=== PATIENT | female | born 1970 | race Caucasian/White ===

== ENCOUNTER 2017-10-04 10:46 | Observation (INO) | payer MEDICARE, MEDICAID ==
[~2017-10-04] VITALS: Ht 162.6 cm; Wt 107.0 kg
[~2017-10-04 10:46] MED LIST: ALBU18HF2 INH; ASPI-1264 PO; CARB200T PO; DOCU100C40 PO; LISI-600 PO; LORA0.5T PO; METH-603 PO
[2017-10-04] MEDS ORDERED: ipratropium/albuterol 3ml nebule NEB ONE (11:30)
[2017-10-04] MEDS ORDERED: morphine 4 MG/ML inj SYRINge IV ONE (11:30)
[2017-10-04] MEDS ORDERED: ondansetron 4mg rapidly disintigrating tab PO ONE (11:30)
[2017-10-04 12:02] LABS: BASOPHILS # (AUTO) 0.1 X10'3 (0-0.2); BASOPHILS % (AUTO) 0.9 % (0-1); EOSINOPHILS % (AUTO) 0.6 % (0-6); HEMATOCRIT 40.8 % (35.0-45.0); HEMOGLOBIN 13.7 g/dl (12.0-16.0); LYMPHOCYTES # (AUTO) 1.6 X10'3 (1.1-4.8); LYMPHOCYTES % (AUTO) 26.4 % (21-51); MEAN CORPUSCULAR HEMOGLOBIN 32.3 PG (27.0-31.0); MEAN CORPUSCULAR HGB CONC 33.6 % (33.0-36.5); MEAN CORPUSCULAR VOLUME 96.2 FL (78-98); MEAN PLATELET VOLUME 7.1 FL (7.4-10.4); MONOCYTES # (AUTO) 0.5 X10'3 (0-0.9); MONOCYTES % (AUTO) 8.1 % (2-12); NEUTROPHILS # (AUTO) 3.9 X10'3 (1.8-7.7); PLATELET COUNT 250 X10'3 (140-440); RED BLOOD COUNT 4.24 X10'6 (4.20-5.60); WHITE BLOOD COUNT 6.1 X10'3 (4.5-11.0)
[2017-10-04 12:17] LABS: ALANINE AMINOTRANSFERASE 15 U/L (12-78); ALBUMIN/GLOBULIN RATIO 0.9 (1.1-1.5); ALKALINE PHOSPHATASE 125 IU/L (46-116); ANION GAP 5 (8-16); ASPARTATE AMINO TRANSFERASE 20 U/L (10-37); BILIRUBIN,TOTAL 0.2 MG/DL (0.1-1.0); BLOOD UREA NITROGEN 13 MG/DL (7-18); BUN/CREATININE RATIO 15.5 (6.6-38.0); CALCIUM 8.3 MG/DL (8.5-10.1); CHLORIDE 102 MMOL/L (99-107); CREATININE 0.84 MG/DL (0.40-0.90); GLUCOSE 114 MG/DL (70-104); POTASSIUM 4.1 MMOL/L (3.5-5.1); SODIUM 142 MMOL/L (135-145); TOTAL CARBON DIOXIDE 34.7 MMOL/L (24-32); TOTAL PROTEIN 6.5 G/DL (6.4-8.2); eGFR 72 ML/MIN
[2017-10-04 12:19] LABS: PLATELET ESTIMATE NORMAL
[2017-10-04 12:20] LABS: ANISOCYTOSIS 1+; TARGET CELLS 1+
[2017-10-04] MEDS ORDERED: HYDROmorphone inj. 0.5 MG/0.5 ML DISP.SYRIN IV ONE (12:20)
[2017-10-04] MEDS ORDERED: iohexol 300mg/ml 100ml inj. ONE (13:01)
[2017-10-04] MEDS ORDERED: furosemide 10 MG/1 ML 10ml inj IV ONE (14:05)
[2017-10-04] MEDS: methadone 10mg tablet PO ONE ×2 (14:15→14:29)
[2017-10-04 14:30] LABS: ABG BASE EXCESS 6.4 mmol/L (-2.0-3.0); ABG HCO3 34.5 mmol/L (22.0-26.0); ABG OXYGEN SATURATION 90.5 % (95-98); ABG PCO2 (T) 66.4 mmHg (32.0-45.0); ABG PH (T) 7.334 (7.350-7.450); ABG PO2 (T) 60.4 mmHg (83-108); ALLEN'S TEST Positive; FCOHb 6.9 % (0.5-1.5); FLOW 3 L/min; FMetHb 0.3 % (0.3-1.12); TOTAL HEMOGLOBIN 13.7 G/dl (12.0-16.0)
[2017-10-04] MEDS ORDERED: normal saline 1000ml 1,000 ML IV SCH (16:01)
[2017-10-04] MEDS ORDERED: HYDROmorphone 1 mg/ml syringe IV PRN (16:05)
[2017-10-04] MEDS ORDERED: ondansetron/PF 4mg/2ml inj IV PRN (16:05)
[2017-10-04] MEDS ORDERED: magnesium hydroxide 30ml (MOM) UD suspension PO PRN (16:05)
[2017-10-04] MEDS ORDERED: mag hydrox/Alum hydrox/simeth 30ml oral suspension PO PRN (16:05)
[2017-10-04] MEDS ORDERED: CARB200T PO ×2 (18:24→18:40)
[2017-10-04] MEDS ORDERED: non-formulary drug (Carbamazepine (Tegretol) 1 TAB) PO PRN (18:35)
[2017-10-04] MEDS ORDERED: albuterol 2.5 MG/3 ML nebule NEB PRN (18:35)
[2017-10-04] MEDS ORDERED: non-formulary drug (Albuterol Sulfate (Ventolin Hfa) 2 PUFFS) INH SCH (18:35)
[2017-10-04] MEDS ORDERED: LORazepam 0.5 MG tablet PO PRN (18:35)
[2017-10-04 19:00] VITALS: BP 144/80
[2017-10-04] MEDS: HYDROmorphone inj. 0.5 MG/0.5 ML DISP.SYRIN IV PRN (19:21)
[2017-10-04] MEDS: docusate sod 100mg capsule PO SCH (19:52)
[2017-10-04] MEDS: methadone 10mg tablet PO SCH (19:53)
[2017-10-04] MEDS ORDERED: non-formulary drug (Carbamazepine (Tegretol) 1 TAB) PO SCH (22:00)
[2017-10-04] MEDS: carBAMazepine 100mg chewable tablet PO SCH (22:03)
[2017-10-05] VITALS: BP 139/80
[2017-10-05] MEDS: HYDROmorphone inj. 0.5 MG/0.5 ML DISP.SYRIN IV PRN ×3 (00:57→10:34)
[2017-10-05] MEDS: acetaminophen 325mg tablet PO PRN ×2 (03:22→07:02)
[2017-10-05 04:51] LABS: BASOPHILS % (AUTO) 0.4 % (0-1); EOSINOPHILS % (AUTO) 0 % (0-6); HEMATOCRIT 38.5 % (35.0-45.0); HEMOGLOBIN 13.2 g/dl (12.0-16.0); LYMPHOCYTES # (AUTO) 1.5 X10'3 (1.1-4.8); LYMPHOCYTES % (AUTO) 22.8 % (21-51); MEAN CORPUSCULAR HEMOGLOBIN 32.7 PG (27.0-31.0); MEAN CORPUSCULAR HGB CONC 34.2 % (33.0-36.5); MEAN CORPUSCULAR VOLUME 95.6 FL (78-98); MEAN PLATELET VOLUME 7.7 FL (7.4-10.4); MONOCYTES # (AUTO) 0.5 X10'3 (0-0.9); MONOCYTES % (AUTO) 7.9 % (2-12); NEUTROPHILS # (AUTO) 4.5 X10'3 (1.8-7.7); NEUTROPHILS % (AUTO) 68.9 % (42-75); PLATELET COUNT 216 X10'3 (140-440); RED BLOOD COUNT 4.02 X10'6 (4.20-5.60); RED CELL DISTRIBUTION WIDTH 16.2 % (11.5-14.5); WHITE BLOOD COUNT 6.6 X10'3 (4.5-11.0)
[2017-10-05 05:24] LABS: ALBUMIN 2.9 G/DL (3.4-5.0); ANION GAP 7 (8-16); BLOOD UREA NITROGEN 11 MG/DL (7-18); BUN/CREATININE RATIO 15.5 (6.6-38.0); CALCIUM 8.1 MG/DL (8.5-10.1); CHLORIDE 99 MMOL/L (99-107); CREATININE 0.71 MG/DL (0.40-0.90); GLUCOSE 91 MG/DL (70-104); POTASSIUM 3.6 MMOL/L (3.5-5.1); SODIUM 142 MMOL/L (135-145); TOTAL CARBON DIOXIDE 36.3 MMOL/L (24-32); eGFR 88 ML/MIN
[2017-10-05] MEDS: carBAMazepine 100mg chewable tablet PO SCH ×2 (05:58→10:33)
[2017-10-05 07:00] VITALS: BP 147/77
[2017-10-05] MEDS: methadone 10mg tablet PO SCH (07:02)
[2017-10-05] MEDS: docusate sod 100mg capsule PO SCH (07:03)
[2017-10-05 11:18] VITALS: BP 136/96
== END 2017-10-05 15:33 | disposition home or self-care (01) ==
LOC: ER 10:46 → ED HOLD 16:01 → SUR 3N 18:49
PROVIDERS: ADMIT Family Medicine; ATTEND Family Medicine
DX: S30.1XXA Contusion of abdominal wall, initial encounter (principal); F17.210 Nicotine dependence, cigarettes, uncomplicated; F41.9 Anxiety disorder, unspecified; G89.4 Chronic pain syndrome; I11.0 Hypertensive heart disease with heart failure; I50.9 Heart failure, unspecified; I25.10 Atherosclerotic heart disease of native coronary artery without angina pectoris; I25.2 Old myocardial infarction; J44.9 Chronic obstructive pulmonary disease, unspecified; K42.9 Umbilical hernia without obstruction or gangrene; W18.30XA Fall on same level, unspecified, initial encounter; Y93.89 Activity, other specified; Y92.098 Other place in other non-institutional residence as the place of occurrence of the external cause; Y99.8 Other external cause status; Z90.710 Acquired absence of both cervix and uterus
CPT/HCPCS: 36415; 36600; 71045; 73502; 74177; 80048; 80053; 82803; 83880; 85018; 85025; 85610; 87070; 93005; 94640; 94760; 96361; 96374; 96375; 96376; 97162; 97530; 99285; G0378; J1170; J1940; J7030; Q9967

== ENCOUNTER 2017-10-20 00:37 | Inpatient (IN) | payer MEDICARE, MEDICAID ==
[~2017-10-20] VITALS: Ht 165.1 cm; Wt 102.0 kg
[~2017-10-20 00:37] MED LIST changes: -ASPI-1264 PO; -LISI-600 PO
[2017-10-20] MEDS ORDERED: albuterol 2.5 MG/3 ML nebule CONTNEB PRN (00:45)
[2017-10-20] MEDS ORDERED: methylPREDNISolone sod succ 125mg/2ml vial IV ONE (00:45)
[2017-10-20] MEDS ORDERED: morphine 4 MG/ML inj SYRINge IV ONE (00:50)
[2017-10-20] MEDS ORDERED: ondansetron/PF 4mg/2ml inj IV ONE (00:50)
[2017-10-20] MEDS ORDERED: magnesium 2GM in 50ml NS 50 ML IV ONE (00:50)
[2017-10-20] MEDS ORDERED: iohexol 300mg/ml 100ml inj. ONE (01:20)
[2017-10-20 01:31] LABS: BASOPHILS % (AUTO) 0.5 % (0-1); EOSINOPHILS % (AUTO) 0 % (0-6); HEMATOCRIT 42.2 % (35.0-45.0); HEMOGLOBIN 14.1 g/dl (12.0-16.0); LYMPHOCYTES # (AUTO) 1.8 X10'3 (1.1-4.8); LYMPHOCYTES % (AUTO) 21.9 % (21-51); MEAN CORPUSCULAR HEMOGLOBIN 32.1 PG (27.0-31.0); MEAN CORPUSCULAR HGB CONC 33.3 % (33.0-36.5); MEAN CORPUSCULAR VOLUME 96.3 FL (78-98); MEAN PLATELET VOLUME 7.9 FL (7.4-10.4); MONOCYTES # (AUTO) 0.5 X10'3 (0-0.9); MONOCYTES % (AUTO) 6.4 % (2-12); NEUTROPHILS # (AUTO) 5.9 X10'3 (1.8-7.7); NEUTROPHILS % (AUTO) 71.2 % (42-75); PLATELET COUNT 242 X10'3 (140-440); RED BLOOD COUNT 4.38 X10'6 (4.20-5.60); RED CELL DISTRIBUTION WIDTH 15.4 % (11.5-14.5); WHITE BLOOD COUNT 8.2 X10'3 (4.5-11.0)
[2017-10-20 01:45] LABS: ALANINE AMINOTRANSFERASE 21 U/L (12-78); ALBUMIN 3.1 G/DL (3.4-5.0); ALBUMIN/GLOBULIN RATIO 0.8 (1.1-1.5); ALKALINE PHOSPHATASE 128 IU/L (46-116); ANION GAP 5 (8-16); ASPARTATE AMINO TRANSFERASE 20 U/L (10-37); BILIRUBIN,TOTAL 0.4 MG/DL (0.1-1.0); BLOOD UREA NITROGEN 9 MG/DL (7-18); CALCIUM 8.5 MG/DL (8.5-10.1); CHLORIDE 98 MMOL/L (99-107); GLUCOSE 109 MG/DL (70-104); MAGNESIUM 1.7 MG/DL (1.5-2.4); PHOSPHORUS 3.7 MG/DL (2.3-4.5); POTASSIUM 4.1 MMOL/L (3.5-5.1); SODIUM 137 MMOL/L (135-145); TOTAL CARBON DIOXIDE 33.7 MMOL/L (24-32); TOTAL PROTEIN 6.8 G/DL (6.4-8.2); eGFR > 90 ML/MIN
[2017-10-20 02:01] LABS: URINE HCG NEGATIVE (NEG)
[2017-10-20 02:02] LABS: CLARITY,URINE CLEAR (Clear); COLOR,URINE YELLOW (Yellow); GLUCOSE, URINE NEGATIVE (Neg); KETONES,URINE NEGATIVE (Neg); LEUKOCYTE ESTERASE ,URINE NEGATIVE (Neg); NITRITES, URINE NEGATIVE (Neg); OCCULT BLOOD,URINE TRACE-INTACT (Neg); PH,URINE 8.5 (4.8-8.0); PROTEIN,URINE NEGATIVE (Neg); UROBILINOGEN,URINE 0.2 E.U/dL (0.2-1.0)
[2017-10-20 02:05] LABS: UA COLLECTION TYPE CLN CATCH MIDSTREAM
[2017-10-20 02:06] LABS: SQUAMOUS EPITHELIAL CELL,UR FEW /LPF (FEW)
[2017-10-20 02:07] LABS: BACTERIA,URINE FEW /HPF (Neg); RBC,URINE 0-2 /HPF (0-2); WBC,URINE 0-4 /HPF (0-4)
[2017-10-20] MEDS ORDERED: acetaminophen 325mg tablet PO PRN ×2 (02:20)
[2017-10-20] MEDS ORDERED: metoclopramide 5 mg/ml inj IV PRN (02:20)
[2017-10-20] MEDS ORDERED: diphenhydrAMINE 25mg capsule PO PRN (02:20)
[2017-10-20] MEDS ORDERED: mag hydrox/Alum hydrox/simeth 30ml oral suspension PO PRN (02:20)
[2017-10-20] MEDS ORDERED: HYDROcodone/acetaminophen 10/325mg tab PO PRN (02:20)
[2017-10-20] MEDS ORDERED: acetaminophen 650mg rectal suppository RC PRN (02:20)
[2017-10-20] MEDS ORDERED: bisacodyl 10mg suppository rectal RC PRN (02:20)
[2017-10-20] MEDS ORDERED: ondansetron/PF 4mg/2ml inj IV PRN (02:20)
[2017-10-20] MEDS ORDERED: magnesium hydroxide 30ml (MOM) UD suspension PO PRN (02:20)
[2017-10-20] MEDS ORDERED: HYDROcodone/acetaminophen 5mg/325mg tablet PO PRN (02:20)
[2017-10-20] MEDS ORDERED: morphine 2 MG/ML inj. syringe IV PRN (02:20)
[2017-10-20] MEDS ORDERED: diphenhydrAMINE 50 mg/ml inj IV PRN (02:20)
[2017-10-20] MEDS ORDERED: cloNIDine 0.1 mg tablet PO STA (02:40)
[2017-10-20] MEDS: HYDROmorphone inj. 0.5 MG/0.5 ML DISP.SYRIN IV PRN ×3 (02:58→22:15)
[2017-10-20 02:59] LABS: URINE AMPHETAMINE SCREEN NEGATIVE (Neg); URINE BARBITUATE SCREEN NEGATIVE (Neg); URINE BENZODIAZEPINES SCREEN NEGATIVE (Neg); URINE CANNABINOID SCREEN NEGATIVE (Neg); URINE COCAINE SCREEN NEGATIVE (Neg); URINE METHADONE SCREEN NEGATIVE (Neg); URINE OPIATE SCREEN POSITIVE (Neg); URINE PHENCYCLIDINE SCREEN NEGATIVE (Neg)
[2017-10-20 04:51] LABS: HEMOGLOBIN A1C 5.8 % (4.5-6.2)
[2017-10-20 05:02] LABS: CARBAMAZEPINE (TEGRETOL) 9.8 UG/ML (4.0-12.0)
[2017-10-20] MEDS: carBAMazepine 100mg chewable tablet PO SCH ×5 (07:06→22:00)
[2017-10-20] MEDS ORDERED: methadone 10mg tablet PO SCH (08:00)
[2017-10-20] MEDS ORDERED: docusate sod 100mg capsule PO SCH (08:00)
[2017-10-20] MEDS ORDERED: furosemide 10 MG/1 ML 10ml inj IV SCH (08:00)
[2017-10-20] MEDS ORDERED: cloNIDine 0.1 mg tablet PO SCH (08:00)
[2017-10-20] MEDS: docusate sod 100mg capsule PO SCH ×2 (08:22→20:35)
[2017-10-20] MEDS: LORazepam 0.5 MG tablet PO SCH ×2 (08:25→20:35)
[2017-10-20] MEDS: heparin, porcine 5000 units/ml vial SQ SCH ×3 (08:35→23:44)
[2017-10-20] MEDS: levoFLOXACIN 750MG TABLET PO SCH (11:37)
[2017-10-20] MEDS ORDERED: METH-603 PO ×2 (11:41)
[2017-10-20 12:00] VITALS: BP 106/57
[2017-10-20] MEDS: methadone 5mg tablet PO SCH ×2 (12:45→17:30)
[2017-10-20] MEDS: albuterol 2.5 MG/3 ML nebule NEB PRN (13:42)
[2017-10-20] MEDS: nicotine 14mg patch - 24hr TD SCH (14:28)
[2017-10-20 14:34] VITALS: BP 98/60
[2017-10-20] MEDS: methylPREDNISolone sod succ 125mg/2ml vial IV SCH ×2 (16:21→23:43)
[2017-10-20] MEDS: lactobacillus rhamnosus 10,000 MMU CELLS/CAPSULE PO SCH (17:28)
[2017-10-20 17:40] VITALS: BP 128/75
[2017-10-20 19:00] VITALS: BP 113/71
[2017-10-20] MEDS: furosemide 40mg/4ml inj IV SCH (20:35)
[2017-10-20] MEDS: methadone 10mg tablet PO SCH (20:38)
[2017-10-20] MEDS ORDERED: temazepam 15mg capsule PO PRN (21:00)
[2017-10-21] VITALS: BP 108/64
[2017-10-21] MEDS: HYDROmorphone inj. 0.5 MG/0.5 ML DISP.SYRIN IV PRN ×4 (03:37→19:54)
[2017-10-21 05:22] LABS: BASOPHILS % (AUTO) 0.3 % (0-1); EOSINOPHILS % (AUTO) 0 % (0-6); HEMATOCRIT 39.4 % (35.0-45.0); HEMOGLOBIN 13.3 g/dl (12.0-16.0); LYMPHOCYTES # (AUTO) 0.7 X10'3 (1.1-4.8); LYMPHOCYTES % (AUTO) 9.4 % (21-51); MEAN CORPUSCULAR HEMOGLOBIN 32.6 PG (27.0-31.0); MEAN CORPUSCULAR HGB CONC 33.8 % (33.0-36.5); MEAN CORPUSCULAR VOLUME 96.6 FL (78-98); MEAN PLATELET VOLUME 7.9 FL (7.4-10.4); MONOCYTES # (AUTO) 0.2 X10'3 (0-0.9); MONOCYTES % (AUTO) 2.5 % (2-12); NEUTROPHILS # (AUTO) 6.3 X10'3 (1.8-7.7); NEUTROPHILS % (AUTO) 87.8 % (42-75); PLATELET COUNT 230 X10'3 (140-440); RED BLOOD COUNT 4.08 X10'6 (4.20-5.60); RED CELL DISTRIBUTION WIDTH 16.5 % (11.5-14.5); WHITE BLOOD COUNT 7.2 X10'3 (4.5-11.0)
[2017-10-21 05:33] LABS: ALANINE AMINOTRANSFERASE 19 U/L (12-78); ALBUMIN 3.1 G/DL (3.4-5.0); ALBUMIN/GLOBULIN RATIO 0.8 (1.1-1.5); ALKALINE PHOSPHATASE 118 IU/L (46-116); ANION GAP 4 (8-16); ASPARTATE AMINO TRANSFERASE 16 U/L (10-37); BILIRUBIN,TOTAL 0.2 MG/DL (0.1-1.0); BLOOD UREA NITROGEN 20 MG/DL (7-18); BUN/CREATININE RATIO 30.8 (6.6-38.0); CALCIUM 8.5 MG/DL (8.5-10.1); CHLORIDE 97 MMOL/L (99-107); CHOL/HDL RATIO 2.5 (0.00-4.99); CHOLESTEROL 154 MG/DL (0-200); CREATININE 0.65 MG/DL (0.40-0.90); GLUCOSE 131 MG/DL (70-104); HDL CHOLESTEROL 62 MG/DL (35-60); LDL CHOLESTEROL 72 MG/DL (50-100); SODIUM 135 MMOL/L (135-145); TOTAL CARBON DIOXIDE 33.6 MMOL/L (24-32); TOTAL PROTEIN 6.8 G/DL (6.4-8.2); TRIGLYCERIDES 59 MG/DL (20-135); eGFR > 90 ML/MIN
[2017-10-21 05:38] LABS: POTASSIUM 4.6 MMOL/L (3.5-5.1)
[2017-10-21] MEDS: carBAMazepine 100mg chewable tablet PO SCH ×5 (05:39→21:18)
[2017-10-21 07:44] VITALS: BP 115/64
[2017-10-21] MEDS: furosemide 40mg/4ml inj IV SCH ×2 (07:56→20:02)
[2017-10-21] MEDS: methylPREDNISolone sod succ 125mg/2ml vial IV SCH ×2 (07:56→16:34)
[2017-10-21] MEDS: LORazepam 0.5 MG tablet PO SCH ×2 (07:58→19:54)
[2017-10-21] MEDS: lactobacillus rhamnosus 10,000 MMU CELLS/CAPSULE PO SCH ×2 (07:58→17:37)
[2017-10-21] MEDS: methadone 10mg tablet PO SCH ×2 (07:59→21:19)
[2017-10-21] MEDS: heparin, porcine 5000 units/ml vial SQ SCH ×2 (08:00→16:35)
[2017-10-21] MEDS: nicotine 14mg patch - 24hr TD SCH (08:00)
[2017-10-21] MEDS: docusate sod 100mg capsule PO SCH ×2 (08:02→19:54)
[2017-10-21] MEDS: albuterol 2.5 MG/3 ML nebule NEB PRN (11:23)
[2017-10-21] MEDS: levoFLOXACIN 750MG TABLET PO SCH (11:32)
[2017-10-21 12:34] VITALS: BP 117/78
[2017-10-21] MEDS: methadone 5mg tablet PO SCH ×2 (13:07→17:38)
[2017-10-21] MEDS: predniSONE 20 mg tablet PO SCH (19:54)
[2017-10-21 20:00] VITALS: BP 185/113
[2017-10-21 20:40] VITALS: BP 134/84
[2017-10-21] MEDS: clindamycin 600mg/D5W 50ml 50 ML IV SCH (21:44)
[2017-10-22] VITALS: BP 148/85
[2017-10-22] MEDS: heparin, porcine 5000 units/ml vial SQ SCH ×2 (00:07→08:04)
[2017-10-22] MEDS: morphine 2 MG/ML inj. syringe IV PRN ×2 (04:49→08:14)
[2017-10-22 05:28] LABS: BASOPHILS % (AUTO) 0.2 % (0-1); EOSINOPHILS # (AUTO) 0.1 X10'3 (0-0.9); EOSINOPHILS % (AUTO) 1.3 % (0-6); HEMATOCRIT 41.3 % (35.0-45.0); HEMOGLOBIN 14.1 g/dl (12.0-16.0); LYMPHOCYTES # (AUTO) 1.3 X10'3 (1.1-4.8); LYMPHOCYTES % (AUTO) 15.6 % (21-51); MEAN CORPUSCULAR HEMOGLOBIN 32.9 PG (27.0-31.0); MEAN CORPUSCULAR HGB CONC 34.1 % (33.0-36.5); MEAN CORPUSCULAR VOLUME 96.5 FL (78-98); MEAN PLATELET VOLUME 7.6 FL (7.4-10.4); MONOCYTES # (AUTO) 0.5 X10'3 (0-0.9); MONOCYTES % (AUTO) 6.4 % (2-12); NEUTROPHILS # (AUTO) 6.4 X10'3 (1.8-7.7); NEUTROPHILS % (AUTO) 76.5 % (42-75); PLATELET COUNT 238 X10'3 (140-440); RED BLOOD COUNT 4.28 X10'6 (4.20-5.60); RED CELL DISTRIBUTION WIDTH 16.4 % (11.5-14.5); WHITE BLOOD COUNT 8.4 X10'3 (4.5-11.0)
[2017-10-22 05:36] LABS: ALANINE AMINOTRANSFERASE 11 U/L (12-78); ALBUMIN 2.9 G/DL (3.4-5.0); ALBUMIN/GLOBULIN RATIO 0.8 (1.1-1.5); ALKALINE PHOSPHATASE 108 IU/L (46-116); ANION GAP 3 (8-16); ASPARTATE AMINO TRANSFERASE 11 U/L (10-37); BILIRUBIN,TOTAL 0.3 MG/DL (0.1-1.0); BLOOD UREA NITROGEN 25 MG/DL (7-18); BUN/CREATININE RATIO 37.9 (6.6-38.0); CALCIUM 8.7 MG/DL (8.5-10.1); CHLORIDE 96 MMOL/L (99-107); CREATININE 0.66 MG/DL (0.40-0.90); GLUCOSE 117 MG/DL (70-104); POTASSIUM 4.2 MMOL/L (3.5-5.1); SODIUM 136 MMOL/L (135-145); TOTAL CARBON DIOXIDE 37.3 MMOL/L (24-32); TOTAL PROTEIN 6.6 G/DL (6.4-8.2); eGFR > 90 ML/MIN
[2017-10-22] MEDS: carBAMazepine 100mg chewable tablet PO SCH ×3 (06:45→14:27)
[2017-10-22 07:24] VITALS: BP 93/46
[2017-10-22] MEDS: furosemide 40mg/4ml inj IV SCH (07:56)
[2017-10-22] MEDS: clindamycin 600mg/D5W 50ml 50 ML IV SCH ×2 (08:00→12:53)
[2017-10-22] MEDS: lactobacillus rhamnosus 10,000 MMU CELLS/CAPSULE PO SCH (08:02)
[2017-10-22] MEDS: methadone 10mg tablet PO SCH (08:02)
[2017-10-22] MEDS: docusate sod 100mg capsule PO SCH (08:02)
[2017-10-22] MEDS: LORazepam 0.5 MG tablet PO SCH (08:02)
[2017-10-22] MEDS: predniSONE 20 mg tablet PO SCH (08:03)
[2017-10-22] MEDS: nicotine 14mg patch - 24hr TD SCH (08:04)
[2017-10-22] MEDS: levoFLOXACIN 750MG TABLET PO SCH (11:14)
[2017-10-22 11:54] VITALS: BP 126/84
[2017-10-22] MEDS ORDERED: LEVO750T46 PO (12:04)
[2017-10-22] MEDS ORDERED: PRED20TA PO (12:04)
[2017-10-22] MEDS: methadone 5mg tablet PO SCH (12:53)
== END 2017-10-22 14:36 | disposition home or self-care (01) | DRG 190 ==
LOC: ER 00:38 → ED HOLD 02:19 → S STAY 12:32 → SUR 3N 17:08
PROVIDERS: ADMIT Family Medicine; ATTEND Family Medicine
PROC: BW211ZZ Computerized Tomography (CT Scan) of Abdomen and Pelvis using Low Osmolar Contrast (ICD-10-PCS; principal; 2017-10-20)
DX: J44.1 Chronic obstructive pulmonary disease with (acute) exacerbation (principal); I50.33 Acute on chronic diastolic (congestive) heart failure; I16.1 Hypertensive emergency; J44.0 Chronic obstructive pulmonary disease with (acute) lower respiratory infection; I11.0 Hypertensive heart disease with heart failure; G89.4 Chronic pain syndrome; I08.0 Rheumatic disorders of both mitral and aortic valves; I25.10 Atherosclerotic heart disease of native coronary artery without angina pectoris; J20.9 Acute bronchitis, unspecified; R19.00 Intra-abdominal and pelvic swelling, mass and lump, unspecified site; K42.9 Umbilical hernia without obstruction or gangrene; R09.02 Hypoxemia; F17.200 Nicotine dependence, unspecified, uncomplicated; I25.2 Old myocardial infarction; Z95.5 Presence of coronary angioplasty implant and graft; Z99.81 Dependence on supplemental oxygen; Z79.899 Other long term (current) drug therapy; Z82.49 Family history of ischemic heart disease and other diseases of the circulatory system
CPT/HCPCS: 36415; 71045; 73030; 73060; 74177; 80053; 80061; 80156; 80305; 81001; 81025; 83036; 83605; 83735; 83880; 84100; 84443; 84484; 85025; 87040; 87070; 87077; 87186; 87502; 87503; 93005; 94640; 94760; 96365; 96375; 97116; 97162; 97530; 99291; J1170; J1644; J1940; J2270; J2405; J2930; J3475; J3490; J7030; J7512; Q9967

== ENCOUNTER 2018-02-28 00:02 | Inpatient (IN) | payer MEDICARE, MEDICAID ==
[~2018-02-28] VITALS: Ht 172.7 cm; Wt 87.3 kg
[2018-02-28] VITALS (25 sets, daily range): BP systolic 127–190; BP diastolic 77–113
[~2018-02-28 00:02] MED LIST changes: +LEVO750T46 PO; +PRED20TA PO
[2018-02-28] MEDS ORDERED: rocuronium 10mg/ml inj IV ONE ×2 (00:20→08:00)
[2018-02-28] MEDS ORDERED: etomidate 2mg/ml inj. IV ONE (00:20)
[2018-02-28] MEDS ORDERED: MIDAZolam 5mg/ml 2ml vial IV ONE ×2 (00:30→00:35)
[2018-02-28] MEDS ORDERED: midazolam 100mg in NS 100ml 100 ML IV PRN (00:30)
[2018-02-28] MEDS ORDERED: normal saline 1000ML IV soln IVB ONE ×2 (00:30→01:55)
[2018-02-28 00:46] LABS: ABG BASE EXCESS 2.5 mmol/L (-2.0-3.0); ABG HCO3 30.1 mmol/L (22.0-26.0); ABG OXYGEN SATURATION 97.4 % (95-98); ABG PCO2 (T) 56.8 mmHg (32.0-45.0); ABG PH (T) 7.338 (7.350-7.450); ABG PO2 (T) 92.9 mmHg (83-108); ALLEN'S TEST Positive; FCOHb 6.1 % (0.5-1.5); FMetHb 0.3 % (0.3-1.12); FO2Hb 91.2 % (94-100); MINUTE VOLUME 10 L/min; PATIENT TEMPERATURE 36.2; PEEP 5 cm H2O; RESPIRATORY RATE 18 b/min; RESPIRATORY RATE (OBSERVED) 18 b/min; TIDAL VOLUME 550 mL; TOTAL HEMOGLOBIN 15.4 G/dl (12.0-16.0)
[2018-02-28 02:12] LABS: BASOPHILS % (AUTO) 0.1 % (0-1); EOSINOPHILS # (AUTO) 0.1 X10'3 (0-0.9); EOSINOPHILS % (AUTO) 0.6 % (0-6); HEMATOCRIT 43.7 % (35.0-45.0); HEMOGLOBIN 13.9 g/dl (12.0-16.0); LYMPHOCYTES # (AUTO) 0.7 X10'3 (1.1-4.8); LYMPHOCYTES % (AUTO) 4.9 % (21-51); MEAN CORPUSCULAR HEMOGLOBIN 29.8 PG (27.0-31.0); MEAN CORPUSCULAR HGB CONC 31.7 % (33.0-36.5); MEAN PLATELET VOLUME 7.9 FL (7.4-10.4); MONOCYTES # (AUTO) 0.8 X10'3 (0-0.9); MONOCYTES % (AUTO) 6.1 % (2-12); NEUTROPHILS % (AUTO) 88.3 % (42-75); PLATELET COUNT 197 X10'3 (140-440); RED BLOOD COUNT 4.65 X10'6 (4.20-5.60); RED CELL DISTRIBUTION WIDTH 16.2 % (11.5-14.5); WHITE BLOOD COUNT 13.5 X10'3 (4.5-11.0)
[2018-02-28 02:19] LABS: INR 1.2 INR; PARTIAL THROMBOPLASTIN TIME 25 SECONDS (22-32); PROTHROMBIN TIME 11.9 SECONDS (9.0-12.0)
[2018-02-28 02:21] LABS: URINE AMPHETAMINE SCREEN NEGATIVE (Neg); URINE BARBITUATE SCREEN NEGATIVE (Neg); URINE BENZODIAZEPINES SCREEN POSITIVE (Neg); URINE CANNABINOID SCREEN NEGATIVE (Neg); URINE COCAINE SCREEN NEGATIVE (Neg); URINE METHADONE SCREEN POSITIVE (Neg); URINE OPIATE SCREEN NEGATIVE (Neg); URINE PHENCYCLIDINE SCREEN NEGATIVE (Neg)
[2018-02-28 02:27] LABS: ALANINE AMINOTRANSFERASE 28 U/L (12-78); ALBUMIN/GLOBULIN RATIO 0.8 (1.1-1.5); ALKALINE PHOSPHATASE 157 IU/L (46-116); ANION GAP 2 (8-16); ASPARTATE AMINO TRANSFERASE 57 U/L (10-37); BILIRUBIN,TOTAL 0.5 MG/DL (0.1-1.0); BLOOD UREA NITROGEN 15 MG/DL (7-18); BUN/CREATININE RATIO 14.4 (6.6-38.0); CALCIUM 7.8 MG/DL (8.5-10.1); CHLORIDE 99 MMOL/L (99-107); CREATININE 1.04 MG/DL (0.40-0.90); GLUCOSE 70 MG/DL (70-104); POTASSIUM 3.3 MMOL/L (3.5-5.1); SODIUM 135 MMOL/L (135-145); TOTAL CARBON DIOXIDE 34.4 MMOL/L (24-32); TOTAL PROTEIN 6.9 G/DL (6.4-8.2); eGFR 57 ML/MIN
[2018-02-28 02:35] LABS: CREATINE KINASE 168 U/L (26-192); MAGNESIUM 1.8 MG/DL (1.5-2.4); PHOSPHORUS 4.7 MG/DL (2.3-4.5)
[2018-02-28 02:40] LABS: ACETAMINOPHEN < 2.0 UG/ML (10-30); ETHANOL < 0.010 GM/DL (0.0-0.010)
[2018-02-28] MEDS ORDERED: potass W/LIDOcaine 10mEq/100ml 100 ML IV ONE (02:40)
[2018-02-28] MEDS ORDERED: potassium Cl 40MEQ/NS 500ml 500 ML IV PRN ×2 (03:20)
[2018-02-28] MEDS ORDERED: CefTRIAXone/D5W-Rocephin 1gm 50 ML IV ONE (03:20)
[2018-02-28] MEDS ORDERED: ondansetron/PF 4mg/2ml inj IV PRN (03:20)
[2018-02-28] MEDS ORDERED: acetaminophen 650mg rectal suppository RC PRN (03:20)
[2018-02-28] MEDS ORDERED: potassium Cl 20 mEq SR tablet PO PRN ×2 (03:20)
[2018-02-28] MEDS ORDERED: acetaminophen 325mg tablet PO PRN (03:20)
[2018-02-28] MEDS ORDERED: ipratropium/albuterol 3ml nebule NEB PRN (03:20)
[2018-02-28] MEDS ORDERED: morphine 4 MG/ML inj SYRINge IV PRN (03:20)
[2018-02-28] MEDS ORDERED: magnesium hydroxide 30ml (MOM) UD suspension PO PRN (03:20)
[2018-02-28] MEDS: K, MAG and/or Phos replacement - Verify level? MC SCH ×2 (04:00→08:00)
[2018-02-28 04:10] LABS: ANISOCYTOSIS 1+; PLATELET ESTIMATE NORMAL; TOTAL CELLS COUNTED 100
[2018-02-28 04:11] LABS: TARGET CELLS FEW
[2018-02-28] MEDS ORDERED: propofol 1000mg/100ml bottle 100 ML IV ONE (04:21)
[2018-02-28] MEDS: levoFLOXACIN-Levaquin 750MG/D5 150 ML IV SCH (07:20)
[2018-02-28] MEDS: normal saline 1000ml 1,000 ML IV SCH ×2 (07:20→16:39)
[2018-02-28] MEDS: propofol 1000mg/100ml bottle 100 ML IV PRN ×3 (07:21→22:48)
[2018-02-28] MEDS: midazolam 100mg in NS 100ml 100 ML IV PRN ×2 (07:22→15:35)
[2018-02-28] MEDS: enoxaparin 40mg/0.4ml syringe SUBCUT SCH (07:22)
[2018-02-28] MEDS: pantoprazole 40 MG vial IV SCH (08:00)
[2018-02-28] MEDS ORDERED: etomidate 2mg/ml inj. ONE ×2 (08:00→14:00)
[2018-02-28] MEDS ORDERED: CefTRIAXone 2gm/D5W 50ml 50 ML IV SCH (08:00)
[2018-02-28] MEDS ORDERED: GABA-530 PO (12:53)
[2018-02-28] MEDS ORDERED: POTA20TA19 PO (12:53)
[2018-02-28] MEDS ORDERED: ASPI-845 PO (12:53)
[2018-02-28] MEDS ORDERED: NICO-687 TOP (12:53)
[2018-02-28] MEDS ORDERED: FURO40TA4 PO (12:53)
[2018-02-28] MEDS ORDERED: METO-395 PO (12:53)
[2018-02-28] MEDS ORDERED: METH-603 PO ×2 (12:53)
[2018-02-28] MEDS ORDERED: SIMV40TA4 PO (12:53)
[2018-02-28] MEDS: morphine 4 MG/ML inj SYRINge IV PRN (15:36)
[2018-02-28] MEDS: ipratropium/albuterol 3ml nebule NEB SCH ×3 (16:11→22:41)
[2018-03-01] VITALS (24 sets, daily range): BP systolic 91–186; BP diastolic 50–109
[2018-03-01] MEDS: morphine 4 MG/ML inj SYRINge IV PRN ×2 (00:30→07:11)
[2018-03-01] MEDS ORDERED: midazolam 100mg in NS 100ml 100 ML IV PRN (00:30)
[2018-03-01] MEDS: ipratropium/albuterol 3ml nebule NEB SCH ×6 (02:29→22:31)
[2018-03-01] MEDS: propofol 1000mg/100ml bottle 100 ML IV PRN ×5 (02:31→20:10)
[2018-03-01] MEDS: midazolam 100mg in NS 100ml 100 ML IV PRN (03:26)
[2018-03-01 04:06] LABS: ABG BASE EXCESS 4.5 mmol/L (-2.0-3.0); ABG HCO3 28.4 mmol/L (22.0-26.0); ABG OXYGEN SATURATION 90.2 % (95-98); ABG PCO2 (T) 40.3 mmHg (32.0-45.0); ABG PH (T) 7.467 (7.350-7.450); ABG PO2 (T) 58.4 mmHg (83-108); FCOHb 0.8 % (0.5-1.5); FMetHb 0.3 % (0.3-1.12); FO2Hb 89.2 % (94-100); MINUTE VOLUME 11 L/min; PATIENT TEMPERATURE 37.3; PEEP 5 cm H2O; RESPIRATORY RATE 20 b/min; RESPIRATORY RATE (OBSERVED) 20 b/min; TIDAL VOLUME 550 mL; TOTAL HEMOGLOBIN 13.9 G/dl (12.0-16.0)
[2018-03-01] MEDS: normal saline 1000ml 1,000 ML IV SCH (05:59)
[2018-03-01 06:24] LABS: BASOPHILS % (AUTO) 0.3 % (0-1); EOSINOPHILS % (AUTO) 0 % (0-6); HEMATOCRIT 40.6 % (35.0-45.0); HEMOGLOBIN 13.3 g/dl (12.0-16.0); LYMPHOCYTES # (AUTO) 0.9 X10'3 (1.1-4.8); LYMPHOCYTES % (AUTO) 8.9 % (21-51); MEAN CORPUSCULAR HEMOGLOBIN 29.6 PG (27.0-31.0); MEAN CORPUSCULAR HGB CONC 32.8 % (33.0-36.5); MEAN CORPUSCULAR VOLUME 90.4 FL (78-98); MONOCYTES # (AUTO) 0.9 X10'3 (0-0.9); MONOCYTES % (AUTO) 8.7 % (2-12); NEUTROPHILS # (AUTO) 8.6 X10'3 (1.8-7.7); NEUTROPHILS % (AUTO) 82.1 % (42-75); PLATELET COUNT 170 X10'3 (140-440); RED BLOOD COUNT 4.49 X10'6 (4.20-5.60); RED CELL DISTRIBUTION WIDTH 16.4 % (11.5-14.5); WHITE BLOOD COUNT 10.5 X10'3 (4.5-11.0)
[2018-03-01 07:04] LABS: ALANINE AMINOTRANSFERASE 35 U/L (12-78); ALBUMIN 2.3 G/DL (3.4-5.0); ALBUMIN/GLOBULIN RATIO 0.7 (1.1-1.5); ALKALINE PHOSPHATASE 113 IU/L (46-116); ANION GAP 8 (8-16); ASPARTATE AMINO TRANSFERASE 49 U/L (10-37); BILIRUBIN,TOTAL 0.7 MG/DL (0.1-1.0); BLOOD UREA NITROGEN 11 MG/DL (7-18); BUN/CREATININE RATIO 15.3 (6.6-38.0); CALCIUM 7.7 MG/DL (8.5-10.1); CHLORIDE 99 MMOL/L (99-107); CREATININE 0.72 MG/DL (0.40-0.90); GLUCOSE 114 MG/DL (70-104); MAGNESIUM 1.3 MG/DL (1.5-2.4); PHOSPHORUS 2.8 MG/DL (2.3-4.5); POTASSIUM 3.8 MMOL/L (3.5-5.1); SODIUM 136 MMOL/L (135-145); TOTAL CARBON DIOXIDE 29.4 MMOL/L (24-32); TOTAL PROTEIN 5.5 G/DL (6.4-8.2); eGFR 86 ML/MIN
[2018-03-01] MEDS: levoFLOXACIN-Levaquin 750MG/D5 150 ML IV SCH (07:51)
[2018-03-01] MEDS: pantoprazole 40 MG vial IV SCH (07:51)
[2018-03-01] MEDS: enoxaparin 40mg/0.4ml syringe SUBCUT SCH (07:52)
[2018-03-01] MEDS: K, MAG and/or Phos replacement - Verify level? MC SCH (08:00)
[2018-03-01] MEDS: mineral oil/petrolatum ophthal oint EACHEYE SCH ×3 (08:09→20:00)
[2018-03-01] MEDS ORDERED: magnesium 4gm in 100ml NS 100 ML IV PRN (08:55)
[2018-03-01] MEDS ORDERED: potassium Cl 20 mEq SR tablet PO PRN ×2 (08:55)
[2018-03-01] MEDS ORDERED: magnesium Cl slow-release 64mg tablet PO PRN (08:55)
[2018-03-01] MEDS ORDERED: potassium Cl 40MEQ/250ML bag 250 ML IV PRN (08:55)
[2018-03-01] MEDS: FENTANYL-0.9 % NACL/PF 100 ML IV PRN (10:34)
[2018-03-01] MEDS: magnesium 1gm/100ml D5W IVPB 100 ML IV PRN ×2 (11:15→13:39)
[2018-03-01] MEDS: CARBAMAZEPINE 200 MG/10 ML PO SCH ×2 (12:59→17:39)
[2018-03-02] VITALS (20 sets, daily range): BP systolic 101–127; BP diastolic 48–80
[2018-03-02] MEDS: propofol 1000mg/100ml bottle 100 ML IV PRN ×6 (00:55→20:00)
[2018-03-02] MEDS: FENTANYL-0.9 % NACL/PF 100 ML IV PRN ×2 (01:06→08:42)
[2018-03-02] MEDS: mineral oil/petrolatum ophthal oint EACHEYE SCH ×4 (02:00→20:00)
[2018-03-02] MEDS: ipratropium/albuterol 3ml nebule NEB SCH ×6 (02:28→22:44)
[2018-03-02 04:01] LABS: ABG BASE EXCESS 5.4 mmol/L (-2.0-3.0); ABG HCO3 29.6 mmol/L (22.0-26.0); ABG OXYGEN SATURATION 88.9 % (95-98); ABG PCO2 (T) 44.3 mmHg (32.0-45.0); ABG PH (T) 7.448 (7.350-7.450); ABG PO2 (T) 58.8 mmHg (83-108); ALLEN'S TEST Positive; FCOHb 0.8 % (0.5-1.5); FMetHb 0.2 % (0.3-1.12); MINUTE VOLUME 12 L/min; PATIENT TEMPERATURE 38.2; PEEP 5 cm H2O; RESPIRATORY RATE 20 b/min; RESPIRATORY RATE (OBSERVED) 21 b/min; TIDAL VOLUME 550 mL; TOTAL HEMOGLOBIN 12.7 G/dl (12.0-16.0)
[2018-03-02 06:06] LABS: BASOPHILS % (AUTO) 0.2 % (0-1); EOSINOPHILS % (AUTO) 0.2 % (0-6); HEMOGLOBIN 12.1 g/dl (12.0-16.0); LYMPHOCYTES # (AUTO) 0.9 X10'3 (1.1-4.8); LYMPHOCYTES % (AUTO) 9.3 % (21-51); MEAN CORPUSCULAR HEMOGLOBIN 29.5 PG (27.0-31.0); MEAN CORPUSCULAR HGB CONC 32.6 % (33.0-36.5); MEAN CORPUSCULAR VOLUME 90.6 FL (78-98); MEAN PLATELET VOLUME 9.1 FL (7.4-10.4); MONOCYTES # (AUTO) 0.9 X10'3 (0-0.9); MONOCYTES % (AUTO) 9.4 % (2-12); NEUTROPHILS # (AUTO) 7.9 X10'3 (1.8-7.7); NEUTROPHILS % (AUTO) 80.9 % (42-75); PLATELET COUNT 157 X10'3 (140-440); RED BLOOD COUNT 4.09 X10'6 (4.20-5.60); RED CELL DISTRIBUTION WIDTH 16.5 % (11.5-14.5); WHITE BLOOD COUNT 9.8 X10'3 (4.5-11.0)
[2018-03-02 06:29] LABS: ALANINE AMINOTRANSFERASE 28 U/L (12-78); ALBUMIN 2.1 G/DL (3.4-5.0); ALBUMIN/GLOBULIN RATIO 0.6 (1.1-1.5); ALKALINE PHOSPHATASE 96 IU/L (46-116); ANION GAP 5 (8-16); ASPARTATE AMINO TRANSFERASE 30 U/L (10-37); BILIRUBIN,TOTAL 0.6 MG/DL (0.1-1.0); BLOOD UREA NITROGEN 9 MG/DL (7-18); BUN/CREATININE RATIO 16.1 (6.6-38.0); CALCIUM 7.7 MG/DL (8.5-10.1); CHLORIDE 99 MMOL/L (99-107); CREATININE 0.56 MG/DL (0.40-0.90); GLUCOSE 125 MG/DL (70-104); MAGNESIUM 1.9 MG/DL (1.5-2.4); PHOSPHORUS 2.7 MG/DL (2.3-4.5); POTASSIUM 3.7 MMOL/L (3.5-5.1); PREALBUMIN 10.8 MG/DL (19-36); SODIUM 133 MMOL/L (135-145); TOTAL CARBON DIOXIDE 29.3 MMOL/L (24-32); TOTAL PROTEIN 5.4 G/DL (6.4-8.2); eGFR > 90 ML/MIN
[2018-03-02] MEDS: pantoprazole 40 MG vial IV SCH (07:32)
[2018-03-02] MEDS: levoFLOXACIN-Levaquin 750MG/D5 150 ML IV SCH (07:33)
[2018-03-02] MEDS: enoxaparin 40mg/0.4ml syringe SUBCUT SCH (07:35)
[2018-03-02] MEDS: K, MAG and/or Phos replacement - Verify level? MC SCH (08:00)
[2018-03-02] MEDS: CARBAMAZEPINE 200 MG/10 ML PO SCH ×3 (08:30→19:44)
[2018-03-02] MEDS: acetaminophen 325mg tablet PO PRN (11:24)
[2018-03-02] MEDS ORDERED: iohexol 350MG/ML 100ml bottle IV ONE (14:40)
[2018-03-02] MEDS: lactobacillus rhamnosus 10,000 MMU CELLS/CAPSULE PO SCH (19:43)
[2018-03-03] VITALS (22 sets, daily range): BP systolic 87–131; BP diastolic 49–90
[2018-03-03] MEDS ORDERED: potassium Cl oral solution 20 MEQ/15 ML PO ONE (00:30)
[2018-03-03] MEDS: mineral oil/petrolatum ophthal oint EACHEYE SCH ×4 (02:35→20:00)
[2018-03-03] MEDS: ipratropium/albuterol 3ml nebule NEB SCH ×6 (02:50→22:38)
[2018-03-03] MEDS: FENTANYL-0.9 % NACL/PF 100 ML IV PRN ×3 (03:26→19:08)
[2018-03-03] MEDS: propofol 1000mg/100ml bottle 100 ML IV PRN ×4 (04:11→17:16)
[2018-03-03 04:15] LABS: ABG BASE EXCESS 4.8 mmol/L (-2.0-3.0); ABG OXYGEN SATURATION 94.1 % (95-98); ABG PCO2 (T) 54.6 mmHg (32.0-45.0); ABG PH (T) 7.375 (7.350-7.450); ABG PO2 (T) 77.6 mmHg (83-108); ALLEN'S TEST Positive; FCOHb 0.6 % (0.5-1.5); FMetHb 0.1 % (0.3-1.12); FO2Hb 93.4 % (94-100); MINUTE VOLUME 11 L/min; PATIENT TEMPERATURE 37.8; PEEP 12 cm H2O; RESPIRATORY RATE 20 b/min; RESPIRATORY RATE (OBSERVED) 21 b/min; TIDAL VOLUME 425 mL; TOTAL HEMOGLOBIN 12.3 G/dl (12.0-16.0)
[2018-03-03 05:10] LABS: BASOPHILS # (AUTO) 0.1 X10'3 (0-0.2); BASOPHILS % (AUTO) 1.1 % (0-1); EOSINOPHILS % (AUTO) 0.4 % (0-6); HEMATOCRIT 35.5 % (35.0-45.0); HEMOGLOBIN 11.3 g/dl (12.0-16.0); LYMPHOCYTES # (AUTO) 0.9 X10'3 (1.1-4.8); LYMPHOCYTES % (AUTO) 11.8 % (21-51); MEAN CORPUSCULAR HGB CONC 31.7 % (33.0-36.5); MEAN CORPUSCULAR VOLUME 91.5 FL (78-98); MEAN PLATELET VOLUME 8.6 FL (7.4-10.4); MONOCYTES # (AUTO) 0.8 X10'3 (0-0.9); MONOCYTES % (AUTO) 10.8 % (2-12); NEUTROPHILS % (AUTO) 75.9 % (42-75); PLATELET COUNT 151 X10'3 (140-440); RED BLOOD COUNT 3.87 X10'6 (4.20-5.60); RED CELL DISTRIBUTION WIDTH 17.1 % (11.5-14.5); WHITE BLOOD COUNT 7.9 X10'3 (4.5-11.0)
[2018-03-03 05:43] LABS: ALANINE AMINOTRANSFERASE 23 U/L (12-78); ALBUMIN/GLOBULIN RATIO 0.5 (1.1-1.5); ALKALINE PHOSPHATASE 84 IU/L (46-116); ANION GAP 7 (8-16); ASPARTATE AMINO TRANSFERASE 19 U/L (10-37); BILIRUBIN,TOTAL 0.5 MG/DL (0.1-1.0); BLOOD UREA NITROGEN 13 MG/DL (7-18); BUN/CREATININE RATIO 26.5 (6.6-38.0); CHLORIDE 100 MMOL/L (99-107); CREATININE 0.49 MG/DL (0.40-0.90); GLUCOSE 100 MG/DL (70-104); MAGNESIUM 1.8 MG/DL (1.5-2.4); PHOSPHORUS 3.9 MG/DL (2.3-4.5); SODIUM 138 MMOL/L (135-145); TOTAL CARBON DIOXIDE 30.6 MMOL/L (24-32); TOTAL PROTEIN 5.8 G/DL (6.4-8.2); eGFR > 90 ML/MIN
[2018-03-03] MEDS: K, MAG and/or Phos replacement - Verify level? MC SCH (08:00)
[2018-03-03] MEDS: lactobacillus rhamnosus 10,000 MMU CELLS/CAPSULE PO SCH ×2 (08:55→20:37)
[2018-03-03] MEDS: enoxaparin 40mg/0.4ml syringe SUBCUT SCH (08:55)
[2018-03-03] MEDS: CARBAMAZEPINE 200 MG/10 ML PO SCH ×3 (08:55→17:59)
[2018-03-03] MEDS: pantoprazole 40 MG vial IV SCH (08:55)
[2018-03-03] MEDS: levoFLOXACIN-Levaquin 750MG/D5 150 ML IV SCH (08:56)
[2018-03-03] MEDS ORDERED: iohexol 350MG/ML 100ml bottle IV ONE (11:11)
[2018-03-03] MEDS ORDERED: LORazepam 2 mg/ml vial ONE (11:12)
[2018-03-03] MEDS ORDERED: LORazepam 2 mg/ml vial IV ONE (11:15)
[2018-03-03] MEDS ORDERED: vancomycin/NS 1 GM ADD-VANTAGE 250 ML IV SCH (20:00)
[2018-03-04] VITALS (24 sets, daily range): BP systolic 94–136; BP diastolic 44–86
[2018-03-04] MEDS: mineral oil/petrolatum ophthal oint EACHEYE SCH ×4 (02:00→20:29)
[2018-03-04] MEDS: ipratropium/albuterol 3ml nebule NEB SCH ×6 (02:35→23:10)
[2018-03-04] MEDS: propofol 1000mg/100ml bottle 100 ML IV PRN ×4 (03:04→23:01)
[2018-03-04 03:40] LABS: ABG BASE EXCESS 7.2 mmol/L (-2.0-3.0); ABG HCO3 33.9 mmol/L (22.0-26.0); ABG OXYGEN SATURATION 94.3 % (95-98); ABG PCO2 (T) 61.2 mmHg (32.0-45.0); ABG PH (T) 7.367 (7.350-7.450); ABG PO2 (T) 79.1 mmHg (83-108); ALLEN'S TEST Positive; FCOHb 0.3 % (0.5-1.5); FMetHb 0.1 % (0.3-1.12); FO2Hb 93.9 % (94-100); MINUTE VOLUME 11 L/min; PATIENT TEMPERATURE 38.3; PEEP 12 cm H2O; RESPIRATORY RATE 20 b/min; RESPIRATORY RATE (OBSERVED) 24 b/min; TIDAL VOLUME 450 mL; TOTAL HEMOGLOBIN 12.2 G/dl (12.0-16.0)
[2018-03-04 05:08] LABS: BASOPHILS % (AUTO) 0 % (0-1); EOSINOPHILS % (AUTO) 0.6 % (0-6); HEMATOCRIT 35.4 % (35.0-45.0); HEMOGLOBIN 11.4 g/dl (12.0-16.0); LYMPHOCYTES % (AUTO) 12.9 % (21-51); MEAN CORPUSCULAR HEMOGLOBIN 29.5 PG (27.0-31.0); MEAN CORPUSCULAR HGB CONC 32.3 % (33.0-36.5); MEAN CORPUSCULAR VOLUME 91.3 FL (78-98); MEAN PLATELET VOLUME 8.5 FL (7.4-10.4); MONOCYTES # (AUTO) 0.8 X10'3 (0-0.9); MONOCYTES % (AUTO) 10.2 % (2-12); NEUTROPHILS % (AUTO) 76.3 % (42-75); PLATELET COUNT 182 X10'3 (140-440); RED BLOOD COUNT 3.88 X10'6 (4.20-5.60); RED CELL DISTRIBUTION WIDTH 16.7 % (11.5-14.5); WHITE BLOOD COUNT 7.9 X10'3 (4.5-11.0)
[2018-03-04 05:19] LABS: ALANINE AMINOTRANSFERASE 23 U/L (12-78); ALBUMIN 1.9 G/DL (3.4-5.0); ALBUMIN/GLOBULIN RATIO 0.5 (1.1-1.5); ALKALINE PHOSPHATASE 94 IU/L (46-116); ANION GAP 4 (8-16); ASPARTATE AMINO TRANSFERASE 18 U/L (10-37); BILIRUBIN,TOTAL 0.4 MG/DL (0.1-1.0); BLOOD UREA NITROGEN 19 MG/DL (7-18); CALCIUM 7.9 MG/DL (8.5-10.1); CHLORIDE 100 MMOL/L (99-107); GLUCOSE 101 MG/DL (70-104); MAGNESIUM 1.7 MG/DL (1.5-2.4); PHOSPHORUS 3.3 MG/DL (2.3-4.5); POTASSIUM 4.3 MMOL/L (3.5-5.1); SODIUM 136 MMOL/L (135-145); TOTAL CARBON DIOXIDE 32.2 MMOL/L (24-32); eGFR > 90 ML/MIN
[2018-03-04] MEDS: enoxaparin 40mg/0.4ml syringe SUBCUT SCH (07:34)
[2018-03-04] MEDS: CARBAMAZEPINE 200 MG/10 ML PO SCH ×3 (07:35→20:27)
[2018-03-04] MEDS: FENTANYL-0.9 % NACL/PF 100 ML IV PRN ×2 (07:35→21:33)
[2018-03-04] MEDS: lactobacillus rhamnosus 10,000 MMU CELLS/CAPSULE PO SCH ×2 (07:35→20:27)
[2018-03-04] MEDS: pantoprazole 40 MG vial IV SCH (07:35)
[2018-03-04] MEDS: K, MAG and/or Phos replacement - Verify level? MC SCH (08:00)
[2018-03-04] MEDS ORDERED: VANCOMYCIN LEVEL IV ONE (11:30)
[2018-03-04] MEDS ORDERED: lidocaine 2% viscous 15 ML cup ***bronch room only MM ONE (16:26)
[2018-03-04] MEDS ORDERED: epiNEPHrine 1 MG/ML 1 ml ampule **BRONCH ONLY ONE (16:26)
[2018-03-05] VITALS (24 sets, daily range): BP systolic 85–170; BP diastolic 53–104
[2018-03-05] MEDS: acetaminophen 325mg tablet PO PRN ×2 (01:56→18:59)
[2018-03-05] MEDS: propofol 1000mg/100ml bottle 100 ML IV PRN ×7 (01:58→22:44)
[2018-03-05] MEDS: mineral oil/petrolatum ophthal oint EACHEYE SCH ×4 (01:58→20:03)
[2018-03-05] MEDS: ipratropium/albuterol 3ml nebule NEB SCH ×6 (03:04→23:02)
[2018-03-05 03:11] LABS: ABG BASE EXCESS 6.5 mmol/L (-2.0-3.0); ABG HCO3 31.6 mmol/L (22.0-26.0); ABG OXYGEN SATURATION 90.6 % (95-98); ABG PCO2 (T) 50.4 mmHg (32.0-45.0); ABG PH (T) 7.421 (7.350-7.450); ABG PO2 (T) 67.8 mmHg (83-108); ALLEN'S TEST Positive; FCOHb 0.4 % (0.5-1.5); FMetHb 0.1 % (0.3-1.12); FO2Hb 90.1 % (94-100); MINUTE VOLUME 12 L/min; PATIENT TEMPERATURE 38.5; PEEP 12 cm H2O; RESPIRATORY RATE 20 b/min; RESPIRATORY RATE (OBSERVED) 26 b/min; TIDAL VOLUME 450 mL; TOTAL HEMOGLOBIN 12.2 G/dl (12.0-16.0)
[2018-03-05] MEDS ORDERED: LORazepam 2 mg/ml vial IV PRN (03:20)
[2018-03-05] MEDS: LORazepam 2 mg/ml vial IV PRN ×2 (03:43→13:29)
[2018-03-05 04:42] LABS: BASOPHILS % (AUTO) 0.3 % (0-1); EOSINOPHILS % (AUTO) 0.5 % (0-6); HEMATOCRIT 34.1 % (35.0-45.0); HEMOGLOBIN 11.1 g/dl (12.0-16.0); LYMPHOCYTES # (AUTO) 1.1 X10'3 (1.1-4.8); LYMPHOCYTES % (AUTO) 14.1 % (21-51); MEAN CORPUSCULAR HEMOGLOBIN 29.4 PG (27.0-31.0); MEAN CORPUSCULAR HGB CONC 32.5 % (33.0-36.5); MEAN CORPUSCULAR VOLUME 90.5 FL (78-98); MEAN PLATELET VOLUME 8.3 FL (7.4-10.4); MONOCYTES # (AUTO) 0.9 X10'3 (0-0.9); MONOCYTES % (AUTO) 12.3 % (2-12); NEUTROPHILS # (AUTO) 5.5 X10'3 (1.8-7.7); NEUTROPHILS % (AUTO) 72.8 % (42-75); PLATELET COUNT 194 X10'3 (140-440); RED BLOOD COUNT 3.77 X10'6 (4.20-5.60); RED CELL DISTRIBUTION WIDTH 16.5 % (11.5-14.5); WHITE BLOOD COUNT 7.5 X10'3 (4.5-11.0)
[2018-03-05 05:04] LABS: ALANINE AMINOTRANSFERASE 15 U/L (12-78); ALBUMIN 1.8 G/DL (3.4-5.0); ALBUMIN/GLOBULIN RATIO 0.4 (1.1-1.5); ALKALINE PHOSPHATASE 117 IU/L (46-116); ANION GAP 4 (8-16); ASPARTATE AMINO TRANSFERASE 18 U/L (10-37); BILIRUBIN,TOTAL 0.5 MG/DL (0.1-1.0); BLOOD UREA NITROGEN 17 MG/DL (7-18); BUN/CREATININE RATIO 39.5 (6.6-38.0); CALCIUM 8.1 MG/DL (8.5-10.1); CHLORIDE 100 MMOL/L (99-107); CREATININE 0.43 MG/DL (0.40-0.90); GLUCOSE 112 MG/DL (70-104); MAGNESIUM 1.7 MG/DL (1.5-2.4); PHOSPHORUS 3.2 MG/DL (2.3-4.5); POTASSIUM 3.6 MMOL/L (3.5-5.1); PREALBUMIN 9.3 MG/DL (19-36); SODIUM 135 MMOL/L (135-145); TOTAL CARBON DIOXIDE 31.1 MMOL/L (24-32); TOTAL PROTEIN 6.1 G/DL (6.4-8.2); eGFR > 90 ML/MIN
[2018-03-05] MEDS: K, MAG and/or Phos replacement - Verify level? MC SCH (08:00)
[2018-03-05] MEDS: pantoprazole 40 MG vial IV SCH (08:59)
[2018-03-05] MEDS: lactobacillus rhamnosus 10,000 MMU CELLS/CAPSULE PO SCH ×2 (09:00→20:03)
[2018-03-05] MEDS: CARBAMAZEPINE 200 MG/10 ML PO SCH ×3 (09:00→16:18)
[2018-03-05] MEDS: enoxaparin 40mg/0.4ml syringe SUBCUT SCH ×2 (09:01→09:09)
[2018-03-05] MEDS ORDERED: etomidate 2mg/ml inj. IV ONE (11:45)
[2018-03-05] MEDS: CISatracurium besylate inj. 200 MG in dextrose 5%-water 180 ML IV PRN (17:40)
[2018-03-05] MEDS: FENTANYL-0.9 % NACL/PF 100 ML IV PRN (20:44)
[2018-03-05 21:51] LABS: MAGNESIUM 1.7 MG/DL (1.5-2.4); POTASSIUM 3.7 MMOL/L (3.5-5.1)
[2018-03-06] VITALS (22 sets, daily range): BP systolic 104–150; BP diastolic 61–96
[2018-03-06] MEDS: CISatracurium besylate inj. 200 MG in dextrose 5%-water 180 ML IV PRN ×4 (00:58→21:48)
[2018-03-06] MEDS: mineral oil/petrolatum ophthal oint EACHEYE SCH ×3 (01:47→14:00)
[2018-03-06] MEDS: propofol 1000mg/100ml bottle 100 ML IV PRN ×8 (01:47→21:48)
[2018-03-06] MEDS: ipratropium/albuterol 3ml nebule NEB SCH ×5 (03:10→19:11)
[2018-03-06] MEDS: FENTANYL-0.9 % NACL/PF 100 ML IV PRN ×4 (03:41→19:41)
[2018-03-06 04:05] LABS: BASOPHILS % (AUTO) 0 % (0-1); EOSINOPHILS # (AUTO) 0.1 X10'3 (0-0.9); EOSINOPHILS % (AUTO) 1.2 % (0-6); HEMATOCRIT 37.2 % (35.0-45.0); LYMPHOCYTES # (AUTO) 0.8 X10'3 (1.1-4.8); LYMPHOCYTES % (AUTO) 7.6 % (21-51); MEAN CORPUSCULAR HEMOGLOBIN 29.3 PG (27.0-31.0); MEAN CORPUSCULAR HGB CONC 32.3 % (33.0-36.5); MEAN CORPUSCULAR VOLUME 90.6 FL (78-98); MEAN PLATELET VOLUME 8.1 FL (7.4-10.4); MONOCYTES % (AUTO) 9.3 % (2-12); NEUTROPHILS # (AUTO) 9.1 X10'3 (1.8-7.7); NEUTROPHILS % (AUTO) 81.9 % (42-75); PLATELET COUNT 196 X10'3 (140-440); RED BLOOD COUNT 4.11 X10'6 (4.20-5.60); RED CELL DISTRIBUTION WIDTH 16.8 % (11.5-14.5); WHITE BLOOD COUNT 11.2 X10'3 (4.5-11.0)
[2018-03-06 04:06] LABS: ABG BASE EXCESS 5.9 mmol/L (-2.0-3.0); ABG HCO3 33.7 mmol/L (22.0-26.0); ABG PCO2 (T) 63.7 mmHg (32.0-45.0); ABG PH (T) 7.344 (7.350-7.450); ABG PO2 (T) 73.9 mmHg (83-108); ALLEN'S TEST Positive; MINUTE VOLUME 10 L/min; PATIENT TEMPERATURE 37.7; PEEP 14 cm H2O; RESPIRATORY RATE 20 b/min; RESPIRATORY RATE (OBSERVED) 20 b/min
[2018-03-06 04:21] LABS: ALANINE AMINOTRANSFERASE 21 U/L (12-78); ALBUMIN 1.8 G/DL (3.4-5.0); ALBUMIN/GLOBULIN RATIO 0.4 (1.1-1.5); ALKALINE PHOSPHATASE 154 IU/L (46-116); ANION GAP 5 (8-16); ASPARTATE AMINO TRANSFERASE 24 U/L (10-37); BILIRUBIN,TOTAL 0.9 MG/DL (0.1-1.0); BLOOD UREA NITROGEN 16 MG/DL (7-18); BUN/CREATININE RATIO 26.7 (6.6-38.0); CALCIUM 8.2 MG/DL (8.5-10.1); CHLORIDE 100 MMOL/L (99-107); GLUCOSE 127 MG/DL (70-104); MAGNESIUM 1.7 MG/DL (1.5-2.4); PHOSPHORUS 3.7 MG/DL (2.3-4.5); POTASSIUM 3.9 MMOL/L (3.5-5.1); SODIUM 137 MMOL/L (135-145); TOTAL CARBON DIOXIDE 31.8 MMOL/L (24-32); TOTAL PROTEIN 6.6 G/DL (6.4-8.2); eGFR > 90 ML/MIN
[2018-03-06] MEDS: CARBAMAZEPINE 200 MG/10 ML PO SCH ×3 (07:37→16:57)
[2018-03-06] MEDS: lactobacillus rhamnosus 10,000 MMU CELLS/CAPSULE PO SCH ×2 (07:39→20:03)
[2018-03-06] MEDS: enoxaparin 40mg/0.4ml syringe SUBCUT SCH (07:39)
[2018-03-06] MEDS: K, MAG and/or Phos replacement - Verify level? MC SCH (08:00)
[2018-03-06] MEDS: pantoprazole 40 MG vial IV SCH (08:04)
[2018-03-06 11:17] LABS: OXYGEN SATURATION (MIXED VEN) 70.3 % (60-80); PO2 MIXED VENOUS (TEMP COR) 42.9 mmHg (35-46)
[2018-03-06] MEDS: methylPREDNISolone sod succ 125mg/2ml vial IV SCH ×3 (12:54→20:02)
[2018-03-06 15:51] LABS: ABG BASE EXCESS 0.4 mmol/L (-2.0-3.0); ABG HCO3 29.5 mmol/L (22.0-26.0); ABG OXYGEN SATURATION 87.9 % (95-98); ABG PH (T) 7.237 (7.350-7.450); ABG PO2 (T) 63.4 mmHg (83-108); ALLEN'S TEST Positive; FCOHb 0.4 % (0.5-1.5); FLOW 60 L/min; FMetHb 0.2 % (0.3-1.12); FO2Hb 87.4 % (94-100); PEEP 20 cm H2O; RESPIRATORY RATE 35 b/min; RESPIRATORY RATE (OBSERVED) 35 b/min; TIDAL VOLUME 300 mL; TOTAL HEMOGLOBIN 12.8 G/dl (12.0-16.0)
[2018-03-06 20:25] LABS: ABG BASE EXCESS -0.3 mmol/L (-2.0-3.0); ABG HCO3 26.6 mmol/L (22.0-26.0); ABG OXYGEN SATURATION 93.7 % (95-98); ABG PCO2 (T) 53.5 mmHg (32.0-45.0); ABG PH (T) 7.315 (7.350-7.450); ABG PO2 (T) 75.2 mmHg (83-108); ALLEN'S TEST Positive; FCOHb 0.1 % (0.5-1.5); FMetHb 0.2 % (0.3-1.12); FO2Hb 93.4 % (94-100); MINUTE VOLUME 12 L/min; PATIENT TEMPERATURE 37.2; PEEP 20 cm H2O; RESPIRATORY RATE 40 b/min; RESPIRATORY RATE (OBSERVED) 40 b/min; TOTAL HEMOGLOBIN 12.3 G/dl (12.0-16.0)
[2018-03-07] VITALS (24 sets, daily range): BP systolic 96–141; BP diastolic 63–95
[2018-03-07] MEDS: propofol 1000mg/100ml bottle 100 ML IV PRN ×7 (00:52→22:11)
[2018-03-07] MEDS: mineral oil/petrolatum ophthal oint EACHEYE SCH ×4 (02:00→19:53)
[2018-03-07 02:21] LABS: BASOPHILS % (AUTO) 0 % (0-1); EOSINOPHILS # (AUTO) 0.1 X10'3 (0-0.9); EOSINOPHILS % (AUTO) 1.1 % (0-6); HEMATOCRIT 35.2 % (35.0-45.0); HEMOGLOBIN 11.2 g/dl (12.0-16.0); LYMPHOCYTES # (AUTO) 0.5 X10'3 (1.1-4.8); LYMPHOCYTES % (AUTO) 5.7 % (21-51); MEAN CORPUSCULAR HEMOGLOBIN 29.2 PG (27.0-31.0); MEAN CORPUSCULAR HGB CONC 31.8 % (33.0-36.5); MEAN CORPUSCULAR VOLUME 91.9 FL (78-98); MEAN PLATELET VOLUME 8.5 FL (7.4-10.4); MONOCYTES # (AUTO) 0.5 X10'3 (0-0.9); MONOCYTES % (AUTO) 5.9 % (2-12); NEUTROPHILS % (AUTO) 87.3 % (42-75); PLATELET COUNT 177 X10'3 (140-440); RED BLOOD COUNT 3.83 X10'6 (4.20-5.60); RED CELL DISTRIBUTION WIDTH 16.8 % (11.5-14.5); WHITE BLOOD COUNT 9.2 X10'3 (4.5-11.0)
[2018-03-07 02:34] LABS: ALANINE AMINOTRANSFERASE 19 U/L (12-78); ALBUMIN 1.7 G/DL (3.4-5.0); ALBUMIN/GLOBULIN RATIO 0.4 (1.1-1.5); ALKALINE PHOSPHATASE 133 IU/L (46-116); ANION GAP 4 (8-16); ASPARTATE AMINO TRANSFERASE 18 U/L (10-37); BILIRUBIN,TOTAL 0.5 MG/DL (0.1-1.0); BLOOD UREA NITROGEN 22 MG/DL (7-18); BUN/CREATININE RATIO 37.9 (6.6-38.0); CALCIUM 8.1 MG/DL (8.5-10.1); CHLORIDE 100 MMOL/L (99-107); CREATININE 0.58 MG/DL (0.40-0.90); GLUCOSE 160 MG/DL (70-104); MAGNESIUM 2.1 MG/DL (1.5-2.4); PHOSPHORUS 4.2 MG/DL (2.3-4.5); POTASSIUM 4.9 MMOL/L (3.5-5.1); SODIUM 135 MMOL/L (135-145); TOTAL CARBON DIOXIDE 30.8 MMOL/L (24-32); TOTAL PROTEIN 6.5 G/DL (6.4-8.2); eGFR > 90 ML/MIN
[2018-03-07] MEDS: ipratropium/albuterol 3ml nebule NEB SCH ×6 (03:49→23:10)
[2018-03-07] MEDS: FENTANYL-0.9 % NACL/PF 100 ML IV PRN ×3 (03:56→18:07)
[2018-03-07] MEDS: methylPREDNISolone sod succ 125mg/2ml vial IV SCH ×4 (04:14→19:52)
[2018-03-07 04:35] LABS: OXYGEN SATURATION (MIXED VEN) 70.2 % (60-80); PO2 MIXED VENOUS (TEMP COR) 39.6 mmHg (35-46)
[2018-03-07 04:40] LABS: ABG BASE EXCESS 1.5 mmol/L (-2.0-3.0); ABG HCO3 29.9 mmol/L (22.0-26.0); ABG OXYGEN SATURATION 88.2 % (95-98); ABG PCO2 (T) 65.3 mmHg (32.0-45.0); ABG PH (T) 7.276 (7.350-7.450); ABG PO2 (T) 58.3 mmHg (83-108); ALLEN'S TEST Positive; FCOHb 0.4 % (0.5-1.5); FMetHb 0.3 % (0.3-1.12); FO2Hb 87.6 % (94-100); MINUTE VOLUME 10 L/min; PATIENT TEMPERATURE 36.4; PEEP 20 cm H2O; RESPIRATORY RATE 40 b/min; RESPIRATORY RATE (OBSERVED) 40 b/min; TOTAL HEMOGLOBIN 12.1 G/dl (12.0-16.0)
[2018-03-07] MEDS ORDERED: amiodarone 150mg/dext, iso-os 100 ML IV ONE (06:08)
[2018-03-07] MEDS: K, MAG and/or Phos replacement - Verify level? MC SCH (08:00)
[2018-03-07] MEDS: lactobacillus rhamnosus 10,000 MMU CELLS/CAPSULE PO SCH ×2 (08:15→19:53)
[2018-03-07] MEDS: pantoprazole 40 MG vial IV SCH (08:15)
[2018-03-07] MEDS: enoxaparin 40mg/0.4ml syringe SUBCUT SCH (08:15)
[2018-03-07] MEDS: CARBAMAZEPINE 200 MG/10 ML PO SCH ×3 (08:15→17:27)
[2018-03-07] MEDS ORDERED: furosemide 10 MG/1 ML 10ml inj IV ONE (10:15)
[2018-03-07] MEDS: CISatracurium besylate inj. 200 MG in dextrose 5%-water 180 ML IV PRN (15:26)
[2018-03-07 19:35] LABS: OXYGEN SATURATION (MIXED VEN) 65.1 % (60-80); PO2 MIXED VENOUS (TEMP COR) 34.2 mmHg (35-46)
[2018-03-07] MEDS: furosemide 10 MG/1 ML 10ml inj IV SCH (19:52)
[2018-03-07] MEDS: vancomycin/NS 1 GM ADD-VANTAGE 250 ML IV SCH (19:52)
[2018-03-08] VITALS (24 sets, daily range): BP systolic 104–146; BP diastolic 52–97
[2018-03-08] MEDS: FENTANYL-0.9 % NACL/PF 100 ML IV PRN ×4 (00:28→23:10)
[2018-03-08] MEDS: CISatracurium besylate inj. 200 MG in dextrose 5%-water 180 ML IV PRN (00:29)
[2018-03-08] MEDS: propofol 1000mg/100ml bottle 100 ML IV PRN ×9 (00:30→23:19)
[2018-03-08] MEDS: mineral oil/petrolatum ophthal oint EACHEYE SCH ×4 (01:32→19:58)
[2018-03-08 02:28] LABS: BASOPHILS % (AUTO) 0.1 % (0-1); EOSINOPHILS % (AUTO) 0 % (0-6); HEMATOCRIT 34.2 % (35.0-45.0); HEMOGLOBIN 10.9 g/dl (12.0-16.0); LYMPHOCYTES # (AUTO) 0.6 X10'3 (1.1-4.8); LYMPHOCYTES % (AUTO) 6.8 % (21-51); MEAN CORPUSCULAR HEMOGLOBIN 29.2 PG (27.0-31.0); MEAN CORPUSCULAR VOLUME 91.2 FL (78-98); MEAN PLATELET VOLUME 8.3 FL (7.4-10.4); MONOCYTES # (AUTO) 0.7 X10'3 (0-0.9); MONOCYTES % (AUTO) 8.4 % (2-12); NEUTROPHILS # (AUTO) 7.1 X10'3 (1.8-7.7); NEUTROPHILS % (AUTO) 84.7 % (42-75); PLATELET COUNT 254 X10'3 (140-440); RED BLOOD COUNT 3.75 X10'6 (4.20-5.60); RED CELL DISTRIBUTION WIDTH 16.8 % (11.5-14.5); WHITE BLOOD COUNT 8.4 X10'3 (4.5-11.0)
[2018-03-08] MEDS ORDERED: glucagon, human recombinant 1mg kit SUBCUT PRN (02:30)
[2018-03-08] MEDS ORDERED: MESSAGE TO PHARMACY PO ONE (02:30)
[2018-03-08] MEDS ORDERED: dextrose ORAL solution 15 GM/59 ML bottle PO PRN ×2 (02:30)
[2018-03-08] MEDS ORDERED: dextrose 50%-water 50ml dispensing syringe IV PRN ×2 (02:30)
[2018-03-08] MEDS ORDERED: insulin Lispro (HumaLOG) vial - multi-dose SQ SCH (02:30)
[2018-03-08 02:40] LABS: ALANINE AMINOTRANSFERASE 26 U/L (12-78); ALBUMIN 1.7 G/DL (3.4-5.0); ALBUMIN/GLOBULIN RATIO 0.4 (1.1-1.5); ALKALINE PHOSPHATASE 129 IU/L (46-116); ANION GAP 3 (8-16); ASPARTATE AMINO TRANSFERASE 20 U/L (10-37); BILIRUBIN,TOTAL 0.3 MG/DL (0.1-1.0); BLOOD UREA NITROGEN 31 MG/DL (7-18); BUN/CREATININE RATIO 47.7 (6.6-38.0); CALCIUM 8.1 MG/DL (8.5-10.1); CHLORIDE 98 MMOL/L (99-107); CREATININE 0.65 MG/DL (0.40-0.90); GLUCOSE 175 MG/DL (70-104); PHOSPHORUS 2.8 MG/DL (2.3-4.5); POTASSIUM 4.2 MMOL/L (3.5-5.1); SODIUM 136 MMOL/L (135-145); TOTAL CARBON DIOXIDE 34.8 MMOL/L (24-32); TOTAL PROTEIN 6.5 G/DL (6.4-8.2); eGFR > 90 ML/MIN
[2018-03-08] MEDS: methylPREDNISolone sod succ 125mg/2ml vial IV SCH ×4 (03:11→19:56)
[2018-03-08] MEDS: vancomycin/NS 1 GM ADD-VANTAGE 250 ML IV SCH (03:16)
[2018-03-08] MEDS: ipratropium/albuterol 3ml nebule NEB SCH ×6 (03:21→22:57)
[2018-03-08] MEDS ORDERED: insulin regular, human vial - multi-dose ONE (03:31)
[2018-03-08] MEDS: insulin regular, human vial - multi-dose SQ SCH ×4 (03:39→20:26)
[2018-03-08 03:45] LABS: ALLEN'S TEST Positive; PATIENT TEMPERATURE 36.4
[2018-03-08 03:46] LABS: ABG BASE EXCESS 7.3 mmol/L (-2.0-3.0); ABG HCO3 33.3 mmol/L (22.0-26.0); ABG OXYGEN SATURATION 93.9 % (95-98); ABG PCO2 (T) 52.3 mmHg (32.0-45.0); ABG PH (T) 7.419 (7.350-7.450); ABG PO2 (T) 69.9 mmHg (83-108); FCOHb 0.3 % (0.5-1.5); FMetHb 0.1 % (0.3-1.12); FO2Hb 93.5 % (94-100); MINUTE VOLUME 13 L/min; PEEP 20 cm H2O; RESPIRATORY RATE 40 b/min; RESPIRATORY RATE (OBSERVED) 40 b/min; TOTAL HEMOGLOBIN 11.6 G/dl (12.0-16.0)
[2018-03-08 07:36] LABS: PLATELET ESTIMATE NORMAL; TOTAL CELLS COUNTED 100
[2018-03-08 07:37] LABS: ANISOCYTOSIS 1+
[2018-03-08] MEDS: CARBAMAZEPINE 200 MG/10 ML PO SCH ×3 (07:55→17:16)
[2018-03-08] MEDS: lactobacillus rhamnosus 10,000 MMU CELLS/CAPSULE PO SCH ×2 (07:55→19:57)
[2018-03-08] MEDS: pantoprazole 40 MG vial IV SCH (07:56)
[2018-03-08] MEDS: enoxaparin 40mg/0.4ml syringe SUBCUT SCH (07:56)
[2018-03-08] MEDS: furosemide 10 MG/1 ML 10ml inj IV SCH ×2 (07:56→19:57)
[2018-03-08] MEDS: K, MAG and/or Phos replacement - Verify level? MC SCH (07:57)
[2018-03-08 10:16] LABS: ABG HCO3 33.6 mmol/L (22.0-26.0); ABG OXYGEN SATURATION 90.2 % (95-98); ABG PCO2 (T) 55.8 mmHg (32.0-45.0); ABG PH (T) 7.396 (7.350-7.450); ABG PO2 (T) 59.9 mmHg (83-108); FCOHb 0.1 % (0.5-1.5); FMetHb 0.1 % (0.3-1.12); PATIENT TEMPERATURE 36.6; PEEP 18 cm H2O; RESPIRATORY RATE 40 b/min; TOTAL HEMOGLOBIN 12.6 G/dl (12.0-16.0)
[2018-03-08 10:31] LABS: OXYGEN SATURATION (MIXED VEN) 70.5 % (60-80)
[2018-03-08] MEDS: spironolactone 50 MG tablet PO SCH ×2 (13:19→20:31)
[2018-03-08 16:36] LABS: ABG BASE EXCESS 5.5 mmol/L (-2.0-3.0); ABG HCO3 31.4 mmol/L (22.0-26.0); ABG OXYGEN SATURATION 94.8 % (95-98); ABG PCO2 (T) 51.4 mmHg (32.0-45.0); ABG PH (T) 7.404 (7.350-7.450); ABG PO2 (T) 77.6 mmHg (83-108); FMetHb 0.1 % (0.3-1.12); FO2Hb 94.7 % (94-100); PEEP 16 cm H2O; RESPIRATORY RATE 40 b/min; TOTAL HEMOGLOBIN 12.4 G/dl (12.0-16.0)
[2018-03-08 17:57] LABS: CLARITY,URINE CLEAR (Clear); COLOR,URINE YELLOW (Yellow); GLUCOSE, URINE NEGATIVE (Neg); KETONES,URINE NEGATIVE (Neg); LEUKOCYTE ESTERASE ,URINE NEGATIVE (Neg); NITRITES, URINE NEGATIVE (Neg); OCCULT BLOOD,URINE NEGATIVE (Neg); PROTEIN,URINE NEGATIVE (Neg); UROBILINOGEN,URINE 0.2 E.U/dL (0.2-1.0)
[2018-03-08 17:58] LABS: UA COLLECTION TYPE FOLEY CATH
[2018-03-08] MEDS ORDERED: VANCOMYCIN LEVEL IV ONE (19:30)
[2018-03-08 20:01] LABS: OXYGEN SATURATION (MIXED VEN) 70.7 % (60-80); PO2 MIXED VENOUS (TEMP COR) 41.8 mmHg (35-46)
[2018-03-08 20:14] LABS: PHOSPHORUS 3.2 MG/DL (2.3-4.5)
[2018-03-08] MEDS: insulin glargine (Lantus) pen - multi-dose SQ SCH (20:26)
[2018-03-08] MEDS ORDERED: midazolam 100mg in NS 100ml 100 ML IV PRN (22:48)
[2018-03-08] MEDS: midazolam 100mg in NS 100ml 100 ML IV PRN (23:11)
[2018-03-09] VITALS (24 sets, daily range): BP systolic 92–137; BP diastolic 44–82
[2018-03-09] MEDS: propofol 1000mg/100ml bottle 100 ML IV PRN ×7 (02:12→23:09)
[2018-03-09] MEDS: mineral oil/petrolatum ophthal oint EACHEYE SCH ×4 (02:12→20:07)
[2018-03-09] MEDS: methylPREDNISolone sod succ 125mg/2ml vial IV SCH ×4 (02:12→20:05)
[2018-03-09] MEDS: FENTANYL-0.9 % NACL/PF 100 ML IV PRN ×3 (02:14→23:09)
[2018-03-09] MEDS: insulin regular, human vial - multi-dose SQ SCH ×4 (02:17→20:22)
[2018-03-09 02:45] LABS: BASOPHILS % (AUTO) 0 % (0-1); EOSINOPHILS % (AUTO) 0 % (0-6); HEMATOCRIT 35.5 % (35.0-45.0); HEMOGLOBIN 11.5 g/dl (12.0-16.0); LYMPHOCYTES # (AUTO) 0.4 X10'3 (1.1-4.8); LYMPHOCYTES % (AUTO) 3.3 % (21-51); MEAN CORPUSCULAR HGB CONC 32.4 % (33.0-36.5); MEAN CORPUSCULAR VOLUME 89.6 FL (78-98); MEAN PLATELET VOLUME 8.3 FL (7.4-10.4); MONOCYTES # (AUTO) 1.2 X10'3 (0-0.9); NEUTROPHILS # (AUTO) 11.6 X10'3 (1.8-7.7); NEUTROPHILS % (AUTO) 87.7 % (42-75); PLATELET COUNT 311 X10'3 (140-440); RED BLOOD COUNT 3.96 X10'6 (4.20-5.60); RED CELL DISTRIBUTION WIDTH 16.7 % (11.5-14.5); WHITE BLOOD COUNT 13.2 X10'3 (4.5-11.0)
[2018-03-09 02:56] LABS: ALANINE AMINOTRANSFERASE 43 U/L (12-78); ALBUMIN 1.8 G/DL (3.4-5.0); ALBUMIN/GLOBULIN RATIO 0.4 (1.1-1.5); ALKALINE PHOSPHATASE 143 IU/L (46-116); ANION GAP 7 (8-16); ASPARTATE AMINO TRANSFERASE 33 U/L (10-37); BILIRUBIN,TOTAL 0.6 MG/DL (0.1-1.0); BLOOD UREA NITROGEN 41 MG/DL (7-18); BUN/CREATININE RATIO 74.5 (6.6-38.0); CALCIUM 7.8 MG/DL (8.5-10.1); CHLORIDE 98 MMOL/L (99-107); CREATININE 0.55 MG/DL (0.40-0.90); GLUCOSE 118 MG/DL (70-104); PHOSPHORUS 4.2 MG/DL (2.3-4.5); PREALBUMIN 17.9 MG/DL (19-36); SODIUM 141 MMOL/L (135-145); TOTAL CARBON DIOXIDE 36.5 MMOL/L (24-32); TOTAL PROTEIN 6.4 G/DL (6.4-8.2); eGFR > 90 ML/MIN
[2018-03-09] MEDS: ipratropium/albuterol 3ml nebule NEB SCH ×6 (03:17→23:14)
[2018-03-09 03:56] LABS: ABG BASE EXCESS 8.4 mmol/L (-2.0-3.0); ABG OXYGEN SATURATION 89.2 % (95-98); ABG PCO2 (T) 65.3 mmHg (32.0-45.0); ABG PH (T) 7.361 (7.350-7.450); FCOHb 0.2 % (0.5-1.5); FMetHb 0.3 % (0.3-1.12); FO2Hb 88.8 % (94-100); MINUTE VOLUME 11 L/min; PATIENT TEMPERATURE 37.3; PEEP 14 cm H2O; RESPIRATORY RATE 28 b/min; RESPIRATORY RATE (OBSERVED) 30 b/min; TOTAL HEMOGLOBIN 12.8 G/dl (12.0-16.0)
[2018-03-09] MEDS: enoxaparin 40mg/0.4ml syringe SUBCUT SCH (07:36)
[2018-03-09] MEDS: lactobacillus rhamnosus 10,000 MMU CELLS/CAPSULE PO SCH ×2 (07:36→20:06)
[2018-03-09] MEDS: spironolactone 50 MG tablet PO SCH ×3 (07:36→20:06)
[2018-03-09] MEDS: pantoprazole 40 MG vial IV SCH (07:37)
[2018-03-09] MEDS: furosemide 10 MG/1 ML 10ml inj IV SCH ×3 (07:37→20:06)
[2018-03-09] MEDS: K, MAG and/or Phos replacement - Verify level? MC SCH (07:41)
[2018-03-09 07:55] LABS: ANISOCYTOSIS 1+; NUCLEATED RED BLOOD CELLS 1 /100WBC (0-0); PLATELET ESTIMATE NORMAL; TOTAL CELLS COUNTED 100; TOXIC VACUOLATION FEW
[2018-03-09] MEDS ORDERED: vancomycin/NS 1 GM ADD-VANTAGE 250 ML IV SCH ×2 (08:00)
[2018-03-09] MEDS: CARBAMAZEPINE 200 MG/10 ML PO SCH ×3 (08:13→17:12)
[2018-03-09] MEDS: midazolam 100mg in NS 100ml 100 ML IV PRN ×2 (09:21→23:09)
[2018-03-09 11:26] LABS: OXYGEN SATURATION (MIXED VEN) 73.5 % (60-80); PO2 MIXED VENOUS (TEMP COR) 41.3 mmHg (35-46)
[2018-03-09 11:41] LABS: ABG BASE EXCESS 14.1 mmol/L (-2.0-3.0); ABG HCO3 39.9 mmol/L (22.0-26.0); ABG OXYGEN SATURATION 89.9 % (95-98); ABG PCO2 (T) 56.8 mmHg (32.0-45.0); ABG PH (T) 7.467 (7.350-7.450); ABG PO2 (T) 59.5 mmHg (83-108); FCOHb 0.1 % (0.5-1.5); FMetHb 0.1 % (0.3-1.12); FO2Hb 89.7 % (94-100); MINUTE VOLUME 10 L/min; PATIENT TEMPERATURE 37.7; PEEP 16 cm H2O; RESPIRATORY RATE 30 b/min; RESPIRATORY RATE (OBSERVED) 30 b/min; TIDAL VOLUME 350 mL; TOTAL HEMOGLOBIN 12.7 G/dl (12.0-16.0)
[2018-03-09] MEDS: methylnaltrexone br 12mg/0.6ml inj***SubQ only SQ SCH (12:18)
[2018-03-09] MEDS: vancomycin/NS 1 GM ADD-VANTAGE 250 ML IV SCH ×2 (12:23→20:03)
[2018-03-09] MEDS: lactulose 20gm/30ml cup PO SCH ×2 (14:09→20:03)
[2018-03-09] MEDS: acetaminophen 325mg tablet PO PRN (18:42)
[2018-03-09] MEDS: metolazone 2.5mg tablet PO SCH (20:06)
[2018-03-09] MEDS: insulin glargine (Lantus) pen - multi-dose SQ SCH (20:20)
[2018-03-09 23:40] LABS: OXYGEN SATURATION (MIXED VEN) 72.7 % (60-80); PO2 MIXED VENOUS (TEMP COR) 44.8 mmHg (35-46)
[2018-03-10] VITALS (24 sets, daily range): BP systolic 91–125; BP diastolic 47–74
[2018-03-10] MEDS: furosemide 10 MG/1 ML 10ml inj IV SCH ×3 (02:13→13:17)
[2018-03-10] MEDS: methylPREDNISolone sod succ 125mg/2ml vial IV SCH ×4 (02:13→20:22)
[2018-03-10] MEDS: propofol 1000mg/100ml bottle 100 ML IV PRN ×6 (02:14→23:33)
[2018-03-10] MEDS: mineral oil/petrolatum ophthal oint EACHEYE SCH ×4 (02:14→20:29)
[2018-03-10] MEDS: lactulose 20gm/30ml cup PO SCH ×4 (02:14→20:16)
[2018-03-10] MEDS: insulin regular, human vial - multi-dose SQ SCH ×4 (02:19→20:38)
[2018-03-10 02:42] LABS: HEMATOCRIT 35.7 % (35.0-45.0); HEMOGLOBIN 11.5 g/dl (12.0-16.0); MEAN CORPUSCULAR HEMOGLOBIN 29.2 PG (27.0-31.0); MEAN CORPUSCULAR HGB CONC 32.3 % (33.0-36.5); MEAN CORPUSCULAR VOLUME 90.3 FL (78-98); MEAN PLATELET VOLUME 8.6 FL (7.4-10.4); PLATELET COUNT 302 X10'3 (140-440); RED BLOOD COUNT 3.95 X10'6 (4.20-5.60); RED CELL DISTRIBUTION WIDTH 16.5 % (11.5-14.5); WHITE BLOOD COUNT 15.2 X10'3 (4.5-11.0)
[2018-03-10 03:06] LABS: ALANINE AMINOTRANSFERASE 36 U/L (12-78); ALBUMIN 1.8 G/DL (3.4-5.0); ALBUMIN/GLOBULIN RATIO 0.4 (1.1-1.5); ALKALINE PHOSPHATASE 131 IU/L (46-116); ANION GAP 3 (8-16); ASPARTATE AMINO TRANSFERASE 28 U/L (10-37); BILIRUBIN,TOTAL 0.6 MG/DL (0.1-1.0); BLOOD UREA NITROGEN 41 MG/DL (7-18); BUN/CREATININE RATIO 69.5 (6.6-38.0); CALCIUM 8.3 MG/DL (8.5-10.1); CHLORIDE 96 MMOL/L (99-107); CREATININE 0.59 MG/DL (0.40-0.90); GLUCOSE 152 MG/DL (70-104); MAGNESIUM 2.3 MG/DL (1.5-2.4); PHOSPHORUS 3.6 MG/DL (2.3-4.5); POTASSIUM 3.8 MMOL/L (3.5-5.1); SODIUM 141 MMOL/L (135-145); TOTAL PROTEIN 6.7 G/DL (6.4-8.2); eGFR > 90 ML/MIN
[2018-03-10] MEDS: ipratropium/albuterol 3ml nebule NEB SCH ×6 (03:20→23:52)
[2018-03-10 03:22] LABS: TOTAL CARBON DIOXIDE 41.7 MMOL/L (24-32)
[2018-03-10] MEDS ORDERED: ibuprofen 100 MG/5 ML oral susp PO PRN (03:25)
[2018-03-10] MEDS: vancomycin/NS 1 GM ADD-VANTAGE 250 ML IV SCH (03:31)
[2018-03-10] MEDS: acetaminophen 325mg tablet PO PRN (03:32)
[2018-03-10 03:36] LABS: ABG BASE EXCESS 14.4 mmol/L (-2.0-3.0); ABG HCO3 40.5 mmol/L (22.0-26.0); ABG OXYGEN SATURATION 89.7 % (95-98); ABG PCO2 (T) 60.4 mmHg (32.0-45.0); ABG PO2 (T) 64.6 mmHg (83-108); FCOHb 0.4 % (0.5-1.5); FMetHb 0.2 % (0.3-1.12); FO2Hb 89.2 % (94-100); MINUTE VOLUME 10 L/min; PATIENT TEMPERATURE 38.5; PEEP 14 cm H2O; RESPIRATORY RATE 30 b/min; RESPIRATORY RATE (OBSERVED) 30 b/min; TIDAL VOLUME 350 mL; TOTAL HEMOGLOBIN 13.1 G/dl (12.0-16.0)
[2018-03-10 03:47] LABS: TOTAL CELLS COUNTED 100
[2018-03-10 03:48] LABS: ANISOCYTOSIS 1+; PLATELET ESTIMATE NORMAL
[2018-03-10] MEDS: pantoprazole 40 MG vial IV SCH (07:35)
[2018-03-10] MEDS: spironolactone 50 MG tablet PO SCH ×3 (07:37→21:05)
[2018-03-10] MEDS: CARBAMAZEPINE 200 MG/10 ML PO SCH ×3 (07:37→16:55)
[2018-03-10] MEDS: lactobacillus rhamnosus 10,000 MMU CELLS/CAPSULE PO SCH ×2 (07:38→20:12)
[2018-03-10] MEDS: enoxaparin 40mg/0.4ml syringe SUBCUT SCH (07:38)
[2018-03-10] MEDS: metolazone 2.5mg tablet PO SCH ×2 (07:39→20:10)
[2018-03-10] MEDS: K, MAG and/or Phos replacement - Verify level? MC SCH (08:00)
[2018-03-10] MEDS ORDERED: HYDROmorphone 1 mg/ml syringe IV PRN (09:05)
[2018-03-10] MEDS: cefepime 1GM/NS ADD-VANTAGE 100 ML IV SCH ×2 (09:05→16:55)
[2018-03-10] MEDS ORDERED: linezolid 600mg/300ml PREMIX 300 ML IV ONE (09:05)
[2018-03-10] MEDS ORDERED: VANCOMYCIN LEVEL IV ONE (11:30)
[2018-03-10] MEDS: morphine/NS 100mg/100ml bag 100 ML IV SCH (12:06)
[2018-03-10] MEDS: midazolam 100mg in NS 100ml 100 ML IV PRN (12:55)
[2018-03-10] MEDS: acetaZOLAMIDE IV 500mg inj IV SCH ×2 (13:25→21:05)
[2018-03-10] MEDS: furosemide 40mg/4ml inj IV SCH (20:24)
[2018-03-10] MEDS: linezolid 600mg/300ml PREMIX 300 ML IV SCH (20:29)
[2018-03-10] MEDS: insulin glargine (Lantus) pen - multi-dose SQ SCH (20:40)
[2018-03-10 22:49] LABS: MAGNESIUM 2.1 MG/DL (1.5-2.4); POTASSIUM 3.2 MMOL/L (3.5-5.1)
[2018-03-11] VITALS (24 sets, daily range): BP systolic 94–134; BP diastolic 45–94
[2018-03-11] MEDS: cefepime 1GM/NS ADD-VANTAGE 100 ML IV SCH ×4 (00:31→23:33)
[2018-03-11] MEDS ORDERED: potassium Cl 40MEQ/250ML bag 250 ML IV ONE ×2 (00:31→23:51)
[2018-03-11] MEDS: potassium Cl 40MEQ/250ML bag 250 ML IV PRN ×2 (00:35→23:55)
[2018-03-11] MEDS: lactulose 20gm/30ml cup PO SCH ×4 (01:44→19:58)
[2018-03-11] MEDS: furosemide 40mg/4ml inj IV SCH ×3 (01:44→20:00)
[2018-03-11] MEDS: methylPREDNISolone sod succ 125mg/2ml vial IV SCH ×3 (01:44→19:59)
[2018-03-11] MEDS: mineral oil/petrolatum ophthal oint EACHEYE SCH ×4 (01:51→20:00)
[2018-03-11] MEDS: insulin regular, human vial - multi-dose SQ SCH ×4 (02:08→20:04)
[2018-03-11] MEDS: midazolam 100mg in NS 100ml 100 ML IV PRN ×2 (02:45→17:51)
[2018-03-11] MEDS: propofol 1000mg/100ml bottle 100 ML IV PRN ×7 (02:45→21:08)
[2018-03-11] MEDS: ipratropium/albuterol 3ml nebule NEB SCH ×6 (03:21→23:09)
[2018-03-11 04:11] LABS: ABG HCO3 41.5 mmol/L (22.0-26.0); ABG OXYGEN SATURATION 91.1 % (95-98); ABG PCO2 (T) 54.5 mmHg (32.0-45.0); ABG PH (T) 7.501 (7.350-7.450); ABG PO2 (T) 63.1 mmHg (83-108); FCOHb 0.5 % (0.5-1.5); FMetHb 0.2 % (0.3-1.12); FO2Hb 90.5 % (94-100); MINUTE VOLUME 10 L/min; PATIENT TEMPERATURE 37.4; PEEP 5 cm H2O; RESPIRATORY RATE 28 b/min; RESPIRATORY RATE (OBSERVED) 28 b/min; TIDAL VOLUME 350 mL; TOTAL HEMOGLOBIN 12.7 G/dl (12.0-16.0)
[2018-03-11 04:19] LABS: HEMATOCRIT 35.6 % (35.0-45.0); HEMOGLOBIN 11.6 g/dl (12.0-16.0); MEAN CORPUSCULAR HEMOGLOBIN 29.2 PG (27.0-31.0); MEAN CORPUSCULAR HGB CONC 32.7 % (33.0-36.5); MEAN CORPUSCULAR VOLUME 89.3 FL (78-98); MEAN PLATELET VOLUME 8.4 FL (7.4-10.4); PLATELET COUNT 301 X10'3 (140-440); RED BLOOD COUNT 3.98 X10'6 (4.20-5.60); RED CELL DISTRIBUTION WIDTH 16.7 % (11.5-14.5); WHITE BLOOD COUNT 17.7 X10'3 (4.5-11.0)
[2018-03-11 04:34] LABS: ALANINE AMINOTRANSFERASE 32 U/L (12-78); ALBUMIN/GLOBULIN RATIO 0.4 (1.1-1.5); ALKALINE PHOSPHATASE 121 IU/L (46-116); ANION GAP 3 (8-16); ASPARTATE AMINO TRANSFERASE 26 U/L (10-37); BILIRUBIN,TOTAL 0.7 MG/DL (0.1-1.0); BLOOD UREA NITROGEN 46 MG/DL (7-18); BUN/CREATININE RATIO 58.2 (6.6-38.0); CALCIUM 9.2 MG/DL (8.5-10.1); CHLORIDE 90 MMOL/L (99-107); CREATININE 0.79 MG/DL (0.40-0.90); GLUCOSE 158 MG/DL (70-104); MAGNESIUM 2.1 MG/DL (1.5-2.4); PHOSPHORUS 5.3 MG/DL (2.3-4.5); POTASSIUM 3.6 MMOL/L (3.5-5.1); SODIUM 133 MMOL/L (135-145); TOTAL PROTEIN 7.2 G/DL (6.4-8.2); eGFR 78 ML/MIN
[2018-03-11 05:10] LABS: TOTAL CELLS COUNTED 100
[2018-03-11 05:12] LABS: ANISOCYTOSIS 1+; BURR CELLS FEW; PLATELET ESTIMATE NORMAL; TARGET CELLS FEW
[2018-03-11] MEDS: K, MAG and/or Phos replacement - Verify level? MC SCH (08:00)
[2018-03-11] MEDS: acetaZOLAMIDE IV 500mg inj IV SCH ×3 (08:22→21:09)
[2018-03-11] MEDS: spironolactone 50 MG tablet PO SCH ×3 (08:23→21:09)
[2018-03-11] MEDS: CARBAMAZEPINE 200 MG/10 ML PO SCH ×3 (08:23→16:58)
[2018-03-11] MEDS: enoxaparin 40mg/0.4ml syringe SUBCUT SCH (08:23)
[2018-03-11] MEDS: pantoprazole 40 MG vial IV SCH (08:23)
[2018-03-11] MEDS: methylnaltrexone br 12mg/0.6ml inj***SubQ only SQ SCH (08:23)
[2018-03-11] MEDS: lactobacillus rhamnosus 10,000 MMU CELLS/CAPSULE PO SCH ×2 (08:23→19:58)
[2018-03-11] MEDS: metolazone 2.5mg tablet PO SCH (08:24)
[2018-03-11] MEDS: linezolid 600mg/300ml PREMIX 300 ML IV SCH ×2 (09:30→20:00)
[2018-03-11] MEDS: morphine/NS 100mg/100ml bag 100 ML IV SCH (20:02)
[2018-03-11] MEDS: insulin glargine (Lantus) pen - multi-dose SQ SCH (20:05)
[2018-03-12] VITALS (24 sets, daily range): BP systolic 96–142; BP diastolic 48–90
[2018-03-12] MEDS: propofol 1000mg/100ml bottle 100 ML IV PRN ×8 (00:10→22:35)
[2018-03-12] MEDS: mineral oil/petrolatum ophthal oint EACHEYE SCH ×4 (02:51→19:33)
[2018-03-12] MEDS: lactulose 20gm/30ml cup PO SCH ×4 (02:51→19:34)
[2018-03-12] MEDS: insulin regular, human vial - multi-dose SQ SCH ×4 (02:54→20:26)
[2018-03-12 03:05] LABS: HEMATOCRIT 34.7 % (35.0-45.0); HEMOGLOBIN 11.4 g/dl (12.0-16.0); MEAN CORPUSCULAR HEMOGLOBIN 29.2 PG (27.0-31.0); MEAN CORPUSCULAR HGB CONC 32.8 % (33.0-36.5); MEAN CORPUSCULAR VOLUME 88.9 FL (78-98); MEAN PLATELET VOLUME 8.5 FL (7.4-10.4); PLATELET COUNT 349 X10'3 (140-440); RED CELL DISTRIBUTION WIDTH 16.6 % (11.5-14.5); WHITE BLOOD COUNT 17.2 X10'3 (4.5-11.0)
[2018-03-12] MEDS: ipratropium/albuterol 3ml nebule NEB SCH ×6 (03:17→23:26)
[2018-03-12 03:25] LABS: ALANINE AMINOTRANSFERASE 35 U/L (12-78); ALBUMIN/GLOBULIN RATIO 0.4 (1.1-1.5); ALKALINE PHOSPHATASE 119 IU/L (46-116); ANION GAP 7 (8-16); ASPARTATE AMINO TRANSFERASE 30 U/L (10-37); BILIRUBIN,TOTAL 0.6 MG/DL (0.1-1.0); BLOOD UREA NITROGEN 51 MG/DL (7-18); BUN/CREATININE RATIO 92.7 (6.6-38.0); CALCIUM 9.1 MG/DL (8.5-10.1); CHLORIDE 90 MMOL/L (99-107); CREATININE 0.55 MG/DL (0.40-0.90); GLUCOSE 134 MG/DL (70-104); MAGNESIUM 2.3 MG/DL (1.5-2.4); PHOSPHORUS 5.6 MG/DL (2.3-4.5); POTASSIUM 3.8 MMOL/L (3.5-5.1); PREALBUMIN 20.5 MG/DL (19-36); SODIUM 133 MMOL/L (135-145); TOTAL CARBON DIOXIDE 35.7 MMOL/L (24-32); TOTAL PROTEIN 7.1 G/DL (6.4-8.2); eGFR > 90 ML/MIN
[2018-03-12 03:29] LABS: ANISOCYTOSIS 1+; LYMPHOCYTES % (MANUAL) 5 % (21-51); MONOCYTES % (MANUAL) 4 % (2-12); NEUTROPHILS % (MANUAL) 91 % (42-75); PLATELET ESTIMATE NORMAL; TOTAL CELLS COUNTED 100
[2018-03-12 03:30] LABS: ABG BASE EXCESS 11.1 mmol/L (-2.0-3.0); ABG HCO3 35.9 mmol/L (22.0-26.0); ABG OXYGEN SATURATION 89.3 % (95-98); ABG PCO2 (T) 48.4 mmHg (32.0-45.0); ABG PH (T) 7.488 (7.350-7.450); ABG PO2 (T) 58.9 mmHg (83-108); FCOHb 0.2 % (0.5-1.5); FMetHb 0.2 % (0.3-1.12); FO2Hb 88.9 % (94-100); MINUTE VOLUME 10 L/min; PATIENT TEMPERATURE 37.1; PEEP 8 cm H2O; RESPIRATORY RATE 28 b/min; RESPIRATORY RATE (OBSERVED) 28 b/min; TIDAL VOLUME 350 mL; TOTAL HEMOGLOBIN 12.3 G/dl (12.0-16.0)
[2018-03-12] MEDS: cefepime 1GM/NS ADD-VANTAGE 100 ML IV SCH ×3 (07:23→23:55)
[2018-03-12] MEDS: acetaZOLAMIDE IV 500mg inj IV SCH ×3 (07:25→20:43)
[2018-03-12] MEDS: enoxaparin 40mg/0.4ml syringe SUBCUT SCH (07:25)
[2018-03-12] MEDS: methylPREDNISolone sod succ 125mg/2ml vial IV SCH ×2 (07:26→19:34)
[2018-03-12] MEDS: pantoprazole 40 MG vial IV SCH (07:26)
[2018-03-12] MEDS: CARBAMAZEPINE 200 MG/10 ML PO SCH ×3 (07:26→23:55)
[2018-03-12] MEDS: lactobacillus rhamnosus 10,000 MMU CELLS/CAPSULE PO SCH ×2 (07:26→19:34)
[2018-03-12] MEDS: metolazone 2.5mg tablet PO SCH (07:26)
[2018-03-12] MEDS: spironolactone 50 MG tablet PO SCH ×3 (07:27→20:43)
[2018-03-12] MEDS: furosemide 40mg/4ml inj IV SCH ×2 (07:27→19:33)
[2018-03-12] MEDS: K, MAG and/or Phos replacement - Verify level? MC SCH (08:00)
[2018-03-12] MEDS: linezolid 600mg/300ml PREMIX 300 ML IV SCH ×2 (08:14→19:34)
[2018-03-12] MEDS: midazolam 100mg in NS 100ml 100 ML IV PRN (09:13)
[2018-03-12] MEDS: potassium Cl 20mEq/100mL bag 100 ML IV PRN ×6 (10:45→23:03)
[2018-03-12] MEDS ORDERED: erythromycin base 250mg tablet PO SCH (14:00)
[2018-03-12] MEDS: erythromycin ethylsuccinate 200mg/5ml 200ml bottle PO SCH ×2 (14:59→19:34)
[2018-03-12] MEDS: sevelamer carbonate 0.8gm powder pkt PO SCH ×2 (16:46→23:55)
[2018-03-12] MEDS: insulin glargine (Lantus) pen - multi-dose SQ SCH (20:40)
[2018-03-13] VITALS (24 sets, daily range): BP systolic 105–155; BP diastolic 41–91
[2018-03-13] MEDS: potassium Cl 20mEq/100mL bag 100 ML IV PRN ×7 (00:05→23:08)
[2018-03-13] MEDS: lactulose 20gm/30ml cup PO SCH ×4 (01:40→20:00)
[2018-03-13] MEDS: mineral oil/petrolatum ophthal oint EACHEYE SCH ×4 (01:40→19:59)
[2018-03-13] MEDS: propofol 1000mg/100ml bottle 100 ML IV PRN ×6 (01:40→22:06)
[2018-03-13] MEDS: erythromycin ethylsuccinate 200mg/5ml 200ml bottle PO SCH ×3 (01:40→14:00)
[2018-03-13] MEDS: insulin regular, human vial - multi-dose SQ SCH ×4 (02:32→20:56)
[2018-03-13] MEDS: midazolam 100mg in NS 100ml 100 ML IV PRN ×2 (02:34→11:02)
[2018-03-13] MEDS: ipratropium/albuterol 3ml nebule NEB SCH ×6 (03:16→22:30)
[2018-03-13 03:51] LABS: ABG HCO3 35.4 mmol/L (22.0-26.0); ABG PCO2 (T) 56.7 mmHg (32.0-45.0); ABG PH (T) 7.414 (7.350-7.450); ABG PO2 (T) 70.8 mmHg (83-108); FCOHb 0.7 % (0.5-1.5); FMetHb 0.2 % (0.3-1.12); FO2Hb 92.2 % (94-100); MINUTE VOLUME 10 L/min; PATIENT TEMPERATURE 37.2; PEEP 10 cm H2O; RESPIRATORY RATE 28 b/min; RESPIRATORY RATE (OBSERVED) 28 b/min; TIDAL VOLUME 350 mL; TOTAL HEMOGLOBIN 13.4 G/dl (12.0-16.0)
[2018-03-13 04:02] LABS: HEMOGLOBIN 12.4 g/dl (12.0-16.0); MEAN CORPUSCULAR HEMOGLOBIN 28.9 PG (27.0-31.0); MEAN CORPUSCULAR HGB CONC 32.5 % (33.0-36.5); MEAN CORPUSCULAR VOLUME 88.9 FL (78-98); MEAN PLATELET VOLUME 8.4 FL (7.4-10.4); PLATELET COUNT 404 X10'3 (140-440); RED BLOOD COUNT 4.27 X10'6 (4.20-5.60); RED CELL DISTRIBUTION WIDTH 16.2 % (11.5-14.5); WHITE BLOOD COUNT 14.6 X10'3 (4.5-11.0)
[2018-03-13 04:17] LABS: ALANINE AMINOTRANSFERASE 34 U/L (12-78); ALBUMIN 2.2 G/DL (3.4-5.0); ALBUMIN/GLOBULIN RATIO 0.4 (1.1-1.5); ALKALINE PHOSPHATASE 132 IU/L (46-116); ANION GAP 7 (8-16); ASPARTATE AMINO TRANSFERASE 25 U/L (10-37); BILIRUBIN,TOTAL 0.7 MG/DL (0.1-1.0); BLOOD UREA NITROGEN 52 MG/DL (7-18); BUN/CREATININE RATIO 94.5 (6.6-38.0); CHLORIDE 91 MMOL/L (99-107); CREATININE 0.55 MG/DL (0.40-0.90); GLUCOSE 122 MG/DL (70-104); MAGNESIUM 2.1 MG/DL (1.5-2.4); PHOSPHORUS 5.4 MG/DL (2.3-4.5); SODIUM 132 MMOL/L (135-145); TOTAL CARBON DIOXIDE 33.7 MMOL/L (24-32); TOTAL PROTEIN 7.8 G/DL (6.4-8.2); eGFR > 90 ML/MIN
[2018-03-13 05:01] LABS: PLATELET ESTIMATE NORMAL; TOTAL CELLS COUNTED 100
[2018-03-13 05:02] LABS: ANISOCYTOSIS 1+
[2018-03-13] MEDS: cefepime 1GM/NS ADD-VANTAGE 100 ML IV SCH ×2 (08:00→15:25)
[2018-03-13] MEDS: methylnaltrexone br 12mg/0.6ml inj***SubQ only SQ SCH (08:00)
[2018-03-13] MEDS: K, MAG and/or Phos replacement - Verify level? MC SCH (08:00)
[2018-03-13] MEDS: linezolid 600mg/300ml PREMIX 300 ML IV SCH ×2 (08:00→19:58)
[2018-03-13] MEDS: metolazone 2.5mg tablet PO SCH (08:01)
[2018-03-13] MEDS: enoxaparin 40mg/0.4ml syringe SUBCUT SCH (08:01)
[2018-03-13] MEDS: acetaZOLAMIDE IV 500mg inj IV SCH (08:02)
[2018-03-13] MEDS: pantoprazole 40 MG vial IV SCH (08:02)
[2018-03-13] MEDS: CARBAMAZEPINE 200 MG/10 ML PO SCH ×2 (08:02→15:25)
[2018-03-13] MEDS: spironolactone 50 MG tablet PO SCH ×3 (08:02→20:51)
[2018-03-13] MEDS: lactobacillus rhamnosus 10,000 MMU CELLS/CAPSULE PO SCH ×2 (08:02→19:58)
[2018-03-13] MEDS: furosemide 40mg/4ml inj IV SCH ×2 (08:02→19:58)
[2018-03-13] MEDS: sevelamer carbonate 0.8gm powder pkt PO SCH ×2 (08:03→15:25)
[2018-03-13] MEDS: methylPREDNISolone sod succ 125mg/2ml vial IV SCH ×2 (09:31→19:58)
[2018-03-13] MEDS: morphine/NS 100mg/100ml bag 100 ML IV SCH (20:00)
[2018-03-13] MEDS ORDERED: erythromycin ethylsuccinate 200mg/5ml 200ml bottle PO ONE (20:45)
[2018-03-13] MEDS: insulin glargine (Lantus) pen - multi-dose SQ SCH (20:58)
[2018-03-14] VITALS (24 sets, daily range): BP systolic 96–141; BP diastolic 46–88
[2018-03-14] MEDS: midazolam 100mg in NS 100ml 100 ML IV PRN ×2 (00:47→18:31)
[2018-03-14] MEDS: sevelamer carbonate 0.8gm powder pkt PO SCH ×3 (00:52→16:10)
[2018-03-14] MEDS: cefepime 1GM/NS ADD-VANTAGE 100 ML IV SCH ×3 (00:52→16:12)
[2018-03-14] MEDS: CARBAMAZEPINE 200 MG/10 ML PO SCH ×3 (00:52→16:13)
[2018-03-14] MEDS: propofol 1000mg/100ml bottle 100 ML IV PRN ×5 (02:04→18:33)
[2018-03-14] MEDS: lactulose 20gm/30ml cup PO SCH ×4 (02:07→20:00)
[2018-03-14] MEDS: erythromycin ethylsuccinate 200mg/5ml 200ml bottle PO SCH ×4 (02:07→20:05)
[2018-03-14] MEDS: mineral oil/petrolatum ophthal oint EACHEYE SCH ×4 (02:08→20:05)
[2018-03-14] MEDS: ipratropium/albuterol 3ml nebule NEB SCH ×6 (02:37→22:27)
[2018-03-14] MEDS: insulin regular, human vial - multi-dose SQ SCH ×4 (02:40→20:17)
[2018-03-14 03:03] LABS: ALANINE AMINOTRANSFERASE 31 U/L (12-78); ALBUMIN 2.3 G/DL (3.4-5.0); ALBUMIN/GLOBULIN RATIO 0.4 (1.1-1.5); ALKALINE PHOSPHATASE 128 IU/L (46-116); ANION GAP 6 (8-16); ASPARTATE AMINO TRANSFERASE 21 U/L (10-37); BILIRUBIN,TOTAL 0.6 MG/DL (0.1-1.0); BLOOD UREA NITROGEN 55 MG/DL (7-18); BUN/CREATININE RATIO 112.2 (6.6-38.0); CALCIUM 9.1 MG/DL (8.5-10.1); CHLORIDE 91 MMOL/L (99-107); CREATININE 0.49 MG/DL (0.40-0.90); GLUCOSE 144 MG/DL (70-104); MAGNESIUM 2.1 MG/DL (1.5-2.4); PHOSPHORUS 4.7 MG/DL (2.3-4.5); POTASSIUM 4.5 MMOL/L (3.5-5.1); SODIUM 133 MMOL/L (135-145); TOTAL CARBON DIOXIDE 35.7 MMOL/L (24-32); TOTAL PROTEIN 7.8 G/DL (6.4-8.2); eGFR > 90 ML/MIN
[2018-03-14 03:07] LABS: BASOPHILS % (AUTO) 0 % (0-1); EOSINOPHILS # (AUTO) 0.1 X10'3 (0-0.9); EOSINOPHILS % (AUTO) 0.8 % (0-6); HEMATOCRIT 40.7 % (35.0-45.0); HEMOGLOBIN 13.1 g/dl (12.0-16.0); LYMPHOCYTES # (AUTO) 0.9 X10'3 (1.1-4.8); LYMPHOCYTES % (AUTO) 5.4 % (21-51); MEAN CORPUSCULAR HEMOGLOBIN 28.7 PG (27.0-31.0); MEAN CORPUSCULAR HGB CONC 32.2 % (33.0-36.5); MEAN CORPUSCULAR VOLUME 89.2 FL (78-98); MEAN PLATELET VOLUME 8.6 FL (7.4-10.4); MONOCYTES # (AUTO) 0.6 X10'3 (0-0.9); MONOCYTES % (AUTO) 3.6 % (2-12); NEUTROPHILS # (AUTO) 14.2 X10'3 (1.8-7.7); NEUTROPHILS % (AUTO) 90.2 % (42-75); PLATELET COUNT 410 X10'3 (140-440); RED BLOOD COUNT 4.56 X10'6 (4.20-5.60); RED CELL DISTRIBUTION WIDTH 16.6 % (11.5-14.5); WHITE BLOOD COUNT 15.8 X10'3 (4.5-11.0)
[2018-03-14 04:16] LABS: ABG BASE EXCESS 10.5 mmol/L (-2.0-3.0); ABG HCO3 38.2 mmol/L (22.0-26.0); ABG OXYGEN SATURATION 95.6 % (95-98); ABG PCO2 (T) 65.1 mmHg (32.0-45.0); ABG PH (T) 7.387 (7.350-7.450); ABG PO2 (T) 84.6 mmHg (83-108); FMetHb 0.2 % (0.3-1.12); FO2Hb 94.5 % (94-100); MINUTE VOLUME 13 L/min; PATIENT TEMPERATURE 37.2; PEEP 10 cm H2O; RESPIRATORY RATE 28 b/min; RESPIRATORY RATE (OBSERVED) 28 b/min; TIDAL VOLUME 350 mL
[2018-03-14 07:30] LABS: TOTAL CELLS COUNTED 100
[2018-03-14 07:31] LABS: ANISOCYTOSIS 1+; PLATELET ESTIMATE NORMAL; POLYCHROMASIA FEW; TARGET CELLS FEW
[2018-03-14] MEDS: linezolid 600mg/300ml PREMIX 300 ML IV SCH ×2 (07:57→20:04)
[2018-03-14] MEDS: metolazone 2.5mg tablet PO SCH (07:58)
[2018-03-14] MEDS: furosemide 40mg/4ml inj IV SCH ×2 (07:59→20:00)
[2018-03-14] MEDS: pantoprazole 40 MG vial IV SCH (07:59)
[2018-03-14] MEDS: enoxaparin 40mg/0.4ml syringe SUBCUT SCH (08:00)
[2018-03-14] MEDS: spironolactone 50 MG tablet PO SCH ×3 (08:00→20:06)
[2018-03-14] MEDS: K, MAG and/or Phos replacement - Verify level? MC SCH (08:00)
[2018-03-14] MEDS: methylPREDNISolone sod succ 125mg/2ml vial IV SCH ×2 (08:00→20:04)
[2018-03-14] MEDS: lactobacillus rhamnosus 10,000 MMU CELLS/CAPSULE PO SCH ×2 (08:00→20:05)
[2018-03-14] MEDS: morphine/NS 100mg/100ml bag 100 ML IV SCH (18:39)
[2018-03-14] MEDS: insulin glargine (Lantus) pen - multi-dose SQ SCH (20:19)
[2018-03-15] VITALS (22 sets, daily range): BP systolic 90–117; BP diastolic 48–82
[2018-03-15] MEDS: cefepime 1GM/NS ADD-VANTAGE 100 ML IV SCH ×3 (00:22→16:00)
[2018-03-15] MEDS: sevelamer carbonate 0.8gm powder pkt PO SCH ×3 (00:22→16:00)
[2018-03-15] MEDS: CARBAMAZEPINE 200 MG/10 ML PO SCH ×3 (00:23→16:00)
[2018-03-15] MEDS: lactulose 20gm/30ml cup PO SCH ×4 (02:00→20:00)
[2018-03-15] MEDS: propofol 1000mg/100ml bottle 100 ML IV PRN ×5 (02:13→22:51)
[2018-03-15] MEDS: insulin regular, human vial - multi-dose SQ SCH ×4 (02:16→20:51)
[2018-03-15] MEDS: mineral oil/petrolatum ophthal oint EACHEYE SCH ×4 (02:21→20:59)
[2018-03-15] MEDS: erythromycin ethylsuccinate 200mg/5ml 200ml bottle PO SCH ×4 (02:23→19:52)
[2018-03-15] MEDS: ipratropium/albuterol 3ml nebule NEB SCH ×6 (02:24→22:23)
[2018-03-15 02:32] LABS: BASOPHILS % (AUTO) 0.3 % (0-1); EOSINOPHILS # (AUTO) 0.2 X10'3 (0-0.9); HEMATOCRIT 40.3 % (35.0-45.0); HEMOGLOBIN 13.2 g/dl (12.0-16.0); LYMPHOCYTES # (AUTO) 1.2 X10'3 (1.1-4.8); LYMPHOCYTES % (AUTO) 7.4 % (21-51); MEAN CORPUSCULAR HEMOGLOBIN 29.2 PG (27.0-31.0); MEAN CORPUSCULAR HGB CONC 32.7 % (33.0-36.5); MEAN CORPUSCULAR VOLUME 89.2 FL (78-98); MEAN PLATELET VOLUME 8.6 FL (7.4-10.4); MONOCYTES # (AUTO) 0.6 X10'3 (0-0.9); MONOCYTES % (AUTO) 3.9 % (2-12); NEUTROPHILS # (AUTO) 14.1 X10'3 (1.8-7.7); NEUTROPHILS % (AUTO) 87.4 % (42-75); PLATELET COUNT 385 X10'3 (140-440); RED BLOOD COUNT 4.52 X10'6 (4.20-5.60); RED CELL DISTRIBUTION WIDTH 16.6 % (11.5-14.5); WHITE BLOOD COUNT 16.1 X10'3 (4.5-11.0)
[2018-03-15 02:52] LABS: ALANINE AMINOTRANSFERASE 33 U/L (12-78); ALBUMIN 2.3 G/DL (3.4-5.0); ALBUMIN/GLOBULIN RATIO 0.4 (1.1-1.5); ALKALINE PHOSPHATASE 114 IU/L (46-116); ANION GAP 4 (8-16); ASPARTATE AMINO TRANSFERASE 20 U/L (10-37); BILIRUBIN,TOTAL 0.6 MG/DL (0.1-1.0); BLOOD UREA NITROGEN 68 MG/DL (7-18); BUN/CREATININE RATIO 128.3 (6.6-38.0); CALCIUM 9.1 MG/DL (8.5-10.1); CHLORIDE 92 MMOL/L (99-107); CREATININE 0.53 MG/DL (0.40-0.90); GLUCOSE 171 MG/DL (70-104); MAGNESIUM 2.1 MG/DL (1.5-2.4); POTASSIUM 3.5 MMOL/L (3.5-5.1); SODIUM 133 MMOL/L (135-145); TOTAL PROTEIN 7.5 G/DL (6.4-8.2); eGFR > 90 ML/MIN
[2018-03-15] MEDS: potassium Cl 20mEq/100mL bag 100 ML IV PRN (03:27)
[2018-03-15 03:56] LABS: ABG BASE EXCESS 5.8 mmol/L (-2.0-3.0); ABG HCO3 31.5 mmol/L (22.0-26.0); ABG PH (T) 7.404 (7.350-7.450); ABG PO2 (T) 101.5 mmHg (83-108); FCOHb 0.4 % (0.5-1.5); FMetHb 0.1 % (0.3-1.12); FO2Hb 96.5 % (94-100); MINUTE VOLUME 12 L/min; PATIENT TEMPERATURE 37.8; PEEP 10 cm H2O; RESPIRATORY RATE 28 b/min; RESPIRATORY RATE (OBSERVED) 28 b/min; TIDAL VOLUME 350 mL; TOTAL HEMOGLOBIN 13.8 G/dl (12.0-16.0)
[2018-03-15 07:48] LABS: ANISOCYTOSIS 1+; LARGE PLATELETS FEW; PLATELET ESTIMATE NORMAL; POLYCHROMASIA FEW; TARGET CELLS FEW; TOTAL CELLS COUNTED 100
[2018-03-15] MEDS: linezolid 600mg/300ml PREMIX 300 ML IV SCH ×2 (07:48→20:00)
[2018-03-15] MEDS: spironolactone 50 MG tablet PO SCH ×3 (07:49→21:13)
[2018-03-15] MEDS: furosemide 40mg/4ml inj IV SCH ×2 (07:49→20:00)
[2018-03-15] MEDS: methylPREDNISolone sod succ 125mg/2ml vial IV SCH ×2 (07:49→19:52)
[2018-03-15] MEDS: pantoprazole 40 MG vial IV SCH (07:49)
[2018-03-15] MEDS: metolazone 2.5mg tablet PO SCH (07:50)
[2018-03-15] MEDS: lactobacillus rhamnosus 10,000 MMU CELLS/CAPSULE PO SCH ×2 (07:50→19:52)
[2018-03-15] MEDS: K, MAG and/or Phos replacement - Verify level? MC SCH (08:00)
[2018-03-15] MEDS: enoxaparin 40mg/0.4ml syringe SUBCUT SCH (08:00)
[2018-03-15] MEDS: methylnaltrexone br 12mg/0.6ml inj***SubQ only SQ SCH (08:00)
[2018-03-15] MEDS: acetaminophen 325mg tablet PO PRN (17:36)
[2018-03-15] MEDS: insulin glargine (Lantus) pen - multi-dose SQ SCH (20:53)
[2018-03-16] VITALS (24 sets, daily range): BP systolic 95–137; BP diastolic 47–87
[2018-03-16] MEDS: sevelamer carbonate 0.8gm powder pkt PO SCH ×4 (00:38→23:39)
[2018-03-16] MEDS: cefepime 1GM/NS ADD-VANTAGE 100 ML IV SCH ×4 (00:38→23:39)
[2018-03-16] MEDS: CARBAMAZEPINE 200 MG/10 ML PO SCH ×4 (00:39→23:39)
[2018-03-16] MEDS: lactulose 20gm/30ml cup PO SCH ×4 (02:00→20:00)
[2018-03-16] MEDS: mineral oil/petrolatum ophthal oint EACHEYE SCH ×4 (02:22→21:03)
[2018-03-16] MEDS: erythromycin ethylsuccinate 200mg/5ml 200ml bottle PO SCH ×4 (02:22→21:04)
[2018-03-16] MEDS: insulin regular, human vial - multi-dose SQ SCH ×4 (02:25→21:16)
[2018-03-16] MEDS: ipratropium/albuterol 3ml nebule NEB SCH ×6 (02:32→22:32)
[2018-03-16 03:00] LABS: BASOPHILS % (AUTO) 0 % (0-1); EOSINOPHILS % (AUTO) 0 % (0-6); HEMATOCRIT 38.8 % (35.0-45.0); HEMOGLOBIN 12.6 g/dl (12.0-16.0); LYMPHOCYTES # (AUTO) 1.2 X10'3 (1.1-4.8); LYMPHOCYTES % (AUTO) 7.9 % (21-51); MEAN CORPUSCULAR HEMOGLOBIN 28.8 PG (27.0-31.0); MEAN CORPUSCULAR HGB CONC 32.4 % (33.0-36.5); MEAN PLATELET VOLUME 8.6 FL (7.4-10.4); MONOCYTES # (AUTO) 0.8 X10'3 (0-0.9); MONOCYTES % (AUTO) 5.2 % (2-12); NEUTROPHILS # (AUTO) 13.3 X10'3 (1.8-7.7); NEUTROPHILS % (AUTO) 86.9 % (42-75); PLATELET COUNT 357 X10'3 (140-440); RED BLOOD COUNT 4.36 X10'6 (4.20-5.60); RED CELL DISTRIBUTION WIDTH 16.8 % (11.5-14.5); WHITE BLOOD COUNT 15.3 X10'3 (4.5-11.0)
[2018-03-16 03:22] LABS: ALANINE AMINOTRANSFERASE 27 U/L (12-78); ALBUMIN 2.3 G/DL (3.4-5.0); ALBUMIN/GLOBULIN RATIO 0.5 (1.1-1.5); ALKALINE PHOSPHATASE 105 IU/L (46-116); ANION GAP 4 (8-16); ASPARTATE AMINO TRANSFERASE 17 U/L (10-37); BILIRUBIN,TOTAL 0.5 MG/DL (0.1-1.0); BLOOD UREA NITROGEN 61 MG/DL (7-18); BUN/CREATININE RATIO 101.7 (6.6-38.0); CALCIUM 9.1 MG/DL (8.5-10.1); CHLORIDE 95 MMOL/L (99-107); GLUCOSE 145 MG/DL (70-104); MAGNESIUM 1.9 MG/DL (1.5-2.4); PHOSPHORUS 4.2 MG/DL (2.3-4.5); POTASSIUM 3.7 MMOL/L (3.5-5.1); PREALBUMIN 44.3 MG/DL (19-36); SODIUM 134 MMOL/L (135-145); TOTAL CARBON DIOXIDE 35.3 MMOL/L (24-32); TOTAL PROTEIN 7.1 G/DL (6.4-8.2); eGFR > 90 ML/MIN
[2018-03-16] MEDS: potassium Cl 20mEq/100mL bag 100 ML IV PRN (03:42)
[2018-03-16 03:56] LABS: ABG BASE EXCESS 12.3 mmol/L (-2.0-3.0); ABG HCO3 38.6 mmol/L (22.0-26.0); ABG OXYGEN SATURATION 91.8 % (95-98); ABG PCO2 (T) 57.7 mmHg (32.0-45.0); ABG PH (T) 7.444 (7.350-7.450); ABG PO2 (T) 65.4 mmHg (83-108); ALLEN'S TEST Positive; FCOHb 0.7 % (0.5-1.5); FO2Hb 91.2 % (94-100); MINUTE VOLUME 14 L/min; PATIENT TEMPERATURE 37.5; PEEP 8 cm H2O; RESPIRATORY RATE 28 b/min; RESPIRATORY RATE (OBSERVED) 28 b/min; TIDAL VOLUME 350 mL; TOTAL HEMOGLOBIN 13.4 G/dl (12.0-16.0)
[2018-03-16] MEDS: propofol 1000mg/100ml bottle 100 ML IV PRN ×3 (05:00→21:00)
[2018-03-16] MEDS: K, MAG and/or Phos replacement - Verify level? MC SCH (08:00)
[2018-03-16] MEDS: pantoprazole 40 MG vial IV SCH (08:19)
[2018-03-16] MEDS: methylPREDNISolone sod succ 125mg/2ml vial IV SCH ×2 (08:19→21:03)
[2018-03-16] MEDS: linezolid 600mg/300ml PREMIX 300 ML IV SCH ×2 (08:19→21:04)
[2018-03-16] MEDS: spironolactone 50 MG tablet PO SCH ×3 (08:20→21:03)
[2018-03-16] MEDS: lactobacillus rhamnosus 10,000 MMU CELLS/CAPSULE PO SCH ×2 (08:20→21:03)
[2018-03-16] MEDS: metolazone 2.5mg tablet PO SCH (08:20)
[2018-03-16] MEDS: furosemide 40mg/4ml inj IV SCH ×2 (08:21→21:03)
[2018-03-16] MEDS: enoxaparin 40mg/0.4ml syringe SUBCUT SCH (08:22)
[2018-03-16] MEDS: morphine/NS 100mg/100ml bag 100 ML IV SCH (20:59)
[2018-03-16] MEDS: insulin glargine (Lantus) pen - multi-dose SQ SCH (21:41)
[2018-03-17] VITALS (24 sets, daily range): BP systolic 109–159; BP diastolic 61–98
[2018-03-17] MEDS: midazolam 100mg in NS 100ml 100 ML IV PRN (00:26)
[2018-03-17] MEDS: lactulose 20gm/30ml cup PO SCH ×4 (01:48→20:00)
[2018-03-17] MEDS: mineral oil/petrolatum ophthal oint EACHEYE SCH ×4 (01:48→20:00)
[2018-03-17] MEDS: erythromycin ethylsuccinate 200mg/5ml 200ml bottle PO SCH ×5 (01:49→20:34)
[2018-03-17] MEDS: insulin regular, human vial - multi-dose SQ SCH ×2 (02:13→08:08)
[2018-03-17] MEDS: morphine/NS 100mg/100ml bag 100 ML IV SCH (02:14)
[2018-03-17 02:34] LABS: BASOPHILS % (AUTO) 0.2 % (0-1); EOSINOPHILS % (AUTO) 0 % (0-6); HEMATOCRIT 43.1 % (35.0-45.0); HEMOGLOBIN 14.1 g/dl (12.0-16.0); LYMPHOCYTES # (AUTO) 1.6 X10'3 (1.1-4.8); LYMPHOCYTES % (AUTO) 9.1 % (21-51); MEAN CORPUSCULAR HEMOGLOBIN 29.1 PG (27.0-31.0); MEAN CORPUSCULAR HGB CONC 32.7 % (33.0-36.5); MEAN CORPUSCULAR VOLUME 88.8 FL (78-98); MEAN PLATELET VOLUME 9.1 FL (7.4-10.4); MONOCYTES # (AUTO) 0.8 X10'3 (0-0.9); MONOCYTES % (AUTO) 4.4 % (2-12); NEUTROPHILS # (AUTO) 14.8 X10'3 (1.8-7.7); NEUTROPHILS % (AUTO) 86.3 % (42-75); PLATELET COUNT 307 X10'3 (140-440); RED BLOOD COUNT 4.86 X10'6 (4.20-5.60); RED CELL DISTRIBUTION WIDTH 17.5 % (11.5-14.5); WHITE BLOOD COUNT 17.1 X10'3 (4.5-11.0)
[2018-03-17] MEDS: ipratropium/albuterol 3ml nebule NEB SCH ×5 (02:40→23:02)
[2018-03-17 02:50] LABS: ALANINE AMINOTRANSFERASE 34 U/L (12-78); ALBUMIN 2.7 G/DL (3.4-5.0); ALBUMIN/GLOBULIN RATIO 0.5 (1.1-1.5); ALKALINE PHOSPHATASE 113 IU/L (46-116); ANION GAP 8 (8-16); ASPARTATE AMINO TRANSFERASE 27 U/L (10-37); BILIRUBIN,TOTAL 0.7 MG/DL (0.1-1.0); BLOOD UREA NITROGEN 58 MG/DL (7-18); BUN/CREATININE RATIO 113.7 (6.6-38.0); CALCIUM 9.4 MG/DL (8.5-10.1); CHLORIDE 91 MMOL/L (99-107); CREATININE 0.51 MG/DL (0.40-0.90); GLUCOSE 135 MG/DL (70-104); PHOSPHORUS 5.2 MG/DL (2.3-4.5); SODIUM 139 MMOL/L (135-145); TOTAL CARBON DIOXIDE 39.8 MMOL/L (24-32); eGFR > 90 ML/MIN
[2018-03-17] MEDS: potassium Cl 20mEq/100mL bag 100 ML IV PRN ×2 (03:33→05:50)
[2018-03-17 03:56] LABS: ABG BASE EXCESS 15.3 mmol/L (-2.0-3.0); ABG HCO3 41.4 mmol/L (22.0-26.0); ABG OXYGEN SATURATION 91.4 % (95-98); ABG PCO2 (T) 56.8 mmHg (32.0-45.0); ABG PH (T) 7.483 (7.350-7.450); ALLEN'S TEST Positive; FCOHb 0.9 % (0.5-1.5); FMetHb 0.1 % (0.3-1.12); FO2Hb 90.5 % (94-100); MINUTE VOLUME 10 L/min; PATIENT TEMPERATURE 37.6; PEEP 5 cm H2O; RESPIRATORY RATE 10 b/min; RESPIRATORY RATE (OBSERVED) 21 b/min; TIDAL VOLUME 500 mL; TOTAL HEMOGLOBIN 14.8 G/dl (12.0-16.0)
[2018-03-17] MEDS: linezolid 600mg/300ml PREMIX 300 ML IV SCH ×2 (07:18→20:31)
[2018-03-17] MEDS: cefepime 1GM/NS ADD-VANTAGE 100 ML IV SCH ×3 (07:18→23:10)
[2018-03-17] MEDS: methylnaltrexone br 12mg/0.6ml inj***SubQ only SQ SCH (07:19)
[2018-03-17] MEDS: CARBAMAZEPINE 200 MG/10 ML PO SCH ×3 (07:19→23:11)
[2018-03-17] MEDS: enoxaparin 40mg/0.4ml syringe SUBCUT SCH (07:19)
[2018-03-17] MEDS: pantoprazole 40 MG vial IV SCH (07:20)
[2018-03-17] MEDS: furosemide 40mg/4ml inj IV SCH ×3 (07:20→23:10)
[2018-03-17] MEDS: methylPREDNISolone sod succ 125mg/2ml vial IV SCH ×2 (07:20→20:33)
[2018-03-17] MEDS: sevelamer carbonate 0.8gm powder pkt PO SCH ×3 (07:20→23:05)
[2018-03-17] MEDS: metolazone 2.5mg tablet PO SCH (07:21)
[2018-03-17] MEDS: spironolactone 50 MG tablet PO SCH ×4 (07:21→20:46)
[2018-03-17] MEDS: lactobacillus rhamnosus 10,000 MMU CELLS/CAPSULE PO SCH ×2 (07:21→20:00)
[2018-03-17] MEDS: K, MAG and/or Phos replacement - Verify level? MC SCH (08:00)
[2018-03-17 12:21] LABS: ABG BASE EXCESS 14.6 mmol/L (-2.0-3.0); ABG HCO3 39.9 mmol/L (22.0-26.0); ABG OXYGEN SATURATION 92.3 % (95-98); ABG PCO2 (T) 50.4 mmHg (32.0-45.0); ABG PH (T) 7.516 (7.350-7.450); ABG PO2 (T) 62.6 mmHg (83-108); ALLEN'S TEST Positive; FCOHb 0.9 % (0.5-1.5); FMetHb 0.2 % (0.3-1.12); FO2Hb 91.3 % (94-100); MINUTE VOLUME 12 L/min; PEEP 5 cm H2O; RESPIRATORY RATE (OBSERVED) 22 b/min
[2018-03-17] MEDS: potassium Cl oral solution 20 MEQ/15 ML PO SCH ×3 (13:12→20:46)
[2018-03-17] MEDS: insulin glargine (Lantus) pen - multi-dose SQ SCH (20:46)
[2018-03-18] VITALS (24 sets, daily range): BP systolic 109–152; BP diastolic 70–103
[2018-03-18] MEDS: lactulose 20gm/30ml cup PO SCH ×2 (02:00→08:00)
[2018-03-18] MEDS: mineral oil/petrolatum ophthal oint EACHEYE SCH ×2 (02:00→08:00)
[2018-03-18] MEDS: acetaminophen 325mg tablet PO PRN (03:08)
[2018-03-18] MEDS: erythromycin ethylsuccinate 200mg/5ml 200ml bottle PO SCH ×4 (03:08→20:36)
[2018-03-18] MEDS: ipratropium/albuterol 3ml nebule NEB SCH ×6 (03:10→23:24)
[2018-03-18 03:40] LABS: BASOPHILS % (AUTO) 0.1 % (0-1); EOSINOPHILS # (AUTO) 0.1 X10'3 (0-0.9); EOSINOPHILS % (AUTO) 0.5 % (0-6); HEMATOCRIT 45.8 % (35.0-45.0); HEMOGLOBIN 14.9 g/dl (12.0-16.0); LYMPHOCYTES # (AUTO) 1.6 X10'3 (1.1-4.8); LYMPHOCYTES % (AUTO) 8.8 % (21-51); MEAN CORPUSCULAR HGB CONC 32.4 % (33.0-36.5); MEAN CORPUSCULAR VOLUME 89.5 FL (78-98); MEAN PLATELET VOLUME 8.4 FL (7.4-10.4); MONOCYTES # (AUTO) 0.9 X10'3 (0-0.9); MONOCYTES % (AUTO) 4.7 % (2-12); NEUTROPHILS # (AUTO) 15.9 X10'3 (1.8-7.7); NEUTROPHILS % (AUTO) 85.9 % (42-75); PLATELET COUNT 433 X10'3 (140-440); RED BLOOD COUNT 5.12 X10'6 (4.20-5.60); RED CELL DISTRIBUTION WIDTH 17.5 % (11.5-14.5); WHITE BLOOD COUNT 18.5 X10'3 (4.5-11.0)
[2018-03-18 03:48] LABS: ALANINE AMINOTRANSFERASE 38 U/L (12-78); ALBUMIN 2.9 G/DL (3.4-5.0); ALBUMIN/GLOBULIN RATIO 0.5 (1.1-1.5); ALKALINE PHOSPHATASE 117 IU/L (46-116); ANION GAP 3 (8-16); ASPARTATE AMINO TRANSFERASE 32 U/L (10-37); BLOOD UREA NITROGEN 52 MG/DL (7-18); BUN/CREATININE RATIO 88.1 (6.6-38.0); CALCIUM 9.9 MG/DL (8.5-10.1); CHLORIDE 93 MMOL/L (99-107); CREATININE 0.59 MG/DL (0.40-0.90); GLUCOSE 137 MG/DL (70-104); MAGNESIUM 1.7 MG/DL (1.5-2.4); PHOSPHORUS 4.9 MG/DL (2.3-4.5); POTASSIUM 3.1 MMOL/L (3.5-5.1); SODIUM 137 MMOL/L (135-145); TOTAL PROTEIN 8.2 G/DL (6.4-8.2); eGFR > 90 ML/MIN
[2018-03-18 03:52] LABS: TOTAL CARBON DIOXIDE 41.5 MMOL/L (24-32)
[2018-03-18] MEDS ORDERED: potassium Cl 40MEQ/250ML bag 250 ML IV ONE (04:29)
[2018-03-18] MEDS: potassium Cl 20mEq/100mL bag 100 ML IV PRN (04:34)
[2018-03-18] MEDS: methylPREDNISolone sod succ 125mg/2ml vial IV SCH (07:30)
[2018-03-18] MEDS: furosemide 40mg/4ml inj IV SCH (07:30)
[2018-03-18] MEDS: pantoprazole 40 MG vial IV SCH (07:30)
[2018-03-18] MEDS: enoxaparin 40mg/0.4ml syringe SUBCUT SCH (07:31)
[2018-03-18 07:35] LABS: ABG BASE EXCESS 13.2 mmol/L (-2.0-3.0); ABG HCO3 37.4 mmol/L (22.0-26.0); ABG OXYGEN SATURATION 87.8 % (95-98); ABG PCO2 (T) 44.8 mmHg (32.0-45.0); ABG PO2 (T) 54.1 mmHg (83-108); ALLEN'S TEST Positive; FCOHb 1.1 % (0.5-1.5); FLOW 5 L/min; FMetHb 0.2 % (0.3-1.12); FO2Hb 86.7 % (94-100); RESPIRATORY RATE (OBSERVED) 20 b/min; TOTAL HEMOGLOBIN 15.4 G/dl (12.0-16.0)
[2018-03-18] MEDS: linezolid 600mg/300ml PREMIX 300 ML IV SCH ×2 (07:43→20:34)
[2018-03-18] MEDS: cefepime 1GM/NS ADD-VANTAGE 100 ML IV SCH (07:43)
[2018-03-18] MEDS: spironolactone 50 MG tablet PO SCH ×3 (07:50→20:35)
[2018-03-18] MEDS: CARBAMAZEPINE 200 MG/10 ML PO SCH ×2 (07:58→16:26)
[2018-03-18] MEDS: metolazone 2.5mg tablet PO SCH (07:59)
[2018-03-18] MEDS: K, MAG and/or Phos replacement - Verify level? MC SCH (08:00)
[2018-03-18] MEDS: lactobacillus rhamnosus 10,000 MMU CELLS/CAPSULE PO SCH ×2 (08:00→20:34)
[2018-03-18] MEDS: potassium Cl oral solution 20 MEQ/15 ML PO SCH (08:00)
[2018-03-18] MEDS: sevelamer carbonate 0.8gm powder pkt PO SCH ×2 (08:09→16:25)
[2018-03-18] MEDS ORDERED: insulin Lispro (HumaLOG) vial - multi-dose SQ SCH (14:15)
[2018-03-18] MEDS: HYDROcodone/acetaminophen 10/325mg tab PO PRN ×2 (14:30→20:36)
[2018-03-18] MEDS: potassium Cl 20 mEq SR tablet PO SCH (20:35)
[2018-03-18] MEDS: pregabalin 75mg capsule PO SCH (20:35)
[2018-03-18] MEDS: methadone 10mg tablet PO SCH (20:35)
[2018-03-18] MEDS: prednisone 10mg tablet PO SCH (20:35)
[2018-03-18] MEDS: insulin glargine (Lantus) pen - multi-dose SQ SCH (21:00)
[2018-03-19] VITALS (24 sets, daily range): BP systolic 95–144; BP diastolic 64–101
[2018-03-19] MEDS: CARBAMAZEPINE 200 MG/10 ML PO SCH ×3 (00:06→16:00)
[2018-03-19] MEDS: sevelamer carbonate 0.8gm powder pkt PO SCH ×3 (00:06→16:00)
[2018-03-19] MEDS ORDERED: mag hydrox/Alum hydrox/simeth 30ml oral suspension PO ONE (00:55)
[2018-03-19] MEDS ORDERED: mag hydrox/Alum hydrox/simeth 30ml oral suspension PO PRN (01:05)
[2018-03-19] MEDS: HYDROcodone/acetaminophen 10/325mg tab PO PRN (01:10)
[2018-03-19] MEDS: erythromycin ethylsuccinate 200mg/5ml 200ml bottle PO SCH ×4 (01:11→21:09)
[2018-03-19] MEDS: ipratropium/albuterol 3ml nebule NEB SCH ×6 (04:01→23:15)
[2018-03-19 04:24] LABS: BASOPHILS % (AUTO) 0 % (0-1); EOSINOPHILS # (AUTO) 0.1 X10'3 (0-0.9); EOSINOPHILS % (AUTO) 0.4 % (0-6); HEMATOCRIT 44.8 % (35.0-45.0); HEMOGLOBIN 14.5 g/dl (12.0-16.0); LYMPHOCYTES # (AUTO) 1.6 X10'3 (1.1-4.8); MEAN CORPUSCULAR HGB CONC 32.4 % (33.0-36.5); MEAN CORPUSCULAR VOLUME 89.3 FL (78-98); MEAN PLATELET VOLUME 8.6 FL (7.4-10.4); MONOCYTES # (AUTO) 0.9 X10'3 (0-0.9); MONOCYTES % (AUTO) 4.5 % (2-12); NEUTROPHILS % (AUTO) 87.1 % (42-75); PLATELET COUNT 365 X10'3 (140-440); RED BLOOD COUNT 5.01 X10'6 (4.20-5.60); RED CELL DISTRIBUTION WIDTH 17.6 % (11.5-14.5); WHITE BLOOD COUNT 20.6 X10'3 (4.5-11.0)
[2018-03-19 04:48] LABS: TOTAL CELLS COUNTED 100
[2018-03-19 04:49] LABS: ANISOCYTOSIS 2+; PLATELET ESTIMATE NORMAL
[2018-03-19 04:51] LABS: ALANINE AMINOTRANSFERASE 46 U/L (12-78); ALBUMIN 2.7 G/DL (3.4-5.0); ALBUMIN/GLOBULIN RATIO 0.6 (1.1-1.5); ALKALINE PHOSPHATASE 105 IU/L (46-116); ANION GAP 0 (8-16); ASPARTATE AMINO TRANSFERASE 36 U/L (10-37); BILIRUBIN,TOTAL 0.9 MG/DL (0.1-1.0); BLOOD UREA NITROGEN 52 MG/DL (7-18); BUN/CREATININE RATIO 96.3 (6.6-38.0); CALCIUM 9.3 MG/DL (8.5-10.1); CHLORIDE 93 MMOL/L (99-107); CREATININE 0.54 MG/DL (0.40-0.90); GLUCOSE 127 MG/DL (70-104); MAGNESIUM 1.9 MG/DL (1.5-2.4); PHOSPHORUS 5.2 MG/DL (2.3-4.5); SODIUM 135 MMOL/L (135-145); TOTAL PROTEIN 7.5 G/DL (6.4-8.2); eGFR > 90 ML/MIN
[2018-03-19 04:53] LABS: TOTAL CARBON DIOXIDE 41.8 MMOL/L (24-32)
[2018-03-19] MEDS: K, MAG and/or Phos replacement - Verify level? MC SCH (08:00)
[2018-03-19] MEDS: methylnaltrexone br 12mg/0.6ml inj***SubQ only SQ SCH (08:00)
[2018-03-19] MEDS: pantoprazole 40 MG vial IV SCH (08:06)
[2018-03-19] MEDS: linezolid 600mg/300ml PREMIX 300 ML IV SCH ×2 (08:06→21:01)
[2018-03-19] MEDS: enoxaparin 40mg/0.4ml syringe SUBCUT SCH (08:07)
[2018-03-19] MEDS: pregabalin 75mg capsule PO SCH ×2 (08:07→20:55)
[2018-03-19] MEDS: lactobacillus rhamnosus 10,000 MMU CELLS/CAPSULE PO SCH ×2 (08:07→20:55)
[2018-03-19] MEDS: potassium Cl 20 mEq SR tablet PO SCH ×3 (08:08→20:55)
[2018-03-19] MEDS: methadone 10mg tablet PO SCH ×3 (08:09→20:55)
[2018-03-19] MEDS: spironolactone 50 MG tablet PO SCH ×3 (08:10→20:54)
[2018-03-19] MEDS: prednisone 10mg tablet PO SCH (08:12)
[2018-03-19 12:20] LABS: ABG BASE EXCESS 13.6 mmol/L (-2.0-3.0); ABG HCO3 39.8 mmol/L (22.0-26.0); ABG OXYGEN SATURATION 87.9 % (95-98); ABG PCO2 (T) 54.4 mmHg (32.0-45.0); ABG PH (T) 7.482 (7.350-7.450); ABG PO2 (T) 53.8 mmHg (83-108); FCOHb 1.4 % (0.5-1.5); FLOW 3 L/min; FMetHb 0.3 % (0.3-1.12); FO2Hb 86.4 % (94-100); RESPIRATORY RATE (OBSERVED) 20 b/min; TOTAL HEMOGLOBIN 16.1 G/dl (12.0-16.0)
[2018-03-19] MEDS: insulin glargine (Lantus) pen - multi-dose SQ SCH (21:00)
[2018-03-20] VITALS (23 sets, daily range): BP systolic 81–137; BP diastolic 57–92
[2018-03-20] MEDS: CARBAMAZEPINE 200 MG/10 ML PO SCH ×3 (01:06→16:52)
[2018-03-20] MEDS: erythromycin ethylsuccinate 200mg/5ml 200ml bottle PO SCH ×4 (01:06→20:32)
[2018-03-20] MEDS: sevelamer carbonate 0.8gm powder pkt PO SCH ×3 (01:06→16:52)
[2018-03-20 03:16] LABS: BASOPHILS # (AUTO) 0.2 X10'3 (0-0.2); BASOPHILS % (AUTO) 1.1 % (0-1); EOSINOPHILS % (AUTO) 0.1 % (0-6); HEMATOCRIT 44.4 % (35.0-45.0); HEMOGLOBIN 14.2 g/dl (12.0-16.0); LYMPHOCYTES # (AUTO) 2.9 X10'3 (1.1-4.8); LYMPHOCYTES % (AUTO) 17.5 % (21-51); MEAN CORPUSCULAR HEMOGLOBIN 29.1 PG (27.0-31.0); MEAN PLATELET VOLUME 8.1 FL (7.4-10.4); MONOCYTES # (AUTO) 0.9 X10'3 (0-0.9); MONOCYTES % (AUTO) 5.2 % (2-12); NEUTROPHILS # (AUTO) 12.7 X10'3 (1.8-7.7); NEUTROPHILS % (AUTO) 76.1 % (42-75); PLATELET COUNT 310 X10'3 (140-440); RED BLOOD COUNT 4.89 X10'6 (4.20-5.60); WHITE BLOOD COUNT 16.7 X10'3 (4.5-11.0)
[2018-03-20 03:34] LABS: ALANINE AMINOTRANSFERASE 38 U/L (12-78); ALBUMIN 2.5 G/DL (3.4-5.0); ALBUMIN/GLOBULIN RATIO 0.6 (1.1-1.5); ALKALINE PHOSPHATASE 105 IU/L (46-116); ANION GAP 0 (8-16); ASPARTATE AMINO TRANSFERASE 36 U/L (10-37); BILIRUBIN,TOTAL 0.8 MG/DL (0.1-1.0); BLOOD UREA NITROGEN 44 MG/DL (7-18); BUN/CREATININE RATIO 93.6 (6.6-38.0); CALCIUM 9.2 MG/DL (8.5-10.1); CHLORIDE 95 MMOL/L (99-107); CREATININE 0.47 MG/DL (0.40-0.90); GLUCOSE 105 MG/DL (70-104); MAGNESIUM 1.7 MG/DL (1.5-2.4); SODIUM 135 MMOL/L (135-145); TOTAL CARBON DIOXIDE 39.6 MMOL/L (24-32); TOTAL PROTEIN 6.9 G/DL (6.4-8.2); eGFR > 90 ML/MIN
[2018-03-20] MEDS: ipratropium/albuterol 3ml nebule NEB SCH ×6 (03:58→23:42)
[2018-03-20] MEDS: K, MAG and/or Phos replacement - Verify level? MC SCH (08:00)
[2018-03-20] MEDS: linezolid 600mg/300ml PREMIX 300 ML IV SCH ×2 (08:06→20:32)
[2018-03-20] MEDS: pregabalin 75mg capsule PO SCH ×2 (08:07→20:33)
[2018-03-20] MEDS: methadone 10mg tablet PO SCH ×3 (08:07→20:33)
[2018-03-20] MEDS: pantoprazole 40 MG vial IV SCH (08:07)
[2018-03-20] MEDS: lactobacillus rhamnosus 10,000 MMU CELLS/CAPSULE PO SCH ×2 (08:07→20:33)
[2018-03-20] MEDS: potassium Cl 20 mEq SR tablet PO SCH (08:07)
[2018-03-20] MEDS: spironolactone 50 MG tablet PO SCH ×3 (08:08→20:33)
[2018-03-20] MEDS: enoxaparin 40mg/0.4ml syringe SUBCUT SCH (08:09)
[2018-03-20] MEDS: HYDROcodone/acetaminophen 10/325mg tab PO PRN ×2 (12:07→17:17)
[2018-03-20] MEDS ORDERED: potassium Cl oral solution 20 MEQ/15 ML PO PRN ×2 (13:31)
[2018-03-20] MEDS ORDERED: potassium Cl oral solution 20 MEQ/15 ML PO ONE (13:45)
[2018-03-20] MEDS: insulin glargine (Lantus) pen - multi-dose SQ SCH (20:25)
[2018-03-20] MEDS: potassium Cl oral solution 20 MEQ/15 ML PO SCH (20:34)
[2018-03-21] VITALS (23 sets, daily range): BP systolic 11–138; BP diastolic 51–90
[2018-03-21] MEDS: sevelamer carbonate 0.8gm powder pkt PO SCH ×3 (00:09→19:53)
[2018-03-21] MEDS: CARBAMAZEPINE 200 MG/10 ML PO SCH ×3 (00:09→19:53)
[2018-03-21] MEDS: erythromycin ethylsuccinate 200mg/5ml 200ml bottle PO SCH ×4 (02:47→19:54)
[2018-03-21 03:22] LABS: BASOPHILS % (AUTO) 0.1 % (0-1); EOSINOPHILS # (AUTO) 0.1 X10'3 (0-0.9); EOSINOPHILS % (AUTO) 0.9 % (0-6); HEMATOCRIT 41.9 % (35.0-45.0); HEMOGLOBIN 13.7 g/dl (12.0-16.0); LYMPHOCYTES # (AUTO) 2.6 X10'3 (1.1-4.8); LYMPHOCYTES % (AUTO) 19.8 % (21-51); MEAN CORPUSCULAR HEMOGLOBIN 29.6 PG (27.0-31.0); MEAN CORPUSCULAR HGB CONC 32.8 % (33.0-36.5); MEAN CORPUSCULAR VOLUME 90.4 FL (78-98); MEAN PLATELET VOLUME 8.1 FL (7.4-10.4); MONOCYTES # (AUTO) 0.8 X10'3 (0-0.9); MONOCYTES % (AUTO) 6.1 % (2-12); NEUTROPHILS # (AUTO) 9.7 X10'3 (1.8-7.7); NEUTROPHILS % (AUTO) 73.1 % (42-75); PLATELET COUNT 258 X10'3 (140-440); RED BLOOD COUNT 4.64 X10'6 (4.20-5.60); RED CELL DISTRIBUTION WIDTH 17.5 % (11.5-14.5); WHITE BLOOD COUNT 13.2 X10'3 (4.5-11.0)
[2018-03-21] MEDS: ipratropium/albuterol 3ml nebule NEB SCH ×6 (03:27→23:14)
[2018-03-21 03:42] LABS: ALANINE AMINOTRANSFERASE 42 U/L (12-78); ALBUMIN 2.5 G/DL (3.4-5.0); ALBUMIN/GLOBULIN RATIO 0.6 (1.1-1.5); ALKALINE PHOSPHATASE 96 IU/L (46-116); ASPARTATE AMINO TRANSFERASE 42 U/L (10-37); BILIRUBIN,TOTAL 0.7 MG/DL (0.1-1.0); BLOOD UREA NITROGEN 32 MG/DL (7-18); BUN/CREATININE RATIO 71.1 (6.6-38.0); CALCIUM 8.8 MG/DL (8.5-10.1); CHLORIDE 94 MMOL/L (99-107); CREATININE 0.45 MG/DL (0.40-0.90); GLUCOSE 86 MG/DL (70-104); MAGNESIUM 1.7 MG/DL (1.5-2.4); PHOSPHORUS 4.8 MG/DL (2.3-4.5); POTASSIUM 4.8 MMOL/L (3.5-5.1); SODIUM 131 MMOL/L (135-145); TOTAL PROTEIN 6.5 G/DL (6.4-8.2); eGFR > 90 ML/MIN
[2018-03-21 03:48] LABS: ANION GAP 1 (8-16); TOTAL CARBON DIOXIDE 36.5 MMOL/L (24-32)
[2018-03-21] MEDS: methylnaltrexone br 12mg/0.6ml inj***SubQ only SQ SCH ×2 (08:00→17:32)
[2018-03-21] MEDS: K, MAG and/or Phos replacement - Verify level? MC SCH (08:00)
[2018-03-21] MEDS: linezolid 600mg/300ml PREMIX 300 ML IV SCH ×2 (08:33→19:54)
[2018-03-21] MEDS: pantoprazole 40 MG vial IV SCH (08:34)
[2018-03-21] MEDS: enoxaparin 40mg/0.4ml syringe SUBCUT SCH (08:36)
[2018-03-21] MEDS: spironolactone 50 MG tablet PO SCH ×3 (08:37→19:58)
[2018-03-21] MEDS: methadone 10mg tablet PO SCH ×3 (08:37→20:20)
[2018-03-21] MEDS: lactobacillus rhamnosus 10,000 MMU CELLS/CAPSULE PO SCH ×2 (08:37→19:54)
[2018-03-21] MEDS: pregabalin 75mg capsule PO SCH ×2 (08:38→19:54)
[2018-03-21] MEDS: potassium Cl oral solution 20 MEQ/15 ML PO SCH ×3 (08:45→21:00)
[2018-03-21] MEDS: HYDROcodone/acetaminophen 10/325mg tab PO PRN (11:29)
[2018-03-22] VITALS (24 sets, daily range): BP systolic 76–112; BP diastolic 53–88
[2018-03-22] MEDS ORDERED: albumin (Human) 5% 250 ML IV solution IV STA (00:39)
[2018-03-22] MEDS: erythromycin ethylsuccinate 200mg/5ml 200ml bottle PO SCH ×4 (02:14→20:32)
[2018-03-22] MEDS: ipratropium/albuterol 3ml nebule NEB SCH ×6 (03:00→23:00)
[2018-03-22 04:01] LABS: BASOPHILS % (AUTO) 0.4 % (0-1); EOSINOPHILS # (AUTO) 0.1 X10'3 (0-0.9); EOSINOPHILS % (AUTO) 0.5 % (0-6); HEMOGLOBIN 12.8 g/dl (12.0-16.0); LYMPHOCYTES # (AUTO) 2.2 X10'3 (1.1-4.8); MEAN CORPUSCULAR HEMOGLOBIN 29.8 PG (27.0-31.0); MEAN CORPUSCULAR HGB CONC 32.9 % (33.0-36.5); MEAN CORPUSCULAR VOLUME 90.7 FL (78-98); MEAN PLATELET VOLUME 8.4 FL (7.4-10.4); MONOCYTES # (AUTO) 0.6 X10'3 (0-0.9); MONOCYTES % (AUTO) 5.6 % (2-12); NEUTROPHILS # (AUTO) 8.2 X10'3 (1.8-7.7); NEUTROPHILS % (AUTO) 73.5 % (42-75); PLATELET COUNT 215 X10'3 (140-440); RED CELL DISTRIBUTION WIDTH 17.6 % (11.5-14.5); WHITE BLOOD COUNT 11.1 X10'3 (4.5-11.0)
[2018-03-22 04:23] LABS: ALANINE AMINOTRANSFERASE 44 U/L (12-78); ALBUMIN 2.6 G/DL (3.4-5.0); ALBUMIN/GLOBULIN RATIO 0.7 (1.1-1.5); ALKALINE PHOSPHATASE 92 IU/L (46-116); ANION GAP 2 (8-16); ASPARTATE AMINO TRANSFERASE 42 U/L (10-37); BILIRUBIN,TOTAL 0.7 MG/DL (0.1-1.0); BLOOD UREA NITROGEN 20 MG/DL (7-18); BUN/CREATININE RATIO 48.8 (6.6-38.0); CALCIUM 8.6 MG/DL (8.5-10.1); CHLORIDE 93 MMOL/L (99-107); CREATININE 0.41 MG/DL (0.40-0.90); GLUCOSE 90 MG/DL (70-104); POTASSIUM 3.8 MMOL/L (3.5-5.1); SODIUM 132 MMOL/L (135-145); TOTAL CARBON DIOXIDE 36.6 MMOL/L (24-32); TOTAL PROTEIN 6.2 G/DL (6.4-8.2); eGFR > 90 ML/MIN
[2018-03-22] MEDS: K, MAG and/or Phos replacement - Verify level? MC SCH (07:49)
[2018-03-22] MEDS: lactobacillus rhamnosus 10,000 MMU CELLS/CAPSULE PO SCH ×2 (08:42→20:31)
[2018-03-22] MEDS: enoxaparin 40mg/0.4ml syringe SUBCUT SCH (08:42)
[2018-03-22] MEDS: methadone 10mg tablet PO SCH ×3 (08:42→20:30)
[2018-03-22] MEDS: linezolid 600mg/300ml PREMIX 300 ML IV SCH ×2 (08:42→20:30)
[2018-03-22] MEDS: potassium Cl oral solution 20 MEQ/15 ML PO SCH ×3 (08:44→20:31)
[2018-03-22] MEDS: pantoprazole 40 MG vial IV SCH (08:44)
[2018-03-22] MEDS: pregabalin 75mg capsule PO SCH ×2 (08:45→20:31)
[2018-03-22] MEDS: CARBAMAZEPINE 200 MG/10 ML PO SCH ×3 (08:45→18:55)
[2018-03-22] MEDS: spironolactone 50 MG tablet PO SCH ×4 (08:45→20:48)
[2018-03-22] MEDS: sevelamer carbonate 0.8gm powder pkt PO SCH ×3 (08:46→18:55)
[2018-03-22] MEDS: HYDROcodone/acetaminophen 10/325mg tab PO PRN (16:58)
[2018-03-23] MEDS: erythromycin ethylsuccinate 200mg/5ml 200ml bottle PO SCH ×4 (01:46→20:27)
[2018-03-23 02:00] VITALS: BP 95/60
[2018-03-23] MEDS: ipratropium/albuterol 3ml nebule NEB SCH ×3 (03:11→11:04)
[2018-03-23 07:14] VITALS: BP 88/47
[2018-03-23] MEDS: K, MAG and/or Phos replacement - Verify level? MC SCH (08:00)
[2018-03-23] MEDS: pantoprazole 40mg Tablet.DR PO SCH (08:13)
[2018-03-23] MEDS: pregabalin 75mg capsule PO SCH ×2 (08:13→20:27)
[2018-03-23] MEDS: methadone 10mg tablet PO SCH ×3 (08:13→20:28)
[2018-03-23] MEDS: spironolactone 50 MG tablet PO SCH ×3 (08:13→20:25)
[2018-03-23] MEDS: methylnaltrexone br 12mg/0.6ml inj***SubQ only SQ SCH (08:13)
[2018-03-23] MEDS: lactobacillus rhamnosus 10,000 MMU CELLS/CAPSULE PO SCH ×2 (08:13→20:25)
[2018-03-23] MEDS: potassium Cl oral solution 20 MEQ/15 ML PO SCH ×3 (08:13→20:26)
[2018-03-23] MEDS: sevelamer carbonate 0.8gm powder pkt PO SCH ×3 (08:14→17:19)
[2018-03-23] MEDS: enoxaparin 40mg/0.4ml syringe SUBCUT SCH (08:15)
[2018-03-23] MEDS: CARBAMAZEPINE 200 MG/10 ML PO SCH ×3 (08:15→17:19)
[2018-03-23] MEDS: linezolid 600mg/300ml PREMIX 300 ML IV SCH ×2 (08:18→20:27)
[2018-03-23] MEDS ORDERED: bisacodyl 10mg suppository rectal RC STA (09:35)
[2018-03-23] MEDS: polyethylene glycol 3350 17gm powd pack PO SCH (10:59)
[2018-03-23 11:26] VITALS: BP 87/51
[2018-03-23 14:24] VITALS: BP 119/79
[2018-03-23 18:00] VITALS: BP 97/68
[2018-03-23 22:00] VITALS: BP_SYST 102; BP_SYST 107; BP_DIAS 68; BP_DIAS 69
[2018-03-24] MEDS: erythromycin ethylsuccinate 200mg/5ml 200ml bottle PO SCH ×4 (01:46→19:49)
[2018-03-24 02:00] VITALS: BP 119/84
[2018-03-24 06:28] VITALS: BP 109/65
[2018-03-24] MEDS: linezolid 600mg/300ml PREMIX 300 ML IV SCH (07:29)
[2018-03-24] MEDS: lactobacillus rhamnosus 10,000 MMU CELLS/CAPSULE PO SCH ×2 (07:29→19:49)
[2018-03-24] MEDS: pantoprazole 40mg Tablet.DR PO SCH (07:29)
[2018-03-24] MEDS: potassium Cl oral solution 20 MEQ/15 ML PO SCH ×3 (07:29→19:49)
[2018-03-24] MEDS: polyethylene glycol 3350 17gm powd pack PO SCH (07:30)
[2018-03-24] MEDS: spironolactone 50 MG tablet PO SCH ×3 (07:30→19:49)
[2018-03-24] MEDS: methadone 10mg tablet PO SCH ×3 (07:30→19:49)
[2018-03-24] MEDS: enoxaparin 40mg/0.4ml syringe SUBCUT SCH (07:30)
[2018-03-24] MEDS: pregabalin 75mg capsule PO SCH ×2 (07:30→19:48)
[2018-03-24] MEDS: CARBAMAZEPINE 200 MG/10 ML PO SCH ×3 (07:30→17:53)
[2018-03-24] MEDS: sevelamer carbonate 0.8gm powder pkt PO SCH ×3 (07:30→17:52)
[2018-03-24] MEDS: K, MAG and/or Phos replacement - Verify level? MC SCH (07:31)
[2018-03-24] MEDS ORDERED: methylnaltrexone br 12mg/0.6ml inj***SubQ only SQ SCH (09:15)
[2018-03-24] MEDS ORDERED: magnesium citrate 296ml oral solution PO ONE (09:15)
[2018-03-24] MEDS ORDERED: sodium polystyrene sulfonate 15gm/60ml oral suspension PR ONE (09:15)
[2018-03-24 11:37] VITALS: BP 98/69
[2018-03-24 18:00] VITALS: BP 108/60
[2018-03-24 22:00] VITALS: BP 108/66
[2018-03-25] MEDS: erythromycin ethylsuccinate 200mg/5ml 200ml bottle PO SCH ×4 (02:03→19:51)
[2018-03-25 05:00] VITALS: BP 106/56
[2018-03-25] MEDS: methylnaltrexone br 12mg/0.6ml inj***SubQ only SQ SCH (07:37)
[2018-03-25] MEDS: pantoprazole 40mg Tablet.DR PO SCH (07:54)
[2018-03-25] MEDS: polyethylene glycol 3350 17gm powd pack PO SCH (07:54)
[2018-03-25] MEDS: spironolactone 50 MG tablet PO SCH ×3 (07:55→19:51)
[2018-03-25] MEDS: methadone 10mg tablet PO SCH ×3 (07:55→19:51)
[2018-03-25] MEDS: potassium Cl oral solution 20 MEQ/15 ML PO SCH ×3 (07:56→19:51)
[2018-03-25] MEDS: lactobacillus rhamnosus 10,000 MMU CELLS/CAPSULE PO SCH ×2 (07:57→19:51)
[2018-03-25] MEDS: pregabalin 75mg capsule PO SCH ×2 (07:58→19:51)
[2018-03-25] MEDS: K, MAG and/or Phos replacement - Verify level? MC SCH (08:00)
[2018-03-25] MEDS: sevelamer carbonate 0.8gm powder pkt PO SCH ×3 (08:00→19:00)
[2018-03-25] MEDS: enoxaparin 40mg/0.4ml syringe SUBCUT SCH (08:06)
[2018-03-25] MEDS: CARBAMAZEPINE 200 MG/10 ML PO SCH ×3 (08:28→19:00)
[2018-03-25 10:00] VITALS: BP 122/87
[2018-03-25 18:00] VITALS: BP 144/86
[2018-03-25 22:00] VITALS: BP 94/66
[2018-03-26] MEDS: erythromycin ethylsuccinate 200mg/5ml 200ml bottle PO SCH ×3 (02:13→13:13)
[2018-03-26 06:00] VITALS: BP 107/66
[2018-03-26] MEDS: polyethylene glycol 3350 17gm powd pack PO SCH ×2 (07:50→08:16)
[2018-03-26] MEDS: sevelamer carbonate 0.8gm powder pkt PO SCH (07:54)
[2018-03-26] MEDS: methadone 10mg tablet PO SCH ×3 (07:59→20:05)
[2018-03-26] MEDS: potassium Cl oral solution 20 MEQ/15 ML PO SCH ×2 (08:00→10:15)
[2018-03-26] MEDS: K, MAG and/or Phos replacement - Verify level? MC SCH (08:00)
[2018-03-26] MEDS: pregabalin 75mg capsule PO SCH ×2 (08:02→20:05)
[2018-03-26] MEDS: lactobacillus rhamnosus 10,000 MMU CELLS/CAPSULE PO SCH ×2 (08:02→20:05)
[2018-03-26] MEDS: spironolactone 50 MG tablet PO SCH ×3 (08:02→20:05)
[2018-03-26] MEDS: pantoprazole 40mg Tablet.DR PO SCH (08:02)
[2018-03-26] MEDS: enoxaparin 40mg/0.4ml syringe SUBCUT SCH (08:04)
[2018-03-26] MEDS: CARBAMAZEPINE 200 MG/10 ML PO SCH ×3 (08:10→19:09)
[2018-03-26 08:43] LABS: BASOPHILS % (AUTO) 0.4 % (0-1); EOSINOPHILS # (AUTO) 0.1 X10'3 (0-0.9); EOSINOPHILS % (AUTO) 1.1 % (0-6); HEMATOCRIT 42.2 % (35.0-45.0); HEMOGLOBIN 13.8 g/dl (12.0-16.0); LYMPHOCYTES # (AUTO) 1.5 X10'3 (1.1-4.8); MEAN CORPUSCULAR HEMOGLOBIN 29.5 PG (27.0-31.0); MEAN CORPUSCULAR HGB CONC 32.7 % (33.0-36.5); MEAN CORPUSCULAR VOLUME 90.2 FL (78-98); MEAN PLATELET VOLUME 8.4 FL (7.4-10.4); MONOCYTES # (AUTO) 0.6 X10'3 (0-0.9); MONOCYTES % (AUTO) 8.1 % (2-12); NEUTROPHILS # (AUTO) 5.2 X10'3 (1.8-7.7); NEUTROPHILS % (AUTO) 70.4 % (42-75); PLATELET COUNT 173 X10'3 (140-440); RED BLOOD COUNT 4.67 X10'6 (4.20-5.60); RED CELL DISTRIBUTION WIDTH 19.3 % (11.5-14.5); WHITE BLOOD COUNT 7.4 X10'3 (4.5-11.0)
[2018-03-26 08:45] VITALS: BP 108/71
[2018-03-26 08:56] LABS: ALBUMIN 2.6 G/DL (3.4-5.0); ANION GAP 2 (8-16); BLOOD UREA NITROGEN 10 MG/DL (7-18); BUN/CREATININE RATIO 28.6 (6.6-38.0); CALCIUM 8.8 MG/DL (8.5-10.1); CHLORIDE 97 MMOL/L (99-107); CREATININE 0.35 MG/DL (0.40-0.90); GLUCOSE 95 MG/DL (70-104); POTASSIUM 4.1 MMOL/L (3.5-5.1); SODIUM 135 MMOL/L (135-145); TOTAL CARBON DIOXIDE 35.9 MMOL/L (24-32); eGFR > 90 ML/MIN
[2018-03-26 14:00] VITALS: BP 124/86
[2018-03-26] MEDS ORDERED: ipratropium/albuterol 3ml nebule NEB PRN (16:05)
[2018-03-26] MEDS: HYDROcodone/acetaminophen 10/325mg tab PO PRN (19:05)
[2018-03-26 22:00] VITALS: BP 111/61
[2018-03-27 06:00] VITALS: BP 111/78
[2018-03-27] MEDS: K, MAG and/or Phos replacement - Verify level? MC SCH (07:32)
[2018-03-27] MEDS: polyethylene glycol 3350 17gm powd pack PO SCH (08:12)
[2018-03-27] MEDS: atorvastatin 10mg tablet PO SCH (08:13)
[2018-03-27] MEDS: pregabalin 75mg capsule PO SCH ×2 (08:13→20:22)
[2018-03-27] MEDS: aspirin 325mg tablet, delayed-release (Ecotrin) PO SCH (08:13)
[2018-03-27] MEDS: lactobacillus rhamnosus 10,000 MMU CELLS/CAPSULE PO SCH ×2 (08:13→20:22)
[2018-03-27] MEDS: CARBAMAZEPINE 200 MG/10 ML PO SCH ×3 (08:13→17:42)
[2018-03-27] MEDS: methadone 10mg tablet PO SCH ×3 (08:13→20:22)
[2018-03-27] MEDS: spironolactone 50 MG tablet PO SCH ×3 (08:13→20:22)
[2018-03-27] MEDS: enoxaparin 40mg/0.4ml syringe SUBCUT SCH (08:14)
[2018-03-27] MEDS: methylnaltrexone br 12mg/0.6ml inj***SubQ only SQ SCH (08:15)
[2018-03-27 10:00] VITALS: BP 122/73
[2018-03-27] MEDS ORDERED: nicotine 14mg patch - 24hr TD SCH (13:45)
[2018-03-27] MEDS: HYDROcodone/acetaminophen 10/325mg tab PO PRN (16:59)
[2018-03-27 18:00] VITALS: BP 111/68
[2018-03-27] MEDS: nystatin 15 GM ointment TP SCH (21:56)
[2018-03-27 22:00] VITALS: BP 109/56
[2018-03-28] MEDS: HYDROcodone/acetaminophen 10/325mg tab PO PRN ×3 (03:56→17:18)
[2018-03-28 06:00] VITALS: BP 86/52
[2018-03-28] MEDS: K, MAG and/or Phos replacement - Verify level? MC SCH (08:00)
[2018-03-28] MEDS ORDERED: nicotine 14mg patch - 24hr TD SCH (08:06)
[2018-03-28] MEDS: CARBAMAZEPINE 200 MG/10 ML PO SCH ×2 (08:20→13:11)
[2018-03-28] MEDS: polyethylene glycol 3350 17gm powd pack PO SCH (08:21)
[2018-03-28] MEDS: enoxaparin 40mg/0.4ml syringe SUBCUT SCH (08:21)
[2018-03-28] MEDS: nystatin 15 GM ointment TP SCH (08:21)
[2018-03-28] MEDS: lactobacillus rhamnosus 10,000 MMU CELLS/CAPSULE PO SCH (08:22)
[2018-03-28] MEDS: pregabalin 75mg capsule PO SCH (08:23)
[2018-03-28] MEDS: methadone 10mg tablet PO SCH (08:23)
[2018-03-28] MEDS: atorvastatin 10mg tablet PO SCH (08:23)
[2018-03-28] MEDS: spironolactone 50 MG tablet PO SCH ×2 (08:24→13:11)
[2018-03-28] MEDS: aspirin 325mg tablet, delayed-release (Ecotrin) PO SCH (08:24)
[2018-03-28 16:21] LABS: ABG BASE EXCESS 4.8 mmol/L (-2.0-3.0); ABG HCO3 28.9 mmol/L (22.0-26.0); ABG OXYGEN SATURATION 95.6 % (95-98); ABG PH (T) 7.466 (7.350-7.450); ABG PO2 (T) 79.4 mmHg (83-108); ALLEN'S TEST Positive; FCOHb 1.4 % (0.5-1.5); FO2Hb 94.3 % (94-100); TOTAL HEMOGLOBIN 13.3 G/dl (12.0-16.0)
[2018-03-28] MEDS ORDERED: methadone 10mg tablet PO SCH (20:00)
== END 2018-03-28 17:50 | DRG 917 ==
LOC: ER 00:03 → ED HOLD 03:19 → ICU 2S 04:06 → ORTHO 4S 03-22 23:20
PROVIDERS: ADMIT Internal Medicine Critical Care Medicine; ATTEND Internal Medicine Critical Care Medicine
PROC: 5A1955Z Respiratory Ventilation, Greater than 96 Consecutive Hours (ICD-10-PCS; principal; 2018-02-28)
PROC: 0BH17EZ Insertion of Endotracheal Airway into Trachea, Via Natural or Artificial Opening (ICD-10-PCS; 2018-02-28)
PROC: B32T1ZZ Computerized Tomography (CT Scan) of Left Pulmonary Artery using Low Osmolar Contrast (ICD-10-PCS; 2018-03-03)
PROC: B3201ZZ Computerized Tomography (CT Scan) of Thoracic Aorta using Low Osmolar Contrast (ICD-10-PCS; 2018-03-03)
PROC: B32S1ZZ Computerized Tomography (CT Scan) of Right Pulmonary Artery using Low Osmolar Contrast (ICD-10-PCS; 2018-03-03)
PROC: 0BJ08ZZ Inspection of Tracheobronchial Tree, Via Natural or Artificial Opening Endoscopic (ICD-10-PCS; 2018-03-05)
PROC: 02HV33Z Insertion of Infusion Device into Superior Vena Cava, Percutaneous Approach (ICD-10-PCS; 2018-03-06)
PROC: B548ZZA Ultrasonography of Superior Vena Cava, Guidance (ICD-10-PCS; 2018-03-06)
PROC: 02HV33Z Insertion of Infusion Device into Superior Vena Cava, Percutaneous Approach (ICD-10-PCS; 2018-03-11)
PROC: 4A02X4A Measurement of Cardiac Electrical Activity, Guidance, External Approach (ICD-10-PCS; 2018-03-11)
DX: T40.3X1A Poisoning by methadone, accidental (unintentional), initial encounter (principal); J69.0 Pneumonitis due to inhalation of food and vomit; J96.02 Acute respiratory failure with hypercapnia; I21.4 Non-ST elevation (NSTEMI) myocardial infarction; J15.212 Pneumonia due to Methicillin resistant Staphylococcus aureus; G93.49 Other encephalopathy; F11.20 Opioid dependence, uncomplicated; E87.4 Mixed disorder of acid-base balance; J44.1 Chronic obstructive pulmonary disease with (acute) exacerbation; J44.0 Chronic obstructive pulmonary disease with (acute) lower respiratory infection; E66.9 Obesity, unspecified; G47.30 Sleep apnea, unspecified; I50.9 Heart failure, unspecified; I25.10 Atherosclerotic heart disease of native coronary artery without angina pectoris; G89.29 Other chronic pain; R00.1 Bradycardia, unspecified; K59.00 Constipation, unspecified; I25.2 Old myocardial infarction; Z74.01 Bed confinement status; Z79.899 Other long term (current) drug therapy; Z80.9 Family history of malignant neoplasm, unspecified; Z82.49 Family history of ischemic heart disease and other diseases of the circulatory system; Z82.5 Family history of asthma and other chronic lower respiratory diseases; Y92.89 Other specified places as the place of occurrence of the external cause
CPT/HCPCS: 31645; 36415; 36569; 36600; 70450; 71045; 71275; 76937; 80048; 80053; 80156; 80202; 80305; 80320; 80329; 81003; 82140; 82550; 82803; 82810; 82948; 83036; 83605; 83735; 84100; 84132; 84134; 84145; 84443; 84484; 85007; 85018; 85025; 85027; 85610; 85730; 86738; 87040; 87070; 87077; 87186; 92616; 93306; 93926; 93970; 94002; 94003; 94640; 94660; 94667; 94668; 94760; 96365; 96375; 96376; 97110; 97162; 97530; 99291; A4310; A4315; A4344; A4353; A6209; A6212; A6213; A6257; A6258; A6449; A7015; C1751; C1758; C9113; J0171; J0282; J0692; J0696; J1120; J1170; J1650; J1815; J1940; J1956; J2020; J2060; J2212; J2250; J2270; J2405; J2704; J2930; J3370; J3475; J3480; J3490; J7030; J7060; J7512; P9045; Q9967

== ENCOUNTER 2018-05-02 02:10 | Inpatient (IN) | payer MEDICARE, MEDICAID ==
[~2018-05-02] VITALS: Ht 165.1 cm; Wt 95.7 kg
[~2018-05-02 02:10] MED LIST changes: -ALBU18HF2 INH; +ASPI-845 PO; -DOCU100C40 PO; +GABA-530 PO; -LEVO750T46 PO; -LORA0.5T PO; -PRED20TA PO
[2018-05-02 03:35] LABS: BASOPHILS # (AUTO) 0.1 X10'3 (0-0.2); BASOPHILS % (AUTO) 1.7 % (0-1); EOSINOPHILS # (AUTO) 0.1 X10'3 (0-0.9); EOSINOPHILS % (AUTO) 0.9 % (0-6); HEMATOCRIT 38.8 % (35.0-45.0); HEMOGLOBIN 12.5 g/dl (12.0-16.0); LYMPHOCYTES # (AUTO) 1.8 X10'3 (1.1-4.8); LYMPHOCYTES % (AUTO) 25.8 % (21-51); MEAN CORPUSCULAR HEMOGLOBIN 30.7 PG (27.0-31.0); MEAN CORPUSCULAR HGB CONC 32.1 % (33.0-36.5); MEAN CORPUSCULAR VOLUME 95.7 FL (78-98); MEAN PLATELET VOLUME 7.4 FL (7.4-10.4); MONOCYTES # (AUTO) 0.7 X10'3 (0-0.9); MONOCYTES % (AUTO) 9.4 % (2-12); NEUTROPHILS # (AUTO) 4.3 X10'3 (1.8-7.7); NEUTROPHILS % (AUTO) 62.2 % (42-75); PLATELET COUNT 305 X10'3 (140-440); RED BLOOD COUNT 4.06 X10'6 (4.20-5.60); RED CELL DISTRIBUTION WIDTH 22.6 % (11.5-14.5); WHITE BLOOD COUNT 6.9 X10'3 (4.5-11.0)
[2018-05-02 03:51] LABS: ALANINE AMINOTRANSFERASE 20 U/L (12-78); ALBUMIN 3.1 G/DL (3.4-5.0); ALBUMIN/GLOBULIN RATIO 0.9 (1.1-1.5); ALKALINE PHOSPHATASE 115 IU/L (46-116); ANION GAP 2 (8-16); ASPARTATE AMINO TRANSFERASE 17 U/L (10-37); BILIRUBIN,TOTAL 0.3 MG/DL (0.1-1.0); BLOOD UREA NITROGEN 4 MG/DL (7-18); BUN/CREATININE RATIO 6.3 (6.6-38.0); CALCIUM 8.6 MG/DL (8.5-10.1); CHLORIDE 99 MMOL/L (99-107); CREATININE 0.64 MG/DL (0.40-0.90); GLUCOSE 97 MG/DL (70-104); SODIUM 138 MMOL/L (135-145); TOTAL CARBON DIOXIDE 36.6 MMOL/L (24-32); TOTAL PROTEIN 6.7 G/DL (6.4-8.2); eGFR > 90 ML/MIN
[2018-05-02 04:11] LABS: ANISOCYTOSIS 3+; PLATELET ESTIMATE NORMAL; POLYCHROMASIA FEW
[2018-05-02] MEDS ORDERED: furosemide 10 MG/1 ML 10ml inj IV ONE (04:25)
[2018-05-02] MEDS ORDERED: SPIR50TA5 PO (04:25)
[2018-05-02] MEDS ORDERED: PREG50CA PO (04:27)
[2018-05-02] MEDS ORDERED: MAGN400T6 PO (04:27)
[2018-05-02] MEDS ORDERED: MULT-1121 (04:32)
[2018-05-02] MEDS ORDERED: POLY17PO10 PO (04:35)
[2018-05-02] MEDS ORDERED: DOCU100C33 (04:35)
[2018-05-02] MEDS ORDERED: metoclopramide 5 mg/ml inj IV PRN (04:45)
[2018-05-02] MEDS ORDERED: mag hydrox/Alum hydrox/simeth 30ml oral suspension PO PRN (04:45)
[2018-05-02] MEDS ORDERED: bisacodyl 10mg suppository rectal RC PRN (04:45)
[2018-05-02] MEDS ORDERED: morphine 2 MG/ML inj. syringe IV PRN (04:45)
[2018-05-02] MEDS ORDERED: magnesium hydroxide 30ml (MOM) UD suspension PO PRN (04:45)
[2018-05-02] MEDS ORDERED: acetaminophen 325mg tablet PO PRN (04:45)
[2018-05-02] MEDS ORDERED: ondansetron/PF 4mg/2ml inj IV PRN (04:45)
[2018-05-02] MEDS ORDERED: diphenhydrAMINE 25mg capsule PO PRN (04:45)
[2018-05-02] MEDS ORDERED: acetaminophen 650mg rectal suppository RC PRN (04:45)
[2018-05-02] MEDS ORDERED: diphenhydrAMINE 50 mg/ml inj IV PRN (04:45)
[2018-05-02 05:18] LABS: PARTIAL THROMBOPLASTIN TIME 27 SECONDS (22-32); PROTHROMBIN TIME 10.8 SECONDS (9.0-12.0)
[2018-05-02 07:56] LABS: CARBAMAZEPINE (TEGRETOL) 6.2 UG/ML (4.0-12.0); MAGNESIUM 1.7 MG/DL (1.5-2.4); PHOSPHORUS 5.3 MG/DL (2.3-4.5)
[2018-05-02] MEDS: furosemide 10 MG/1 ML 10ml inj IV SCH ×2 (08:00→20:26)
[2018-05-02] MEDS: nicotine 21mg patch - 24 hr TD SCH (08:00)
[2018-05-02] MEDS ORDERED: aspirin 81mg tab.chew PO SCH (08:30)
[2018-05-02] MEDS: docusate sod 100mg capsule PO SCH ×2 (09:38→20:27)
[2018-05-02] MEDS: aspirin 325mg tablet, delayed-release (Ecotrin) PO SCH (09:38)
[2018-05-02] MEDS: nitroGLYCERIN 0.1mg/hour patch TD SCH (09:38)
[2018-05-02] MEDS: heparin, porcine 5000 units/ml vial SQ SCH ×2 (09:39→20:28)
[2018-05-02] MEDS: carBAMazepine 100mg chewable tablet PO SCH ×4 (09:52→21:24)
[2018-05-02] MEDS: morphine 2 MG/ML inj. syringe IV PRN ×2 (13:43→23:10)
[2018-05-02 17:00] VITALS: BP 112/68
[2018-05-02 18:00] VITALS: BP 115/71
[2018-05-02] MEDS: ipratropium/albuterol 3ml nebule NEB PRN (18:51)
[2018-05-02] MEDS ORDERED: PREGABALIN PO SCH (20:00)
[2018-05-02] MEDS: ceFAZolin 1GM/D5W- ADD-VANTAGE 50 ML IV SCH (20:19)
[2018-05-02] MEDS ORDERED: nicotine 21mg patch - 24 hr TD ONE (20:20)
[2018-05-02] MEDS: pregabalin 75mg capsule PO SCH (20:27)
[2018-05-02] MEDS ORDERED: temazepam 15mg capsule PO PRN (21:00)
[2018-05-02] MEDS: spironolactone 50 MG tablet PO SCH (21:22)
[2018-05-02] MEDS: methadone 10mg tablet PO SCH (21:28)
[2018-05-02 22:00] VITALS: BP 115/60
[2018-05-03 00:30] VITALS: BP 105/51
[2018-05-03] MEDS: ceFAZolin 1GM/D5W- ADD-VANTAGE 50 ML IV SCH ×3 (00:45→17:07)
[2018-05-03 02:00] VITALS: BP 106/71
[2018-05-03] MEDS: morphine 2 MG/ML inj. syringe IV PRN ×3 (04:22→20:31)
[2018-05-03 05:08] LABS: BASOPHILS # (AUTO) 0.1 X10'3 (0-0.2); BASOPHILS % (AUTO) 1.4 % (0-1); EOSINOPHILS % (AUTO) 0.7 % (0-6); HEMATOCRIT 36.8 % (35.0-45.0); HEMOGLOBIN 11.9 g/dl (12.0-16.0); LYMPHOCYTES % (AUTO) 28.4 % (21-51); MEAN CORPUSCULAR HEMOGLOBIN 30.5 PG (27.0-31.0); MEAN CORPUSCULAR HGB CONC 32.3 % (33.0-36.5); MEAN CORPUSCULAR VOLUME 94.6 FL (78-98); MEAN PLATELET VOLUME 7.6 FL (7.4-10.4); MONOCYTES # (AUTO) 0.8 X10'3 (0-0.9); MONOCYTES % (AUTO) 11.3 % (2-12); NEUTROPHILS % (AUTO) 58.2 % (42-75); PLATELET COUNT 283 X10'3 (140-440); RED BLOOD COUNT 3.89 X10'6 (4.20-5.60); RED CELL DISTRIBUTION WIDTH 21.6 % (11.5-14.5); WHITE BLOOD COUNT 6.9 X10'3 (4.5-11.0)
[2018-05-03 05:46] LABS: ALANINE AMINOTRANSFERASE 11 U/L (12-78); ALBUMIN 2.7 G/DL (3.4-5.0); ALBUMIN/GLOBULIN RATIO 0.8 (1.1-1.5); ALKALINE PHOSPHATASE 99 IU/L (46-116); ANION GAP 3 (8-16); ASPARTATE AMINO TRANSFERASE 17 U/L (10-37); BILIRUBIN,TOTAL 0.4 MG/DL (0.1-1.0); BLOOD UREA NITROGEN 6 MG/DL (7-18); BUN/CREATININE RATIO 9.7 (6.6-38.0); CALCIUM 8.2 MG/DL (8.5-10.1); CHLORIDE 97 MMOL/L (99-107); CREATININE 0.62 MG/DL (0.40-0.90); GLUCOSE 75 MG/DL (70-104); POTASSIUM 3.6 MMOL/L (3.5-5.1); SODIUM 139 MMOL/L (135-145); TOTAL CARBON DIOXIDE 39.5 MMOL/L (24-32); eGFR > 90 ML/MIN
[2018-05-03 06:00] VITALS: BP 106/72
[2018-05-03] MEDS: carBAMazepine 100mg chewable tablet PO SCH ×5 (06:25→21:50)
[2018-05-03] MEDS ORDERED: IRON SCH (08:00)
[2018-05-03] MEDS ORDERED: MULTIVITS CA MINERALS SCH (08:00)
[2018-05-03] MEDS ORDERED: [UNRECOGNIZED DRUG - OTHER] SCH (08:00)
[2018-05-03] MEDS: docusate sod 100mg capsule PO SCH ×2 (08:46→20:19)
[2018-05-03] MEDS: multivitamins, therapeutics tablet PO SCH (08:46)
[2018-05-03] MEDS: aspirin 325mg tablet, delayed-release (Ecotrin) PO SCH (08:46)
[2018-05-03] MEDS: spironolactone 50 MG tablet PO SCH ×3 (08:46→21:50)
[2018-05-03] MEDS: methadone 10mg tablet PO SCH ×3 (08:47→21:50)
[2018-05-03] MEDS: magnesium oxide 400mg tablet PO SCH (08:47)
[2018-05-03] MEDS: pregabalin 75mg capsule PO SCH ×2 (08:47→20:19)
[2018-05-03] MEDS: nicotine 21mg patch - 24 hr TD SCH (08:49)
[2018-05-03] MEDS: heparin, porcine 5000 units/ml vial SQ SCH ×2 (08:49→20:20)
[2018-05-03] MEDS: furosemide 10 MG/1 ML 10ml inj IV SCH ×2 (09:01→20:19)
[2018-05-03] MEDS: ipratropium/albuterol 3ml nebule NEB PRN ×2 (11:29→20:06)
[2018-05-03] MEDS: nitroGLYCERIN 0.1mg/hour patch TD SCH (11:41)
[2018-05-03 15:00] VITALS: BP 115/73
[2018-05-03 19:00] VITALS: BP 115/72
[2018-05-03] MEDS: lactobacillus rhamnosus 10,000 MMU CELLS/CAPSULE PO SCH (20:19)
[2018-05-03 23:00] VITALS: BP 103/63
[2018-05-04] MEDS: ceFAZolin 1GM/D5W- ADD-VANTAGE 50 ML IV SCH ×3 (00:13→16:43)
[2018-05-04 03:00] VITALS: BP 121/75
[2018-05-04 05:19] LABS: BASOPHILS % (AUTO) 0.5 % (0-1); EOSINOPHILS % (AUTO) 0 % (0-6); HEMATOCRIT 36.2 % (35.0-45.0); HEMOGLOBIN 11.9 g/dl (12.0-16.0); LYMPHOCYTES # (AUTO) 1.6 X10'3 (1.1-4.8); LYMPHOCYTES % (AUTO) 25.8 % (21-51); MEAN CORPUSCULAR HEMOGLOBIN 31.2 PG (27.0-31.0); MEAN CORPUSCULAR VOLUME 94.6 FL (78-98); MEAN PLATELET VOLUME 7.9 FL (7.4-10.4); MONOCYTES # (AUTO) 0.8 X10'3 (0-0.9); MONOCYTES % (AUTO) 13.2 % (2-12); NEUTROPHILS # (AUTO) 3.8 X10'3 (1.8-7.7); NEUTROPHILS % (AUTO) 60.5 % (42-75); PLATELET COUNT 274 X10'3 (140-440); RED BLOOD COUNT 3.82 X10'6 (4.20-5.60); WHITE BLOOD COUNT 6.2 X10'3 (4.5-11.0)
[2018-05-04 05:57] LABS: ANISOCYTOSIS 3+; PLATELET ESTIMATE NORMAL
[2018-05-04 05:58] LABS: ALANINE AMINOTRANSFERASE 13 U/L (12-78); ALBUMIN 2.7 G/DL (3.4-5.0); ALBUMIN/GLOBULIN RATIO 0.8 (1.1-1.5); ALKALINE PHOSPHATASE 97 IU/L (46-116); ANION GAP 3 (8-16); ASPARTATE AMINO TRANSFERASE 11 U/L (10-37); BILIRUBIN,TOTAL 0.4 MG/DL (0.1-1.0); BLOOD UREA NITROGEN 7 MG/DL (7-18); BUN/CREATININE RATIO 11.3 (6.6-38.0); CALCIUM 8.2 MG/DL (8.5-10.1); CHLORIDE 93 MMOL/L (99-107); CREATININE 0.62 MG/DL (0.40-0.90); GLUCOSE 79 MG/DL (70-104); POLYCHROMASIA FEW; POTASSIUM 3.3 MMOL/L (3.5-5.1); SODIUM 135 MMOL/L (135-145); TARGET CELLS FEW; TOTAL PROTEIN 5.9 G/DL (6.4-8.2); eGFR > 90 ML/MIN
[2018-05-04 06:00] VITALS: BP 126/58
[2018-05-04] MEDS: carBAMazepine 100mg chewable tablet PO SCH ×5 (06:12→21:45)
[2018-05-04] MEDS: aspirin 325mg tablet, delayed-release (Ecotrin) PO SCH (08:40)
[2018-05-04] MEDS: magnesium oxide 400mg tablet PO SCH (08:40)
[2018-05-04] MEDS: docusate sod 100mg capsule PO SCH ×2 (08:41→20:00)
[2018-05-04] MEDS: pregabalin 75mg capsule PO SCH ×2 (08:41→21:40)
[2018-05-04] MEDS: morphine 2 MG/ML inj. syringe IV PRN ×2 (08:41→23:53)
[2018-05-04] MEDS: multivitamins, therapeutics tablet PO SCH (08:41)
[2018-05-04] MEDS: spironolactone 50 MG tablet PO SCH ×3 (08:41→21:40)
[2018-05-04] MEDS: lactobacillus rhamnosus 10,000 MMU CELLS/CAPSULE PO SCH ×2 (08:41→21:41)
[2018-05-04] MEDS: nitroGLYCERIN 0.1mg/hour patch TD SCH (08:42)
[2018-05-04] MEDS: nicotine 21mg patch - 24 hr TD SCH (08:44)
[2018-05-04] MEDS: heparin, porcine 5000 units/ml vial SQ SCH ×2 (08:47→21:42)
[2018-05-04] MEDS: methadone 10mg tablet PO SCH ×3 (10:00→21:41)
[2018-05-04] MEDS: polyethylene glycol 3350 17gm powd pack PO SCH (10:03)
[2018-05-04 11:00] VITALS: BP 107/65
[2018-05-04 15:00] VITALS: BP 118/77
[2018-05-04] MEDS: ipratropium/albuterol 3ml nebule NEB PRN (17:02)
[2018-05-04 19:00] VITALS: BP 115/75
[2018-05-04] MEDS ORDERED: potassium Cl 40MEQ/NS 500ml 500 ML IV PRN ×2 (22:20)
[2018-05-04] MEDS ORDERED: potassium Cl 20 mEq SR tablet PO PRN (22:20)
[2018-05-04] MEDS ORDERED: magnesium 4gm in 100ml NS 100 ML IV PRN (22:40)
[2018-05-04] MEDS ORDERED: magnesium Cl slow-release 64mg tablet PO PRN (22:40)
[2018-05-04] MEDS: potassium Cl 20 mEq SR tablet PO PRN (22:45)
[2018-05-04] MEDS: furosemide 20 MG/2 ML vial IV SCH (22:56)
[2018-05-04 23:00] VITALS: BP 110/72
[2018-05-05] MEDS: ceFAZolin 1GM/D5W- ADD-VANTAGE 50 ML IV SCH ×3 (00:05→16:00)
[2018-05-05 00:15] VITALS: BP 113/83
[2018-05-05] MEDS: potassium Cl 20 mEq SR tablet PO PRN (03:30)
[2018-05-05 04:47] LABS: BASOPHILS # (AUTO) 0.1 X10'3 (0-0.2); BASOPHILS % (AUTO) 2.1 % (0-1); EOSINOPHILS # (AUTO) 0.1 X10'3 (0-0.9); EOSINOPHILS % (AUTO) 1.4 % (0-6); HEMOGLOBIN 12.1 g/dl (12.0-16.0); LYMPHOCYTES # (AUTO) 1.5 X10'3 (1.1-4.8); LYMPHOCYTES % (AUTO) 21.9 % (21-51); MEAN CORPUSCULAR HEMOGLOBIN 30.5 PG (27.0-31.0); MEAN CORPUSCULAR HGB CONC 32.8 % (33.0-36.5); MEAN PLATELET VOLUME 7.8 FL (7.4-10.4); MONOCYTES # (AUTO) 0.8 X10'3 (0-0.9); MONOCYTES % (AUTO) 10.9 % (2-12); NEUTROPHILS # (AUTO) 4.4 X10'3 (1.8-7.7); NEUTROPHILS % (AUTO) 63.7 % (42-75); PLATELET COUNT 264 X10'3 (140-440); RED BLOOD COUNT 3.98 X10'6 (4.20-5.60); RED CELL DISTRIBUTION WIDTH 20.4 % (11.5-14.5); WHITE BLOOD COUNT 6.9 X10'3 (4.5-11.0)
[2018-05-05 05:19] LABS: ALANINE AMINOTRANSFERASE 7 U/L (12-78); ALBUMIN 2.8 G/DL (3.4-5.0); ALBUMIN/GLOBULIN RATIO 0.8 (1.1-1.5); ALKALINE PHOSPHATASE 107 IU/L (46-116); ANION GAP 3 (8-16); ASPARTATE AMINO TRANSFERASE 15 U/L (10-37); BILIRUBIN,TOTAL 0.5 MG/DL (0.1-1.0); BLOOD UREA NITROGEN 8 MG/DL (7-18); CALCIUM 8.5 MG/DL (8.5-10.1); CHLORIDE 91 MMOL/L (99-107); GLUCOSE 89 MG/DL (70-104); POTASSIUM 3.9 MMOL/L (3.5-5.1); SODIUM 129 MMOL/L (135-145); TOTAL CARBON DIOXIDE 35.2 MMOL/L (24-32); TOTAL PROTEIN 6.3 G/DL (6.4-8.2); eGFR > 90 ML/MIN
[2018-05-05 06:29] LABS: ANISOCYTOSIS 2+; PLATELET ESTIMATE NORMAL
[2018-05-05 07:11] VITALS: BP 113/73
[2018-05-05] MEDS: nitroGLYCERIN 0.1mg/hour patch TD SCH ×2 (08:00→08:48)
[2018-05-05] MEDS: morphine 2 MG/ML inj. syringe IV PRN (08:15)
[2018-05-05] MEDS: methadone 10mg tablet PO SCH ×2 (08:47→13:25)
[2018-05-05] MEDS: heparin, porcine 5000 units/ml vial SQ SCH (08:47)
[2018-05-05] MEDS: furosemide 20 MG/2 ML vial IV SCH (08:47)
[2018-05-05] MEDS: docusate sod 100mg capsule PO SCH (08:48)
[2018-05-05] MEDS: lactobacillus rhamnosus 10,000 MMU CELLS/CAPSULE PO SCH (08:48)
[2018-05-05] MEDS: magnesium oxide 400mg tablet PO SCH (08:48)
[2018-05-05] MEDS: pregabalin 75mg capsule PO SCH (08:48)
[2018-05-05] MEDS: carBAMazepine 100mg chewable tablet PO SCH ×3 (08:48→14:57)
[2018-05-05] MEDS: spironolactone 50 MG tablet PO SCH ×2 (08:48→13:25)
[2018-05-05] MEDS: multivitamins, therapeutics tablet PO SCH (08:48)
[2018-05-05] MEDS: polyethylene glycol 3350 17gm powd pack PO SCH (08:48)
[2018-05-05] MEDS: nicotine 21mg patch - 24 hr TD SCH (08:48)
[2018-05-05] MEDS: aspirin 325mg tablet, delayed-release (Ecotrin) PO SCH (08:49)
[2018-05-05 11:12] VITALS: BP 96/67
[2018-05-05] MEDS ORDERED: FURO-150 PO (11:18)
[2018-05-05 11:20] VITALS: BP 113/64
[2018-05-05] MEDS ORDERED: CEPH250T PO (11:21)
[2018-05-05] MEDS: ipratropium/albuterol 3ml nebule NEB PRN (15:51)
== END 2018-05-05 17:48 | disposition home or self-care (01) | DRG 291 ==
LOC: ER 02:11 → ED HOLD 04:42 → PCU 3S 16:46 → SUR 3N 05-05 00:15
PROVIDERS: ADMIT Family Medicine; ATTEND Internal Medicine
DX: I50.33 Acute on chronic diastolic (congestive) heart failure (principal); J96.01 Acute respiratory failure with hypoxia; L03.116 Cellulitis of left lower limb; L03.115 Cellulitis of right lower limb; F11.20 Opioid dependence, uncomplicated; G47.30 Sleep apnea, unspecified; G62.9 Polyneuropathy, unspecified; G89.29 Other chronic pain; I25.10 Atherosclerotic heart disease of native coronary artery without angina pectoris; R00.1 Bradycardia, unspecified; G40.909 Epilepsy, unspecified, not intractable, without status epilepticus; I27.81 Cor pulmonale (chronic); J44.9 Chronic obstructive pulmonary disease, unspecified; I25.2 Old myocardial infarction; Z99.81 Dependence on supplemental oxygen; Z91.018 Allergy to other foods; Z79.82 Long term (current) use of aspirin; Z79.899 Other long term (current) drug therapy; Z79.891 Long term (current) use of opiate analgesic; Z82.49 Family history of ischemic heart disease and other diseases of the circulatory system; Z82.5 Family history of asthma and other chronic lower respiratory diseases; Z80.9 Family history of malignant neoplasm, unspecified
CPT/HCPCS: 36415; 71045; 80053; 80156; 83735; 83880; 84100; 84484; 85025; 85610; 85730; 87070; 93005; 94640; 94760; 97110; 97116; 97162; 97530; 99285; A4315; J0690; J1644; J1940; J2270; J7030

== ENCOUNTER 2018-07-27 03:09 | Inpatient (IN) | payer MEDICARE, MEDICAID ==
[~2018-07-27] VITALS: Ht 152.4 cm; Wt 100.0 kg
[~2018-07-27 03:09] MED LIST changes: +CEPH250T PO; +DOCU100C33; -GABA-530 PO; +MAGN400T6 PO; +MULT-1121; +POLY17PO10 PO; +PREG50CA PO
[2018-07-27] MEDS ORDERED: normal saline 1000ml 1,000 ML IV ONE (03:18)
[2018-07-27] MEDS ORDERED: nitroGLYCERIN 0.4mg/hour patch TD ONE (03:20)
[2018-07-27 03:34] LABS: BASOPHILS % (AUTO) 0.3 % (0-1); EOSINOPHILS % (AUTO) 0 % (0-6); HEMATOCRIT 42.7 % (35.0-45.0); HEMOGLOBIN 13.3 g/dl (12.0-16.0); LYMPHOCYTES % (AUTO) 18.3 % (21-51); MEAN CORPUSCULAR HEMOGLOBIN 27.5 PG (27.0-31.0); MEAN CORPUSCULAR HGB CONC 31.1 % (33.0-36.5); MEAN CORPUSCULAR VOLUME 88.3 FL (78-98); MEAN PLATELET VOLUME 7.6 FL (7.4-10.4); MONOCYTES # (AUTO) 0.6 X10'3 (0-0.9); MONOCYTES % (AUTO) 10.8 % (2-12); NEUTROPHILS % (AUTO) 70.6 % (42-75); PLATELET COUNT 281 X10'3 (140-440); RED BLOOD COUNT 4.83 X10'6 (4.20-5.60); RED CELL DISTRIBUTION WIDTH 17.2 % (11.5-14.5); WHITE BLOOD COUNT 5.7 X10'3 (4.5-11.0)
[2018-07-27] MEDS ORDERED: furosemide 10 MG/1 ML 10ml inj IV ONE (03:40)
[2018-07-27 03:54] LABS: INR 1.1 INR; PARTIAL THROMBOPLASTIN TIME 27 SECONDS (22-32); PROTHROMBIN TIME 10.9 SECONDS (9.0-12.0)
[2018-07-27 04:04] LABS: ALANINE AMINOTRANSFERASE 25 U/L (12-78); ALBUMIN/GLOBULIN RATIO 0.9 (1.1-1.5); ALKALINE PHOSPHATASE 142 IU/L (46-116); ANION GAP 3 (8-16); ASPARTATE AMINO TRANSFERASE 26 U/L (10-37); BILIRUBIN,TOTAL 0.4 MG/DL (0.1-1.0); BLOOD UREA NITROGEN 9 MG/DL (7-18); BUN/CREATININE RATIO 11.5 (6.6-38.0); CALCIUM 8.5 MG/DL (8.5-10.1); CHLORIDE 95 MMOL/L (99-107); CREATININE 0.78 MG/DL (0.40-0.90); GLUCOSE 131 MG/DL (70-104); POTASSIUM 3.5 MMOL/L (3.5-5.1); SODIUM 136 MMOL/L (135-145); TOTAL CARBON DIOXIDE 38.2 MMOL/L (24-32); TOTAL PROTEIN 6.2 G/DL (6.4-8.2); eGFR 78 ML/MIN
[2018-07-27] MEDS ORDERED: magnesium 2GM in 50ml NS 50 ML IV STA (04:26)
[2018-07-27 04:30] LABS: CLARITY,URINE CLEAR (Clear); COLOR,URINE YELLOW (Yellow); GLUCOSE, URINE NEGATIVE (Neg); KETONES,URINE NEGATIVE (Neg); LEUKOCYTE ESTERASE ,URINE NEGATIVE (Neg); NITRITES, URINE NEGATIVE (Neg); OCCULT BLOOD,URINE TRACE-LYSED (Neg); PROTEIN,URINE NEGATIVE (Neg); UROBILINOGEN,URINE 0.2 E.U/dL (0.2-1.0)
[2018-07-27] MEDS ORDERED: potassium 10mEq/100ml NS w/LIDOcaine (10mg/bag) IV ONE (04:30)
[2018-07-27] MEDS ORDERED: potassium Cl 10 mEq/100mL bag IV ONE (04:30)
[2018-07-27 04:36] LABS: UA COLLECTION TYPE CLN CATCH MIDSTREAM
[2018-07-27 04:37] LABS: BACTERIA,URINE FEW /HPF (Neg); RBC,URINE 0-2 /HPF (0-2); SQUAMOUS EPITHELIAL CELL,UR FEW /LPF (FEW); WBC,URINE NONE SEEN /HPF (0-4)
[2018-07-27] MEDS ORDERED: GABA-530 PO (05:33)
[2018-07-27] MEDS ORDERED: POTA10TA10 PO (05:33)
[2018-07-27] MEDS ORDERED: ALB0.5UD NEB (05:33)
[2018-07-27] MEDS ORDERED: LORA0.5T PO (05:33)
[2018-07-27] MEDS ORDERED: FURO-150 PO (05:33)
[2018-07-27] MEDS ORDERED: SIMV20TA5 PO (05:33)
[2018-07-27] MEDS ORDERED: magnesium hydroxide 30ml (MOM) UD suspension PO PRN (05:55)
[2018-07-27] MEDS ORDERED: acetaminophen 325mg tablet PO PRN (05:55)
[2018-07-27] MEDS ORDERED: mag hydrox/Alum hydrox/simeth 30ml oral suspension PO PRN (05:55)
[2018-07-27] MEDS ORDERED: ondansetron/PF 4mg/2ml inj IV PRN (05:55)
[2018-07-27] MEDS ORDERED: METH-603 PO (06:00)
[2018-07-27 07:10] VITALS: BP 126/87
[2018-07-27] MEDS: gabapentin 100mg capsule PO SCH ×3 (08:08→23:50)
[2018-07-27] MEDS: methadone 10mg tablet PO SCH ×3 (08:08→20:32)
[2018-07-27] MEDS: aspirin 325mg tablet, delayed-release (Ecotrin) PO SCH (08:09)
[2018-07-27] MEDS: magnesium oxide 400mg tablet PO SCH (08:09)
[2018-07-27] MEDS: potassium Cl 20 mEq SR tablet PO SCH (08:09)
[2018-07-27] MEDS: heparin, porcine 5000 units/ml vial SQ SCH ×2 (08:10→19:31)
[2018-07-27] MEDS: nicotine 21mg patch - 24 hr TD SCH (09:33)
[2018-07-27] MEDS: carBAMazepine 100mg chewable tablet PO SCH ×2 (09:34→20:34)
[2018-07-27 11:20] VITALS: BP 85/66
[2018-07-27 11:25] VITALS: BP 137/69
[2018-07-27] MEDS: albuterol 2.5 MG/3 ML nebule NEB PRN ×2 (14:39→20:50)
[2018-07-27] MEDS: furosemide 10 MG/1 ML 10ml inj IV SCH ×2 (16:20→23:50)
[2018-07-27] MEDS: LORazepam 0.5 MG tablet PO PRN (16:30)
[2018-07-27 20:00] VITALS: BP 115/65
[2018-07-27] MEDS: atorvastatin 10mg tablet PO SCH (20:32)
[2018-07-27 23:00] VITALS: BP 114/66
[2018-07-28] MEDS: morphine 2 MG/ML inj. syringe IV PRN ×2 (01:23→22:26)
[2018-07-28 05:18] LABS: ALANINE AMINOTRANSFERASE 25 U/L (12-78); ALBUMIN 3.1 G/DL (3.4-5.0); ALBUMIN/GLOBULIN RATIO 0.9 (1.1-1.5); ALKALINE PHOSPHATASE 145 IU/L (46-116); BILIRUBIN,TOTAL 0.5 MG/DL (0.1-1.0); BLOOD UREA NITROGEN 12 MG/DL (7-18); BUN/CREATININE RATIO 14.8 (6.6-38.0); CALCIUM 8.2 MG/DL (8.5-10.1); CHLORIDE 96 MMOL/L (99-107); CREATININE 0.81 MG/DL (0.40-0.90); GLUCOSE 96 MG/DL (70-104); SODIUM 139 MMOL/L (135-145); TOTAL PROTEIN 6.7 G/DL (6.4-8.2); eGFR 75 ML/MIN
[2018-07-28 05:25] LABS: BASOPHILS % (AUTO) 0.4 % (0-1); EOSINOPHILS % (AUTO) 0 % (0-6); HEMOGLOBIN 13.4 g/dl (12.0-16.0); LYMPHOCYTES # (AUTO) 1.3 X10'3 (1.1-4.8); LYMPHOCYTES % (AUTO) 19.9 % (21-51); MEAN CORPUSCULAR HEMOGLOBIN 27.5 PG (27.0-31.0); MEAN CORPUSCULAR HGB CONC 31.1 % (33.0-36.5); MEAN CORPUSCULAR VOLUME 88.6 FL (78-98); MEAN PLATELET VOLUME 8.2 FL (7.4-10.4); MONOCYTES # (AUTO) 0.8 X10'3 (0-0.9); MONOCYTES % (AUTO) 12.5 % (2-12); NEUTROPHILS # (AUTO) 4.3 X10'3 (1.8-7.7); NEUTROPHILS % (AUTO) 67.2 % (42-75); PLATELET COUNT 260 X10'3 (140-440); RED BLOOD COUNT 4.85 X10'6 (4.20-5.60); RED CELL DISTRIBUTION WIDTH 17.6 % (11.5-14.5); WHITE BLOOD COUNT 6.5 X10'3 (4.5-11.0)
[2018-07-28 05:28] LABS: ANION GAP -1 (8-16); POTASSIUM 4.7 MMOL/L (3.5-5.1); TOTAL CARBON DIOXIDE 43.9 MMOL/L (24-32)
[2018-07-28 05:30] LABS: ASPARTATE AMINO TRANSFERASE 33 U/L (10-37)
[2018-07-28 07:30] VITALS: BP 107/66
[2018-07-28] MEDS: magnesium oxide 400mg tablet PO SCH (07:30)
[2018-07-28] MEDS: aspirin 325mg tablet, delayed-release (Ecotrin) PO SCH (07:30)
[2018-07-28] MEDS: gabapentin 100mg capsule PO SCH ×3 (07:30→23:58)
[2018-07-28] MEDS: methadone 10mg tablet PO SCH ×3 (07:30→20:09)
[2018-07-28] MEDS: potassium Cl 20 mEq SR tablet PO SCH (07:32)
[2018-07-28] MEDS: carBAMazepine 100mg chewable tablet PO SCH ×2 (07:32→20:08)
[2018-07-28] MEDS: heparin, porcine 5000 units/ml vial SQ SCH ×2 (07:34→20:08)
[2018-07-28] MEDS: nicotine 21mg patch - 24 hr TD SCH (07:34)
[2018-07-28] MEDS: furosemide 10 MG/1 ML 10ml inj IV SCH ×3 (07:36→23:58)
[2018-07-28] MEDS: LORazepam 0.5 MG tablet PO PRN (07:46)
[2018-07-28 11:00] VITALS: BP 119/76
[2018-07-28] MEDS: nystatin 15 GM powder TP SCH ×2 (12:09→20:08)
[2018-07-28] MEDS: multivitamins, therapeutics tablet PO SCH (13:23)
[2018-07-28 20:00] VITALS: BP 93/65
[2018-07-28] MEDS: atorvastatin 10mg tablet PO SCH (20:09)
[2018-07-28 23:00] VITALS: BP 113/75
[2018-07-29 04:54] LABS: BASOPHILS % (AUTO) 0.4 % (0-1); EOSINOPHILS # (AUTO) 0.1 X10'3 (0-0.9); EOSINOPHILS % (AUTO) 0.7 % (0-6); HEMATOCRIT 43.8 % (35.0-45.0); HEMOGLOBIN 13.6 g/dl (12.0-16.0); LYMPHOCYTES # (AUTO) 1.2 X10'3 (1.1-4.8); LYMPHOCYTES % (AUTO) 17.1 % (21-51); MEAN CORPUSCULAR HEMOGLOBIN 27.7 PG (27.0-31.0); MEAN CORPUSCULAR HGB CONC 31.1 % (33.0-36.5); MEAN CORPUSCULAR VOLUME 89.2 FL (78-98); MEAN PLATELET VOLUME 7.7 FL (7.4-10.4); MONOCYTES # (AUTO) 0.8 X10'3 (0-0.9); MONOCYTES % (AUTO) 12.3 % (2-12); NEUTROPHILS # (AUTO) 4.8 X10'3 (1.8-7.7); NEUTROPHILS % (AUTO) 69.5 % (42-75); PLATELET COUNT 296 X10'3 (140-440); RED BLOOD COUNT 4.91 X10'6 (4.20-5.60); RED CELL DISTRIBUTION WIDTH 17.3 % (11.5-14.5); WHITE BLOOD COUNT 6.9 X10'3 (4.5-11.0)
[2018-07-29 05:11] LABS: ALANINE AMINOTRANSFERASE 22 U/L (12-78); ALBUMIN 3.2 G/DL (3.4-5.0); ALBUMIN/GLOBULIN RATIO 0.8 (1.1-1.5); ALKALINE PHOSPHATASE 162 IU/L (46-116); ASPARTATE AMINO TRANSFERASE 24 U/L (10-37); BILIRUBIN,TOTAL 0.4 MG/DL (0.1-1.0); BLOOD UREA NITROGEN 12 MG/DL (7-18); BUN/CREATININE RATIO 14.1 (6.6-38.0); CALCIUM 8.1 MG/DL (8.5-10.1); CHLORIDE 93 MMOL/L (99-107); CREATININE 0.85 MG/DL (0.40-0.90); GLUCOSE 90 MG/DL (70-104); POTASSIUM 3.6 MMOL/L (3.5-5.1); SODIUM 137 MMOL/L (135-145); eGFR 71 ML/MIN
[2018-07-29 05:21] LABS: ANION GAP -5 (8-16)
[2018-07-29 05:22] LABS: TOTAL CARBON DIOXIDE 49.2 MMOL/L (24-32)
[2018-07-29 07:43] VITALS: BP 125/82
[2018-07-29] MEDS: methadone 10mg tablet PO SCH ×3 (07:58→20:29)
[2018-07-29] MEDS: furosemide 10 MG/1 ML 10ml inj IV SCH (08:35)
[2018-07-29] MEDS: multivitamins, therapeutics tablet PO SCH (09:12)
[2018-07-29] MEDS: magnesium oxide 400mg tablet PO SCH (09:13)
[2018-07-29] MEDS: gabapentin 100mg capsule PO SCH ×2 (09:14→16:37)
[2018-07-29] MEDS: potassium Cl 20 mEq SR tablet PO SCH (09:14)
[2018-07-29] MEDS: heparin, porcine 5000 units/ml vial SQ SCH ×3 (09:16→21:41)
[2018-07-29] MEDS: aspirin 325mg tablet, delayed-release (Ecotrin) PO SCH (09:18)
[2018-07-29] MEDS: nicotine 21mg patch - 24 hr TD SCH (09:24)
[2018-07-29] MEDS: nystatin 15 GM powder TP SCH ×3 (09:26→20:30)
[2018-07-29 11:00] VITALS: BP 92/52
[2018-07-29] MEDS: carBAMazepine 100mg chewable tablet PO SCH ×3 (11:23→21:00)
[2018-07-29] MEDS: morphine 2 MG/ML inj. syringe IV PRN (11:27)
[2018-07-29 12:30] VITALS: BP 99/65
[2018-07-29] MEDS ORDERED: methylPREDNISolone sod succ 125mg/2ml vial IV ONE (19:35)
[2018-07-29] MEDS ORDERED: potassium Cl 20 mEq SR tablet PO PRN (19:40)
[2018-07-29] MEDS ORDERED: magnesium Cl slow-release 64mg tablet PO PRN (19:40)
[2018-07-29] MEDS ORDERED: potassium Cl 40MEQ/NS 500ml 500 ML IV PRN ×2 (19:40)
[2018-07-29] MEDS ORDERED: magnesium 4gm in 100ml NS 100 ML IV PRN (19:40)
[2018-07-29 20:00] VITALS: BP 98/63
[2018-07-29] MEDS ORDERED: furosemide 40mg/4ml inj IV SCH (20:00)
[2018-07-29] MEDS ORDERED: methylPREDNISolone sod succ 125mg/2ml vial IV SCH (20:00)
[2018-07-29 20:22] VITALS: BP 85/51
[2018-07-29] MEDS: atorvastatin 10mg tablet PO SCH ×2 (20:29→21:00)
[2018-07-29 20:55] LABS: ABG BASE EXCESS 14.7 mmol/L (-2.0-3.0); ABG HCO3 44.8 mmol/L (22.0-26.0); ABG OXYGEN SATURATION 83.8 % (95-98); ABG PCO2 (T) 87.4 mmHg (32.0-45.0); ABG PH (T) 7.329 (7.350-7.450); ABG PO2 (T) 52.1 mmHg (83-108); ALLEN'S TEST Positive; FCOHb 1.1 % (0.5-1.5); FLOW 1 L/min; FMetHb 0.2 % (0.3-1.12); FO2Hb 82.7 % (94-100); PATIENT TEMPERATURE 37.1; RESPIRATORY RATE (OBSERVED) 20 b/min; TOTAL HEMOGLOBIN 13.7 G/dl (12.0-16.0)
[2018-07-29] MEDS ORDERED: acetaZOLAMIDE IV 500mg inj IV ONE ×2 (20:55→23:35)
[2018-07-29 21:30] VITALS: BP 140/82
[2018-07-29 23:31] LABS: ABG BASE EXCESS 17.5 mmol/L (-2.0-3.0); ABG HCO3 48.2 mmol/L (22.0-26.0); ABG OXYGEN SATURATION 91.8 % (95-98); ABG PCO2 (T) 91.6 mmHg (32.0-45.0); ABG PO2 (T) 67.4 mmHg (83-108); ALLEN'S TEST Positive; FCOHb 1.1 % (0.5-1.5); FMetHb 0.3 % (0.3-1.12); FO2Hb 90.5 % (94-100); MINUTE VOLUME 8 L/min; PATIENT TEMPERATURE 37.1; RESPIRATORY RATE 18 b/min; RESPIRATORY RATE (OBSERVED) 19 b/min; TOTAL HEMOGLOBIN 13.9 G/dl (12.0-16.0)
[2018-07-30] MEDS: methylPREDNISolone sod succ/PF 40mg inj. IV SCH ×3 (00:28→19:03)
[2018-07-30 01:59] LABS: BASOPHILS % (AUTO) 0.7 % (0-1); EOSINOPHILS % (AUTO) 0 % (0-6); HEMOGLOBIN 12.9 g/dl (12.0-16.0); LYMPHOCYTES # (AUTO) 1.2 X10'3 (1.1-4.8); LYMPHOCYTES % (AUTO) 22.8 % (21-51); MEAN CORPUSCULAR HEMOGLOBIN 28.3 PG (27.0-31.0); MEAN CORPUSCULAR HGB CONC 32.2 % (33.0-36.5); MEAN CORPUSCULAR VOLUME 87.7 FL (78-98); MEAN PLATELET VOLUME 8.1 FL (7.4-10.4); MONOCYTES # (AUTO) 0.6 X10'3 (0-0.9); MONOCYTES % (AUTO) 11.9 % (2-12); NEUTROPHILS # (AUTO) 3.3 X10'3 (1.8-7.7); NEUTROPHILS % (AUTO) 64.6 % (42-75); PLATELET COUNT 229 X10'3 (140-440); RED BLOOD COUNT 4.56 X10'6 (4.20-5.60); RED CELL DISTRIBUTION WIDTH 16.4 % (11.5-14.5); WHITE BLOOD COUNT 5.1 X10'3 (4.5-11.0)
[2018-07-30 02:05] LABS: ABG BASE EXCESS 13.6 mmol/L (-2.0-3.0); ABG HCO3 43.1 mmol/L (22.0-26.0); ABG PCO2 (T) 80.1 mmHg (32.0-45.0); ABG PH (T) 7.348 (7.350-7.450); ABG PO2 (T) 73.4 mmHg (83-108); ALLEN'S TEST Positive; FCOHb 1.2 % (0.5-1.5); FMetHb 0.2 % (0.3-1.12); FO2Hb 92.7 % (94-100); PATIENT TEMPERATURE 36.9
[2018-07-30 02:07] LABS: ALANINE AMINOTRANSFERASE 16 U/L (12-78); ALBUMIN 2.9 G/DL (3.4-5.0); ALBUMIN/GLOBULIN RATIO 0.8 (1.1-1.5); ALKALINE PHOSPHATASE 140 IU/L (46-116); ANION GAP 0 (8-16); ASPARTATE AMINO TRANSFERASE 21 U/L (10-37); BILIRUBIN,TOTAL 0.4 MG/DL (0.1-1.0); BLOOD UREA NITROGEN 12 MG/DL (7-18); BUN/CREATININE RATIO 17.1 (6.6-38.0); CALCIUM 8.5 MG/DL (8.5-10.1); CHLORIDE 94 MMOL/L (99-107); GLUCOSE 103 MG/DL (70-104); MAGNESIUM 2.1 MG/DL (1.5-2.4); PHOSPHORUS 3.7 MG/DL (2.3-4.5); POTASSIUM 3.3 MMOL/L (3.5-5.1); SODIUM 137 MMOL/L (135-145); TOTAL PROTEIN 6.4 G/DL (6.4-8.2); eGFR 89 ML/MIN
[2018-07-30 02:11] LABS: TOTAL CARBON DIOXIDE 42.7 MMOL/L (24-32)
[2018-07-30] MEDS: potassium Cl 20 mEq SR tablet PO PRN ×2 (02:23→17:30)
[2018-07-30 03:00] VITALS: BP 115/63
[2018-07-30] MEDS: ipratropium/albuterol 3ml nebule NEB SCH ×7 (03:17→23:12)
[2018-07-30 05:41] LABS: ABG HCO3 42.1 mmol/L (22.0-26.0); ABG OXYGEN SATURATION 94.8 % (95-98); ABG PCO2 (T) 68.4 mmHg (32.0-45.0); ABG PH (T) 7.406 (7.350-7.450); ABG PO2 (T) 71.6 mmHg (83-108); ALLEN'S TEST Positive; FCOHb 1.2 % (0.5-1.5); FMetHb 0.3 % (0.3-1.12); FO2Hb 93.4 % (94-100); MINUTE VOLUME 14 L/min; PATIENT TEMPERATURE 36.9; RESPIRATORY RATE 20 b/min; RESPIRATORY RATE (OBSERVED) 25 b/min; TOTAL HEMOGLOBIN 14.2 G/dl (12.0-16.0)
[2018-07-30 06:00] VITALS: BP 113/74
[2018-07-30] MEDS: nicotine 21mg patch - 24 hr TD SCH (09:32)
[2018-07-30] MEDS: heparin, porcine 5000 units/ml vial SQ SCH ×2 (09:33→20:25)
[2018-07-30] MEDS: magnesium oxide 400mg tablet PO SCH (09:33)
[2018-07-30] MEDS: potassium Cl 20 mEq SR tablet PO SCH (09:34)
[2018-07-30] MEDS: multivitamins, therapeutics tablet PO SCH (09:34)
[2018-07-30] MEDS: aspirin 325mg tablet, delayed-release (Ecotrin) PO SCH (09:34)
[2018-07-30] MEDS: carBAMazepine 100mg chewable tablet PO SCH ×2 (09:35→20:31)
[2018-07-30] MEDS: gabapentin 100mg capsule PO SCH ×3 (09:35→19:03)
[2018-07-30] MEDS: nystatin 15 GM powder TP SCH ×3 (09:36→20:30)
[2018-07-30 11:00] VITALS: BP 114/54
[2018-07-30] MEDS: methadone 5mg tablet PO SCH (11:58)
[2018-07-30 12:05] LABS: ALBUMIN 2.9 G/DL (3.4-5.0); ANION GAP 6 (8-16); BLOOD UREA NITROGEN 11 MG/DL (7-18); BUN/CREATININE RATIO 15.9 (6.6-38.0); CALCIUM 8.5 MG/DL (8.5-10.1); CHLORIDE 96 MMOL/L (99-107); CREATININE 0.69 MG/DL (0.40-0.90); GLUCOSE 173 MG/DL (70-104); POTASSIUM 3.3 MMOL/L (3.5-5.1); SODIUM 137 MMOL/L (135-145); TOTAL CARBON DIOXIDE 35.2 MMOL/L (24-32); eGFR 90 ML/MIN
[2018-07-30 19:00] VITALS: BP 132/56
[2018-07-30] MEDS: atorvastatin 10mg tablet PO SCH (20:30)
[2018-07-30] MEDS: methadone 10mg tablet PO SCH (20:31)
[2018-07-30 23:00] VITALS: BP 120/68
[2018-07-31] MEDS: ipratropium/albuterol 3ml nebule NEB SCH ×6 (02:37→23:48)
[2018-07-31 03:00] VITALS: BP 122/77
[2018-07-31 06:00] VITALS: BP 109/68
[2018-07-31 06:50] LABS: BASOPHILS % (AUTO) 0.4 % (0-1); EOSINOPHILS # (AUTO) 0.1 X10'3 (0-0.9); EOSINOPHILS % (AUTO) 0.9 % (0-6); HEMATOCRIT 40.3 % (35.0-45.0); HEMOGLOBIN 12.5 g/dl (12.0-16.0); LYMPHOCYTES # (AUTO) 1.8 X10'3 (1.1-4.8); LYMPHOCYTES % (AUTO) 26.1 % (21-51); MEAN CORPUSCULAR HEMOGLOBIN 27.1 PG (27.0-31.0); MEAN CORPUSCULAR HGB CONC 30.9 % (33.0-36.5); MEAN CORPUSCULAR VOLUME 87.4 FL (78-98); MONOCYTES # (AUTO) 0.4 X10'3 (0-0.9); MONOCYTES % (AUTO) 6.4 % (2-12); NEUTROPHILS # (AUTO) 4.5 X10'3 (1.8-7.7); NEUTROPHILS % (AUTO) 66.2 % (42-75); PLATELET COUNT 246 X10'3 (140-440); RED BLOOD COUNT 4.61 X10'6 (4.20-5.60); RED CELL DISTRIBUTION WIDTH 17.1 % (11.5-14.5); WHITE BLOOD COUNT 6.8 X10'3 (4.5-11.0)
[2018-07-31 07:06] LABS: ALANINE AMINOTRANSFERASE 16 U/L (12-78); ALBUMIN 2.8 G/DL (3.4-5.0); ALBUMIN/GLOBULIN RATIO 0.8 (1.1-1.5); ALKALINE PHOSPHATASE 124 IU/L (46-116); ANION GAP 5 (8-16); ASPARTATE AMINO TRANSFERASE 16 U/L (10-37); BILIRUBIN,TOTAL 0.3 MG/DL (0.1-1.0); BLOOD UREA NITROGEN 11 MG/DL (7-18); BUN/CREATININE RATIO 15.1 (6.6-38.0); CALCIUM 8.5 MG/DL (8.5-10.1); CHLORIDE 96 MMOL/L (99-107); CREATININE 0.73 MG/DL (0.40-0.90); GLUCOSE 90 MG/DL (70-104); POTASSIUM 3.7 MMOL/L (3.5-5.1); SODIUM 134 MMOL/L (135-145); TOTAL PROTEIN 6.3 G/DL (6.4-8.2); eGFR 85 ML/MIN
[2018-07-31] MEDS: nystatin 15 GM powder TP SCH ×3 (07:38→20:29)
[2018-07-31] MEDS: methylPREDNISolone sod succ/PF 40mg inj. IV SCH ×3 (07:38→20:08)
[2018-07-31] MEDS: methadone 5mg tablet PO SCH ×2 (07:39→12:04)
[2018-07-31] MEDS: heparin, porcine 5000 units/ml vial SQ SCH ×2 (07:39→20:08)
[2018-07-31] MEDS: nicotine 21mg patch - 24 hr TD SCH (07:39)
[2018-07-31] MEDS: gabapentin 100mg capsule PO SCH ×3 (07:40→17:07)
[2018-07-31] MEDS: carBAMazepine 100mg chewable tablet PO SCH ×2 (07:40→20:30)
[2018-07-31] MEDS: magnesium oxide 400mg tablet PO SCH (07:40)
[2018-07-31] MEDS: potassium Cl 20 mEq SR tablet PO SCH (07:40)
[2018-07-31] MEDS: multivitamins, therapeutics tablet PO SCH (07:40)
[2018-07-31] MEDS: aspirin 325mg tablet, delayed-release (Ecotrin) PO SCH (07:40)
[2018-07-31 11:00] VITALS: BP 120/76
[2018-07-31 15:00] VITALS: BP 106/76
[2018-07-31 19:00] VITALS: BP 147/96
[2018-07-31] MEDS: methadone 10mg tablet PO SCH (20:29)
[2018-07-31] MEDS: atorvastatin 10mg tablet PO SCH (20:30)
[2018-07-31 23:00] VITALS: BP 142/87
[2018-08-01] MEDS: gabapentin 100mg capsule PO SCH ×2 (01:25→08:19)
[2018-08-01 03:00] VITALS: BP 142/83
[2018-08-01] MEDS: ipratropium/albuterol 3ml nebule NEB SCH ×3 (03:43→10:39)
[2018-08-01 06:45] LABS: BASOPHILS % (AUTO) 0.3 % (0-1); EOSINOPHILS # (AUTO) 0.1 X10'3 (0-0.9); EOSINOPHILS % (AUTO) 1.1 % (0-6); HEMATOCRIT 40.1 % (35.0-45.0); HEMOGLOBIN 12.6 g/dl (12.0-16.0); LYMPHOCYTES # (AUTO) 1.6 X10'3 (1.1-4.8); LYMPHOCYTES % (AUTO) 26.6 % (21-51); MEAN CORPUSCULAR HEMOGLOBIN 27.5 PG (27.0-31.0); MEAN CORPUSCULAR HGB CONC 31.4 % (33.0-36.5); MEAN CORPUSCULAR VOLUME 87.5 FL (78-98); MEAN PLATELET VOLUME 7.8 FL (7.4-10.4); MONOCYTES # (AUTO) 0.5 X10'3 (0-0.9); MONOCYTES % (AUTO) 7.5 % (2-12); NEUTROPHILS # (AUTO) 3.9 X10'3 (1.8-7.7); NEUTROPHILS % (AUTO) 64.5 % (42-75); PLATELET COUNT 252 X10'3 (140-440); RED BLOOD COUNT 4.58 X10'6 (4.20-5.60); RED CELL DISTRIBUTION WIDTH 16.9 % (11.5-14.5); WHITE BLOOD COUNT 6.1 X10'3 (4.5-11.0)
[2018-08-01 07:00] VITALS: BP 117/83
[2018-08-01 07:24] LABS: ALANINE AMINOTRANSFERASE 17 U/L (12-78); ALBUMIN 2.8 G/DL (3.4-5.0); ALBUMIN/GLOBULIN RATIO 0.8 (1.1-1.5); ALKALINE PHOSPHATASE 116 IU/L (46-116); ANION GAP 4 (8-16); ASPARTATE AMINO TRANSFERASE 16 U/L (10-37); BILIRUBIN,TOTAL 0.2 MG/DL (0.1-1.0); BLOOD UREA NITROGEN 14 MG/DL (7-18); BUN/CREATININE RATIO 19.4 (6.6-38.0); CALCIUM 8.4 MG/DL (8.5-10.1); CHLORIDE 97 MMOL/L (99-107); CREATININE 0.72 MG/DL (0.40-0.90); GLUCOSE 87 MG/DL (70-104); MAGNESIUM 1.9 MG/DL (1.5-2.4); PHOSPHORUS 3.9 MG/DL (2.3-4.5); POTASSIUM 4.2 MMOL/L (3.5-5.1); SODIUM 134 MMOL/L (135-145); TOTAL CARBON DIOXIDE 32.6 MMOL/L (24-32); TOTAL PROTEIN 6.1 G/DL (6.4-8.2); eGFR 86 ML/MIN
[2018-08-01] MEDS: carBAMazepine 100mg chewable tablet PO SCH (08:09)
[2018-08-01] MEDS: methylPREDNISolone sod succ/PF 40mg inj. IV SCH (08:12)
[2018-08-01] MEDS: nicotine 21mg patch - 24 hr TD SCH (08:14)
[2018-08-01] MEDS: magnesium oxide 400mg tablet PO SCH (08:15)
[2018-08-01] MEDS: potassium Cl 20 mEq SR tablet PO SCH (08:16)
[2018-08-01] MEDS: methadone 5mg tablet PO SCH ×2 (08:18→12:12)
[2018-08-01] MEDS: multivitamins, therapeutics tablet PO SCH (08:19)
[2018-08-01] MEDS: nystatin 15 GM powder TP SCH (08:19)
[2018-08-01] MEDS: heparin, porcine 5000 units/ml vial SQ SCH (08:19)
[2018-08-01] MEDS: aspirin 325mg tablet, delayed-release (Ecotrin) PO SCH (08:20)
[2018-08-01] MEDS ORDERED: PRED10TA23 PO (12:17)
== END 2018-08-01 13:30 | disposition home health service (06) | DRG 291 ==
LOC: ER 03:10 → ED HOLD 05:53 → SUR 3N 07:00 → PCU 3S 07-29 22:20
PROVIDERS: ADMIT Internal Medicine; ATTEND Internal Medicine
PROC: 5A09357 Assistance with Respiratory Ventilation, Less than 24 Consecutive Hours, Continuous Positive Airway Pressure (ICD-10-PCS; principal; 2018-07-27)
PROC: 5A09357 Assistance with Respiratory Ventilation, Less than 24 Consecutive Hours, Continuous Positive Airway Pressure (ICD-10-PCS; 2018-07-29)
PROC: 5A09357 Assistance with Respiratory Ventilation, Less than 24 Consecutive Hours, Continuous Positive Airway Pressure (ICD-10-PCS; 2018-07-31)
DX: I50.33 Acute on chronic diastolic (congestive) heart failure (principal); J96.21 Acute and chronic respiratory failure with hypoxia; Z68.41 Body mass index [BMI] 40.0-44.9, adult; J44.1 Chronic obstructive pulmonary disease with (acute) exacerbation; E87.2 Acidosis; F11.20 Opioid dependence, uncomplicated; I87.8 Other specified disorders of veins; G89.29 Other chronic pain; E78.5 Hyperlipidemia, unspecified; I27.81 Cor pulmonale (chronic); E66.01 Morbid (severe) obesity due to excess calories; G47.33 Obstructive sleep apnea (adult) (pediatric); I27.29 Other secondary pulmonary hypertension; I25.10 Atherosclerotic heart disease of native coronary artery without angina pectoris; F17.210 Nicotine dependence, cigarettes, uncomplicated; I25.2 Old myocardial infarction; Z99.3 Dependence on wheelchair; Z99.81 Dependence on supplemental oxygen; Z98.61 Coronary angioplasty status; Z91.018 Allergy to other foods; Z79.899 Other long term (current) drug therapy; Z82.49 Family history of ischemic heart disease and other diseases of the circulatory system; Z82.5 Family history of asthma and other chronic lower respiratory diseases; Z80.9 Family history of malignant neoplasm, unspecified; Z71.6 Tobacco abuse counseling
CPT/HCPCS: 36415; 36600; 71045; 80048; 80053; 81001; 82803; 82948; 83735; 83880; 84100; 84484; 85018; 85025; 85610; 85730; 87070; 93005; 94640; 94660; 94760; 96365; 96375; 97110; 97116; 97162; 99285; G0378; J1120; J1644; J1940; J2270; J2920; J3475; J3480

== ENCOUNTER 2018-08-20 00:30 | Inpatient (IN) | payer MEDICARE, MEDICAID ==
[~2018-08-20] VITALS: Ht 165.1 cm; Wt 106.0 kg
[~2018-08-20 00:30] MED LIST changes: +ALB0.5UD NEB; -CEPH250T PO; -DOCU100C33; +FURO-150 PO; +GABA-530 PO; +LORA0.5T PO; -MULT-1121; -POLY17PO10 PO; +POTA10TA10 PO; +PRED10TA23 PO; -PREG50CA PO; +SIMV20TA5 PO
[2018-08-20 01:15] LABS: ABG BASE EXCESS 14.7 mmol/L (-2.0-3.0); ABG HCO3 43.6 mmol/L (22.0-26.0); ABG OXYGEN SATURATION 89.5 % (95-98); ABG PCO2 (T) 70.3 mmHg (32.0-45.0); ABG PH (T) 7.407 (7.350-7.450); ABG PO2 (T) 55.5 mmHg (83-108); ALLEN'S TEST Positive; FCOHb 5.1 % (0.5-1.5); FLOW 2 L/min; FMetHb 0.3 % (0.3-1.12); FO2Hb 84.7 % (94-100); PATIENT TEMPERATURE 36.2; RESPIRATORY RATE (OBSERVED) 20 b/min; TOTAL HEMOGLOBIN 14.9 G/dl (12.0-16.0)
[2018-08-20 01:54] LABS: CLARITY,URINE CLEAR (Clear); COLOR,URINE YELLOW (Yellow); GLUCOSE, URINE NEGATIVE (Neg); KETONES,URINE NEGATIVE (Neg); LEUKOCYTE ESTERASE ,URINE NEGATIVE (Neg); NITRITES, URINE NEGATIVE (Neg); OCCULT BLOOD,URINE MODERATE (Neg); PROTEIN,URINE NEGATIVE (Neg); UROBILINOGEN,URINE 0.2 E.U/dL (0.2-1.0)
[2018-08-20 01:56] LABS: UA COLLECTION TYPE CLN CATCH MIDSTREAM
[2018-08-20 02:07] LABS: INR 1.1 INR; PARTIAL THROMBOPLASTIN TIME 28 SECONDS (22-32); PROTHROMBIN TIME 10.9 SECONDS (9.0-12.0)
[2018-08-20 02:08] LABS: BACTERIA,URINE 1+ /HPF (Neg); RBC,URINE 0-2 /HPF (0-2); SQUAMOUS EPITHELIAL CELL,UR MANY /LPF (FEW); WBC,URINE 0-4 /HPF (0-4)
[2018-08-20 02:09] LABS: ALANINE AMINOTRANSFERASE 29 U/L (12-78); ALBUMIN 3.4 G/DL (3.4-5.0); ALBUMIN/GLOBULIN RATIO 0.9 (1.1-1.5); ALKALINE PHOSPHATASE 137 IU/L (46-116); ANION GAP 7 (8-16); ASPARTATE AMINO TRANSFERASE 27 U/L (10-37); BILIRUBIN,TOTAL 0.3 MG/DL (0.1-1.0); BLOOD UREA NITROGEN 21 MG/DL (7-18); BUN/CREATININE RATIO 23.3 (6.6-38.0); CALCIUM 8.5 MG/DL (8.5-10.1); CHLORIDE 92 MMOL/L (99-107); GLUCOSE 92 MG/DL (70-104); MAGNESIUM 1.8 MG/DL (1.5-2.4); POTASSIUM 3.7 MMOL/L (3.5-5.1); SODIUM 137 MMOL/L (135-145); TOTAL CARBON DIOXIDE 37.9 MMOL/L (24-32); TOTAL PROTEIN 7.1 G/DL (6.4-8.2); eGFR 67 ML/MIN
[2018-08-20 02:35] LABS: BASOPHILS % (AUTO) 0.6 % (0-1); EOSINOPHILS # (AUTO) 0.1 X10'3 (0-0.9); EOSINOPHILS % (AUTO) 0.7 % (0-6); HEMATOCRIT 47.6 % (35.0-45.0); HEMOGLOBIN 14.7 g/dl (12.0-16.0); LYMPHOCYTES # (AUTO) 2.3 X10'3 (1.1-4.8); LYMPHOCYTES % (AUTO) 30.1 % (21-51); MEAN CORPUSCULAR HEMOGLOBIN 27.3 PG (27.0-31.0); MEAN CORPUSCULAR HGB CONC 30.8 % (33.0-36.5); MEAN CORPUSCULAR VOLUME 88.6 FL (78-98); MEAN PLATELET VOLUME 8.3 FL (7.4-10.4); MONOCYTES # (AUTO) 0.7 X10'3 (0-0.9); MONOCYTES % (AUTO) 8.8 % (2-12); NEUTROPHILS # (AUTO) 4.6 X10'3 (1.8-7.7); NEUTROPHILS % (AUTO) 59.8 % (42-75); PLATELET COUNT 256 X10'3 (140-440); RED BLOOD COUNT 5.38 X10'6 (4.20-5.60); RED CELL DISTRIBUTION WIDTH 20.6 % (11.5-14.5); WHITE BLOOD COUNT 7.7 X10'3 (4.5-11.0)
[2018-08-20 03:02] LABS: PLATELET ESTIMATE NORMAL
[2018-08-20 03:03] LABS: ANISOCYTOSIS 3+; POIKILOCYTOSIS 2+
[2018-08-20] MEDS ORDERED: albuterol 2.5 MG/3 ML nebule NEB ONE (03:30)
[2018-08-20] MEDS ORDERED: methylPREDNISolone sod succ 125mg/2ml vial IV ONE (03:30)
--- NOTE | 2018-08-20 03:57 | NUR ---
PT PLACED ON CPAP BY RT, PT TOLERATING IT WELL. SPO2 FROM 85 TO 93%.
--- NOTE | 2018-08-20 04:13 | NUR ---
PER RT PATIENT HAS SEVERE SLEEP APNEA, CPAP CHANGED TO BIPAP.
[2018-08-20] MEDS ORDERED: acetaminophen 650mg rectal suppository RC PRN (05:00)
[2018-08-20] MEDS ORDERED: acetaminophen 325mg tablet PO PRN ×2 (05:00)
[2018-08-20] MEDS ORDERED: LORazepam 0.5 MG tablet PO PRN (05:00)
[2018-08-20] MEDS ORDERED: magnesium hydroxide 30ml (MOM) UD suspension PO PRN (05:00)
[2018-08-20] MEDS ORDERED: bisacodyl 10mg suppository rectal RC PRN (05:00)
[2018-08-20] MEDS ORDERED: metoclopramide 5 mg/ml inj IV PRN (05:00)
[2018-08-20] MEDS ORDERED: albuterol 2.5 MG/3 ML nebule NEB PRN (05:00)
[2018-08-20] MEDS ORDERED: diphenhydrAMINE 50 mg/ml inj IV PRN (05:00)
[2018-08-20] MEDS ORDERED: HYDROmorphone 1 mg/ml syringe IV PRN (05:00)
[2018-08-20] MEDS ORDERED: diphenhydrAMINE 25mg capsule PO PRN (05:00)
[2018-08-20] MEDS ORDERED: ondansetron/PF 4mg/2ml inj IV PRN (05:00)
[2018-08-20] MEDS ORDERED: mag hydrox/Alum hydrox/simeth 30ml oral suspension PO PRN (05:00)
[2018-08-20] MEDS ORDERED: morphine 4 MG/ML inj SYRINge IV PRN (05:00)
[2018-08-20] MEDS ORDERED: furosemide 20MG tablet PO SCH (08:00)
[2018-08-20] MEDS: levoFLOXACIN-Levaquin 750MG/D5 150 ML IV SCH (08:31)
[2018-08-20] MEDS: methadone 10mg tablet PO SCH ×3 (08:31→21:15)
[2018-08-20] MEDS: gabapentin 100mg capsule PO SCH ×2 (08:32→15:27)
[2018-08-20] MEDS: heparin, porcine 5000 units/ml vial SQ SCH ×2 (08:32→15:25)
[2018-08-20] MEDS: aspirin 325mg tablet, delayed-release (Ecotrin) PO SCH (08:32)
[2018-08-20] MEDS: docusate sod 100mg capsule PO SCH ×2 (08:32→21:16)
[2018-08-20] MEDS: nicotine 21mg patch - 24 hr TD SCH (08:33)
[2018-08-20] MEDS: carBAMazepine 100mg chewable tablet PO SCH ×5 (08:33→22:00)
[2018-08-20 08:50] LABS: INR 1.1 INR; PARTIAL THROMBOPLASTIN TIME 28 SECONDS (22-32); PROTHROMBIN TIME 11.1 SECONDS (9.0-12.0)
[2018-08-20] MEDS ORDERED: ipratropium/albuterol 3ml nebule NEB PRN (09:25)
--- NOTE | 2018-08-20 10:25 | NUR ---
Patient in room ED 5. I have received report from Tiffany HEADLEY and had the opportunity to ask questions and assume patient care.
[2018-08-20 10:41] LABS: MAGNESIUM 1.9 MG/DL (1.5-2.4); PHOSPHORUS 4.1 MG/DL (2.3-4.5)
--- NOTE | 2018-08-20 10:55 | NUR ---
Pt arrived safely in unit in stable conditions. Currently in room 3023a.
[2018-08-20] MEDS: ipratropium/albuterol 3ml nebule NEB SCH ×3 (11:07→21:55)
[2018-08-20] MEDS: methylPREDNISolone sod succ 125mg/2ml vial IV SCH ×2 (15:27→21:15)
[2018-08-20] MEDS ORDERED: FLU VACC QUAD 2018(5 YR UP)/PF 60 MCG/0.5 ML SYRINGE IM ONE (16:30)
--- NOTE | 2018-08-20 18:00 | NUR ---
Patient in room PCU 3023. I have received report from FANG Guo and had the opportunity to ask questions and assume patient care.
[2018-08-20 19:00] VITALS: BP 124/74
[2018-08-20] MEDS ORDERED: temazepam 15mg capsule PO PRN (21:00)
[2018-08-20] MEDS: furosemide 40mg/4ml inj IV SCH (21:14)
[2018-08-20] MEDS: lactobacillus rhamnosus 10,000 MMU CELLS/CAPSULE PO SCH (21:16)
[2018-08-20] MEDS: atorvastatin 10mg tablet PO SCH (21:16)
[2018-08-20 21:25] LABS: URINE AMPHETAMINE SCREEN NEGATIVE (Neg); URINE BARBITUATE SCREEN NEGATIVE (Neg); URINE BENZODIAZEPINES SCREEN NEGATIVE (Neg); URINE CANNABINOID SCREEN NEGATIVE (Neg); URINE COCAINE SCREEN NEGATIVE (Neg); URINE METHADONE SCREEN POSITIVE (Neg); URINE OPIATE SCREEN POSITIVE (Neg); URINE PHENCYCLIDINE SCREEN NEGATIVE (Neg)
[2018-08-20 23:00] VITALS: BP 111/55
[2018-08-21] MEDS: ipratropium/albuterol 3ml nebule NEB SCH ×5 (01:16→20:11)
[2018-08-21] MEDS: methylPREDNISolone sod succ 125mg/2ml vial IV SCH ×4 (02:18→20:06)
[2018-08-21 03:00] VITALS: BP 108/59
[2018-08-21] MEDS: carBAMazepine 100mg chewable tablet PO SCH ×5 (05:28→22:53)
--- NOTE | 2018-08-21 06:07 | NUR ---
Problems reprioritized. Patient report given, questions answered & plan of care reviewed with FANG Guo.
--- NOTE | 2018-08-21 06:14 | NUR ---
Patient in room PCU 3023. I have received report from Shelia HEADLEY and had the opportunity to ask questions and assume patient care.
[2018-08-21 06:45] LABS: BASOPHILS % (AUTO) 0.1 % (0-1); EOSINOPHILS # (AUTO) 0.1 X10'3 (0-0.9); EOSINOPHILS % (AUTO) 1.6 % (0-6); HEMATOCRIT 42.2 % (35.0-45.0); HEMOGLOBIN 13.2 g/dl (12.0-16.0); LYMPHOCYTES # (AUTO) 0.6 X10'3 (1.1-4.8); LYMPHOCYTES % (AUTO) 9.1 % (21-51); MEAN CORPUSCULAR HEMOGLOBIN 27.4 PG (27.0-31.0); MEAN CORPUSCULAR HGB CONC 31.4 % (33.0-36.5); MEAN CORPUSCULAR VOLUME 87.3 FL (78-98); MEAN PLATELET VOLUME 8.1 FL (7.4-10.4); MONOCYTES # (AUTO) 0.1 X10'3 (0-0.9); MONOCYTES % (AUTO) 2.2 % (2-12); NEUTROPHILS # (AUTO) 5.7 X10'3 (1.8-7.7); PLATELET COUNT 230 X10'3 (140-440); RED BLOOD COUNT 4.84 X10'6 (4.20-5.60); RED CELL DISTRIBUTION WIDTH 19.9 % (11.5-14.5); WHITE BLOOD COUNT 6.6 X10'3 (4.5-11.0)
[2018-08-21 07:57] VITALS: BP 127/58
[2018-08-21] MEDS: aspirin 325mg tablet, delayed-release (Ecotrin) PO SCH (08:00)
[2018-08-21 08:32] LABS: ALANINE AMINOTRANSFERASE 24 U/L (12-78); ALBUMIN/GLOBULIN RATIO 0.9 (1.1-1.5); ALKALINE PHOSPHATASE 110 IU/L (46-116); ASPARTATE AMINO TRANSFERASE 21 U/L (10-37); BILIRUBIN,TOTAL 0.5 MG/DL (0.1-1.0); BLOOD UREA NITROGEN 20 MG/DL (7-18); BUN/CREATININE RATIO 25.3 (6.6-38.0); CALCIUM 8.4 MG/DL (8.5-10.1); CREATININE 0.79 MG/DL (0.40-0.90); GLUCOSE 142 MG/DL (70-104); TOTAL PROTEIN 6.4 G/DL (6.4-8.2); eGFR 77 ML/MIN
[2018-08-21 09:08] LABS: ANION GAP 5 (8-16); CHLORIDE 91 MMOL/L (99-107); POTASSIUM 4.1 MMOL/L (3.5-5.1); SODIUM 136 MMOL/L (135-145)
[2018-08-21] MEDS: levoFLOXACIN-Levaquin 750MG/D5 150 ML IV SCH (09:17)
[2018-08-21] MEDS: methadone 10mg tablet PO SCH ×3 (09:19→20:11)
[2018-08-21] MEDS: furosemide 40mg/4ml inj IV SCH ×2 (09:19→22:03)
[2018-08-21] MEDS: docusate sod 100mg capsule PO SCH ×2 (09:19→20:10)
[2018-08-21] MEDS: nicotine 21mg patch - 24 hr TD SCH (09:19)
[2018-08-21] MEDS: lactobacillus rhamnosus 10,000 MMU CELLS/CAPSULE PO SCH ×2 (09:20→20:10)
[2018-08-21] MEDS: gabapentin 100mg capsule PO SCH ×3 (09:21→16:00)
[2018-08-21] MEDS: heparin, porcine 5000 units/ml vial SQ SCH ×3 (09:21→16:59)
[2018-08-21 09:37] LABS: TOTAL CARBON DIOXIDE 40.4 MMOL/L (24-32)
[2018-08-21 19:00] VITALS: BP 130/70
[2018-08-21] MEDS: atorvastatin 10mg tablet PO SCH (20:11)
[2018-08-21] MEDS: HYDROcodone/acetaminophen 5mg/325mg tablet PO PRN (22:05)
[2018-08-21 23:00] VITALS: BP 127/71
[2018-08-22] MEDS: ipratropium/albuterol 3ml nebule NEB SCH ×3 (00:04→10:39)
[2018-08-22] MEDS: heparin, porcine 5000 units/ml vial SQ SCH ×2 (00:22→07:45)
[2018-08-22] MEDS: methylPREDNISolone sod succ 125mg/2ml vial IV SCH ×2 (02:34→07:35)
[2018-08-22 03:00] VITALS: BP 114/58
[2018-08-22] MEDS: carBAMazepine 100mg chewable tablet PO SCH ×2 (05:57→10:36)
[2018-08-22] MEDS: HYDROcodone/acetaminophen 5mg/325mg tablet PO PRN (06:00)
--- NOTE | 2018-08-22 06:10 | NUR ---
Problems reprioritized. Patient report given, questions answered & plan of care reviewed with FANG Hunter.
[2018-08-22 06:45] VITALS: BP 115/73
[2018-08-22 07:22] LABS: BASOPHILS % (AUTO) 0.2 % (0-1); EOSINOPHILS % (AUTO) 0.1 % (0-6); HEMATOCRIT 41.8 % (35.0-45.0); HEMOGLOBIN 13.3 g/dl (12.0-16.0); LYMPHOCYTES # (AUTO) 0.6 X10'3 (1.1-4.8); LYMPHOCYTES % (AUTO) 9.4 % (21-51); MEAN CORPUSCULAR HGB CONC 31.9 % (33.0-36.5); MEAN CORPUSCULAR VOLUME 87.8 FL (78-98); MEAN PLATELET VOLUME 8.4 FL (7.4-10.4); MONOCYTES # (AUTO) 0.3 X10'3 (0-0.9); MONOCYTES % (AUTO) 4.6 % (2-12); NEUTROPHILS # (AUTO) 5.8 X10'3 (1.8-7.7); NEUTROPHILS % (AUTO) 85.7 % (42-75); PLATELET COUNT 233 X10'3 (140-440); RED BLOOD COUNT 4.76 X10'6 (4.20-5.60); RED CELL DISTRIBUTION WIDTH 18.9 % (11.5-14.5); WHITE BLOOD COUNT 6.7 X10'3 (4.5-11.0)
[2018-08-22] MEDS: lactobacillus rhamnosus 10,000 MMU CELLS/CAPSULE PO SCH (07:34)
[2018-08-22] MEDS: aspirin 325mg tablet, delayed-release (Ecotrin) PO SCH (07:34)
[2018-08-22] MEDS: methadone 10mg tablet PO SCH (07:34)
[2018-08-22] MEDS: gabapentin 100mg capsule PO SCH ×2 (07:34)
[2018-08-22] MEDS: furosemide 40mg/4ml inj IV SCH (07:35)
[2018-08-22] MEDS: docusate sod 100mg capsule PO SCH (07:35)
[2018-08-22] MEDS: nicotine 21mg patch - 24 hr TD SCH (07:37)
[2018-08-22 07:41] LABS: ALANINE AMINOTRANSFERASE 21 U/L (12-78); ALBUMIN 2.8 G/DL (3.4-5.0); ALBUMIN/GLOBULIN RATIO 0.9 (1.1-1.5); ALKALINE PHOSPHATASE 96 IU/L (46-116); ANION GAP 6 (8-16); ASPARTATE AMINO TRANSFERASE 16 U/L (10-37); BILIRUBIN,TOTAL 0.4 MG/DL (0.1-1.0); BLOOD UREA NITROGEN 17 MG/DL (7-18); CALCIUM 8.1 MG/DL (8.5-10.1); CHLORIDE 90 MMOL/L (99-107); CREATININE 0.74 MG/DL (0.40-0.90); GLUCOSE 113 MG/DL (70-104); POTASSIUM 3.6 MMOL/L (3.5-5.1); SODIUM 135 MMOL/L (135-145); TOTAL CARBON DIOXIDE 39.5 MMOL/L (24-32); eGFR 83 ML/MIN
[2018-08-22] MEDS ORDERED: IPRA3AMP9 NEB (10:50)
[2018-08-22] MEDS ORDERED: LEVO750T46 PO (10:50)
[2018-08-22] MEDS ORDERED: NICO-687 TD (10:50)
[2018-08-22] MEDS ORDERED: FURO40TA4 PO (10:50)
[2018-08-22] MEDS ORDERED: CARSR60C PO (10:50)
[2018-08-22] MEDS ORDERED: PRED20TA PO (10:50)
[2018-08-22] MEDS ORDERED: levoFLOXACIN 750MG TABLET PO SCH (11:00)
[2018-08-22 11:46] VITALS: BP 105/60
== END 2018-08-22 12:59 | disposition home health service (06) | DRG 189 ==
LOC: ER 00:31 → ED HOLD 05:00 → EDBEDREQ 10:18 → PCU 3S 10:35
PROVIDERS: ADMIT Family Medicine; ATTEND Family Medicine
PROC: 5A09357 Assistance with Respiratory Ventilation, Less than 24 Consecutive Hours, Continuous Positive Airway Pressure (ICD-10-PCS; principal; 2018-08-20)
PROC: 5A09357 Assistance with Respiratory Ventilation, Less than 24 Consecutive Hours, Continuous Positive Airway Pressure (ICD-10-PCS; 2018-08-21)
PROC: 5A09357 Assistance with Respiratory Ventilation, Less than 24 Consecutive Hours, Continuous Positive Airway Pressure (ICD-10-PCS; 2018-08-22)
DX: J96.21 Acute and chronic respiratory failure with hypoxia (principal); I21.A1 Myocardial infarction type 2; I50.33 Acute on chronic diastolic (congestive) heart failure; G93.40 Encephalopathy, unspecified; J44.1 Chronic obstructive pulmonary disease with (acute) exacerbation; J96.22 Acute and chronic respiratory failure with hypercapnia; E66.01 Morbid (severe) obesity due to excess calories; E78.5 Hyperlipidemia, unspecified; I49.3 Ventricular premature depolarization; F17.210 Nicotine dependence, cigarettes, uncomplicated; G47.33 Obstructive sleep apnea (adult) (pediatric); R01.1 Cardiac murmur, unspecified; G62.9 Polyneuropathy, unspecified; G89.29 Other chronic pain; I25.10 Atherosclerotic heart disease of native coronary artery without angina pectoris; F31.9 Bipolar disorder, unspecified; I25.2 Old myocardial infarction; Z99.81 Dependence on supplemental oxygen; Z28.21 Immunization not carried out because of patient refusal; Z91.018 Allergy to other foods; Z79.899 Other long term (current) drug therapy; Z79.82 Long term (current) use of aspirin; Z82.5 Family history of asthma and other chronic lower respiratory diseases; Z82.41 Family history of sudden cardiac death; Z80.9 Family history of malignant neoplasm, unspecified; Z68.38 Body mass index [BMI] 38.0-38.9, adult; Z71.6 Tobacco abuse counseling
CPT/HCPCS: 36415; 36600; 71045; 80053; 80156; 80305; 81001; 82803; 83735; 83880; 84100; 84484; 85018; 85025; 85610; 85730; 87070; 93005; 94640; 94660; 94760; 96374; 99285; G0378; J1644; J1940; J1956; J2930

== ENCOUNTER 2018-09-05 16:28 | Inpatient (IN) | payer MEDICARE, MEDICAID ==
[~2018-09-05] VITALS: Ht 170.2 cm; Wt 104.0 kg
[~2018-09-05 16:28] MED LIST changes: +CARSR60C PO; -FURO-150 PO; +FURO40TA4 PO; +IPRA3AMP9 NEB; +LEVO750T46 PO; +NICO-687 TD; -PRED10TA23 PO; +PRED20TA PO
[2018-09-05] MEDS ORDERED: normal saline 1000ml 1,000 ML IV ONE (16:37)
[2018-09-05] MEDS ORDERED: methylPREDNISolone sod succ 125mg/2ml vial IV ONE (16:40)
[2018-09-05] MEDS: albuterol 2.5 MG/3 ML nebule CONTNEB PRN ×2 (16:50→19:19)
[2018-09-05 17:12] LABS: BASOPHILS % (AUTO) 0.3 % (0-1); EOSINOPHILS % (AUTO) 0 % (0-6); HEMATOCRIT 45.7 % (35.0-45.0); HEMOGLOBIN 14.1 g/dl (12.0-16.0); LYMPHOCYTES # (AUTO) 1.1 X10'3 (1.1-4.8); LYMPHOCYTES % (AUTO) 14.6 % (21-51); MEAN CORPUSCULAR HEMOGLOBIN 27.6 PG (27.0-31.0); MEAN CORPUSCULAR HGB CONC 30.8 % (33.0-36.5); MEAN CORPUSCULAR VOLUME 89.6 FL (78-98); MEAN PLATELET VOLUME 7.9 FL (7.4-10.4); MONOCYTES # (AUTO) 0.6 X10'3 (0-0.9); MONOCYTES % (AUTO) 8.2 % (2-12); NEUTROPHILS # (AUTO) 5.8 X10'3 (1.8-7.7); NEUTROPHILS % (AUTO) 76.9 % (42-75); PLATELET COUNT 230 X10'3 (140-440); RED BLOOD COUNT 5.11 X10'6 (4.20-5.60); RED CELL DISTRIBUTION WIDTH 20.5 % (11.5-14.5); WHITE BLOOD COUNT 7.5 X10'3 (4.5-11.0)
[2018-09-05 17:25] LABS: PARTIAL THROMBOPLASTIN TIME 29 SECONDS (22-32); PROTHROMBIN TIME 10.6 SECONDS (9.0-12.0)
[2018-09-05 17:32] LABS: ALANINE AMINOTRANSFERASE 26 U/L (12-78); ALBUMIN 3.2 G/DL (3.4-5.0); ALBUMIN/GLOBULIN RATIO 0.9 (1.1-1.5); ALKALINE PHOSPHATASE 116 IU/L (46-116); ANION GAP 3 (8-16); ASPARTATE AMINO TRANSFERASE 25 U/L (10-37); BILIRUBIN,TOTAL 0.3 MG/DL (0.1-1.0); BLOOD UREA NITROGEN 14 MG/DL (7-18); BUN/CREATININE RATIO 17.9 (6.6-38.0); CALCIUM 8.6 MG/DL (8.5-10.1); CHLORIDE 95 MMOL/L (99-107); CREATININE 0.78 MG/DL (0.40-0.90); GLUCOSE 134 MG/DL (70-104); MAGNESIUM 1.8 MG/DL (1.5-2.4); POTASSIUM 3.4 MMOL/L (3.5-5.1); SODIUM 137 MMOL/L (135-145); TOTAL CARBON DIOXIDE 39.2 MMOL/L (24-32); TOTAL PROTEIN 6.7 G/DL (6.4-8.2); eGFR 78 ML/MIN
[2018-09-05 17:33] LABS: ANISOCYTOSIS 2+; HYPOCHROMASIA 1+; PLATELET ESTIMATE NORMAL; POLYCHROMASIA 1+; STOMATOCYTES 1+
[2018-09-05] MEDS ORDERED: albuterol 2.5 MG/3 ML nebule CONTNEB PRN (18:40)
[2018-09-05 19:20] LABS: ABG BASE EXCESS 9.6 mmol/L (-2.0-3.0); ABG HCO3 38.3 mmol/L (22.0-26.0); ABG OXYGEN SATURATION 87.1 % (95-98); ABG PH (T) 7.362 (7.350-7.450); ABG PO2 (T) 53.4 mmHg (83-108); ALLEN'S TEST Positive; FCOHb 6.6 % (0.5-1.5); FLOW 2 L/min; FMetHb 0.2 % (0.3-1.12); FO2Hb 81.2 % (94-100); TOTAL HEMOGLOBIN 15.6 G/dl (12.0-16.0)
[2018-09-05] MEDS ORDERED: ondansetron/PF 4mg/2ml inj IV PRN (19:50)
[2018-09-05] MEDS ORDERED: potassium Cl 20 mEq SR tablet PO PRN ×2 (19:50)
[2018-09-05] MEDS ORDERED: acetaminophen 325mg tablet PO PRN ×2 (19:50)
[2018-09-05] MEDS ORDERED: potassium Cl 40MEQ/NS 500ml 500 ML IV PRN ×2 (19:50)
[2018-09-05] MEDS ORDERED: mag hydrox/Alum hydrox/simeth 30ml oral suspension PO PRN (19:50)
[2018-09-05] MEDS ORDERED: diltiazem SR 60mg capsule (twice daily) PO SCH (20:00)
[2018-09-05 20:27] LABS: URINE AMPHETAMINE SCREEN NEGATIVE (Neg); URINE BARBITUATE SCREEN NEGATIVE (Neg); URINE BENZODIAZEPINES SCREEN NEGATIVE (Neg); URINE CANNABINOID SCREEN NEGATIVE (Neg); URINE COCAINE SCREEN NEGATIVE (Neg); URINE METHADONE SCREEN POSITIVE (Neg); URINE OPIATE SCREEN NEGATIVE (Neg); URINE PHENCYCLIDINE SCREEN NEGATIVE (Neg)
[2018-09-05] MEDS: atorvastatin 20mg tablet PO SCH (20:59)
[2018-09-05] MEDS: Melatonin 3mg tablet PO SCH (20:59)
[2018-09-05] MEDS: methadone 10mg tablet PO SCH (20:59)
[2018-09-05] MEDS ORDERED: non-formulary drug (Simvastatin* (Zocor*) 2 TAB) PO SCH (21:00)
[2018-09-05] MEDS: carBAMazepine 100mg chewable tablet PO SCH (22:00)
[2018-09-05] MEDS ORDERED: non-formulary drug (Carbamazepine (Tegretol) 1 TAB) PO SCH (22:00)
--- NOTE | 2018-09-05 22:22 | NUR ---
Assumed patient care. Patient is sleeping, she is on CPAP. Mid fowlers position. In view of nursing station staff.
[2018-09-05 22:31] LABS: CLARITY,URINE CLEAR (Clear); COLOR,URINE YELLOW (Yellow); GLUCOSE, URINE NEGATIVE (Neg); KETONES,URINE NEGATIVE (Neg); LEUKOCYTE ESTERASE ,URINE NEGATIVE (Neg); NITRITES, URINE NEGATIVE (Neg); OCCULT BLOOD,URINE SMALL (Neg); PH,URINE 6.5 (4.8-8.0); PROTEIN,URINE NEGATIVE (Neg); UROBILINOGEN,URINE 0.2 E.U/dL (0.2-1.0)
[2018-09-05 22:38] LABS: RBC,URINE 0-2 /HPF (0-2); UA COLLECTION TYPE CLN CATCH MIDSTREAM; WBC,URINE NONE SEEN /HPF (0-4)
[2018-09-05 22:39] LABS: BACTERIA,URINE NONE SEEN /HPF (Neg); SQUAMOUS EPITHELIAL CELL,UR FEW /LPF (FEW)
[2018-09-06] MEDS: methylPREDNISolone sod succ 125mg/2ml vial IV SCH ×3 (00:31→15:11)
[2018-09-06] MEDS: furosemide 40mg/4ml inj IV SCH ×3 (00:34→15:11)
[2018-09-06] MEDS: gabapentin 100mg capsule PO SCH ×3 (00:36→15:11)
--- NOTE | 2018-09-06 00:42 | NUR ---
relieving RN for lunch, pt is resting quietly, vargas bipap well, pt up to bedside commode without assist
--- NOTE | 2018-09-06 00:54 | NUR ---
pt asking to be off bipap, placed 02 2liters nasal cannula, pt is back to bed without assist, asking for food, she said she did not have dinner
--- NOTE | 2018-09-06 02:04 | NUR ---
Patient is awake and well oriented. Up to bedside commode with assist to void. Resp therapy called to put patient back on CPAP. Patient is Mid Fowlers in bed. No subjective SOB. No abd or accessary muscle use noted. No wheezing.
[2018-09-06] MEDS ORDERED: DILTIAZEM PO SCH (08:00)
[2018-09-06] MEDS ORDERED: POTASSIUM CHLORIDE PO SCH (08:00)
[2018-09-06] MEDS ORDERED: [UNRECOGNIZED DRUG - OTHER] PO SCH (08:00)
[2018-09-06] MEDS: methadone 10mg tablet PO SCH ×3 (09:04→21:47)
[2018-09-06] MEDS: potassium chloride 10mEq ER tablet PO SCH (09:04)
[2018-09-06] MEDS: magnesium oxide 400mg tablet PO SCH (09:07)
[2018-09-06] MEDS: HYDROcodone/acetaminophen 10/325mg tab PO PRN (09:07)
[2018-09-06] MEDS: carBAMazepine 100mg chewable tablet PO SCH ×5 (09:09→22:03)
[2018-09-06] MEDS: enoxaparin 40mg/0.4ml syringe SUBCUT SCH (09:11)
[2018-09-06] MEDS: nicotine 21mg patch - 24 hr TD SCH (09:13)
[2018-09-06 10:34] LABS: BASOPHILS # (AUTO) 0.1 X10'3 (0-0.2); BASOPHILS % (AUTO) 0.7 % (0-1); EOSINOPHILS % (AUTO) 0 % (0-6); HEMATOCRIT 46.8 % (35.0-45.0); HEMOGLOBIN 14.3 g/dl (12.0-16.0); LYMPHOCYTES % (AUTO) 24.1 % (21-51); MEAN CORPUSCULAR HEMOGLOBIN 27.1 PG (27.0-31.0); MEAN CORPUSCULAR HGB CONC 30.7 % (33.0-36.5); MEAN CORPUSCULAR VOLUME 88.4 FL (78-98); MEAN PLATELET VOLUME 7.9 FL (7.4-10.4); MONOCYTES # (AUTO) 0.6 X10'3 (0-0.9); MONOCYTES % (AUTO) 7.7 % (2-12); NEUTROPHILS # (AUTO) 5.6 X10'3 (1.8-7.7); NEUTROPHILS % (AUTO) 67.5 % (42-75); PLATELET COUNT 230 X10'3 (140-440); RED BLOOD COUNT 5.29 X10'6 (4.20-5.60); RED CELL DISTRIBUTION WIDTH 20.5 % (11.5-14.5); WHITE BLOOD COUNT 8.3 X10'3 (4.5-11.0)
[2018-09-06 10:48] LABS: ALBUMIN 3.2 G/DL (3.4-5.0); ANION GAP 4 (8-16); BLOOD UREA NITROGEN 9 MG/DL (7-18); BUN/CREATININE RATIO 14.1 (6.6-38.0); CALCIUM 8.8 MG/DL (8.5-10.1); CHLORIDE 93 MMOL/L (99-107); CREATININE 0.64 MG/DL (0.40-0.90); GLUCOSE 92 MG/DL (70-104); POTASSIUM 3.4 MMOL/L (3.5-5.1); SODIUM 139 MMOL/L (135-145); eGFR > 90 ML/MIN
[2018-09-06 11:08] LABS: ANISOCYTOSIS 3+; PLATELET ESTIMATE NORMAL; POLYCHROMASIA FEW; TARGET CELLS FEW
[2018-09-06] MEDS: aspirin 325mg tablet, delayed-release (Ecotrin) PO SCH (11:16)
[2018-09-06] MEDS: levoFLOXACIN 750MG TABLET PO SCH (11:16)
[2018-09-06 11:40] VITALS: BP 106/61
[2018-09-06 11:50] LABS: ALANINE AMINOTRANSFERASE 25 U/L (12-78); ALBUMIN/GLOBULIN RATIO 0.9 (1.1-1.5); ALKALINE PHOSPHATASE 110 IU/L (46-116); ASPARTATE AMINO TRANSFERASE 29 U/L (10-37); BILIRUBIN,DIRECT 0.2 MG/DL (0-0.3); BILIRUBIN,TOTAL 0.5 MG/DL (0.1-1.0); MAGNESIUM 1.5 MG/DL (1.5-2.4); TOTAL PROTEIN 6.7 G/DL (6.4-8.2)
[2018-09-06] MEDS: K and/or MAG REPLACEMENT MC SCH (11:59)
--- NOTE | 2018-09-06 12:18 | NUR ---
Report called from DIRECTOR INTELLIGENCE ANALYSIS PROGRAMS Rachel at 1120. Pt arrived on unit at 1140 on hospital bed accompanied by ER staff. Pt oriented to room and vital signs obtained, Pt in no signs of distress on 3L NC. Pt used front wheeled walker with stanby assist to get up to the restroom. bed locked and low, call light within reach, will continue to monitor.
[2018-09-06] MEDS: diltiazem 30mg tablet PO SCH (12:19)
[2018-09-06 15:00] VITALS: BP 130/72
[2018-09-06] MEDS ORDERED: POLY17PO10 PO (17:22)
[2018-09-06] MEDS: magnesium hydroxide 30ml (MOM) UD suspension PO PRN (17:28)
[2018-09-06] MEDS: ipratropium/albuterol 3ml nebule NEB PRN ×2 (17:48→22:37)
[2018-09-06 18:00] VITALS: BP 115/72
[2018-09-06] MEDS: Melatonin 3mg tablet PO SCH (21:00)
[2018-09-06] MEDS: atorvastatin 20mg tablet PO SCH (21:47)
[2018-09-06 22:00] VITALS: BP 114/75
[2018-09-07] MEDS: methylPREDNISolone sod succ 125mg/2ml vial IV SCH ×4 (00:22→23:00)
[2018-09-07] MEDS: furosemide 40mg/4ml inj IV SCH ×3 (00:22→16:52)
[2018-09-07] MEDS: gabapentin 100mg capsule PO SCH ×4 (00:24→23:00)
[2018-09-07] MEDS: HYDROcodone/acetaminophen 10/325mg tab PO PRN (00:46)
[2018-09-07 02:00] VITALS: BP 113/75
[2018-09-07] MEDS: ipratropium/albuterol 3ml nebule NEB PRN ×2 (03:23→19:52)
[2018-09-07 06:00] VITALS: BP 94/63
[2018-09-07 06:05] LABS: ANION GAP 4 (8-16); BLOOD UREA NITROGEN 17 MG/DL (7-18); BUN/CREATININE RATIO 19.5 (6.6-38.0); CALCIUM 8.1 MG/DL (8.5-10.1); CHLORIDE 93 MMOL/L (99-107); CREATININE 0.87 MG/DL (0.40-0.90); GLUCOSE 152 MG/DL (70-104); POTASSIUM 4.1 MMOL/L (3.5-5.1); SODIUM 137 MMOL/L (135-145); TOTAL CARBON DIOXIDE 39.6 MMOL/L (24-32); eGFR 69 ML/MIN
[2018-09-07 06:06] LABS: BASOPHILS % (AUTO) 0.3 % (0-1); EOSINOPHILS % (AUTO) 0.1 % (0-6); HEMATOCRIT 44.7 % (35.0-45.0); HEMOGLOBIN 13.8 g/dl (12.0-16.0); LYMPHOCYTES # (AUTO) 0.5 X10'3 (1.1-4.8); LYMPHOCYTES % (AUTO) 5.1 % (21-51); MEAN CORPUSCULAR HEMOGLOBIN 27.6 PG (27.0-31.0); MEAN CORPUSCULAR HGB CONC 30.8 % (33.0-36.5); MEAN CORPUSCULAR VOLUME 89.7 FL (78-98); MONOCYTES # (AUTO) 0.2 X10'3 (0-0.9); MONOCYTES % (AUTO) 2.1 % (2-12); NEUTROPHILS # (AUTO) 8.3 X10'3 (1.8-7.7); NEUTROPHILS % (AUTO) 92.4 % (42-75); PLATELET COUNT 202 X10'3 (140-440); RED BLOOD COUNT 4.99 X10'6 (4.20-5.60)
[2018-09-07] MEDS: carBAMazepine 100mg chewable tablet PO SCH ×5 (06:44→22:59)
[2018-09-07] MEDS: K and/or MAG REPLACEMENT MC SCH (08:00)
[2018-09-07] MEDS: nicotine 21mg patch - 24 hr TD SCH (09:13)
[2018-09-07] MEDS: methadone 10mg tablet PO SCH ×3 (09:14→20:16)
[2018-09-07] MEDS: enoxaparin 40mg/0.4ml syringe SUBCUT SCH (09:14)
[2018-09-07] MEDS: aspirin 325mg tablet, delayed-release (Ecotrin) PO SCH (09:15)
[2018-09-07] MEDS: diltiazem 30mg tablet PO SCH (09:15)
[2018-09-07] MEDS ORDERED: FLU VACC QUAD 2018(5 YR UP)/PF 60 MCG/0.5 ML SYRINGE IM ONE (10:00)
[2018-09-07 11:00] VITALS: BP 145/92
[2018-09-07] MEDS: levoFLOXACIN 750MG TABLET PO SCH (11:48)
[2018-09-07] MEDS: magnesium oxide 400mg tablet PO SCH (11:48)
[2018-09-07] MEDS: potassium chloride 10mEq ER tablet PO SCH (11:48)
[2018-09-07 15:00] VITALS: BP 114/61
[2018-09-07 19:00] VITALS: BP 121/90
[2018-09-07] MEDS: atorvastatin 20mg tablet PO SCH (20:15)
[2018-09-07] MEDS: Melatonin 3mg tablet PO SCH (20:16)
[2018-09-07] MEDS: lactobacillus rhamnosus 10,000 MMU CELLS/CAPSULE PO SCH (20:16)
[2018-09-07 23:00] VITALS: BP 120/81
[2018-09-08] MEDS: HYDROcodone/acetaminophen 10/325mg tab PO PRN ×4 (01:54→15:26)
[2018-09-08 03:00] VITALS: BP 123/79
[2018-09-08 05:08] LABS: BASOPHILS % (AUTO) 0.1 % (0-1); EOSINOPHILS % (AUTO) 0 % (0-6); HEMATOCRIT 43.8 % (35.0-45.0); HEMOGLOBIN 13.7 g/dl (12.0-16.0); LYMPHOCYTES # (AUTO) 0.5 X10'3 (1.1-4.8); LYMPHOCYTES % (AUTO) 5.9 % (21-51); MEAN CORPUSCULAR HEMOGLOBIN 27.9 PG (27.0-31.0); MEAN CORPUSCULAR HGB CONC 31.3 % (33.0-36.5); MEAN CORPUSCULAR VOLUME 89.2 FL (78-98); MONOCYTES # (AUTO) 0.3 X10'3 (0-0.9); MONOCYTES % (AUTO) 2.8 % (2-12); NEUTROPHILS # (AUTO) 8.5 X10'3 (1.8-7.7); NEUTROPHILS % (AUTO) 91.2 % (42-75); PLATELET COUNT 221 X10'3 (140-440); RED BLOOD COUNT 4.91 X10'6 (4.20-5.60); RED CELL DISTRIBUTION WIDTH 20.6 % (11.5-14.5); WHITE BLOOD COUNT 9.3 X10'3 (4.5-11.0)
[2018-09-08 05:09] LABS: ANION GAP 2 (8-16); BLOOD UREA NITROGEN 22 MG/DL (7-18); BUN/CREATININE RATIO 26.2 (6.6-38.0); CALCIUM 8.4 MG/DL (8.5-10.1); CHLORIDE 93 MMOL/L (99-107); CREATININE 0.84 MG/DL (0.40-0.90); GLUCOSE 197 MG/DL (70-104); POTASSIUM 4.4 MMOL/L (3.5-5.1); SODIUM 134 MMOL/L (135-145); TOTAL CARBON DIOXIDE 39.4 MMOL/L (24-32); eGFR 72 ML/MIN
[2018-09-08 06:00] VITALS: BP 140/86
--- NOTE | 2018-09-08 06:15 | NUR ---
Patient in room PCU 3011. I have received report from FANG Barillas and had the opportunity to ask questions and assume patient care.
--- NOTE | 2018-09-08 06:32 | NUR ---
Problems reprioritized. Patient report given, questions answered & plan of care reviewed with Ross HEADLEY.
[2018-09-08] MEDS: nicotine 21mg patch - 24 hr TD SCH (07:31)
[2018-09-08] MEDS: methylPREDNISolone sod succ 125mg/2ml vial IV SCH ×2 (07:32→15:25)
[2018-09-08] MEDS: furosemide 40mg/4ml inj IV SCH (07:32)
[2018-09-08] MEDS: aspirin 325mg tablet, delayed-release (Ecotrin) PO SCH (07:32)
[2018-09-08] MEDS: gabapentin 100mg capsule PO SCH ×2 (07:33→15:25)
[2018-09-08] MEDS: carBAMazepine 100mg chewable tablet PO SCH ×4 (07:33→20:21)
[2018-09-08] MEDS: methadone 10mg tablet PO SCH ×3 (07:33→20:22)
[2018-09-08] MEDS: potassium chloride 10mEq ER tablet PO SCH (07:33)
[2018-09-08] MEDS: lactobacillus rhamnosus 10,000 MMU CELLS/CAPSULE PO SCH ×2 (07:33→20:22)
[2018-09-08] MEDS: magnesium oxide 400mg tablet PO SCH (07:34)
[2018-09-08] MEDS: K and/or MAG REPLACEMENT MC SCH (07:34)
[2018-09-08] MEDS: diltiazem 30mg tablet PO SCH (07:34)
[2018-09-08] MEDS: enoxaparin 40mg/0.4ml syringe SUBCUT SCH (07:35)
[2018-09-08] MEDS: levoFLOXACIN 750MG TABLET PO SCH (10:08)
--- NOTE | 2018-09-08 10:30 | NUR ---
Md Carpenter called bc pt has a lot of anxiety, she takes PRN anxiety meds at home, she would not start the pts anxiety med until she assessed the pt
[2018-09-08 11:00] VITALS: BP 106/72
[2018-09-08 15:00] VITALS: BP 125/68
[2018-09-08] MEDS: LORazepam 0.5 MG tablet PO PRN (15:25)
--- NOTE | 2018-09-08 18:15 | NUR ---
Patient in room PCU 3011. I have received report from FANG Davis and had the opportunity to ask questions and assume patient care. Pt is currently up in bed with 3L O2. she has just gotten her vitals taken. Is anxious about her O2 sats being too high bc she has COPD. I titrated her down to 2L and continued talking with her. Pt does not appear to be in any distress. she is in iso precautions for MRSA in the sputum per report.
--- NOTE | 2018-09-08 18:21 | NUR ---
Problems reprioritized. Patient report given, questions answered & plan of care reviewed with FANG Carnes.
[2018-09-08 19:00] VITALS: BP 149/99
[2018-09-08] MEDS: magnesium hydroxide 30ml (MOM) UD suspension PO PRN (20:22)
[2018-09-08] MEDS: Melatonin 3mg tablet PO SCH (21:00)
[2018-09-08] MEDS: atorvastatin 20mg tablet PO SCH (21:35)
[2018-09-08 23:00] VITALS: BP 153/81
[2018-09-08] MEDS: ipratropium/albuterol 3ml nebule NEB PRN (23:30)
[2018-09-09] MEDS: gabapentin 100mg capsule PO SCH ×4 (00:41→23:26)
[2018-09-09] MEDS: HYDROcodone/acetaminophen 10/325mg tab PO PRN ×4 (00:41→16:12)
[2018-09-09] MEDS: carBAMazepine 100mg chewable tablet PO SCH ×6 (00:42→23:26)
[2018-09-09] MEDS: methylPREDNISolone sod succ 125mg/2ml vial IV SCH ×2 (00:42→07:24)
[2018-09-09 03:00] VITALS: BP 94/55
[2018-09-09 06:00] VITALS: BP 119/69
--- NOTE | 2018-09-09 06:00 | NUR ---
Patient in room PCU 3011. I have received report from FANG riggs and had the opportunity to ask questions and assume patient care.
[2018-09-09 06:07] LABS: ALBUMIN 2.9 G/DL (3.4-5.0); ANION GAP 0 (8-16); BLOOD UREA NITROGEN 22 MG/DL (7-18); BUN/CREATININE RATIO 32.4 (6.6-38.0); CALCIUM 8.3 MG/DL (8.5-10.1); CHLORIDE 94 MMOL/L (99-107); CREATININE 0.68 MG/DL (0.40-0.90); GLUCOSE 107 MG/DL (70-104); POTASSIUM 4.4 MMOL/L (3.5-5.1); SODIUM 134 MMOL/L (135-145); TOTAL CARBON DIOXIDE 39.7 MMOL/L (24-32); eGFR > 90 ML/MIN
[2018-09-09 06:10] LABS: BASOPHILS % (AUTO) 0 % (0-1); EOSINOPHILS % (AUTO) 0.5 % (0-6); HEMATOCRIT 41.7 % (35.0-45.0); HEMOGLOBIN 13.1 g/dl (12.0-16.0); LYMPHOCYTES # (AUTO) 0.7 X10'3 (1.1-4.8); LYMPHOCYTES % (AUTO) 6.9 % (21-51); MEAN CORPUSCULAR HEMOGLOBIN 28.5 PG (27.0-31.0); MEAN CORPUSCULAR HGB CONC 31.6 % (33.0-36.5); MEAN CORPUSCULAR VOLUME 90.2 FL (78-98); MEAN PLATELET VOLUME 7.8 FL (7.4-10.4); MONOCYTES # (AUTO) 0.5 X10'3 (0-0.9); MONOCYTES % (AUTO) 4.3 % (2-12); NEUTROPHILS # (AUTO) 9.4 X10'3 (1.8-7.7); NEUTROPHILS % (AUTO) 88.3 % (42-75); PLATELET COUNT 192 X10'3 (140-440); RED BLOOD COUNT 4.62 X10'6 (4.20-5.60); RED CELL DISTRIBUTION WIDTH 21.6 % (11.5-14.5); WHITE BLOOD COUNT 10.7 X10'3 (4.5-11.0)
--- NOTE | 2018-09-09 06:20 | NUR ---
Problems reprioritized. Patient report given, questions answered & plan of care reviewed with Salo HEADLEY.
[2018-09-09 06:42] LABS: PLATELET ESTIMATE NORMAL; TARGET CELLS 1+
[2018-09-09 06:43] LABS: ANISOCYTOSIS 3+
[2018-09-09] MEDS: nicotine 21mg patch - 24 hr TD SCH (07:23)
[2018-09-09] MEDS: enoxaparin 40mg/0.4ml syringe SUBCUT SCH (07:24)
[2018-09-09] MEDS: methadone 10mg tablet PO SCH ×3 (07:24→21:33)
[2018-09-09] MEDS: furosemide 40mg/4ml inj IV SCH (07:24)
[2018-09-09] MEDS: lactobacillus rhamnosus 10,000 MMU CELLS/CAPSULE PO SCH ×2 (07:24→20:06)
[2018-09-09] MEDS: diltiazem 30mg tablet PO SCH (07:25)
[2018-09-09] MEDS: magnesium oxide 400mg tablet PO SCH (07:26)
[2018-09-09] MEDS: aspirin 325mg tablet, delayed-release (Ecotrin) PO SCH (07:26)
[2018-09-09] MEDS: potassium chloride 10mEq ER tablet PO SCH (07:26)
[2018-09-09] MEDS: K and/or MAG REPLACEMENT MC SCH (07:27)
--- NOTE | 2018-09-09 10:14 | NUR ---
Initial: Pt admitted with COPD and CHF exacerbation on steroids and BiPAP for tx. Pt also diuresing with Lasix. Pt currently on a [facility] soft diet with fluctuating PO intake 50% and 75-100% with most recent documented intake 100% likely meeting nutrient needs. [facility] 09/09. Will continue to follow. Recommendations: 1) Continue with [facility] soft diet; advance to heart healthy as medically indicated 2) Monitor need for ONS 3) Wt per rx Addendum: 09/09/18 at [address] Amended: Links added.
[2018-09-09 11:00] VITALS: BP 119/74
[2018-09-09] MEDS: levoFLOXACIN 750MG TABLET PO SCH (11:02)
[2018-09-09 15:00] VITALS: BP 119/72
[2018-09-09] MEDS: LORazepam 0.5 MG tablet PO PRN (15:13)
--- NOTE | 2018-09-09 18:00 | NUR ---
Patient in room PCU 3011. I have received report from FANG Leong and had the opportunity to ask questions and assume patient care. Pt is currently laying in bed with the lights off. She is very anxious about finally going home. No other concerns at this time.
--- NOTE | 2018-09-09 18:21 | NUR ---
Problems reprioritized. Patient report given, questions answered & plan of care reviewed with FANG Carnes.
[2018-09-09 19:00] VITALS: BP 110/75
[2018-09-09] MEDS: Melatonin 3mg tablet PO SCH (21:00)
[2018-09-09] MEDS: atorvastatin 20mg tablet PO SCH (21:33)
[2018-09-09] MEDS: ipratropium/albuterol 3ml nebule NEB PRN (21:56)
--- NOTE | 2018-09-09 22:28 | NUR ---
Pt teaching provided regarding use of an IS and flutter valve. She will ask for PRN breathing Tx to help "cough up the gunk." RT spoke with her, provided PRN Tx and provided more teaching as well as both IS and flutter valve.
[2018-09-09 23:00] VITALS: BP 124/82
[2018-09-10 03:00] VITALS: BP 106/61
--- NOTE | 2018-09-10 06:26 | NUR ---
Problems reprioritized. Patient report given, questions answered & plan of care reviewed with Val HEADLEY and Josef HEADLEY.
--- NOTE | 2018-09-10 06:40 | NUR ---
Patient in room PCU 3011. I have received report from FANG Santana and had the opportunity to ask questions and assume patient care.
[2018-09-10 06:42] LABS: BASOPHILS # (AUTO) 0.1 X10'3 (0-0.2); BASOPHILS % (AUTO) 0.5 % (0-1); EOSINOPHILS # (AUTO) 0.1 X10'3 (0-0.9); EOSINOPHILS % (AUTO) 0.5 % (0-6); HEMOGLOBIN 13.5 g/dl (12.0-16.0); LYMPHOCYTES # (AUTO) 2.5 X10'3 (1.1-4.8); LYMPHOCYTES % (AUTO) 23.2 % (21-51); MEAN CORPUSCULAR HEMOGLOBIN 28.2 PG (27.0-31.0); MEAN CORPUSCULAR HGB CONC 31.5 % (33.0-36.5); MEAN CORPUSCULAR VOLUME 89.6 FL (78-98); MEAN PLATELET VOLUME 7.5 FL (7.4-10.4); MONOCYTES % (AUTO) 9.1 % (2-12); NEUTROPHILS # (AUTO) 7.2 X10'3 (1.8-7.7); NEUTROPHILS % (AUTO) 66.7 % (42-75); PLATELET COUNT 201 X10'3 (140-440); RED CELL DISTRIBUTION WIDTH 21.7 % (11.5-14.5); WHITE BLOOD COUNT 10.8 X10'3 (4.5-11.0)
[2018-09-10] MEDS: carBAMazepine 100mg chewable tablet PO SCH ×3 (06:50→13:34)
[2018-09-10 06:53] LABS: ANION GAP 3 (8-16); BLOOD UREA NITROGEN 27 MG/DL (7-18); BUN/CREATININE RATIO 34.6 (6.6-38.0); CALCIUM 7.9 MG/DL (8.5-10.1); CHLORIDE 94 MMOL/L (99-107); CREATININE 0.78 MG/DL (0.40-0.90); GLUCOSE 83 MG/DL (70-104); POTASSIUM 4.2 MMOL/L (3.5-5.1); SODIUM 136 MMOL/L (135-145); TOTAL CARBON DIOXIDE 39.1 MMOL/L (24-32); eGFR 78 ML/MIN
[2018-09-10 06:58] LABS: ANISOCYTOSIS 3+; PLATELET ESTIMATE NORMAL; TARGET CELLS FEW
[2018-09-10 07:00] VITALS: BP 129/87
[2018-09-10] MEDS: K and/or MAG REPLACEMENT MC SCH (08:00)
[2018-09-10 08:40] VITALS: BP 115/66
[2018-09-10] MEDS: potassium chloride 10mEq ER tablet PO SCH (08:43)
[2018-09-10] MEDS: methadone 10mg tablet PO SCH ×2 (08:43→13:33)
[2018-09-10] MEDS: diltiazem 30mg tablet PO SCH (08:43)
[2018-09-10] MEDS: gabapentin 100mg capsule PO SCH ×2 (08:44→16:28)
[2018-09-10] MEDS: lactobacillus rhamnosus 10,000 MMU CELLS/CAPSULE PO SCH (08:44)
[2018-09-10] MEDS: magnesium oxide 400mg tablet PO SCH (08:44)
[2018-09-10] MEDS: aspirin 325mg tablet, delayed-release (Ecotrin) PO SCH (08:44)
[2018-09-10] MEDS: enoxaparin 40mg/0.4ml syringe SUBCUT SCH (08:45)
[2018-09-10] MEDS: nicotine 21mg patch - 24 hr TD SCH (08:46)
[2018-09-10] MEDS: furosemide 40mg/4ml inj IV SCH (08:52)
--- NOTE | 2018-09-10 10:59 | NUR ---
Pt requesting breathing treatment. RT paged.
[2018-09-10 11:00] VITALS: BP 103/74
[2018-09-10] MEDS: levoFLOXACIN 750MG TABLET PO SCH (11:40)
[2018-09-10] MEDS: ipratropium/albuterol 3ml nebule NEB PRN (11:43)
[2018-09-10 15:00] VITALS: BP 105/75
[2018-09-10] MEDS ORDERED: PRED10TA23 PO (16:31)
--- NOTE | 2018-09-10 17:30 | NUR ---
Discharge instructions, including medications, S&S worsening symptoms, f/u appointments reviewed with pt. Pt had opportunity to ask questions. IV removed, cannula intact. Tele box removed & returned to telegraphic service dispatcher. All pt belongings gathered up and transported with patient. [facility] transported pt via wheelchair down to [facility].
== END 2018-09-10 17:30 | disposition home health service (06) | DRG 291 ==
LOC: ER 16:29 → ED HOLD 19:48 → PCU 3S 09-06 11:57
PROVIDERS: ADMIT Hospitalist; ATTEND Family Medicine
PROC: 5A09357 Assistance with Respiratory Ventilation, Less than 24 Consecutive Hours, Continuous Positive Airway Pressure (ICD-10-PCS; 2018-09-05)
PROC: 5A09357 Assistance with Respiratory Ventilation, Less than 24 Consecutive Hours, Continuous Positive Airway Pressure (ICD-10-PCS; 2018-09-07)
PROC: 3E02340 Introduction of Influenza Vaccine into Muscle, Percutaneous Approach (ICD-10-PCS; principal; 2018-09-08)
PROC: 5A09357 Assistance with Respiratory Ventilation, Less than 24 Consecutive Hours, Continuous Positive Airway Pressure (ICD-10-PCS; 2018-09-09)
PROC: 5A09357 Assistance with Respiratory Ventilation, Less than 24 Consecutive Hours, Continuous Positive Airway Pressure (ICD-10-PCS; 2018-09-10)
DX: I11.0 Hypertensive heart disease with heart failure (principal); J96.20 Acute and chronic respiratory failure, unspecified whether with hypoxia or hypercapnia; J44.1 Chronic obstructive pulmonary disease with (acute) exacerbation; I50.33 Acute on chronic diastolic (congestive) heart failure; E66.01 Morbid (severe) obesity due to excess calories; G47.33 Obstructive sleep apnea (adult) (pediatric); E87.6 Hypokalemia; I35.0 Nonrheumatic aortic (valve) stenosis; E78.5 Hyperlipidemia, unspecified; F17.200 Nicotine dependence, unspecified, uncomplicated; F41.9 Anxiety disorder, unspecified; G89.4 Chronic pain syndrome; I25.10 Atherosclerotic heart disease of native coronary artery without angina pectoris; I25.2 Old myocardial infarction; Z95.2 Presence of prosthetic heart valve; Z99.81 Dependence on supplemental oxygen; Z79.899 Other long term (current) drug therapy; Z79.82 Long term (current) use of aspirin; Z79.891 Long term (current) use of opiate analgesic; Z86.73 Personal history of transient ischemic attack (TIA), and cerebral infarction without residual deficits; Z82.49 Family history of ischemic heart disease and other diseases of the circulatory system; Z82.5 Family history of asthma and other chronic lower respiratory diseases; Z23 Encounter for immunization; Z68.35 Body mass index [BMI] 35.0-35.9, adult
CPT/HCPCS: 36415; 36600; 71045; 80048; 80053; 80076; 80305; 81001; 82803; 83605; 83735; 83880; 84484; 85018; 85025; 85610; 85730; 87040; 87070; 93005; 93306; 94640; 94644; 94660; 94667; 94760; 96361; 96374; 96375; 97110; 97116; 97161; 97530; 99291; G0378; J1650; J1940; J2930; Q2037

== ENCOUNTER 2018-09-20 23:03 | Inpatient (IN) | payer MEDICARE, MEDICAID ==
[~2018-09-20] VITALS: Ht 165.1 cm; Wt 101.8 kg
[~2018-09-20 23:03] MED LIST changes: -LEVO750T46 PO; -LORA0.5T PO; +POLY17PO10 PO; +PRED10TA23 PO; -PRED20TA PO
[2018-09-20 23:32] LABS: BASOPHILS % (AUTO) 0.2 % (0-1); EOSINOPHILS # (AUTO) 0.1 X10'3 (0-0.9); EOSINOPHILS % (AUTO) 0.9 % (0-6); HEMATOCRIT 42.7 % (35.0-45.0); HEMOGLOBIN 13.5 g/dl (12.0-16.0); LYMPHOCYTES # (AUTO) 0.8 X10'3 (1.1-4.8); LYMPHOCYTES % (AUTO) 11.4 % (21-51); MEAN CORPUSCULAR HEMOGLOBIN 28.6 PG (27.0-31.0); MEAN CORPUSCULAR HGB CONC 31.7 % (33.0-36.5); MEAN CORPUSCULAR VOLUME 90.4 FL (78-98); MEAN PLATELET VOLUME 7.6 FL (7.4-10.4); MONOCYTES # (AUTO) 0.6 X10'3 (0-0.9); MONOCYTES % (AUTO) 8.8 % (2-12); NEUTROPHILS # (AUTO) 5.7 X10'3 (1.8-7.7); NEUTROPHILS % (AUTO) 78.7 % (42-75); PLATELET COUNT 237 X10'3 (140-440); RED BLOOD COUNT 4.72 X10'6 (4.20-5.60); RED CELL DISTRIBUTION WIDTH 23.5 % (11.5-14.5); WHITE BLOOD COUNT 7.2 X10'3 (4.5-11.0)
[2018-09-20] MEDS ORDERED: methylPREDNISolone sod succ 125mg/2ml vial IV ONE (23:35)
[2018-09-20] MEDS ORDERED: ipratropium/albuterol 3ml nebule NEB ONE (23:35)
[2018-09-20 23:38] LABS: ALANINE AMINOTRANSFERASE 19 U/L (12-78); ALBUMIN/GLOBULIN RATIO 0.9 (1.1-1.5); ALKALINE PHOSPHATASE 116 IU/L (46-116); ANION GAP 4 (8-16); ASPARTATE AMINO TRANSFERASE 19 U/L (10-37); BILIRUBIN,TOTAL 0.3 MG/DL (0.1-1.0); BLOOD UREA NITROGEN 11 MG/DL (7-18); BUN/CREATININE RATIO 15.9 (6.6-38.0); CALCIUM 8.4 MG/DL (8.5-10.1); CHLORIDE 95 MMOL/L (99-107); CREATININE 0.69 MG/DL (0.40-0.90); GLUCOSE 126 MG/DL (70-104); POTASSIUM 4.1 MMOL/L (3.5-5.1); SODIUM 138 MMOL/L (135-145); TOTAL CARBON DIOXIDE 38.7 MMOL/L (24-32); TOTAL PROTEIN 6.4 G/DL (6.4-8.2); eGFR 90 ML/MIN
[2018-09-20 23:46] LABS: INR 1.1 INR; PARTIAL THROMBOPLASTIN TIME 31 SECONDS (22-32); PROTHROMBIN TIME 10.7 SECONDS (9.0-12.0)
[2018-09-21] MEDS ORDERED: acetaminophen 325mg tablet PO PRN ×2 (01:10)
[2018-09-21] MEDS ORDERED: magnesium hydroxide 30ml (MOM) UD suspension PO PRN (01:10)
[2018-09-21] MEDS ORDERED: potassium Cl 20 mEq SR tablet PO PRN ×2 (01:10)
[2018-09-21] MEDS: methadone 10mg tablet PO SCH ×4 (01:10→20:43)
[2018-09-21] MEDS ORDERED: potassium Cl 40MEQ/NS 500ml 500 ML IV PRN ×2 (01:10)
[2018-09-21] MEDS ORDERED: magnesium 2GM in 50ml NS 50 ML IV PRN (01:10)
[2018-09-21] MEDS ORDERED: ondansetron/PF 4mg/2ml inj IV PRN (01:10)
[2018-09-21] MEDS ORDERED: mag hydrox/Alum hydrox/simeth 30ml oral suspension PO PRN (01:10)
[2018-09-21] MEDS ORDERED: magnesium 4gm in 100ml NS 100 ML IV PRN (01:10)
[2018-09-21] MEDS: furosemide 20 MG/2 ML vial IV SCH ×3 (01:34→20:46)
[2018-09-21 01:41] LABS: ABG HCO3 37.6 mmol/L (22.0-26.0); ABG OXYGEN SATURATION 90.1 % (95-98); ABG PCO2 (T) 61.6 mmHg (32.0-45.0); ABG PH (T) 7.401 (7.350-7.450); ABG PO2 (T) 56.1 mmHg (83-108); ALLEN'S TEST Positive; FCOHb 4.7 % (0.5-1.5); FLOW 4 L/min; FMetHb 0.2 % (0.3-1.12); FO2Hb 85.7 % (94-100); PATIENT TEMPERATURE 36.5; RESPIRATORY RATE (OBSERVED) 16 b/min; TOTAL HEMOGLOBIN 14.8 G/dl (12.0-16.0)
[2018-09-21 05:30] VITALS: BP 144/88
--- NOTE | 2018-09-21 05:30 | NUR ---
Patient arrived on floor via gurney from ED, after receiving report from Rosetta HEADLEY. Patient ambulated to be with minimal assistance. Patient is on 4L NC, respiratory at bedside to set up Bipap for STORM, patient placed on pharmacy technician program director, vitals taken. Patient's belongings accompanied.
[2018-09-21] MEDS ORDERED: LORA-269 PO (05:31)
[2018-09-21] MEDS: ipratropium/albuterol 3ml nebule NEB PRN ×2 (05:43→19:54)
[2018-09-21 06:00] VITALS: BP 108/85
[2018-09-21] MEDS: K and/or MAG REPLACEMENT MC SCH (08:00)
[2018-09-21] MEDS: methylPREDNISolone sod succ 125mg/2ml vial IV SCH ×2 (08:24→16:21)
[2018-09-21] MEDS: aspirin 325mg tablet, delayed-release (Ecotrin) PO SCH (08:24)
--- NOTE | 2018-09-21 10:28 | NUR ---
PAGER ID: [phone] MESSAGE: Dr. Blair, can I get an order for a Nicotine patch for pt Yonas in 5871L. She said she is on step 1. Art, 1911
[2018-09-21 11:00] VITALS: BP 131/70
--- NOTE | 2018-09-21 12:33 | NUR ---
PAGER ID: [phone] MESSAGE: Dr. Blair, Pt Yonas in 2039U O2 sat is reading around 84-87% on 3L. She says that she does not feel like she is in any distress, and she shows no signs. Last ABG showed low 90's. Art, [id number]
--- NOTE | 2018-09-21 13:30 | NUR ---
Pt offered bipap and refused it.
[2018-09-21] MEDS: nicotine 14mg patch - 24hr TD SCH (13:32)
[2018-09-21 15:00] VITALS: BP 122/73
--- NOTE | 2018-09-21 18:04 | NUR ---
Problems reprioritized. Patient report given, questions answered & plan of care reviewed with FANG Martin.
--- NOTE | 2018-09-21 18:24 | NUR ---
Problems reprioritized. Patient report given, questions answered & plan of care reviewed with FANG Rg.
[2018-09-21 19:00] VITALS: BP 130/85
[2018-09-21] MEDS: carBAMazepine 100mg chewable tablet PO SCH (22:39)
[2018-09-21 23:00] VITALS: BP 115/75
--- NOTE | 2018-09-21 23:13 | NUR ---
PAGER ID: [phone] MESSAGE: Amy Moses room 3027-A needs to resume her Cardizem SR 60 mg capsule, BID, please look into that. Thanks, Shannon HEADLEY, [phone]
[2018-09-22] MEDS: methylPREDNISolone sod succ 125mg/2ml vial IV SCH ×3 (00:37→16:05)
[2018-09-22] MEDS: diltiazem 30mg tablet PO SCH ×4 (02:14→20:36)
[2018-09-22] MEDS: gabapentin 100mg capsule PO SCH ×3 (02:15→16:20)
[2018-09-22 03:00] VITALS: BP 137/79
[2018-09-22 05:09] LABS: BASOPHILS % (AUTO) 0 % (0-1); EOSINOPHILS % (AUTO) 0 % (0-6); HEMATOCRIT 43.8 % (35.0-45.0); HEMOGLOBIN 14.1 g/dl (12.0-16.0); LYMPHOCYTES # (AUTO) 0.8 X10'3 (1.1-4.8); MEAN CORPUSCULAR HEMOGLOBIN 28.8 PG (27.0-31.0); MEAN CORPUSCULAR HGB CONC 32.1 % (33.0-36.5); MEAN CORPUSCULAR VOLUME 89.6 FL (78-98); MEAN PLATELET VOLUME 8.1 FL (7.4-10.4); MONOCYTES # (AUTO) 0.2 X10'3 (0-0.9); MONOCYTES % (AUTO) 2.9 % (2-12); NEUTROPHILS % (AUTO) 87.1 % (42-75); PLATELET COUNT 230 X10'3 (140-440); RED BLOOD COUNT 4.89 X10'6 (4.20-5.60); RED CELL DISTRIBUTION WIDTH 23.3 % (11.5-14.5); WHITE BLOOD COUNT 8.1 X10'3 (4.5-11.0)
[2018-09-22 05:31] LABS: ALANINE AMINOTRANSFERASE 22 U/L (12-78); ALBUMIN 3.2 G/DL (3.4-5.0); ALBUMIN/GLOBULIN RATIO 0.9 (1.1-1.5); ALKALINE PHOSPHATASE 115 IU/L (46-116); ANION GAP 6 (8-16); ASPARTATE AMINO TRANSFERASE 18 U/L (10-37); BILIRUBIN,TOTAL 0.3 MG/DL (0.1-1.0); BLOOD UREA NITROGEN 14 MG/DL (7-18); BUN/CREATININE RATIO 16.3 (6.6-38.0); CALCIUM 8.6 MG/DL (8.5-10.1); CHLORIDE 93 MMOL/L (99-107); CHOL/HDL RATIO 2.3 (0.00-4.99); CHOLESTEROL 171 MG/DL (0-200); CREATININE 0.86 MG/DL (0.40-0.90); GLUCOSE 111 MG/DL (70-104); HDL CHOLESTEROL 76 MG/DL (35-60); LDL CHOLESTEROL 84 MG/DL (50-100); MAGNESIUM 1.6 MG/DL (1.5-2.4); POTASSIUM 3.8 MMOL/L (3.5-5.1); SODIUM 138 MMOL/L (135-145); TOTAL CARBON DIOXIDE 38.7 MMOL/L (24-32); TOTAL PROTEIN 6.8 G/DL (6.4-8.2); TRIGLYCERIDES 33 MG/DL (20-135); eGFR 70 ML/MIN
[2018-09-22 06:00] VITALS: BP 98/59
--- NOTE | 2018-09-22 06:30 | NUR ---
Patient in room PCU 3027. I have received report from Bowen HEADLEY and had the opportunity to ask questions and assume patient care. Patient is resting comfortably in bed, wearing bi-pap. In no acute distress. Will continue to monitor.
--- NOTE | 2018-09-22 06:30 | NUR ---
Patient in room PCU 3027. I have received report from FANG Lomeli and FANG Ortega and had the opportunity to ask questions and assume patient care. Observed pt resting comfortably in bed, noticed chest rise and fall.
--- NOTE | 2018-09-22 06:45 | NUR ---
Orientee documentation: I have reviewed and agree with all interventions, assessments performed and documented by Shannon HEADLEY.
[2018-09-22] MEDS: aspirin 325mg tablet, delayed-release (Ecotrin) PO SCH (07:56)
[2018-09-22] MEDS: methadone 10mg tablet PO SCH ×3 (07:57→20:36)
[2018-09-22] MEDS: carBAMazepine 100mg chewable tablet PO SCH ×4 (07:58→20:36)
[2018-09-22] MEDS: furosemide 20 MG/2 ML vial IV SCH ×2 (07:59→20:35)
[2018-09-22] MEDS ORDERED: diltiazem SR 60mg capsule (twice daily) PO SCH (08:00)
[2018-09-22] MEDS: K and/or MAG REPLACEMENT MC SCH (08:00)
[2018-09-22] MEDS: nicotine 14mg patch - 24hr TD SCH (08:03)
[2018-09-22 09:49] LABS: ANISOCYTOSIS 3+; PLATELET ESTIMATE NORMAL
[2018-09-22 09:50] LABS: GIANT PLATELET FEW; HYPOCHROMASIA 1+; LARGE PLATELETS FEW; TARGET CELLS 1+
[2018-09-22 09:51] LABS: POLYCHROMASIA FEW
[2018-09-22 11:00] VITALS: BP 96/72
--- NOTE | 2018-09-22 12:40 | NUR ---
Patient is complaining of SOB and would like neb treatment. Paged RT.
[2018-09-22] MEDS: ipratropium/albuterol 3ml nebule NEB PRN ×2 (14:51→19:59)
[2018-09-22 15:00] VITALS: BP 135/102
--- NOTE | 2018-09-22 18:30 | NUR ---
Problems reprioritized. Patient report given, questions answered & plan of care reviewed with Armani HEADLEY.
[2018-09-22 19:00] VITALS: BP 102/63
[2018-09-22 23:00] VITALS: BP 134/74
[2018-09-23] VITALS (13 sets, daily range): BP systolic 109–165; BP diastolic 58–101
[2018-09-23] MEDS: methylPREDNISolone sod succ 125mg/2ml vial IV SCH ×3 (00:25→15:51)
[2018-09-23] MEDS: diltiazem 30mg tablet PO SCH ×4 (02:46→20:52)
[2018-09-23] MEDS: gabapentin 100mg capsule PO SCH ×3 (02:47→17:00)
[2018-09-23 05:08] LABS: BASOPHILS % (AUTO) 0.4 % (0-1); EOSINOPHILS % (AUTO) 0 % (0-6); HEMATOCRIT 43.1 % (35.0-45.0); HEMOGLOBIN 13.5 g/dl (12.0-16.0); LYMPHOCYTES # (AUTO) 0.8 X10'3 (1.1-4.8); LYMPHOCYTES % (AUTO) 8.3 % (21-51); MEAN CORPUSCULAR HEMOGLOBIN 28.2 PG (27.0-31.0); MEAN CORPUSCULAR HGB CONC 31.3 % (33.0-36.5); MEAN CORPUSCULAR VOLUME 90.1 FL (78-98); MEAN PLATELET VOLUME 8.4 FL (7.4-10.4); MONOCYTES # (AUTO) 0.3 X10'3 (0-0.9); MONOCYTES % (AUTO) 3.8 % (2-12); NEUTROPHILS # (AUTO) 8.1 X10'3 (1.8-7.7); NEUTROPHILS % (AUTO) 87.5 % (42-75); PLATELET COUNT 217 X10'3 (140-440); RED BLOOD COUNT 4.78 X10'6 (4.20-5.60); RED CELL DISTRIBUTION WIDTH 23.1 % (11.5-14.5); WHITE BLOOD COUNT 9.3 X10'3 (4.5-11.0)
[2018-09-23 05:39] LABS: ALANINE AMINOTRANSFERASE 18 U/L (12-78); ALBUMIN/GLOBULIN RATIO 0.9 (1.1-1.5); ALKALINE PHOSPHATASE 99 IU/L (46-116); ANION GAP 3 (8-16); ASPARTATE AMINO TRANSFERASE 14 U/L (10-37); BILIRUBIN,TOTAL 0.3 MG/DL (0.1-1.0); BLOOD UREA NITROGEN 18 MG/DL (7-18); BUN/CREATININE RATIO 26.9 (6.6-38.0); CALCIUM 8.2 MG/DL (8.5-10.1); CHLORIDE 93 MMOL/L (99-107); CREATININE 0.67 MG/DL (0.40-0.90); GLUCOSE 98 MG/DL (70-104); MAGNESIUM 1.7 MG/DL (1.5-2.4); POTASSIUM 4.1 MMOL/L (3.5-5.1); SODIUM 134 MMOL/L (135-145); TOTAL PROTEIN 6.4 G/DL (6.4-8.2); eGFR > 90 ML/MIN
--- NOTE | 2018-09-23 06:13 | NUR ---
Problems reprioritized. Patient report given, questions answered & plan of care reviewed with Lora HEADLEY.
--- NOTE | 2018-09-23 06:20 | NUR ---
Patient in room PCU 3027. I have received report from FANG Lomeli and FANG Ortega and had the opportunity to ask questions and assume patient care. Pt Awake and upright in bed and no acute distress.
--- NOTE | 2018-09-23 06:22 | NUR ---
Orientee documentation: I have reviewed and agree with all interventions, assessments performed and documented by Shannon HEADLEY. Orientee Medication Administration: For this medication-pass time frame, all medication were reviewed, dispensed, administered and documented per hospital policy by Shannon HEADLEY.
--- NOTE | 2018-09-23 06:24 | NUR ---
Patient in room PCU 3027. I have received report from Armani HEADLEY and had the opportunity to ask questions and assume patient care. Patient is sitting on edge of bed. In no acute distress. Will continue to monitor.
[2018-09-23 06:35] LABS: ANISOCYTOSIS 3+; GIANT PLATELET FEW; PLATELET ESTIMATE NORMAL; POLYCHROMASIA FEW
[2018-09-23 06:36] LABS: TARGET CELLS FEW
[2018-09-23] MEDS: K and/or MAG REPLACEMENT MC SCH (08:00)
[2018-09-23] MEDS: furosemide 20 MG/2 ML vial IV SCH ×2 (08:03→22:31)
[2018-09-23] MEDS: aspirin 325mg tablet, delayed-release (Ecotrin) PO SCH (08:03)
[2018-09-23] MEDS: carBAMazepine 100mg chewable tablet PO SCH ×4 (08:04→22:45)
[2018-09-23] MEDS: methadone 10mg tablet PO SCH ×3 (08:04→20:32)
[2018-09-23] MEDS: nicotine 14mg patch - 24hr TD SCH (08:05)
--- NOTE | 2018-09-23 10:11 | NUR ---
Paged Dr. Velazquez PAGER ID: [phone] MESSAGE: Josef DOMINIQUE [phone]. RE; Amy Branham [phone]. Pt would like caffeinated beverages. Per dietary there is still active diet order for HH. Which excludes caffeine. Please advise if we can change diet to regular
[2018-09-23] MEDS: ipratropium/albuterol 3ml nebule NEB PRN (16:00)
[2018-09-23] MEDS ORDERED: fentaNYL/PF 50MCG/1 ML 2ML syringe ONE (16:25)
[2018-09-23] MEDS ORDERED: midazolam 2 mg/2 ml injection ONE (16:25)
[2018-09-23] MEDS ORDERED: iohexol 350MG/ML 100ml bottle IV ONE (16:26)
[2018-09-23] MEDS ORDERED: LIDOcaine 1% (10mg/ml)w/preservative injection 20ml MDV ONE (16:26)
--- NOTE | 2018-09-23 17:50 | NUR ---
Patient to chemical laboratory tester.
[2018-09-23] MEDS ORDERED: hydrALAZINE 20mg/ml inj. IV ONE (18:25)
--- NOTE | 2018-09-23 18:30 | NUR ---
Problems reprioritized. Patient report given, questions answered & plan of care reviewed with FANG Lomeli and FANG Ortega
--- NOTE | 2018-09-23 18:33 | NUR ---
Orientee documentation: I have reviewed and agree with all interventions, assessments performed and documented by Josef HEADLEY . Student Medication Administration: For this medication-pass time frame, all medication were reviewed, dispensed, administered and documented per hospital policy by Josef HEADLEY.
[2018-09-23] MEDS ORDERED: acetaminophen 325mg tablet PO PRN (19:05)
[2018-09-23] MEDS ORDERED: ondansetron/PF 4mg/2ml inj IV PRN (19:05)
[2018-09-23] MEDS ORDERED: HYDROcodone/acetaminophen 5mg/325mg tablet PO PRN (19:05)
[2018-09-23] MEDS ORDERED: nitroGLYCERIN 0.4mg SUBLingual tab SL PRN (19:05)
[2018-09-23] MEDS ORDERED: proCHLORperazine 10 MG/2 ml inj IV PRN (19:05)
[2018-09-23] MEDS ORDERED: hydrALAZINE 20mg/ml inj. IV PRN (19:05)
[2018-09-23] MEDS: OXAZEpam 15mg capsule PO PRN (20:07)
[2018-09-23] MEDS: HYDROcodone/acetaminophen 10/325mg tab PO PRN (20:31)
[2018-09-24] VITALS (7 sets, daily range): BP systolic 92–142; BP diastolic 58–94
[2018-09-24] MEDS: methylPREDNISolone sod succ 125mg/2ml vial IV SCH ×4 (00:40→23:30)
[2018-09-24] MEDS: gabapentin 100mg capsule PO SCH ×4 (00:45→23:30)
[2018-09-24] MEDS: ipratropium/albuterol 3ml nebule NEB PRN ×3 (01:54→20:13)
[2018-09-24] MEDS: diltiazem 30mg tablet PO SCH ×4 (02:39→21:23)
[2018-09-24] MEDS: HYDROcodone/acetaminophen 10/325mg tab PO PRN (02:39)
[2018-09-24 05:08] LABS: BASOPHILS % (AUTO) 0 % (0-1); EOSINOPHILS # (AUTO) 0.2 X10'3 (0-0.9); EOSINOPHILS % (AUTO) 1.8 % (0-6); HEMATOCRIT 42.2 % (35.0-45.0); HEMOGLOBIN 13.5 g/dl (12.0-16.0); LYMPHOCYTES # (AUTO) 0.5 X10'3 (1.1-4.8); LYMPHOCYTES % (AUTO) 4.8 % (21-51); MEAN CORPUSCULAR HGB CONC 32.1 g/dL (33.0-36.5); MEAN CORPUSCULAR VOLUME 90.4 FL (78-98); MEAN PLATELET VOLUME 8.3 FL (7.4-10.4); MONOCYTES # (AUTO) 0.4 X10'3 (0-0.9); MONOCYTES % (AUTO) 4.1 % (2-12); NEUTROPHILS # (AUTO) 8.7 X10'3 (1.8-7.7); NEUTROPHILS % (AUTO) 89.3 % (42-75); PLATELET COUNT 215 X10'3 (140-440); RED BLOOD COUNT 4.67 X10'6 (4.20-5.60); RED CELL DISTRIBUTION WIDTH 22.9 % (11.5-14.5); WHITE BLOOD COUNT 9.8 X10'3 (4.5-11.0)
[2018-09-24 05:25] LABS: ALANINE AMINOTRANSFERASE 22 U/L (12-78); ALBUMIN 2.9 G/DL (3.4-5.0); ALBUMIN/GLOBULIN RATIO 0.9 (1.1-1.5); ALKALINE PHOSPHATASE 95 IU/L (46-116); ANION GAP 5 (8-16); ASPARTATE AMINO TRANSFERASE 18 U/L (10-37); BILIRUBIN,TOTAL 0.3 MG/DL (0.1-1.0); BLOOD UREA NITROGEN 19 MG/DL (7-18); BUN/CREATININE RATIO 23.2 (6.6-38.0); CALCIUM 8.4 MG/DL (8.5-10.1); CHLORIDE 93 MMOL/L (99-107); CHOL/HDL RATIO 2.4 (0.00-4.99); CHOLESTEROL 172 MG/DL (0-200); CREATININE 0.82 MG/DL (0.40-0.90); GLUCOSE 161 MG/DL (70-104); HDL CHOLESTEROL 72 MG/DL (35-60); LDL CHOLESTEROL 84 MG/DL (50-100); MAGNESIUM 1.7 MG/DL (1.5-2.4); POTASSIUM 3.9 MMOL/L (3.5-5.1); SODIUM 136 MMOL/L (135-145); TOTAL PROTEIN 6.2 G/DL (6.4-8.2); TRIGLYCERIDES 77 MG/DL (20-135); eGFR 74 ML/MIN
--- NOTE | 2018-09-24 06:26 | NUR ---
Problems reprioritized. Patient report given, questions answered & plan of care reviewed with Anthony FRANCES
--- NOTE | 2018-09-24 06:30 | NUR ---
Patient in room PCU 3027. I have received report from Armani HEADLEY and Shannon HEADLEY and had the opportunity to ask questions and assume patient care.
[2018-09-24 06:46] LABS: ANISOCYTOSIS 3+; PLATELET ESTIMATE NORMAL; TARGET CELLS FEW
[2018-09-24] MEDS: K and/or MAG REPLACEMENT MC SCH (08:00)
[2018-09-24] MEDS: furosemide 20 MG/2 ML vial IV SCH ×2 (08:30→21:23)
[2018-09-24] MEDS: carBAMazepine 100mg chewable tablet PO SCH ×4 (08:31→21:27)
[2018-09-24] MEDS: aspirin 325mg tablet, delayed-release (Ecotrin) PO SCH (08:31)
[2018-09-24] MEDS: methadone 10mg tablet PO SCH ×3 (08:31→21:23)
[2018-09-24] MEDS: nicotine 14mg patch - 24hr TD SCH (08:32)
--- NOTE | 2018-09-24 11:23 | NUR ---
Page sent to Dr. Velazquez: PAGER ID: [phone] MESSAGE: [phone] Amy Branham: Patient had chest pain, 12 lead EKG obtained. Chest pain has now resolved. Can I meet you somewhere to get the EKG signed? Thanks, Sandra [phone]
--- NOTE | 2018-09-24 18:31 | NUR ---
Problems reprioritized. Patient report given, questions answered & plan of care reviewed with Deep RN. Patient stable at transfer of care.
[2018-09-25] MEDS: diltiazem 30mg tablet PO SCH ×4 (02:39→20:08)
[2018-09-25 03:00] VITALS: BP 116/78
[2018-09-25 05:44] LABS: BASOPHILS % (AUTO) 0 % (0-1); EOSINOPHILS # (AUTO) 0.1 X10'3 (0-0.9); EOSINOPHILS % (AUTO) 0.7 % (0-6); HEMATOCRIT 42.6 % (35.0-45.0); HEMOGLOBIN 13.4 g/dl (12.0-16.0); LYMPHOCYTES # (AUTO) 0.5 X10'3 (1.1-4.8); LYMPHOCYTES % (AUTO) 6.4 % (21-51); MEAN CORPUSCULAR HEMOGLOBIN 28.5 PG (27.0-31.0); MEAN CORPUSCULAR HGB CONC 31.5 g/dL (33.0-36.5); MEAN CORPUSCULAR VOLUME 90.4 FL (78-98); MEAN PLATELET VOLUME 8.2 FL (7.4-10.4); MONOCYTES # (AUTO) 0.3 X10'3 (0-0.9); MONOCYTES % (AUTO) 4.1 % (2-12); NEUTROPHILS # (AUTO) 7.5 X10'3 (1.8-7.7); NEUTROPHILS % (AUTO) 88.8 % (42-75); PLATELET COUNT 213 X10'3 (140-440); RED BLOOD COUNT 4.71 X10'6 (4.20-5.60); RED CELL DISTRIBUTION WIDTH 21.8 % (11.5-14.5); WHITE BLOOD COUNT 8.4 X10'3 (4.5-11.0)
[2018-09-25 06:00] VITALS: BP 178/120
[2018-09-25 06:01] LABS: ALANINE AMINOTRANSFERASE 25 U/L (12-78); ALBUMIN/GLOBULIN RATIO 0.9 (1.1-1.5); ALKALINE PHOSPHATASE 93 IU/L (46-116); ANION GAP 2 (8-16); ASPARTATE AMINO TRANSFERASE 15 U/L (10-37); BILIRUBIN,TOTAL 0.3 MG/DL (0.1-1.0); BLOOD UREA NITROGEN 23 MG/DL (7-18); BUN/CREATININE RATIO 31.1 (6.6-38.0); CALCIUM 8.1 MG/DL (8.5-10.1); CHLORIDE 94 MMOL/L (99-107); CREATININE 0.74 MG/DL (0.40-0.90); GLUCOSE 105 MG/DL (70-104); MAGNESIUM 2.1 MG/DL (1.5-2.4); POTASSIUM 3.9 MMOL/L (3.5-5.1); SODIUM 135 MMOL/L (135-145); TOTAL CARBON DIOXIDE 39.3 MMOL/L (24-32); TOTAL PROTEIN 6.4 G/DL (6.4-8.2); eGFR 83 ML/MIN
[2018-09-25] MEDS: K and/or MAG REPLACEMENT MC SCH (08:00)
[2018-09-25] MEDS: furosemide 20 MG/2 ML vial IV SCH ×2 (08:03→20:09)
[2018-09-25] MEDS: methylPREDNISolone sod succ 125mg/2ml vial IV SCH ×3 (08:03→23:58)
[2018-09-25] MEDS: aspirin 325mg tablet, delayed-release (Ecotrin) PO SCH (08:04)
[2018-09-25] MEDS: methadone 10mg tablet PO SCH ×3 (08:04→20:08)
[2018-09-25] MEDS: carBAMazepine 100mg chewable tablet PO SCH ×4 (08:04→20:08)
[2018-09-25] MEDS: gabapentin 100mg capsule PO SCH ×3 (08:04→23:58)
[2018-09-25] MEDS: nicotine 14mg patch - 24hr TD SCH (08:05)
[2018-09-25 11:00] VITALS: BP 104/72
[2018-09-25] MEDS: ipratropium/albuterol 3ml nebule NEB PRN ×3 (12:36→20:23)
--- NOTE | 2018-09-25 15:04 | NUR ---
Initial: Pt admit w/ SOB s/p cardiac cath and in need of AVR per MD note. PO 100% regular diet meeting needs but has decreased to 0% breakfast today. Will monitor for additional protein needs and education needs if to have AVR surgery this admit. LBM 09/21. Rec: 1. continue regular diet per MD 2. monitor for high pro ed is to have AVR this admit 3. monitor for ONS needs 4. wt per rx Addendum: 09/25/18 at [address] Amended: Links added.
[2018-09-25] MEDS: OXAZEpam 15mg capsule PO PRN (16:51)
--- NOTE | 2018-09-25 18:45 | NUR ---
Problems reprioritized. Patient report given, questions answered & plan of care reviewed with FANG PASCAL.
[2018-09-25 19:00] VITALS: BP 151/89
[2018-09-25] MEDS ORDERED: polyethylene glycol 3350 17gm powd pack PO SCH (21:00)
[2018-09-25 23:00] VITALS: BP 111/78
[2018-09-26] MEDS: ipratropium/albuterol 3ml nebule NEB PRN (00:01)
[2018-09-26] MEDS: diltiazem 30mg tablet PO SCH ×3 (02:00→14:19)
[2018-09-26 03:00] VITALS: BP 104/62
[2018-09-26 06:30] VITALS: BP 166/81
--- NOTE | 2018-09-26 06:51 | NUR ---
Patient in room PCU 3027. I have received report from FANG PASCAL and had the opportunity to ask questions and assume patient care.
[2018-09-26 07:03] LABS: BASOPHILS % (AUTO) 0 % (0-1); EOSINOPHILS # (AUTO) 0.1 X10'3 (0-0.9); EOSINOPHILS % (AUTO) 1.1 % (0-6); HEMATOCRIT 46.5 % (35.0-45.0); HEMOGLOBIN 14.6 g/dl (12.0-16.0); LYMPHOCYTES # (AUTO) 0.6 X10'3 (1.1-4.8); LYMPHOCYTES % (AUTO) 6.2 % (21-51); MEAN CORPUSCULAR HEMOGLOBIN 28.8 PG (27.0-31.0); MEAN CORPUSCULAR HGB CONC 31.5 g/dL (33.0-36.5); MEAN CORPUSCULAR VOLUME 91.5 FL (78-98); MEAN PLATELET VOLUME 8.4 FL (7.4-10.4); MONOCYTES # (AUTO) 0.3 X10'3 (0-0.9); MONOCYTES % (AUTO) 2.7 % (2-12); NEUTROPHILS # (AUTO) 8.5 X10'3 (1.8-7.7); PLATELET COUNT 220 X10'3 (140-440); RED BLOOD COUNT 5.08 X10'6 (4.20-5.60); WHITE BLOOD COUNT 9.4 X10'3 (4.5-11.0)
[2018-09-26 07:18] LABS: ALANINE AMINOTRANSFERASE 30 U/L (12-78); ALBUMIN 3.5 G/DL (3.4-5.0); ALBUMIN/GLOBULIN RATIO 0.9 (1.1-1.5); ANION GAP 6 (8-16); ASPARTATE AMINO TRANSFERASE 18 U/L (10-37); BILIRUBIN,TOTAL 0.4 MG/DL (0.1-1.0); BLOOD UREA NITROGEN 25 MG/DL (7-18); BUN/CREATININE RATIO 31.3 (6.6-38.0); CALCIUM 8.6 MG/DL (8.5-10.1); CHLORIDE 92 MMOL/L (99-107); GLUCOSE 100 MG/DL (70-104); MAGNESIUM 2.1 MG/DL (1.5-2.4); POTASSIUM 3.8 MMOL/L (3.5-5.1); SODIUM 137 MMOL/L (135-145); TOTAL CARBON DIOXIDE 39.4 MMOL/L (24-32); TOTAL PROTEIN 7.2 G/DL (6.4-8.2); eGFR 76 ML/MIN
[2018-09-26 07:19] LABS: ALKALINE PHOSPHATASE 103 IU/L (46-116)
[2018-09-26 07:32] LABS: ANISOCYTOSIS 3+; PLATELET ESTIMATE NORMAL; POIKILOCYTOSIS 1+; POLYCHROMASIA FEW; TARGET CELLS FEW
[2018-09-26] MEDS: methylPREDNISolone sod succ 125mg/2ml vial IV SCH (07:32)
[2018-09-26] MEDS: furosemide 20 MG/2 ML vial IV SCH (07:32)
[2018-09-26] MEDS: carBAMazepine 100mg chewable tablet PO SCH ×2 (07:33→12:55)
[2018-09-26] MEDS: gabapentin 100mg capsule PO SCH (07:33)
[2018-09-26] MEDS: methadone 10mg tablet PO SCH ×2 (07:33→12:55)
[2018-09-26] MEDS: aspirin 325mg tablet, delayed-release (Ecotrin) PO SCH (07:33)
[2018-09-26] MEDS: nicotine 14mg patch - 24hr TD SCH (07:34)
[2018-09-26 07:41] VITALS: BP 143/103
[2018-09-26] MEDS: K and/or MAG REPLACEMENT MC SCH (08:00)
[2018-09-26 11:00] VITALS: BP 140/91
[2018-09-26] MEDS: OXAZEpam 15mg capsule PO PRN (11:02)
--- NOTE | 2018-09-26 13:17 | NUR ---
REPORT CALLED TO FANG MATTHEWS AT [facility]
--- NOTE | 2018-09-26 14:35 | NUR ---
PT TRANSPORTED BY [facility] TO [facility], ALL BELONGINGS SENT WITH PT. TRANSFER PACKET AND AMBULANCE PACKET GIVEN TO JAVA SUPPORT ENGINEER. PTS FAMILY AT BEDSIDE AND AWARE OF TRANSFER. PT IN STABLE CONDITION.
== END 2018-09-26 14:35 | disposition short-term general hospital (02) | DRG 286 ==
LOC: ER 23:03 → ED HOLD 09-21 01:06 → PCU 3S 09-21 05:12
PROVIDERS: ADMIT Family Medicine; ATTEND Internal Medicine
PROC: 5A09357 Assistance with Respiratory Ventilation, Less than 24 Consecutive Hours, Continuous Positive Airway Pressure (ICD-10-PCS; 2018-09-21)
PROC: 5A09357 Assistance with Respiratory Ventilation, Less than 24 Consecutive Hours, Continuous Positive Airway Pressure (ICD-10-PCS; 2018-09-22)
PROC: 4A023N7 Measurement of Cardiac Sampling and Pressure, Left Heart, Percutaneous Approach (ICD-10-PCS; 2018-09-23)
PROC: B2111ZZ Fluoroscopy of Multiple Coronary Arteries using Low Osmolar Contrast (ICD-10-PCS; 2018-09-23)
PROC: B2151ZZ Fluoroscopy of Left Heart using Low Osmolar Contrast (ICD-10-PCS; 2018-09-23)
PROC: 5A09357 Assistance with Respiratory Ventilation, Less than 24 Consecutive Hours, Continuous Positive Airway Pressure (ICD-10-PCS; 2018-09-24)
PROC: 5A09357 Assistance with Respiratory Ventilation, Less than 24 Consecutive Hours, Continuous Positive Airway Pressure (ICD-10-PCS; principal; 2018-09-26)
DX: I11.0 Hypertensive heart disease with heart failure (principal); J96.20 Acute and chronic respiratory failure, unspecified whether with hypoxia or hypercapnia; J44.1 Chronic obstructive pulmonary disease with (acute) exacerbation; I50.33 Acute on chronic diastolic (congestive) heart failure; I35.0 Nonrheumatic aortic (valve) stenosis; F17.210 Nicotine dependence, cigarettes, uncomplicated; G47.33 Obstructive sleep apnea (adult) (pediatric); G89.4 Chronic pain syndrome; I25.10 Atherosclerotic heart disease of native coronary artery without angina pectoris; I25.82 Chronic total occlusion of coronary artery; E66.9 Obesity, unspecified; K59.00 Constipation, unspecified; E78.5 Hyperlipidemia, unspecified; F41.9 Anxiety disorder, unspecified; M54.9 Dorsalgia, unspecified; Z91.018 Allergy to other foods; Z79.82 Long term (current) use of aspirin; Z79.891 Long term (current) use of opiate analgesic; Z86.73 Personal history of transient ischemic attack (TIA), and cerebral infarction without residual deficits; Z82.49 Family history of ischemic heart disease and other diseases of the circulatory system; Z82.5 Family history of asthma and other chronic lower respiratory diseases; Z83.3 Family history of diabetes mellitus; Z80.42 Family history of malignant neoplasm of prostate; Z80.9 Family history of malignant neoplasm, unspecified; Z68.37 Body mass index [BMI] 37.0-37.9, adult; Z71.6 Tobacco abuse counseling
CPT/HCPCS: 36415; 36600; 71045; 80053; 80061; 82803; 83735; 83880; 84484; 85018; 85025; 85610; 85730; 87070; 93005; 93458; 94640; 94660; 94667; 94760; 96374; 99152; 99153; 99285; A6257; C1769; G0378; J0360; J1644; J1940; J2001; J2250; J2930; J3010; Q9967

== ENCOUNTER 2019-11-02 20:16 | Inpatient (IN) | payer MEDICARE, MEDICAID ==
[~2019-11-02] VITALS: Ht 160 cm; Wt 105.0 kg
[~2019-11-02 20:16] MED LIST changes: -CARSR60C PO; +LORA-269 PO; +MAGN400T28 PO; -MAGN400T6 PO; -NICO-687 TD; -POLY17PO10 PO; -PRED10TA23 PO; +SIMV-42 PO; -SIMV20TA5 PO
[2019-11-02 20:36] LABS: BASOPHILS % (AUTO) 0.5 % (0-1); EOSINOPHILS % (AUTO) 0 % (0-6); HEMATOCRIT 43.6 % (35.0-45.0); HEMOGLOBIN 14.8 g/dl (12.0-16.0); LYMPHOCYTES # (AUTO) 1.1 X10'3 (1.1-4.8); LYMPHOCYTES % (AUTO) 13.5 % (21-51); MEAN CORPUSCULAR HEMOGLOBIN 33.1 PG (27.0-31.0); MEAN CORPUSCULAR HGB CONC 33.9 g/dL (33.0-36.5); MEAN CORPUSCULAR VOLUME 97.6 FL (78-98); MEAN PLATELET VOLUME 7.5 FL (7.4-10.4); MONOCYTES # (AUTO) 0.6 X10'3 (0-0.9); MONOCYTES % (AUTO) 7.6 % (2-12); NEUTROPHILS # (AUTO) 6.5 X10'3 (1.8-7.7); NEUTROPHILS % (AUTO) 78.4 % (42-75); PLATELET COUNT 238 X10'3 (140-440); RED BLOOD COUNT 4.47 X10'6 (4.20-5.60); RED CELL DISTRIBUTION WIDTH 13.8 % (11.5-14.5); WHITE BLOOD COUNT 8.3 X10'3 (4.5-11.0)
[2019-11-02 20:49] LABS: ALANINE AMINOTRANSFERASE 18 U/L (12-78); ALBUMIN 3.1 G/DL (3.4-5.0); ALBUMIN/GLOBULIN RATIO 0.8 (1.1-1.5); ALKALINE PHOSPHATASE 145 IU/L (46-116); ANION GAP -1 (8-16); ASPARTATE AMINO TRANSFERASE 22 U/L (10-37); BILIRUBIN,TOTAL 0.2 MG/DL (0.1-1.0); BLOOD UREA NITROGEN 13 MG/DL (7-18); CALCIUM 9.3 MG/DL (8.5-10.1); CHLORIDE 99 MMOL/L (99-107); CREATININE 0.81 MG/DL (0.40-0.90); GLUCOSE 109 MG/DL (70-104); POTASSIUM 3.9 MMOL/L (3.5-5.1); SODIUM 141 MMOL/L (135-145); eGFR 75 ML/MIN
[2019-11-02] MEDS ORDERED: TIOT4MIS3 (23:04)
[2019-11-02] MEDS ORDERED: ACET-1025 PO (23:04)
[2019-11-02] MEDS ORDERED: DOL10T PO (23:04)
[2019-11-02] MEDS ORDERED: ASPI81TA52 PO (23:04)
[2019-11-02] MEDS ORDERED: ATOR80TA PO (23:04)
[2019-11-02] MEDS ORDERED: CLOP75TA15 PO (23:04)
[2019-11-02] MEDS ORDERED: BUME1TAB8 PO (23:04)
[2019-11-02] MEDS ORDERED: POTA10TA19 PO (23:04)
[2019-11-02] MEDS ORDERED: GABA-530 PO (23:04)
[2019-11-02] MEDS ORDERED: LEVO50TA8 PO (23:04)
[2019-11-02] MEDS ORDERED: METH-603 PO ×2 (23:04)
[2019-11-02] MEDS ORDERED: POLY17PO10 PO (23:04)
[2019-11-02] MEDS ORDERED: CefTRIAXone/D5W-Rocephin 1gm 50 ML IV ONE (23:05)
[2019-11-02] MEDS ORDERED: azithromycin 250mg tablet PO ONE (23:05)
[2019-11-02] MEDS ORDERED: furosemide 10 MG/1 ML 10ml inj IV ONE (23:05)
[2019-11-02 23:25] LABS: ABG BASE EXCESS 6.7 mmol/L (-2.0-3.0); ABG HCO3 33.8 mmol/L (22.0-26.0); ABG OXYGEN SATURATION 91.1 % (95-98); ABG PCO2 (T) 57.8 mmHg (35.0-45.0); ABG PH (T) 7.385 (7.350-7.450); ABG PO2 (T) 60.7 mmHg (83-108); ALLEN'S TEST POSITIVE; FCOHb 6.7 % (0.5-1.5); FLOW 4 L/min; FMetHb 0.1 % (0.3-1.12); FO2Hb 84.9 % (94-100); TOTAL HEMOGLOBIN 15.2 G/dl (12.0-16.0)
[2019-11-02] MEDS ORDERED: HYDROcodone/acetaminophen 10/325mg tab PO ONE (23:40)
[2019-11-03] VITALS (7 sets, daily range): BP systolic 111–145; BP diastolic 69–119
[2019-11-03] MEDS ORDERED: magnesium Cl slow-release 64mg tablet PO PRN (00:40)
[2019-11-03] MEDS ORDERED: magnesium 4gm in 100ml NS 100 ML IV PRN (00:40)
[2019-11-03] MEDS ORDERED: potassium Cl 20 mEq SR tablet PO PRN ×2 (00:40)
[2019-11-03] MEDS ORDERED: mag hydrox/Alum hydrox/simeth 30ml oral suspension PO PRN (00:40)
[2019-11-03] MEDS ORDERED: magnesium 2GM in 50ml NS 50 ML IV PRN (00:40)
[2019-11-03] MEDS ORDERED: magnesium hydroxide 30ml (MOM) UD suspension PO PRN (00:40)
[2019-11-03] MEDS ORDERED: ondansetron/PF 4mg/2ml inj IV PRN (00:40)
[2019-11-03] MEDS ORDERED: potassium CL 10mEq/100ml bag 100 ML IV PRN ×2 (00:40)
[2019-11-03] MEDS ORDERED: albuterol 2.5 MG/3 ML nebule NEB PRN (00:45)
[2019-11-03] MEDS ORDERED: non-formulary drug (Acetaminophen (Tylenol Extra Strength) 2 TAB) PO PRN (00:45)
--- NOTE | 2019-11-03 01:00 | NUR ---
I have received report from FANG Cassidy in ER and had the opportunity to ask questions. Awaiting patient arrival to 3022.
--- NOTE | 2019-11-03 01:15 | NUR ---
Patient up to floor via gurney. Patient placed on 4L NC and is saline locked with 20 G in R AC. Stable at this time. Belongings placed at bedside and in closet. Will continue to monitor closely.
[2019-11-03] MEDS: LORazepam 0.5 MG tablet PO PRN ×2 (02:35→11:40)
--- NOTE | 2019-11-03 06:23 | NUR ---
Patient in room U 3022. I have received report from FANG Olivares and had the opportunity to ask questions and assume patient care. Patient currently resting in bed, bed locked and low, call light in reach. C/o pain with no pain medication currently available. Will get heat packs as patient states these help the cramping in her legs. Will continue to monitor.
--- NOTE | 2019-11-03 06:37 | NUR ---
Problems reprioritized. Patient report given, questions answered & plan of care reviewed with FANG Cole.
[2019-11-03] MEDS: ipratropium/albuterol 3ml nebule NEB SCH ×5 (06:48→23:00)
[2019-11-03] MEDS: clopidogrel 75mg tablet PO SCH (07:08)
[2019-11-03] MEDS: methadone 10mg tablet PO SCH ×3 (07:08→21:00)
[2019-11-03] MEDS: gabapentin 100mg capsule PO SCH ×2 (07:08→16:27)
[2019-11-03] MEDS: potassium chloride 10mEq ER tablet PO SCH ×2 (07:08→20:00)
[2019-11-03] MEDS: aspirin 81mg tablet.DR PO SCH (07:08)
[2019-11-03] MEDS: carBAMazepine 100mg chewable tablet PO SCH ×4 (07:09→21:00)
[2019-11-03] MEDS: levoTHYROXINE 25mcg tablet PO SCH (07:09)
[2019-11-03] MEDS: bumetanide 0.25mg/ml 4ml vial IV SCH ×2 (07:10→20:00)
[2019-11-03] MEDS: K and/or MAG REPLACEMENT MC SCH ×2 (07:21→20:00)
[2019-11-03] MEDS: polyethylene glycol 3350 17gm powd pack PO SCH (07:21)
[2019-11-03] MEDS: acetaminophen 325mg tablet PO PRN (08:25)
[2019-11-03] MEDS: budesonide 0.5mg/2ml UD nebule IH SCH ×2 (09:35→21:09)
--- NOTE | 2019-11-03 09:55 | NUR ---
RT paged about ABG
[2019-11-03] MEDS ORDERED: baclofen 10mg tablet PO PRN (10:15)
[2019-11-03 10:51] LABS: ABG BASE EXCESS 7.4 mmol/L (-2.0-3.0); ABG HCO3 33.4 mmol/L (22.0-26.0); ABG OXYGEN SATURATION 91.4 % (95-98); ABG PCO2 (T) 51.6 mmHg (35.0-45.0); ABG PH (T) 7.429 (7.350-7.450); ABG PO2 (T) 58.9 mmHg (83-108); ALLEN'S TEST POSITIVE; FCOHb 2.3 % (0.5-1.5); FMetHb 0.1 % (0.3-1.12); FO2Hb 89.2 % (94-100); TOTAL HEMOGLOBIN 15.4 G/dl (12.0-16.0)
--- NOTE | 2019-11-03 11:50 | NUR ---
PAGER ID: [phone] MESSAGE: FANG Cole ext [phone], [phone], Yonas, patient states baclofen has not helped with leg cramping, unsure if she will be able to lie flat for MRI due to pain, O2 is doing ok
--- NOTE | 2019-11-03 18:10 | NUR ---
Problems reprioritized. Patient report given, questions answered & plan of care reviewed with Nino RN.
--- NOTE | 2019-11-03 18:30 | NUR ---
Patient in room PCU 3022. I have received report from Kelsey Waldrop RN and had the opportunity to ask questions and assume patient care.
[2019-11-03] MEDS: methylPREDNISolone sod succ/PF 40mg inj. IV SCH (20:00)
[2019-11-03 20:38] LABS: CREATINE KINASE 115 U/L (26-192)
[2019-11-03] MEDS: atorvastatin 20mg tablet PO SCH (21:00)
--- NOTE | 2019-11-03 22:25 | NUR ---
medication administration 1999 and 2099 meds were click administered. all proper measures were taken all medication were scanned and matched to pt via normal protocols, the WOW (work station on [employer]) and did not save all the progress after pt took medications and medications did not save. this "click" administration was done to ensure that the record reflected the medications that were given.
[2019-11-04] MEDS: gabapentin 100mg capsule PO SCH ×3 (00:06→17:12)
--- NOTE | 2019-11-04 00:59 | NUR ---
Patient in room PCU 3022. I have received report from FANG Oneill and had the opportunity to ask questions and assume patient care. Patient sleeping comfortably.
--- NOTE | 2019-11-04 01:00 | NUR ---
Problems reprioritized. Patient report given, questions answered & plan of care reviewed with Comfort srinivasan RN.
--- NOTE | 2019-11-04 02:02 | NUR ---
Patient was sleeping comfortably, but awoke when vital signs were taken. She is drowsy, but follows commands and is appropriate.
[2019-11-04 05:50] LABS: BASOPHILS % (AUTO) 0.4 % (0-1); EOSINOPHILS % (AUTO) 0 % (0-6); HEMATOCRIT 44.3 % (35.0-45.0); HEMOGLOBIN 14.9 g/dl (12.0-16.0); LYMPHOCYTES # (AUTO) 1.3 X10'3 (1.1-4.8); MEAN CORPUSCULAR HEMOGLOBIN 32.8 PG (27.0-31.0); MEAN CORPUSCULAR HGB CONC 33.6 g/dL (33.0-36.5); MEAN CORPUSCULAR VOLUME 97.7 FL (78-98); MEAN PLATELET VOLUME 7.4 FL (7.4-10.4); MONOCYTES # (AUTO) 0.5 X10'3 (0-0.9); MONOCYTES % (AUTO) 5.4 % (2-12); NEUTROPHILS # (AUTO) 7.3 X10'3 (1.8-7.7); NEUTROPHILS % (AUTO) 80.2 % (42-75); PLATELET COUNT 231 X10'3 (140-440); RED BLOOD COUNT 4.53 X10'6 (4.20-5.60); WHITE BLOOD COUNT 9.1 X10'3 (4.5-11.0)
[2019-11-04 06:00] VITALS: BP 96/53
--- NOTE | 2019-11-04 06:07 | NUR ---
Problems reprioritized. Patient report given, questions answered & plan of care reviewed with FANG Regan.
[2019-11-04 06:10] LABS: ALANINE AMINOTRANSFERASE 18 U/L (12-78); ALBUMIN 3.3 G/DL (3.4-5.0); ALBUMIN/GLOBULIN RATIO 0.8 (1.1-1.5); ALKALINE PHOSPHATASE 147 IU/L (46-116); ANION GAP -1 (8-16); ASPARTATE AMINO TRANSFERASE 21 U/L (10-37); BILIRUBIN,TOTAL 0.3 MG/DL (0.1-1.0); BLOOD UREA NITROGEN 15 MG/DL (7-18); BUN/CREATININE RATIO 19.2 (6.6-38.0); CALCIUM 8.3 MG/DL (8.5-10.1); CHLORIDE 96 MMOL/L (99-107); CREATININE 0.78 MG/DL (0.40-0.90); GLUCOSE 109 MG/DL (70-104); MAGNESIUM 1.9 MG/DL (1.5-2.4); POTASSIUM 4.7 MMOL/L (3.5-5.1); SODIUM 137 MMOL/L (135-145); TOTAL PROTEIN 7.3 G/DL (6.4-8.2); eGFR 78 ML/MIN
[2019-11-04 06:25] LABS: TOTAL CARBON DIOXIDE 41.6 MMOL/L (24-32)
--- NOTE | 2019-11-04 06:39 | NUR ---
Patient in room PCU 3022. I have received report from FANG Strickland and had the opportunity to ask questions and assume patient care.
[2019-11-04] MEDS: budesonide 0.5mg/2ml UD nebule IH SCH ×2 (06:40→20:13)
[2019-11-04] MEDS: ipratropium/albuterol 3ml nebule NEB SCH ×5 (06:40→23:16)
[2019-11-04] MEDS: K and/or MAG REPLACEMENT MC SCH ×2 (08:00→20:00)
[2019-11-04] MEDS: acetaminophen 325mg tablet PO PRN ×2 (08:01→14:12)
[2019-11-04] MEDS: levoTHYROXINE 25mcg tablet PO SCH (08:02)
[2019-11-04] MEDS: polyethylene glycol 3350 17gm powd pack PO SCH (08:02)
[2019-11-04] MEDS: methylPREDNISolone sod succ/PF 40mg inj. IV SCH ×2 (08:02→20:36)
[2019-11-04] MEDS: clopidogrel 75mg tablet PO SCH (08:03)
[2019-11-04] MEDS: aspirin 81mg tablet.DR PO SCH (08:03)
[2019-11-04] MEDS: potassium chloride 10mEq ER tablet PO SCH ×2 (08:03→20:36)
[2019-11-04] MEDS: methadone 10mg tablet PO SCH ×3 (08:03→20:36)
[2019-11-04] MEDS: carBAMazepine 100mg chewable tablet PO SCH ×4 (08:03→20:36)
[2019-11-04] MEDS: bumetanide 0.25mg/ml 4ml vial IV SCH ×2 (08:04→20:37)
--- NOTE | 2019-11-04 08:05 | NUR ---
I have reviewed and agree with all medications administered and interventions performed by [facility] Student(hank veliz) Addendum: 11/04/19 at 0806 by Cat SINCLAIR Amended: Links added.
[2019-11-04 11:00] VITALS: BP 121/68
--- NOTE | 2019-11-04 12:55 | NUR ---
PAGER ID: [phone] MESSAGE: [phone]. pt. Amy Branham. pt. is asking about getting a nicotine patch? she uses 21mg ones at home. please advise. FANG Regan [phone]
[2019-11-04] MEDS: nicotine 21mg patch - 24 hr TD SCH (14:12)
[2019-11-04 15:00] VITALS: BP 142/93
[2019-11-04] MEDS ORDERED: diazepam 5mg tablet PO ONE (16:05)
[2019-11-04 18:00] VITALS: BP 109/52
--- NOTE | 2019-11-04 18:30 | NUR ---
Patient in room PCU 3022. I have received report from Shereen Sloan RN and had the opportunity to ask questions and assume patient care.
--- NOTE | 2019-11-04 18:49 | NUR ---
Problems reprioritized. Patient report given, questions answered & plan of care reviewed with Nino RN.
[2019-11-04] MEDS: atorvastatin 20mg tablet PO SCH (20:36)
[2019-11-04 22:00] VITALS: BP 96/72
[2019-11-05] MEDS: gabapentin 100mg capsule PO SCH ×3 (00:49→15:31)
[2019-11-05 02:00] VITALS: BP 102/71
[2019-11-05 06:00] VITALS: BP 111/71
--- NOTE | 2019-11-05 06:10 | NUR ---
Problems reprioritized. Patient report given, questions answered & plan of care reviewed with Maria De Jesus HEADLEY.
[2019-11-05 06:12] LABS: BASOPHILS # (AUTO) 0.1 X10'3 (0-0.2); BASOPHILS % (AUTO) 0.6 % (0-1); EOSINOPHILS % (AUTO) 0 % (0-6); HEMATOCRIT 42.6 % (35.0-45.0); HEMOGLOBIN 14.3 g/dl (12.0-16.0); LYMPHOCYTES # (AUTO) 1.4 X10'3 (1.1-4.8); LYMPHOCYTES % (AUTO) 16.4 % (21-51); MEAN CORPUSCULAR HEMOGLOBIN 33.4 PG (27.0-31.0); MEAN CORPUSCULAR HGB CONC 33.6 g/dL (33.0-36.5); MEAN CORPUSCULAR VOLUME 99.4 FL (78-98); MEAN PLATELET VOLUME 7.5 FL (7.4-10.4); MONOCYTES # (AUTO) 0.5 X10'3 (0-0.9); MONOCYTES % (AUTO) 6.3 % (2-12); NEUTROPHILS # (AUTO) 6.5 X10'3 (1.8-7.7); NEUTROPHILS % (AUTO) 76.7 % (42-75); PLATELET COUNT 226 X10'3 (140-440); RED BLOOD COUNT 4.28 X10'6 (4.20-5.60); RED CELL DISTRIBUTION WIDTH 13.8 % (11.5-14.5); WHITE BLOOD COUNT 8.5 X10'3 (4.5-11.0)
[2019-11-05 06:25] LABS: ALANINE AMINOTRANSFERASE 12 U/L (12-78); ALBUMIN/GLOBULIN RATIO 0.8 (1.1-1.5); ALKALINE PHOSPHATASE 129 IU/L (46-116); ANION GAP 2 (8-16); ASPARTATE AMINO TRANSFERASE 18 U/L (10-37); BILIRUBIN,TOTAL 0.3 MG/DL (0.1-1.0); BLOOD UREA NITROGEN 18 MG/DL (7-18); BUN/CREATININE RATIO 25.7 (6.6-38.0); CALCIUM 8.2 MG/DL (8.5-10.1); CHLORIDE 96 MMOL/L (99-107); GLUCOSE 99 MG/DL (70-104); POTASSIUM 4.3 MMOL/L (3.5-5.1); SODIUM 135 MMOL/L (135-145); TOTAL CARBON DIOXIDE 37.4 MMOL/L (24-32); TOTAL PROTEIN 6.9 G/DL (6.4-8.2); eGFR 89 ML/MIN
--- NOTE | 2019-11-05 06:30 | NUR ---
Patient in room PCU 3022. I have received report from Nino RN and had the opportunity to ask questions and assume patient care.
[2019-11-05] MEDS: budesonide 0.5mg/2ml UD nebule IH SCH ×2 (06:42→21:32)
[2019-11-05] MEDS: ipratropium/albuterol 3ml nebule NEB SCH ×5 (06:42→23:00)
[2019-11-05] MEDS: clopidogrel 75mg tablet PO SCH (07:56)
[2019-11-05] MEDS: bumetanide 0.25mg/ml 4ml vial IV SCH ×2 (07:56→20:19)
[2019-11-05] MEDS: methylPREDNISolone sod succ/PF 40mg inj. IV SCH ×2 (07:56→20:19)
[2019-11-05] MEDS: potassium chloride 10mEq ER tablet PO SCH ×2 (07:56→20:20)
[2019-11-05] MEDS: methadone 10mg tablet PO SCH ×3 (07:57→20:21)
[2019-11-05] MEDS: aspirin 81mg tablet.DR PO SCH (07:58)
[2019-11-05] MEDS: levoTHYROXINE 25mcg tablet PO SCH (07:58)
[2019-11-05] MEDS: carBAMazepine 100mg chewable tablet PO SCH ×4 (07:59→20:21)
[2019-11-05] MEDS: polyethylene glycol 3350 17gm powd pack PO SCH (07:59)
[2019-11-05] MEDS: K and/or MAG REPLACEMENT MC SCH ×2 (08:00→20:00)
[2019-11-05] MEDS: nicotine 21mg patch - 24 hr TD SCH (08:01)
[2019-11-05 11:00] VITALS: BP 129/85
--- NOTE | 2019-11-05 13:50 | NUR ---
PAGER ID: [phone] MESSAGE: [phone] Alisha Branham. c/o generalized pain in hips/legs. Has scheduled methadone. May I have something for breakthrough pain? Azael [phone]
[2019-11-05 15:00] VITALS: BP 139/95
--- NOTE | 2019-11-05 15:14 | NUR ---
PAGER ID: [phone] MESSAGE: [phone] Edson Branham Still c/o of generalized hip/leg pain. May I have something for breakthrough pain? No PRN pain meds ordered. Azael [phone]
[2019-11-05] MEDS ORDERED: HYDROcodone/acetaminophen 5mg/325mg tablet PO ONE (15:25)
--- NOTE | 2019-11-05 15:42 | NUR ---
PAGER ID: [phone] MESSAGE: [phone] Edson Branham Pt. states she uses Tylenol for breakthrough pain at home. She is requesting if we could have it as a standing PRN order. Pls. advise. Azael [phone]
[2019-11-05] MEDS ORDERED: acetaminophen 325mg tablet PO PRN (16:00)
--- NOTE | 2019-11-05 18:12 | NUR ---
Problems reprioritized. Patient report given, questions answered & plan of care reviewed with Roro HEADLEY.
--- NOTE | 2019-11-05 18:52 | NUR ---
received report from FANG Pretty
[2019-11-05 19:04] VITALS: BP 115/71
[2019-11-05] MEDS: atorvastatin 20mg tablet PO SCH (20:20)
--- NOTE | 2019-11-05 21:21 | NUR ---
sent RT page about pt requesting scheduled breathing tx.
[2019-11-05 22:00] VITALS: BP 112/70
[2019-11-06] MEDS: gabapentin 100mg capsule PO SCH ×2 (00:13→07:23)
[2019-11-06 02:00] VITALS: BP 136/82
[2019-11-06 06:00] VITALS: BP 132/86
--- NOTE | 2019-11-06 06:06 | NUR ---
gave report to FANG Pretty
[2019-11-06 06:08] LABS: BASOPHILS # (AUTO) 0.1 X10'3 (0-0.2); BASOPHILS % (AUTO) 0.9 % (0-1); EOSINOPHILS % (AUTO) 0 % (0-6); HEMATOCRIT 43.2 % (35.0-45.0); HEMOGLOBIN 14.7 g/dl (12.0-16.0); LYMPHOCYTES # (AUTO) 1.5 X10'3 (1.1-4.8); LYMPHOCYTES % (AUTO) 17.8 % (21-51); MEAN CORPUSCULAR HEMOGLOBIN 33.5 PG (27.0-31.0); MEAN CORPUSCULAR VOLUME 98.5 FL (78-98); MEAN PLATELET VOLUME 7.7 FL (7.4-10.4); MONOCYTES # (AUTO) 0.5 X10'3 (0-0.9); MONOCYTES % (AUTO) 6.3 % (2-12); NEUTROPHILS # (AUTO) 6.3 X10'3 (1.8-7.7); PLATELET COUNT 222 X10'3 (140-440); RED BLOOD COUNT 4.39 X10'6 (4.20-5.60); RED CELL DISTRIBUTION WIDTH 14.3 % (11.5-14.5); WHITE BLOOD COUNT 8.4 X10'3 (4.5-11.0)
--- NOTE | 2019-11-06 06:12 | NUR ---
Patient in room PCU 3022. I have received report from Roro HEADLEY and had the opportunity to ask questions and assume patient care.
[2019-11-06 06:42] LABS: ALANINE AMINOTRANSFERASE 15 U/L (12-78); ALBUMIN 3.2 G/DL (3.4-5.0); ALBUMIN/GLOBULIN RATIO 0.8 (1.1-1.5); ALKALINE PHOSPHATASE 134 IU/L (46-116); ANION GAP 2 (8-16); ASPARTATE AMINO TRANSFERASE 17 U/L (10-37); BILIRUBIN,TOTAL 0.2 MG/DL (0.1-1.0); BLOOD UREA NITROGEN 23 MG/DL (7-18); BUN/CREATININE RATIO 33.8 (6.6-38.0); CHLORIDE 96 MMOL/L (99-107); CREATININE 0.68 MG/DL (0.40-0.90); GLUCOSE 110 MG/DL (70-104); MAGNESIUM 2.2 MG/DL (1.5-2.4); POTASSIUM 4.8 MMOL/L (3.5-5.1); SODIUM 136 MMOL/L (135-145); TOTAL CARBON DIOXIDE 38.2 MMOL/L (24-32); TOTAL PROTEIN 7.1 G/DL (6.4-8.2); eGFR > 90 ML/MIN
[2019-11-06] MEDS: budesonide 0.5mg/2ml UD nebule IH SCH (07:12)
[2019-11-06] MEDS: ipratropium/albuterol 3ml nebule NEB SCH ×2 (07:12→11:48)
[2019-11-06] MEDS: methylPREDNISolone sod succ/PF 40mg inj. IV SCH (07:23)
[2019-11-06] MEDS: clopidogrel 75mg tablet PO SCH (07:23)
[2019-11-06] MEDS: bumetanide 0.25mg/ml 4ml vial IV SCH (07:23)
[2019-11-06] MEDS: aspirin 81mg tablet.DR PO SCH (07:23)
[2019-11-06] MEDS: levoTHYROXINE 25mcg tablet PO SCH (07:24)
[2019-11-06] MEDS: methadone 10mg tablet PO SCH (07:24)
[2019-11-06] MEDS: carBAMazepine 100mg chewable tablet PO SCH ×2 (07:25→12:45)
[2019-11-06] MEDS: polyethylene glycol 3350 17gm powd pack PO SCH (07:25)
[2019-11-06] MEDS: K and/or MAG REPLACEMENT MC SCH (07:26)
[2019-11-06] MEDS: potassium chloride 10mEq ER tablet PO SCH (07:27)
[2019-11-06] MEDS: nicotine 21mg patch - 24 hr TD SCH (07:28)
[2019-11-06 11:00] VITALS: BP 111/60
[2019-11-06] MEDS ORDERED: PRED10TA23 PO (11:05)
[2019-11-06] MEDS ORDERED: AZI25OT PO (11:06)
[2019-11-06] MEDS ORDERED: IPRA3AMP31 IH (11:09)
[2019-11-06] MEDS ORDERED: COMP1EAC86 (11:09)
[2019-11-06] MEDS ORDERED: methadone 5mg tablet PO SCH ×2 (11:14→11:15)
[2019-11-06] MEDS: acetaminophen 325mg tablet PO PRN (12:50)
--- NOTE | 2019-11-06 14:20 | NUR ---
Per MD orders, patient is stable for DC home. Discharge packet reviewed with patient and all questions answered to satisfaction. New prescriptions called in to pharmacy of preference. All belongings stayed on patient. Tele monitoring discontinued. PIV discontinued cannula intact. transferred to [facility] via wheelchair accompanied by [facility] personnel.
--- NOTE | 2019-11-09 10:42 | NUR ---
Case Management DC follow up: spoke to pt via telephone. Reports, "doing okay". Denies CP, emergent general pain, acute SOB at rest, respiratory distress, NV, dizziness, syncope episodes, abd pain, PISANO, blurry vision. Verbalizes understanding of medications and why prescribed. home O2 1.5L which is an improvement from 3L. Taking Rx as ordered, no ase noted r/t polypharmacy/new meds. verbalizes understanding of s/s that would warrant 9-11/ER visit for evaluation. Acknowledges importance of scheduling/keeping appointments w/PCP Jeferson/waiting for rtn call to schedule/referrals/specialists. Needs met, questions answered at DC. No further questions at this time.
== END 2019-11-06 14:20 | disposition home health service (06) | DRG 189 ==
LOC: ER 20:17 → ED HOLD 11-03 00:38 → EDBEDREQ 11-03 00:55 → PCU 3S 11-03 01:15
PROVIDERS: ADMIT Internal Medicine; ATTEND Family Medicine
DX: J96.21 Acute and chronic respiratory failure with hypoxia (principal); E66.2 Morbid (severe) obesity with alveolar hypoventilation; J44.1 Chronic obstructive pulmonary disease with (acute) exacerbation; I50.32 Chronic diastolic (congestive) heart failure; I25.10 Atherosclerotic heart disease of native coronary artery without angina pectoris; I11.0 Hypertensive heart disease with heart failure; I27.20 Pulmonary hypertension, unspecified; G89.29 Other chronic pain; I35.0 Nonrheumatic aortic (valve) stenosis; M16.11 Unilateral primary osteoarthritis, right hip; E78.5 Hyperlipidemia, unspecified; F17.210 Nicotine dependence, cigarettes, uncomplicated; Z96.641 Presence of right artificial hip joint; R56.9 Unspecified convulsions; E03.9 Hypothyroidism, unspecified; Z86.73 Personal history of transient ischemic attack (TIA), and cerebral infarction without residual deficits; Z79.02 Long term (current) use of antithrombotics/antiplatelets; Z95.1 Presence of aortocoronary bypass graft; Z95.2 Presence of prosthetic heart valve; Z99.81 Dependence on supplemental oxygen
CPT/HCPCS: 36415; 36600; 71045; 72100; 72170; 73721; 80053; 82550; 82803; 83735; 83880; 84443; 84484; 85018; 85025; 85610; 87081; 87502; 87503; 93005; 93306; 93925; 93970; 94640; 94667; 94668; 94760; 96365; 97112; 97161; 97530; 99285; G0378; J0696; J1940; J2920; J3490; J7626

== ENCOUNTER 2020-10-28 16:53 | Inpatient (IN) | payer MEDICARE, MEDICAID ==
--- NOTE | 2020-10-27 23:24 | NUR ---
Pt. transferred to PCU. Pt is alert and responsive to name. no s/s of distress noted no c/o of pain at this time. PCU community advocate made aware pt. has arrived to unit
[~2020-10-28] VITALS: Ht 162.6 cm; Wt 105.5 kg
[~2020-10-28 16:53] MED LIST changes: +ACET-1025 PO; -ASPI-845 PO; +ASPI81TA52 PO; +ATOR80TA PO; +BUME1TAB8 PO; +CLOP75TA15 PO; +COMP1EAC86; +DOL10T PO; -FURO40TA4 PO; +IPRA3AMP31 IH; +LEVO50TA8 PO; -MAGN400T28 PO; +POLY17PO10 PO; -POTA10TA10 PO; +POTA10TA19 PO; -SIMV-42 PO; +TIOT4MIS3 PO
--- NOTE | 2020-10-28 17:15 | NUR ---
NOTED SPO2 TO BE 77% WITH A GOOD WAVEFORM WHICH CORRELATES WITH HR; DR MCCALL INFORMED. NASAL CANNULA BROUGHT TO ROOM PER RN [facility] ROOM " WANTS SPO2 TO BE 88TO 90" NO MD HAD SIGNED UP FOR PATIENT. DR MCCALL INFORMED
[2020-10-28 17:25] LABS: BASOPHILS # (AUTO) 0.1 X10'3 (0-0.2); BASOPHILS % (AUTO) 0.5 % (0-1); EOSINOPHILS % (AUTO) 0.1 % (0-6); HEMATOCRIT 44.4 % (35.0-45.0); LYMPHOCYTES # (AUTO) 0.8 X10'3 (1.1-4.8); LYMPHOCYTES % (AUTO) 8.3 % (21-51); MEAN CORPUSCULAR HEMOGLOBIN 28.6 PG (27.0-31.0); MEAN CORPUSCULAR HGB CONC 31.5 g/dL (33.0-36.5); MEAN CORPUSCULAR VOLUME 90.9 FL (78-98); MEAN PLATELET VOLUME 8.4 FL (7.4-10.4); MONOCYTES % (AUTO) 9.9 % (2-12); NEUTROPHILS # (AUTO) 8.1 X10'3 (1.8-7.7); NEUTROPHILS % (AUTO) 81.2 % (42-75); PLATELET COUNT 204 X10'3 (140-440); RED BLOOD COUNT 4.88 X10'6 (4.20-5.60); RED CELL DISTRIBUTION WIDTH 17.2 % (11.5-14.5)
[2020-10-28] MEDS ORDERED: normal saline 1000ML IV soln IVB ONE (17:40)
[2020-10-28 17:47] LABS: ALBUMIN 3.2 G/DL (3.4-5.0); ALBUMIN/GLOBULIN RATIO 0.8 (1.1-1.5); ALKALINE PHOSPHATASE 257 IU/L (46-116); ANION GAP 5 (8-16); BILIRUBIN,TOTAL 0.9 MG/DL (0.1-1.0); BLOOD UREA NITROGEN 40 MG/DL (7-18); BUN/CREATININE RATIO 36.7 (6.6-38.0); CALCIUM 8.6 MG/DL (8.5-10.1); CHLORIDE 92 MMOL/L (99-107); CREATININE 1.09 MG/DL (0.40-0.90); GLUCOSE 112 MG/DL (70-104); POTASSIUM 3.8 MMOL/L (3.5-5.1); SODIUM 132 MMOL/L (135-145); TOTAL CARBON DIOXIDE 35.5 MMOL/L (24-32); eGFR 53 ML/MIN
[2020-10-28 17:49] LABS: ALANINE AMINOTRANSFERASE 3327 U/L (12-78); LIPASE 71 U/L (73-393)
[2020-10-28 18:03] LABS: ASPARTATE AMINO TRANSFERASE 6106 U/L (10-37)
[2020-10-28 18:11] LABS: URINE HCG NEGATIVE (NEG)
[2020-10-28] MEDS ORDERED: TORS20TA3 PO (18:19)
[2020-10-28 18:30] LABS: ACETAMINOPHEN 12.5 UG/ML (10-30)
[2020-10-28] MEDS ORDERED: nitroGLYCERIN 0.4mg/hour patch TD ONE (18:30)
[2020-10-28] MEDS ORDERED: aspirin 81mg tab.chew PO ONE (18:30)
[2020-10-28 18:35] LABS: CLARITY,URINE CLEAR (Clear); COLOR,URINE AMBER (Yellow); GLUCOSE, URINE NEGATIVE (Neg); KETONES,URINE NEGATIVE (Neg); LEUKOCYTE ESTERASE ,URINE NEGATIVE (Neg); NITRITES, URINE NEGATIVE (Neg); OCCULT BLOOD,URINE TRACE-INTACT (Neg); PH,URINE 5.5 (4.8-8.0); PROTEIN,URINE 30 mg/dl (Neg)
[2020-10-28 18:39] LABS: UA COLLECTION TYPE FOLEY CATH
[2020-10-28 18:46] LABS: BACTERIA,URINE NONE SEEN /HPF (Neg); WBC,URINE 0-4 /HPF (0-4)
[2020-10-28 18:47] LABS: MUCUS STRANDS FEW /LPF (Neg); SQUAMOUS EPITHELIAL CELL,UR FEW /LPF (FEW)
--- NOTE | 2020-10-28 19:00 | NUR ---
Dr Arrington aware of HR 130-140 will reevaluate
--- NOTE | 2020-10-28 19:06 | NUR ---
DR MCCALL NOTIFIED OF HIP
[2020-10-28] MEDS ORDERED: morphine 4 MG/ML inj SYRINge IV ONE (19:35)
[2020-10-28] MEDS ORDERED: mag hydrox/Alum hydrox/simeth 30ml oral suspension PO PRN (19:40)
[2020-10-28] MEDS ORDERED: ondansetron/PF 4mg/2ml inj IV PRN (19:40)
[2020-10-28] MEDS ORDERED: magnesium hydroxide 30ml (MOM) UD suspension PO PRN (19:40)
[2020-10-28] MEDS ORDERED: magnesium 4gm in 100ml NS 100 ML IV PRN (19:40)
[2020-10-28] MEDS ORDERED: potassium Cl 40MEQ/1/2NS 520ml 520 ML IV PRN ×2 (19:40)
[2020-10-28] MEDS ORDERED: morphine 2 MG/ML inj. syringe IV PRN (19:40)
[2020-10-28] MEDS ORDERED: magnesium 2GM in 50ml NS 50 ML IV PRN (19:40)
[2020-10-28] MEDS ORDERED: magnesium Cl slow-release 64mg tablet PO PRN (19:40)
[2020-10-28] MEDS ORDERED: potassium Cl 20 mEq SR tablet PO PRN ×2 (19:40)
[2020-10-28] MEDS ORDERED: iohexol 300mg/ml 100ml inj. ONE (19:51)
[2020-10-28] MEDS ORDERED: acetylcysteine 200 MG/ml 4ml vial PO ONE (19:55)
[2020-10-28] MEDS: K and/or MAG REPLACEMENT MC SCH (20:00)
[2020-10-28] MEDS ORDERED: docusate sod 100mg capsule PO SCH (20:00)
--- NOTE | 2020-10-28 20:10 | NUR ---
PATIENT IN CT SCAN
--- NOTE | 2020-10-28 20:12 | NUR ---
ORAL MUCOMYST ARRIVED FROM [facility] UNABLE TO GIVE AT THIS MOMENT PATIENT OFF FLOOR IN CT
[2020-10-28] MEDS ORDERED: FLO110IN PO (20:22)
[2020-10-28] MEDS ORDERED: IPRA3AMP31 IH (20:22)
[2020-10-28] MEDS ORDERED: temazepam 15mg capsule PO PRN (21:00)
[2020-10-28 22:20] VITALS: BP 125/82
[2020-10-28] MEDS: methadone 10mg tablet PO SCH (22:30)
[2020-10-28] MEDS: LORazepam 2 mg/ml vial IV PRN (22:33)
--- NOTE | 2020-10-28 22:35 | NUR ---
Patient is yelling and thrashing around in the bed and verbalizing anxiety, and that she is in pain, I medicated her with 1mg Ativan as ordered due to this and also the audiometric technician called and said that her heart rate is in the 130-140's. Patients's nurse is at bedside also.
--- NOTE | 2020-10-28 22:42 | NUR ---
PAGER ID: [phone] MESSAGE: Room:[facility] Dx: sever abdominal pain(liver failure) pt. went into A.Fib with RVR bpm:170's
[2020-10-28] MEDS ORDERED: diltiazem 5mg/ml 5ml inj. IV ONE (22:45)
[2020-10-28] MEDS ORDERED: amiodarone 150mg/dext, iso-os 100 ML IV ONE (22:50)
[2020-10-28] MEDS: amiodarone/D5 360MG/200ML BAG 200 ML IV SCH (22:50)
--- NOTE | 2020-10-28 22:50 | NUR ---
recieved new order from MD Edmonds Cardizem IV 5mg/ml one time dose
[2020-10-28 22:55] VITALS: BP 140/77
--- NOTE | 2020-10-28 22:57 | NUR ---
I called nursing cloth winding supervisor to alert her about needing to transfer patient to pcu for amiodarone drip and I informed the tele charge nurse who was giving the Cardizem ivp medicine about need for a bed on tele,
[2020-10-28] MEDS ORDERED: rocuronium 10mg/ml inj IV ONE (23:00)
[2020-10-28] MEDS ORDERED: etomidate 2mg/ml inj. ONE (23:00)
--- NOTE | 2020-10-28 23:20 | NUR ---
Patient in room Ortho/Neuro room 4011. I have received report from Jared HEADLEY and had the opportunity to ask questions and assume patient care.
--- NOTE | 2020-10-28 23:24 | NUR ---
Pt. transferred to PCU. Pt is alert and responsive to name. no s/s of distress noted no c/o of pain at this time. PCU community living instructor made aware pt. has arrived on unit
--- NOTE | 2020-10-28 23:24 | NUR ---
Pt. needs to be transferred to PCU. Report give to charge nurse on PCU. New orders received from MD Edmonds for pt. will be be receiving amiodarone drip
--- NOTE | 2020-10-28 23:35 | NUR ---
Received pt from Ortho/Neuro. Pt was slumped over in bed not responsive verbally, no pupillary response. Unable to obtain bp or O2 level at this time. Obtained help from two other nurses to get patient to lay back and not fold over on herself. As soon as we were able to get her to lay back she was frothy at the mouth, skin color guillory ashen, no pupillary response still, code was called at 2345, code team arrived at 2347. pt had a pulse was agonal breathing. pt was intubated and transferred to ICU.
[2020-10-29] VITALS (24 sets, daily range): BP systolic 91–144; BP diastolic 55–84
[2020-10-29 00:27] LABS: ABG BASE EXCESS -2.4 mmol/L (-2.0-2.0); ABG HCO3 27.2 mmol/L (22.0-26.0); ABG OXYGEN SATURATION 98.3 % (94-97); ABG PCO2 (T) 67.7 mmHg (32.0-45.0); ABG PO2 (T) 140.4 mmHg (75.0-100.0); ALLEN'S TEST POSITIVE; FCOHb 5.4 % (0.0-3.9); FMetHb 0.3 % (0.0-1.5); FO2Hb 92.7 % (94-97); PEEP 5 cm H2O; RESPIRATORY RATE 20 b/min; TIDAL VOLUME 450 mL
[2020-10-29] MEDS: ipratropium/albuterol 3ml nebule NEB SCH ×7 (00:52→23:27)
[2020-10-29] MEDS: midazolam 100mg in NS 100ml 100 ML IV PRN ×2 (00:57→09:02)
[2020-10-29] MEDS: FENTANYL-0.9 % NACL/PF 100 ML IV PRN ×3 (00:58→17:58)
[2020-10-29 01:20] LABS: EOSINOPHILS % (AUTO) 0.1 % (0-6)
[2020-10-29 01:22] LABS: BASOPHILS % (AUTO) 0.3 % (0-1); LYMPHOCYTES # (AUTO) 2.7 X10'3 (1.1-4.8); LYMPHOCYTES % (AUTO) 24.6 % (21-51); MEAN CORPUSCULAR HEMOGLOBIN 28.9 PG (27.0-31.0); MEAN PLATELET VOLUME 9.1 FL (7.4-10.4); MONOCYTES # (AUTO) 1.5 X10'3 (0-0.9); MONOCYTES % (AUTO) 13.9 % (2-12); NEUTROPHILS # (AUTO) 6.6 X10'3 (1.8-7.7); NEUTROPHILS % (AUTO) 61.1 % (42-75); PLATELET COUNT 204 X10'3 (140-440); WHITE BLOOD COUNT 10.8 X10'3 (4.5-11.0)
[2020-10-29 01:29] LABS: ALBUMIN/GLOBULIN RATIO 0.8 (1.1-1.5); ALKALINE PHOSPHATASE 265 IU/L (46-116); ANION GAP 9 (8-16); BILIRUBIN,TOTAL 0.8 MG/DL (0.1-1.0); BLOOD UREA NITROGEN 39 MG/DL (7-18); BUN/CREATININE RATIO 32.2 (6.6-38.0); CALCIUM 7.8 MG/DL (8.5-10.1); CHLORIDE 97 MMOL/L (99-107); CREATININE 1.21 MG/DL (0.40-0.90); GLUCOSE 150 MG/DL (70-104); MAGNESIUM 2.1 MG/DL (1.5-2.4); PARTIAL THROMBOPLASTIN TIME 26 SECONDS (22-32); PHOSPHORUS 5.5 MG/DL (2.3-4.5); SODIUM 135 MMOL/L (135-145); TOTAL PROTEIN 6.9 G/DL (6.4-8.2); eGFR 47 ML/MIN
[2020-10-29] MEDS ORDERED: methylPREDNISolone sod succ 125mg/2ml vial IV ONE (01:30)
[2020-10-29 01:31] LABS: ALANINE AMINOTRANSFERASE 3057 U/L (12-78); POTASSIUM 4.3 MMOL/L (3.5-5.1)
[2020-10-29 01:45] LABS: ASPARTATE AMINO TRANSFERASE 4691 U/L (10-37)
[2020-10-29 02:00] LABS: HEMATOCRIT 45.6 % (35.0-45.0); HEMOGLOBIN 14.6 g/dl (12.0-16.0); MEAN CORPUSCULAR HGB CONC 31.9 g/dL (33.0-36.5); MEAN CORPUSCULAR VOLUME 90.4 FL (78-98); RED BLOOD COUNT 5.04 X10'6 (4.20-5.60); RED CELL DISTRIBUTION WIDTH 16.8 % (11.5-14.5)
[2020-10-29] MEDS: acetylcysteine 200 MG/ml 4ml vial PO SCH ×6 (03:43→19:24)
[2020-10-29] MEDS: gabapentin 100mg capsule PO SCH ×3 (03:43→16:13)
[2020-10-29 04:19] LABS: ABG BASE EXCESS 6.9 mmol/L (-2.0-2.0); ABG HCO3 31.6 mmol/L (22.0-26.0); ABG OXYGEN SATURATION 95.9 % (94-97); ABG PCO2 (T) 45.3 mmHg (32.0-45.0); ABG PO2 (T) 74.4 mmHg (75.0-100.0); ALLEN'S TEST POSITIVE; FCOHb 2.9 % (0.0-3.9); FMetHb 0.1 % (0.0-1.5); PEEP 5 cm H2O; RESPIRATORY RATE 22 b/min; TIDAL VOLUME 450 mL; TOTAL HEMOGLOBIN 14.4 G/dl (12.0-16.0)
[2020-10-29] MEDS: amiodarone/D5 360MG/200ML BAG 200 ML IV SCH ×4 (04:53→23:06)
[2020-10-29 05:59] LABS: BASOPHILS % (AUTO) 0.2 % (0-1); EOSINOPHILS % (AUTO) 0.1 % (0-6); HEMOGLOBIN 13.2 g/dl (12.0-16.0); LYMPHOCYTES # (AUTO) 1.2 X10'3 (1.1-4.8); LYMPHOCYTES % (AUTO) 14.9 % (21-51); MEAN CORPUSCULAR HEMOGLOBIN 28.7 PG (27.0-31.0); MEAN CORPUSCULAR HGB CONC 31.3 g/dL (33.0-36.5); MEAN CORPUSCULAR VOLUME 91.7 FL (78-98); MEAN PLATELET VOLUME 8.9 FL (7.4-10.4); MONOCYTES # (AUTO) 0.7 X10'3 (0-0.9); MONOCYTES % (AUTO) 8.7 % (2-12); NEUTROPHILS # (AUTO) 6.2 X10'3 (1.8-7.7); NEUTROPHILS % (AUTO) 76.1 % (42-75); PLATELET COUNT 176 X10'3 (140-440); RED BLOOD COUNT 4.58 X10'6 (4.20-5.60); RED CELL DISTRIBUTION WIDTH 17.7 % (11.5-14.5); WHITE BLOOD COUNT 8.2 X10'3 (4.5-11.0)
--- NOTE | 2020-10-29 06:00 | NUR ---
inventory of belongings that were transferred with patient from PCU. Admitting called to place valuables in safe: Will come up when able. Brown purse: with many pieces of mail and papers. Leather wallet: with garcía, [employer] card, [email or web address] gift card, mastercard. One duct tape wallet with heena visa. Clothing in second bag: Shorts, socks, underwear, tank top, candy and bottle of soda.
[2020-10-29 06:22] LABS: ALBUMIN 2.6 G/DL (3.4-5.0); ALBUMIN/GLOBULIN RATIO 0.8 (1.1-1.5); ALKALINE PHOSPHATASE 225 IU/L (46-116); ANION GAP 4 (8-16); BILIRUBIN,TOTAL 1.4 MG/DL (0.1-1.0); BLOOD UREA NITROGEN 40 MG/DL (7-18); CALCIUM 8.4 MG/DL (8.5-10.1); CHLORIDE 96 MMOL/L (99-107); GLUCOSE 94 MG/DL (70-104); MAGNESIUM 1.8 MG/DL (1.5-2.4); SODIUM 134 MMOL/L (135-145); TOTAL CARBON DIOXIDE 33.8 MMOL/L (24-32); TOTAL PROTEIN 5.8 G/DL (6.4-8.2); eGFR 58 ML/MIN
[2020-10-29 06:23] LABS: ACETAMINOPHEN 3.8 UG/ML (10-30)
[2020-10-29 06:24] LABS: POTASSIUM 3.9 MMOL/L (3.5-5.1)
--- NOTE | 2020-10-29 06:43 | NUR ---
Patient in room CICU 2013. I have received report from [facility] and had the opportunity to ask questions and assume patient care. with Hailee
[2020-10-29 06:48] LABS: ALANINE AMINOTRANSFERASE 2727 U/L (12-78); ASPARTATE AMINO TRANSFERASE 4161 U/L (10-37)
[2020-10-29] MEDS: K and/or MAG REPLACEMENT MC SCH ×2 (07:51→19:25)
[2020-10-29] MEDS ORDERED: famotidine/PF IV inj 20 MG in normal saline 100ml IV soln 100 ML IV SCH (08:00)
[2020-10-29] MEDS: (Tiotropium Br/Olodaterol HCl (Stiolto Respimat Inhal Spray) PO SCH (08:00)
[2020-10-29] MEDS ORDERED: methadone 10mg tablet PO SCH ×2 (08:00→21:00)
[2020-10-29] MEDS: levoTHYROXINE 25mcg tablet PO SCH (08:05)
[2020-10-29] MEDS: methylPREDNISolone sod succ/PF 40mg inj. IV SCH ×2 (08:06→19:24)
[2020-10-29] MEDS: clopidogrel 75mg tablet PO SCH (08:06)
[2020-10-29] MEDS: famotidine/PF 10 mg/ml inj IV SCH ×2 (08:06→19:25)
[2020-10-29] MEDS ORDERED: methadone 5mg tablet PO SCH (08:48)
--- NOTE | 2020-10-29 09:13 | NUR ---
0815- Poison control called for an update, their recommendations are no further acetaminphen levels needed as last one below 10, continue with liver enzymes and INR q 8hours.
[2020-10-29] MEDS: budesonide 0.5mg/2ml UD nebule IH SCH ×2 (10:44→19:41)
--- NOTE | 2020-10-29 10:50 | NUR ---
Spoke with sister Lora about patient current state. Lora was able to ask questions and have an update. Lora was able to help with answering questions for patients CT screening form.
--- NOTE | 2020-10-29 11:22 | NUR ---
Initial: Pt intubated admit DX acute respiratory and transaminitis per EMR. NPO w/ OG in place. LBM 3/ receiving routine colace BID and relistor; ammonia 72 on admit. EN recs below in case prolonged intubation; using IBW since pending scaled wt this admit. Will continue to monitor. Rec: 1. IF TF; Vital High Protein at 60ml/hr goal 2. IF TF; additional water flush per electrician elevator maintenance Na 134 this AM 3. routine bowel care; opioid antagonist per electrician elevator maintenance 4. scaled wt this admit 5. upon extubation; advance diet as medically indicated to heart healthy Addendum: 10/29/20 at [address] Amended: Links added.
[2020-10-29] MEDS: piperacillin/tazo 3.375gm/50ml 50 ML IV SCH ×2 (11:29→16:12)
[2020-10-29 11:44] LABS: ALBUMIN 2.7 G/DL (3.4-5.0); ALBUMIN/GLOBULIN RATIO 0.8 (1.1-1.5); ALKALINE PHOSPHATASE 243 IU/L (46-116); BILIRUBIN,DIRECT 1.1 MG/DL (0-0.3); BILIRUBIN,TOTAL 1.5 MG/DL (0.1-1.0); TOTAL PROTEIN 6.2 G/DL (6.4-8.2)
[2020-10-29 11:52] LABS: URINE AMPHETAMINE SCREEN NEGATIVE (Neg); URINE BARBITUATE SCREEN NEGATIVE (Neg); URINE BENZODIAZEPINES SCREEN POSITIVE (Neg); URINE CANNABINOID SCREEN NEGATIVE (Neg); URINE COCAINE SCREEN NEGATIVE (Neg); URINE METHADONE SCREEN POSITIVE (Neg); URINE OPIATE SCREEN POSITIVE (Neg); URINE PHENCYCLIDINE SCREEN NEGATIVE (Neg)
[2020-10-29 11:59] LABS: ALANINE AMINOTRANSFERASE 2711 U/L (12-78); ASPARTATE AMINO TRANSFERASE 3745 U/L (10-37)
[2020-10-29] MEDS ORDERED: iohexol 350 MG/ML 50ML vial IV ONE (12:00)
[2020-10-29] MEDS: nystatin 15 GM powder TP SCH ×2 (13:24→21:25)
[2020-10-29] MEDS: furosemide 40mg/4ml inj IV SCH ×2 (13:24→21:25)
[2020-10-29] MEDS ORDERED: ondansetron 4mg rapidly disintigrating tab PO PRN (13:50)
[2020-10-29 13:55] LABS: CLARITY,URINE SLIGHTLY CLOUDY (Clear); COLOR,URINE YELLOW (Yellow); GLUCOSE, URINE NEGATIVE (Neg); KETONES,URINE NEGATIVE (Neg); LEUKOCYTE ESTERASE ,URINE NEGATIVE (Neg); NITRITES, URINE NEGATIVE (Neg); OCCULT BLOOD,URINE LARGE (Neg); PH,URINE 6.5 (4.8-8.0); PROTEIN,URINE NEGATIVE (Neg)
[2020-10-29 13:56] LABS: UA COLLECTION TYPE FOLEY CATH
--- NOTE | 2020-10-29 13:58 | NUR ---
0930 Dr Booker rounds-Ok to switch from torsemide to lasix 40mg TID, start Relistor, add CPK, echo, CTA of lungs r/o PE, urine for tox screen, ok for nystatin to pannus and back of left knee. 1200- echo completed PA pressure 49, severely enlarged right sided heart, s/p aortic valve replacement
[2020-10-29 14:10] LABS: SQUAMOUS EPITHELIAL CELL,UR NONE SEEN /LPF (FEW)
[2020-10-29 14:13] LABS: RBC,URINE 20-50 /HPF (0-2)
[2020-10-29] MEDS: methylnaltrexone br 12mg/0.6ml inj***SubQ only SQ SCH (14:16)
[2020-10-29 14:17] LABS: BACTERIA,URINE NONE SEEN /HPF (Neg); URIC ACID CRYSTALS 4+ /HPF (NEGATIVE); WBC,URINE 0-4 /HPF (0-4)
[2020-10-29] MEDS: docusate sodium 100mg/10ml UD cup OGT SCH (19:22)
[2020-10-29] MEDS: lactobacillus rhamnosus 10,000 MMU CELLS/CAPSULE PO SCH (19:24)
[2020-10-29 20:21] LABS: ANION GAP 6 (8-16); BILIRUBIN,TOTAL 1.4 MG/DL (0.1-1.0); BLOOD UREA NITROGEN 30 MG/DL (7-18); BUN/CREATININE RATIO 36.1 (6.6-38.0); CALCIUM 8.4 MG/DL (8.5-10.1); CHLORIDE 98 MMOL/L (99-107); CREATININE 0.83 MG/DL (0.40-0.90); GLUCOSE 121 MG/DL (70-104); MAGNESIUM 1.6 MG/DL (1.5-2.4); POTASSIUM 3.6 MMOL/L (3.5-5.1); SODIUM 136 MMOL/L (135-145); TOTAL CARBON DIOXIDE 31.8 MMOL/L (24-32); eGFR 72 ML/MIN
[2020-10-29 20:22] LABS: ALBUMIN 2.5 G/DL (3.4-5.0); ALBUMIN/GLOBULIN RATIO 0.8 (1.1-1.5); ALKALINE PHOSPHATASE 226 IU/L (46-116); TOTAL PROTEIN 5.8 G/DL (6.4-8.2)
[2020-10-29 20:33] LABS: ALANINE AMINOTRANSFERASE 2364 U/L (12-78); ASPARTATE AMINO TRANSFERASE 2318 U/L (10-37)
[2020-10-29] MEDS ORDERED: POTASSIUM BICARBONATE/CIT AC 10 MEQ TABLET.EFF PO PRN (21:10)
[2020-10-29] MEDS ORDERED: POTASSIUM BICARB 20meq eff tab 20 MEQ TABLET.EFF PO PRN (21:10)
[2020-10-29] MEDS: methadone 10mg tablet PO SCH (21:26)
[2020-10-30] VITALS (25 sets, daily range): BP systolic 102–133; BP diastolic 61–79
[2020-10-30] MEDS: acetylcysteine 200 MG/ml 4ml vial PO SCH ×4 (00:13→12:08)
[2020-10-30] MEDS: piperacillin/tazo 3.375gm/50ml 50 ML IV SCH ×4 (00:13→23:47)
[2020-10-30] MEDS: gabapentin 100mg capsule PO SCH ×2 (00:13→09:52)
[2020-10-30] MEDS: midazolam 100mg in NS 100ml 100 ML IV PRN ×3 (00:22→17:25)
[2020-10-30] MEDS: mineral oil/petrolatum ophthal oint EACHEYE SCH ×4 (02:00→19:44)
[2020-10-30] MEDS: ipratropium/albuterol 3ml nebule NEB SCH ×6 (03:34→23:12)
[2020-10-30 04:38] LABS: ABG HCO3 37.7 mmol/L (22.0-26.0); ABG OXYGEN SATURATION 89.1 % (94-97); ABG PCO2 (T) 52.3 mmHg (32.0-45.0); ABG PO2 (T) 57.6 mmHg (75.0-100.0); ALLEN'S TEST POSITIVE; FCOHb 1.2 % (0.0-3.9); FMetHb 0.2 % (0.0-1.5); FO2Hb 87.9 % (94-97); PATIENT TEMPERATURE 36.9; PEEP 5 cm H2O; RESPIRATORY RATE 22 b/min; TIDAL VOLUME 450 mL; TOTAL HEMOGLOBIN 14.4 G/dl (12.0-16.0)
[2020-10-30] MEDS: amiodarone/D5 360MG/200ML BAG 200 ML IV SCH ×4 (04:46→23:22)
[2020-10-30] MEDS: FENTANYL-0.9 % NACL/PF 100 ML IV PRN ×3 (04:47→21:44)
[2020-10-30 06:09] LABS: BASOPHILS % (AUTO) 0.1 % (0-1); EOSINOPHILS % (AUTO) 0 % (0-6); HEMATOCRIT 43.1 % (35.0-45.0); HEMOGLOBIN 13.7 g/dl (12.0-16.0); LYMPHOCYTES # (AUTO) 0.5 X10'3 (1.1-4.8); LYMPHOCYTES % (AUTO) 5.4 % (21-51); MEAN CORPUSCULAR HEMOGLOBIN 28.8 PG (27.0-31.0); MEAN CORPUSCULAR HGB CONC 31.7 g/dL (33.0-36.5); MEAN CORPUSCULAR VOLUME 90.9 FL (78-98); MEAN PLATELET VOLUME 8.4 FL (7.4-10.4); MONOCYTES # (AUTO) 0.5 X10'3 (0-0.9); MONOCYTES % (AUTO) 6.2 % (2-12); NEUTROPHILS # (AUTO) 7.5 X10'3 (1.8-7.7); NEUTROPHILS % (AUTO) 88.3 % (42-75); PLATELET COUNT 182 X10'3 (140-440); RED BLOOD COUNT 4.74 X10'6 (4.20-5.60); RED CELL DISTRIBUTION WIDTH 17.2 % (11.5-14.5); WHITE BLOOD COUNT 8.5 X10'3 (4.5-11.0)
[2020-10-30 06:30] LABS: ALBUMIN 2.5 G/DL (3.4-5.0); ALKALINE PHOSPHATASE 219 IU/L (46-116); ANION GAP 6 (8-16); BLOOD UREA NITROGEN 29 MG/DL (7-18); BUN/CREATININE RATIO 36.3 (6.6-38.0); CALCIUM 8.1 MG/DL (8.5-10.1); CHLORIDE 99 MMOL/L (99-107); GLUCOSE 128 MG/DL (70-104); POTASSIUM 3.5 MMOL/L (3.5-5.1); SODIUM 139 MMOL/L (135-145); TOTAL CARBON DIOXIDE 34.5 MMOL/L (24-32); eGFR 76 ML/MIN
--- NOTE | 2020-10-30 06:54 | NUR ---
Patient in room CICU 2013. I have received report from [facility] and had the opportunity to ask questions and assume patient care.
[2020-10-30 07:01] LABS: ALANINE AMINOTRANSFERASE 2165 U/L (12-78); ALBUMIN/GLOBULIN RATIO 0.7 (1.1-1.5); ASPARTATE AMINO TRANSFERASE 1813 U/L (10-37); BILIRUBIN,TOTAL 1.4 MG/DL (0.1-1.0); TOTAL PROTEIN 5.9 G/DL (6.4-8.2)
[2020-10-30] MEDS: K and/or MAG REPLACEMENT MC SCH ×2 (08:00→20:31)
[2020-10-30] MEDS: (Tiotropium Br/Olodaterol HCl (Stiolto Respimat Inhal Spray) PO SCH (08:00)
[2020-10-30] MEDS: docusate sodium 100mg/10ml UD cup OGT SCH ×2 (08:17→19:43)
[2020-10-30] MEDS: furosemide 40mg/4ml inj IV SCH (08:17)
[2020-10-30] MEDS: lactobacillus rhamnosus 10,000 MMU CELLS/CAPSULE PO SCH (08:17)
[2020-10-30] MEDS: levoTHYROXINE 25mcg tablet PO SCH (08:17)
[2020-10-30] MEDS: methylPREDNISolone sod succ/PF 40mg inj. IV SCH ×2 (08:17→19:43)
[2020-10-30] MEDS: famotidine/PF 10 mg/ml inj IV SCH ×2 (08:17→19:44)
[2020-10-30] MEDS: clopidogrel 75mg tablet PO SCH (08:18)
[2020-10-30] MEDS: nystatin 15 GM powder TP SCH ×3 (08:18→21:43)
[2020-10-30] MEDS: budesonide 0.5mg/2ml UD nebule IH SCH ×2 (08:45→19:14)
--- NOTE | 2020-10-30 08:48 | NUR ---
I have reviewed and agree with all medications administered and interventions performed by [facility] Student(Beverly Barth) Addendum: 10/30/20 at 0849 by Nancy Whitfield RT Amended: Links added.
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
--- NOTE | 2020-10-30 11:45 | NUR ---
TF consult: Pt mechanically ventilated and NPO with OG tube. TF recs below, used IBW as there is no scaled wt this admit. Last BM 10/28, receiving routine colace and relistor. Will continue to follow closely. Rec: 1. Continuous tube feeding using Vital High Protein with goal rate of 60 ml/hr. Once at goal to provide: 1440 ml total volume/day, 1440 kcal, 126 g pro, and 1166 ml water. 2. Additional water flush 200 Q4H, monitor for adjustment needs 3. Routine bowel care; opioid antagonist per legal job titles 4. Prealbumin q Friday/, daily weights 5. Scaled wt this admit 6. Upon extubation; advance diet as medically indicated to heart healthy Addendum: 10/30/20 at [address] Amended: Links added. Addendum: 10/30/20 at [address] JOSELITO Díazves
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
[2020-10-30] MEDS ORDERED: ondansetron 4mg rapidly disintigrating tab OGT PRN (14:28)
[2020-10-30] MEDS ORDERED: POTASSIUM BICARBONATE/CIT AC 10 MEQ TABLET.EFF OGT PRN (14:29)
[2020-10-30] MEDS ORDERED: POTASSIUM BICARB 20meq eff tab 20 MEQ TABLET.EFF OGT PRN (14:29)
[2020-10-30 14:41] LABS: ALBUMIN 2.4 G/DL (3.4-5.0); ALBUMIN/GLOBULIN RATIO 0.7 (1.1-1.5); ALKALINE PHOSPHATASE 210 IU/L (46-116); BILIRUBIN,DIRECT 1.3 MG/DL (0-0.3); MAGNESIUM 1.8 MG/DL (1.5-2.4); POTASSIUM 3.3 MMOL/L (3.5-5.1); PREALBUMIN 10.7 MG/DL (19-36); TOTAL PROTEIN 5.9 G/DL (6.4-8.2)
[2020-10-30 15:09] LABS: ALANINE AMINOTRANSFERASE 1826 U/L (12-78); ASPARTATE AMINO TRANSFERASE 1292 U/L (10-37)
[2020-10-30] MEDS ORDERED: POTASSIUM BICARB 20meq eff tab 20 MEQ TABLET.EFF PO PRN (15:25)
--- NOTE | 2020-10-30 15:35 | NUR ---
1535- updated poison control, continue lft's and INR q 8 hours, continue mucomyst til LFT's <1000.
[2020-10-30] MEDS: gabapentin 100mg capsule OGT SCH ×2 (15:43→23:47)
[2020-10-30] MEDS: POTASSIUM BICARB 20meq eff tab 20 MEQ TABLET.EFF PO PRN ×3 (15:43→23:51)
[2020-10-30] MEDS: acetylcysteine 200 MG/ml 4ml vial OGT SCH ×3 (16:05→23:47)
--- NOTE | 2020-10-30 16:40 | NUR ---
1630- urine output was decreased last couple hours, a lot of sediment in tubing flushed w NS, drained over 250cc
[2020-10-30] MEDS: lactobacillus rhamnosus 10,000 MMU CELLS/CAPSULE OGT SCH (19:43)
[2020-10-30] MEDS: methadone 10mg tablet OGT SCH (21:43)
[2020-10-30 22:36] LABS: ALBUMIN 2.4 G/DL (3.4-5.0); ALBUMIN/GLOBULIN RATIO 0.7 (1.1-1.5); ALKALINE PHOSPHATASE 199 IU/L (46-116); ASPARTATE AMINO TRANSFERASE 946 U/L (10-37); BILIRUBIN,DIRECT 1.2 MG/DL (0-0.3); BILIRUBIN,TOTAL 1.9 MG/DL (0.1-1.0)
[2020-10-30 22:37] LABS: ALANINE AMINOTRANSFERASE 1693 U/L (12-78)
[2020-10-31] VITALS (24 sets, daily range): BP systolic 99–126; BP diastolic 60–78
[2020-10-31] MEDS: mineral oil/petrolatum ophthal oint EACHEYE SCH ×4 (02:34→19:55)
[2020-10-31] MEDS: midazolam 100mg in NS 100ml 100 ML IV PRN ×3 (02:35→17:30)
[2020-10-31] MEDS: ipratropium/albuterol 3ml nebule NEB SCH ×6 (03:09→23:30)
[2020-10-31 03:25] LABS: ABG BASE EXCESS 11.6 mmol/L (-2.0-2.0); ABG HCO3 36.8 mmol/L (22.0-26.0); ABG OXYGEN SATURATION 91.1 % (94-97); ABG PCO2 (T) 51.8 mmHg (32.0-45.0); ABG PO2 (T) 61.7 mmHg (75.0-100.0); ALLEN'S TEST POSITIVE; FCOHb 1.1 % (0.0-3.9); FMetHb 0.1 % (0.0-1.5); PATIENT TEMPERATURE 37.9; PEEP 10 cm H2O; RESPIRATORY RATE 22 b/min; TIDAL VOLUME 450 mL; TOTAL HEMOGLOBIN 14.2 G/dl (12.0-16.0)
[2020-10-31] MEDS: acetylcysteine 200 MG/ml 4ml vial OGT SCH ×4 (03:54→16:08)
[2020-10-31] MEDS: amiodarone/D5 360MG/200ML BAG 200 ML IV SCH ×2 (03:54→11:30)
[2020-10-31] MEDS ORDERED: insulin Lispro (HumaLOG) vial - multi-dose SQ SCH (04:50)
[2020-10-31] MEDS ORDERED: glucagon, human recombinant 1mg kit SUBCUT PRN (04:50)
[2020-10-31] MEDS ORDERED: dextrose ORAL solution 15 GM/59 ML bottle PO PRN ×2 (04:50)
[2020-10-31] MEDS ORDERED: MESSAGE TO PHARMACY PO ONE (04:50)
[2020-10-31] MEDS ORDERED: dextrose 50%-water 50ml dispensing syringe IV PRN ×2 (04:50)
[2020-10-31] MEDS: FENTANYL-0.9 % NACL/PF 100 ML IV PRN ×3 (04:55→18:17)
[2020-10-31 06:05] LABS: BASOPHILS % (AUTO) 0.2 % (0-1); EOSINOPHILS % (AUTO) 0 % (0-6); HEMATOCRIT 42.5 % (35.0-45.0); HEMOGLOBIN 13.5 g/dl (12.0-16.0); LYMPHOCYTES # (AUTO) 0.3 X10'3 (1.1-4.8); LYMPHOCYTES % (AUTO) 3.3 % (21-51); MEAN CORPUSCULAR HEMOGLOBIN 28.9 PG (27.0-31.0); MEAN CORPUSCULAR HGB CONC 31.7 g/dL (33.0-36.5); MEAN CORPUSCULAR VOLUME 91.2 FL (78-98); MEAN PLATELET VOLUME 8.2 FL (7.4-10.4); MONOCYTES # (AUTO) 0.6 X10'3 (0-0.9); MONOCYTES % (AUTO) 6.2 % (2-12); NEUTROPHILS # (AUTO) 8.5 X10'3 (1.8-7.7); NEUTROPHILS % (AUTO) 90.3 % (42-75); PLATELET COUNT 171 X10'3 (140-440); RED BLOOD COUNT 4.66 X10'6 (4.20-5.60); RED CELL DISTRIBUTION WIDTH 17.8 % (11.5-14.5); WHITE BLOOD COUNT 9.4 X10'3 (4.5-11.0)
[2020-10-31 06:27] LABS: ALBUMIN 2.4 G/DL (3.4-5.0); ALBUMIN/GLOBULIN RATIO 0.6 (1.1-1.5); ALKALINE PHOSPHATASE 193 IU/L (46-116); ANION GAP 2 (8-16); ASPARTATE AMINO TRANSFERASE 734 U/L (10-37); BILIRUBIN,TOTAL 1.9 MG/DL (0.1-1.0); BLOOD UREA NITROGEN 30 MG/DL (7-18); BUN/CREATININE RATIO 40.5 (6.6-38.0); CALCIUM 8.3 MG/DL (8.5-10.1); CHLORIDE 97 MMOL/L (99-107); CREATININE 0.74 MG/DL (0.40-0.90); GLUCOSE 155 MG/DL (70-104); MAGNESIUM 2.3 MG/DL (1.5-2.4); POTASSIUM 3.6 MMOL/L (3.5-5.1); SODIUM 138 MMOL/L (135-145); TOTAL CARBON DIOXIDE 38.6 MMOL/L (24-32); TOTAL PROTEIN 6.1 G/DL (6.4-8.2); eGFR 83 ML/MIN
[2020-10-31 06:30] LABS: ALANINE AMINOTRANSFERASE 1543 U/L (12-78)
--- NOTE | 2020-10-31 06:52 | NUR ---
Patient in room CICU 2013. I have received report from FANG Pablo and had the opportunity to ask questions and assume patient care.
[2020-10-31] MEDS: budesonide 0.5mg/2ml UD nebule IH SCH ×2 (07:30→19:11)
--- NOTE | 2020-10-31 07:59 | NUR ---
I have reviewed and agree with all medications administered and interventions performed by [facility] Student(Beverly Barth) Addendum: 10/31/20 at 0800 by Nancy Whitfield RT Amended: Links added.
[2020-10-31] MEDS: K and/or MAG REPLACEMENT MC SCH ×2 (08:00→20:00)
[2020-10-31] MEDS: (Tiotropium Br/Olodaterol HCl (Stiolto Respimat Inhal Spray) IH SCH (08:00)
[2020-10-31] MEDS ORDERED: methylnaltrexone br 12mg/0.6ml inj***SubQ only SQ SCH (08:00)
[2020-10-31] MEDS: lactobacillus rhamnosus 10,000 MMU CELLS/CAPSULE OGT SCH ×2 (08:37→19:55)
[2020-10-31] MEDS: furosemide 40mg/4ml inj IV SCH (08:37)
[2020-10-31] MEDS: docusate sodium 100mg/10ml UD cup OGT SCH ×2 (08:37→20:00)
[2020-10-31] MEDS: famotidine/PF 10 mg/ml inj IV SCH ×2 (08:37→19:55)
[2020-10-31] MEDS: piperacillin/tazo 3.375gm/50ml 50 ML IV SCH ×2 (08:37→16:08)
[2020-10-31] MEDS: methylPREDNISolone sod succ/PF 40mg inj. IV SCH ×2 (08:37→19:55)
[2020-10-31] MEDS: methylnaltrexone br 12mg/0.6ml inj***SubQ only SQ SCH (08:38)
[2020-10-31] MEDS: gabapentin 100mg capsule OGT SCH ×2 (08:38→16:08)
[2020-10-31] MEDS: nystatin 15 GM powder TP SCH ×3 (08:38→20:00)
[2020-10-31] MEDS: clopidogrel 75mg tablet OGT SCH (08:38)
[2020-10-31] MEDS: levoTHYROXINE 25mcg tablet OGT SCH (08:41)
[2020-10-31] MEDS: methadone 5mg tablet OGT SCH (08:41)
[2020-10-31] MEDS: insulin regular, human U-100 3ml vial - multi-dose SQ SCH ×2 (09:32→14:10)
[2020-10-31 09:45] LABS: PROLACTIN 10.8 ng/mL (4.8-23.3)
[2020-10-31] MEDS: potassium CL 10mEq/100ml bag 100 ML IV PRN ×2 (10:54→12:25)
[2020-10-31] MEDS: enoxaparin 40mg/0.4ml syringe SQ SCH (12:25)
[2020-10-31] MEDS: potassium Cl 40MEQ/1/2NS 520ml 520 ML IV PRN (13:27)
[2020-10-31 16:22] LABS: HEP A AB, IGM Negative (Negative); HEPATITIS C ANTIBODY <0.1 s/co ratio (0.0-0.9)
--- NOTE | 2020-10-31 18:08 | NUR ---
Problems reprioritized. Patient report given, questions answered & plan of care reviewed with FANG Mart.
[2020-10-31] MEDS: methadone 10mg tablet OGT SCH (20:08)
[2020-11-01] VITALS (24 sets, daily range): BP systolic 92–113; BP diastolic 56–73
[2020-11-01] MEDS: gabapentin 100mg capsule OGT SCH ×3 (00:55→15:44)
[2020-11-01] MEDS: piperacillin/tazo 3.375gm/50ml 50 ML IV SCH ×4 (00:55→23:02)
[2020-11-01] MEDS: midazolam 100mg in NS 100ml 100 ML IV PRN ×4 (01:25→22:58)
[2020-11-01] MEDS: FENTANYL-0.9 % NACL/PF 100 ML IV PRN ×4 (01:25→22:58)
[2020-11-01] MEDS: mineral oil/petrolatum ophthal oint EACHEYE SCH ×4 (02:03→19:33)
[2020-11-01] MEDS: insulin regular, human U-100 3ml vial - multi-dose SQ SCH ×4 (02:14→19:39)
[2020-11-01] MEDS: ipratropium/albuterol 3ml nebule NEB SCH ×6 (03:06→23:38)
[2020-11-01 03:42] LABS: ABG BASE EXCESS 9.9 mmol/L (-2.0-2.0); ABG HCO3 35.7 mmol/L (22.0-26.0); ABG OXYGEN SATURATION 89.8 % (94-97); ABG PCO2 (T) 54.1 mmHg (32.0-45.0); ABG PO2 (T) 60.5 mmHg (75.0-100.0); ALLEN'S TEST POSITIVE; FCOHb 0.9 % (0.0-3.9); FMetHb 0.3 % (0.0-1.5); FO2Hb 88.7 % (94-97); PATIENT TEMPERATURE 37.6; PEEP 10 cm H2O; RESPIRATORY RATE 20 b/min; TIDAL VOLUME 450 mL
[2020-11-01 06:28] LABS: BASOPHILS % (AUTO) 0.2 % (0-1); EOSINOPHILS % (AUTO) 0 % (0-6); HEMATOCRIT 42.3 % (35.0-45.0); HEMOGLOBIN 13.2 g/dl (12.0-16.0); LYMPHOCYTES # (AUTO) 0.5 X10'3 (1.1-4.8); LYMPHOCYTES % (AUTO) 5.1 % (21-51); MEAN CORPUSCULAR HEMOGLOBIN 28.9 PG (27.0-31.0); MEAN CORPUSCULAR HGB CONC 31.3 g/dL (33.0-36.5); MEAN CORPUSCULAR VOLUME 92.2 FL (78-98); MEAN PLATELET VOLUME 8.2 FL (7.4-10.4); MONOCYTES # (AUTO) 0.6 X10'3 (0-0.9); MONOCYTES % (AUTO) 6.1 % (2-12); NEUTROPHILS # (AUTO) 8.3 X10'3 (1.8-7.7); NEUTROPHILS % (AUTO) 88.6 % (42-75); PLATELET COUNT 155 X10'3 (140-440); RED BLOOD COUNT 4.59 X10'6 (4.20-5.60); RED CELL DISTRIBUTION WIDTH 17.6 % (11.5-14.5); WHITE BLOOD COUNT 9.4 X10'3 (4.5-11.0)
[2020-11-01 06:47] LABS: ALBUMIN 2.3 G/DL (3.4-5.0); ALBUMIN/GLOBULIN RATIO 0.6 (1.1-1.5); ALKALINE PHOSPHATASE 168 IU/L (46-116); ANION GAP 3 (8-16); ASPARTATE AMINO TRANSFERASE 289 U/L (10-37); BILIRUBIN,TOTAL 1.2 MG/DL (0.1-1.0); BLOOD UREA NITROGEN 36 MG/DL (7-18); BUN/CREATININE RATIO 56.3 (6.6-38.0); CALCIUM 8.3 MG/DL (8.5-10.1); CHLORIDE 101 MMOL/L (99-107); CREATININE 0.64 MG/DL (0.40-0.90); GLUCOSE 146 MG/DL (70-104); MAGNESIUM 2.3 MG/DL (1.5-2.4); POTASSIUM 3.7 MMOL/L (3.5-5.1); SODIUM 141 MMOL/L (135-145); TOTAL CARBON DIOXIDE 36.6 MMOL/L (24-32); TOTAL PROTEIN 5.9 G/DL (6.4-8.2); eGFR > 90 ML/MIN
[2020-11-01 06:49] LABS: ALANINE AMINOTRANSFERASE 1080 U/L (12-78)
[2020-11-01] MEDS: (Tiotropium Br/Olodaterol HCl (Stiolto Respimat Inhal Spray) IH SCH (08:00)
[2020-11-01] MEDS: K and/or MAG REPLACEMENT MC SCH ×2 (08:00→20:00)
[2020-11-01] MEDS: budesonide 0.5mg/2ml UD nebule IH SCH ×2 (08:02→23:38)
[2020-11-01] MEDS: levoTHYROXINE 25mcg tablet OGT SCH (08:12)
[2020-11-01] MEDS: furosemide 40mg/4ml inj IV SCH (08:12)
[2020-11-01] MEDS: clopidogrel 75mg tablet OGT SCH (08:13)
[2020-11-01] MEDS: methadone 5mg tablet OGT SCH (08:13)
[2020-11-01] MEDS: docusate sodium 100mg/10ml UD cup OGT SCH ×2 (08:13→19:32)
[2020-11-01] MEDS: methylPREDNISolone sod succ/PF 40mg inj. IV SCH (08:13)
[2020-11-01] MEDS: lactobacillus rhamnosus 10,000 MMU CELLS/CAPSULE OGT SCH ×2 (08:13→19:33)
[2020-11-01] MEDS: famotidine/PF 10 mg/ml inj IV SCH ×2 (08:13→19:32)
[2020-11-01] MEDS: nystatin 15 GM powder TP SCH ×3 (08:14→21:12)
[2020-11-01] MEDS: POTASSIUM BICARB 20meq eff tab 20 MEQ TABLET.EFF PO PRN (08:14)
[2020-11-01] MEDS: enoxaparin 40mg/0.4ml syringe SQ SCH (08:14)
[2020-11-01] MEDS: potassium Cl 40MEQ/1/2NS 520ml 520 ML IV PRN (09:29)
--- NOTE | 2020-11-01 12:27 | NUR ---
PER DR ALVARADO, INCREASE PEEP TO 15. PEEP INCREASED AND PT CONTINUOUSLY HIT HER PEAK PRESSURE ON THE VENT. PER DR ALVARADO TRY PT ON PRESSURE CONTROL TO SEE IF IT HELPS. PT PLACED ON PRESSURE CONTROL WITH A Pinsp OF 16 GETTING VT OF 590, PEEP +15 AND FIO2 OF 85% PIP 35 AND SPO2 92%. FANG'[facility] [place] AWARE. Addendum: 11/01/20 at 1230 by Nancy Whitfield RT Amended: Links added.
[2020-11-01 16:58] LABS: ABG BASE EXCESS 9.7 mmol/L (-2.0-2.0); ABG HCO3 36.7 mmol/L (22.0-26.0); ABG OXYGEN SATURATION 94.2 % (94-97); ABG PCO2 (T) 60.7 mmHg (32.0-45.0); ABG PO2 (T) 75.4 mmHg (75.0-100.0); ALLEN'S TEST POSITIVE; FCOHb 0.6 % (0.0-3.9); FMetHb 0.3 % (0.0-1.5); FO2Hb 93.4 % (94-97); PATIENT TEMPERATURE 37.4; PEEP 15 cm H2O; RESPIRATORY RATE 20 b/min; TIDAL VOLUME 518 mL; TOTAL HEMOGLOBIN 14.1 G/dl (12.0-16.0)
[2020-11-01] MEDS ORDERED: iohexol 350MG/ML 100ml bottle IV ONE (16:59)
[2020-11-01] MEDS: methadone 10mg tablet OGT SCH (21:12)
[2020-11-02] VITALS (24 sets, daily range): BP systolic 93–115; BP diastolic 57–75
[2020-11-02] MEDS: gabapentin 100mg capsule OGT SCH ×3 (00:54→16:41)
[2020-11-02] MEDS: mineral oil/petrolatum ophthal oint EACHEYE SCH ×4 (02:23→20:50)
[2020-11-02] MEDS: insulin regular, human U-100 3ml vial - multi-dose SQ SCH ×3 (02:47→20:13)
[2020-11-02] MEDS: ipratropium/albuterol 3ml nebule NEB SCH ×6 (02:58→23:11)
[2020-11-02 04:19] LABS: ABG HCO3 32.6 mmol/L (22.0-26.0); ABG OXYGEN SATURATION 92.8 % (94-97); ABG PCO2 (T) 52.3 mmHg (32.0-45.0); ALLEN'S TEST POSITIVE; FCOHb 0.7 % (0.0-3.9); FMetHb 0.2 % (0.0-1.5); PATIENT TEMPERATURE 37.9; PEEP 15 cm H2O; RESPIRATORY RATE 20 b/min; TOTAL HEMOGLOBIN 13.9 G/dl (12.0-16.0)
[2020-11-02 05:42] LABS: ALANINE AMINOTRANSFERASE 707 U/L (12-78); ALBUMIN 2.3 G/DL (3.4-5.0); ALBUMIN/GLOBULIN RATIO 0.7 (1.1-1.5); ALKALINE PHOSPHATASE 147 IU/L (46-116); ANION GAP 0 (8-16); ASPARTATE AMINO TRANSFERASE 129 U/L (10-37); BLOOD UREA NITROGEN 36 MG/DL (7-18); CALCIUM 8.1 MG/DL (8.5-10.1); CHLORIDE 101 MMOL/L (99-107); CREATININE 0.72 MG/DL (0.40-0.90); GLUCOSE 99 MG/DL (70-104); MAGNESIUM 2.2 MG/DL (1.5-2.4); POTASSIUM 3.8 MMOL/L (3.5-5.1); SODIUM 139 MMOL/L (135-145); TOTAL CARBON DIOXIDE 37.8 MMOL/L (24-32); TOTAL PROTEIN 5.8 G/DL (6.4-8.2); eGFR 85 ML/MIN
[2020-11-02 05:47] LABS: BASOPHILS # (AUTO) 0.1 X10'3 (0-0.2); BASOPHILS % (AUTO) 0.6 % (0-1); EOSINOPHILS % (AUTO) 0.4 % (0-6); HEMATOCRIT 42.1 % (35.0-45.0); LYMPHOCYTES # (AUTO) 1.4 X10'3 (1.1-4.8); LYMPHOCYTES % (AUTO) 15.3 % (21-51); MEAN CORPUSCULAR HEMOGLOBIN 28.5 PG (27.0-31.0); MEAN CORPUSCULAR HGB CONC 30.8 g/dL (33.0-36.5); MEAN CORPUSCULAR VOLUME 92.5 FL (78-98); MEAN PLATELET VOLUME 8.2 FL (7.4-10.4); MONOCYTES # (AUTO) 0.9 X10'3 (0-0.9); NEUTROPHILS % (AUTO) 73.7 % (42-75); PLATELET COUNT 151 X10'3 (140-440); RED BLOOD COUNT 4.55 X10'6 (4.20-5.60); RED CELL DISTRIBUTION WIDTH 17.8 % (11.5-14.5); WHITE BLOOD COUNT 9.5 X10'3 (4.5-11.0)
[2020-11-02] MEDS: FENTANYL-0.9 % NACL/PF 100 ML IV PRN ×3 (05:49→22:58)
[2020-11-02] MEDS: midazolam 100mg in NS 100ml 100 ML IV PRN ×3 (06:41→22:58)
[2020-11-02] MEDS: budesonide 0.5mg/2ml UD nebule IH SCH ×2 (07:11→19:15)
[2020-11-02] MEDS: K and/or MAG REPLACEMENT MC SCH ×2 (08:00→20:00)
[2020-11-02] MEDS: (Tiotropium Br/Olodaterol HCl (Stiolto Respimat Inhal Spray) IH SCH (08:00)
[2020-11-02] MEDS: methylnaltrexone br 12mg/0.6ml inj***SubQ only SQ SCH (10:01)
[2020-11-02] MEDS: clopidogrel 75mg tablet OGT SCH (10:01)
[2020-11-02] MEDS: piperacillin/tazo 3.375gm/50ml 50 ML IV SCH ×2 (10:01→16:41)
[2020-11-02] MEDS: levoTHYROXINE 25mcg tablet OGT SCH (10:01)
[2020-11-02] MEDS: methadone 5mg tablet OGT SCH (10:01)
[2020-11-02] MEDS: predniSONE 20 mg tablet PO SCH (10:02)
[2020-11-02] MEDS: famotidine/PF 10 mg/ml inj IV SCH ×2 (10:02→20:44)
[2020-11-02] MEDS: furosemide 40mg/4ml inj IV SCH (10:02)
[2020-11-02] MEDS: nystatin 15 GM powder TP SCH ×3 (10:02→21:00)
[2020-11-02] MEDS: lactobacillus rhamnosus 10,000 MMU CELLS/CAPSULE OGT SCH ×2 (10:02→20:44)
[2020-11-02] MEDS: docusate sodium 100mg/10ml UD cup OGT SCH ×2 (10:02→20:43)
[2020-11-02] MEDS: enoxaparin 40mg/0.4ml syringe SQ SCH (10:04)
--- NOTE | 2020-11-02 16:04 | NUR ---
I have reviewed and agree with all medications administered and interventions performed by [facility] Student, Roro Martini.
--- NOTE | 2020-11-02 16:16 | NUR ---
Reassessment: Pt mechanically ventilated, sedated. Receiving tube feeding using vital high protein at 60 ml/hr goal rate, tolerating, gastric residual volume under 100 ml. Last BM 10/28, receiving routine colace and relistor. Will continue to follow closely. Rec: 1. Continuous tube feeding using Vital High Protein with goal rate of 60 ml/hr. Once at goal to provide: 1440 ml total volume/day, 1440 kcal, 126 g pro, and 1166 ml water. 2. Additional water flush 200 Q4H, monitor for adjustment needs 3. Routine bowel care; opioid antagonist per gaming associate 4. Prealbumin q Friday/, daily weights 5. Scaled wt this admit 6. Upon extubation; advance diet as medically indicated to heart healthy Addendum: 11/02/20 at [address] Amended: Links added.
[2020-11-02] MEDS: methadone 10mg tablet OGT SCH (20:44)
[2020-11-02] MEDS: insulin glargine (Lantus) pen - multi-dose SQ SCH (22:25)
[2020-11-03] VITALS (23 sets, daily range): BP systolic 90–138; BP diastolic 7–77
[2020-11-03] MEDS: piperacillin/tazo 3.375gm/50ml 50 ML IV SCH ×4 (00:21→23:52)
[2020-11-03] MEDS: gabapentin 100mg capsule OGT SCH ×4 (00:21→23:52)
[2020-11-03] MEDS: mineral oil/petrolatum ophthal oint EACHEYE SCH ×4 (02:25→20:00)
[2020-11-03] MEDS: insulin regular, human U-100 3ml vial - multi-dose SQ SCH ×4 (02:31→20:15)
[2020-11-03] MEDS: ipratropium/albuterol 3ml nebule NEB SCH ×6 (03:33→23:12)
[2020-11-03 03:55] LABS: ABG OXYGEN SATURATION 94.3 % (94-97); ALLEN'S TEST POSITIVE; FCOHb 1.1 % (0.0-3.9); FMetHb 0.1 % (0.0-1.5); FO2Hb 93.2 % (94-97); PATIENT TEMPERATURE 37.5; PEEP 15 cm H2O; RESPIRATORY RATE 20 b/min; TOTAL HEMOGLOBIN 13.9 G/dl (12.0-16.0)
[2020-11-03] MEDS: FENTANYL-0.9 % NACL/PF 100 ML IV PRN (06:22)
[2020-11-03 07:04] LABS: BASOPHILS % (AUTO) 0.2 % (0-1); EOSINOPHILS # (AUTO) 0.1 X10'3 (0-0.9); EOSINOPHILS % (AUTO) 0.6 % (0-6); HEMATOCRIT 40.9 % (35.0-45.0); HEMOGLOBIN 12.7 g/dl (12.0-16.0); LYMPHOCYTES # (AUTO) 1.4 X10'3 (1.1-4.8); LYMPHOCYTES % (AUTO) 14.5 % (21-51); MEAN CORPUSCULAR HEMOGLOBIN 28.3 PG (27.0-31.0); MEAN CORPUSCULAR HGB CONC 31.2 g/dL (33.0-36.5); MEAN CORPUSCULAR VOLUME 90.9 FL (78-98); MEAN PLATELET VOLUME 8.4 FL (7.4-10.4); MONOCYTES % (AUTO) 10.3 % (2-12); NEUTROPHILS # (AUTO) 7.2 X10'3 (1.8-7.7); NEUTROPHILS % (AUTO) 74.4 % (42-75); PLATELET COUNT 141 X10'3 (140-440); RED CELL DISTRIBUTION WIDTH 17.9 % (11.5-14.5); WHITE BLOOD COUNT 9.7 X10'3 (4.5-11.0)
[2020-11-03] MEDS: budesonide 0.5mg/2ml UD nebule IH SCH ×2 (07:26→19:19)
[2020-11-03 07:28] LABS: ALBUMIN 2.2 G/DL (3.4-5.0); ANION GAP 2 (8-16); CALCIUM 8.2 MG/DL (8.5-10.1); CHLORIDE 101 MMOL/L (99-107); CREATININE 0.54 MG/DL (0.40-0.90); GLUCOSE 91 MG/DL (70-104); MAGNESIUM 2.3 MG/DL (1.5-2.4); POTASSIUM 3.2 MMOL/L (3.5-5.1); SODIUM 141 MMOL/L (135-145); TOTAL CARBON DIOXIDE 37.7 MMOL/L (24-32); eGFR > 90 ML/MIN
[2020-11-03 07:39] LABS: BLOOD UREA NITROGEN 34 MG/DL (7-18)
[2020-11-03] MEDS: methadone 5mg tablet OGT SCH (07:55)
[2020-11-03] MEDS: lactobacillus rhamnosus 10,000 MMU CELLS/CAPSULE OGT SCH ×2 (07:55→21:33)
[2020-11-03] MEDS: levoTHYROXINE 25mcg tablet OGT SCH (07:55)
[2020-11-03] MEDS: POTASSIUM BICARB 20meq eff tab 20 MEQ TABLET.EFF PO PRN ×3 (07:55→17:42)
[2020-11-03] MEDS: famotidine/PF 10 mg/ml inj IV SCH ×2 (07:56→21:27)
[2020-11-03] MEDS: clopidogrel 75mg tablet OGT SCH (07:56)
[2020-11-03] MEDS: docusate sodium 100mg/10ml UD cup OGT SCH ×2 (07:56→21:33)
[2020-11-03] MEDS: enoxaparin 40mg/0.4ml syringe SQ SCH (07:56)
[2020-11-03] MEDS: nystatin 15 GM powder TP SCH ×3 (07:56→21:33)
[2020-11-03] MEDS: furosemide 40mg/4ml inj IV SCH (07:56)
[2020-11-03] MEDS: (Tiotropium Br/Olodaterol HCl (Stiolto Respimat Inhal Spray) IH SCH (07:57)
[2020-11-03] MEDS: predniSONE 20 mg tablet PO SCH (07:58)
[2020-11-03] MEDS: K and/or MAG REPLACEMENT MC SCH ×2 (08:00→20:00)
--- NOTE | 2020-11-03 16:15 | NUR ---
I have reviewed and agree with all medications administered and interventions performed by [facility] Student, Roro Martini.
[2020-11-03] MEDS: midazolam 100mg in NS 100ml 100 ML IV PRN (18:23)
[2020-11-03] MEDS: insulin glargine (Lantus) pen - multi-dose SQ SCH (20:16)
[2020-11-03] MEDS: methadone 10mg tablet OGT SCH (21:33)
[2020-11-03 22:06] LABS: MAGNESIUM 2.4 MG/DL (1.5-2.4); PHOSPHORUS 2.8 MG/DL (2.3-4.5); POTASSIUM 3.9 MMOL/L (3.5-5.1)
[2020-11-04] VITALS (24 sets, daily range): BP systolic 92–118; BP diastolic 52–71
[2020-11-04] MEDS: mineral oil/petrolatum ophthal oint EACHEYE SCH ×4 (02:00→19:37)
[2020-11-04] MEDS: ipratropium/albuterol 3ml nebule NEB SCH ×6 (02:49→22:12)
[2020-11-04 03:04] LABS: ABG BASE EXCESS 10.4 mmol/L (-2.0-2.0); ABG OXYGEN SATURATION 92.6 % (94-97); ABG PCO2 (T) 54.2 mmHg (32.0-45.0); ABG PO2 (T) 69.3 mmHg (75.0-100.0); ALLEN'S TEST POSITIVE; FCOHb 0.6 % (0.0-3.9); FMetHb 0.2 % (0.0-1.5); FO2Hb 91.9 % (94-97); PATIENT TEMPERATURE 38.1; PEEP 15 cm H2O; RESPIRATORY RATE 20 b/min; TOTAL HEMOGLOBIN 13.8 G/dl (12.0-16.0)
[2020-11-04] MEDS: FENTANYL-0.9 % NACL/PF 100 ML IV PRN ×2 (04:44→18:13)
[2020-11-04] MEDS: midazolam 100mg in NS 100ml 100 ML IV PRN ×2 (04:47→15:11)
[2020-11-04 06:36] LABS: MAGNESIUM 2.3 MG/DL (1.5-2.4)
[2020-11-04] MEDS: budesonide 0.5mg/2ml UD nebule IH SCH ×2 (07:27→18:55)
[2020-11-04] MEDS: K and/or MAG REPLACEMENT MC SCH ×2 (08:00→19:38)
[2020-11-04] MEDS: (Tiotropium Br/Olodaterol HCl (Stiolto Respimat Inhal Spray) IH SCH (08:00)
[2020-11-04] MEDS: lactobacillus rhamnosus 10,000 MMU CELLS/CAPSULE OGT SCH ×2 (08:43→19:38)
[2020-11-04] MEDS: methylnaltrexone br 12mg/0.6ml inj***SubQ only SQ SCH (08:43)
[2020-11-04] MEDS: methadone 5mg tablet OGT SCH (08:43)
[2020-11-04] MEDS: docusate sodium 100mg/10ml UD cup OGT SCH ×2 (08:43→19:38)
[2020-11-04] MEDS: clopidogrel 75mg tablet OGT SCH (08:43)
[2020-11-04] MEDS: gabapentin 100mg capsule OGT SCH ×3 (08:43→23:14)
[2020-11-04] MEDS: furosemide 40mg/4ml inj IV SCH (08:43)
[2020-11-04] MEDS: piperacillin/tazo 3.375gm/50ml 50 ML IV SCH ×3 (08:46→23:14)
[2020-11-04] MEDS: famotidine/PF 10 mg/ml inj IV SCH ×2 (08:46→19:37)
[2020-11-04] MEDS: enoxaparin 40mg/0.4ml syringe SQ SCH (08:47)
[2020-11-04] MEDS: nystatin 15 GM powder TP SCH ×3 (08:47→20:21)
[2020-11-04] MEDS: insulin regular, human U-100 3ml vial - multi-dose SQ SCH ×3 (08:51→19:42)
[2020-11-04] MEDS: levoTHYROXINE 25mcg tablet OGT SCH (09:05)
[2020-11-04 09:10] LABS: BASOPHILS % (AUTO) 0.3 % (0-1); EOSINOPHILS # (AUTO) 0.1 X10'3 (0-0.9); EOSINOPHILS % (AUTO) 0.6 % (0-6); HEMATOCRIT 39.6 % (35.0-45.0); HEMOGLOBIN 12.4 g/dl (12.0-16.0); LYMPHOCYTES # (AUTO) 1.2 X10'3 (1.1-4.8); MEAN CORPUSCULAR HEMOGLOBIN 28.3 PG (27.0-31.0); MEAN CORPUSCULAR HGB CONC 31.2 g/dL (33.0-36.5); MEAN CORPUSCULAR VOLUME 90.8 FL (78-98); MEAN PLATELET VOLUME 8.9 FL (7.4-10.4); MONOCYTES % (AUTO) 10.1 % (2-12); NEUTROPHILS # (AUTO) 7.8 X10'3 (1.8-7.7); PLATELET COUNT 137 X10'3 (140-440); RED BLOOD COUNT 4.37 X10'6 (4.20-5.60); RED CELL DISTRIBUTION WIDTH 18.1 % (11.5-14.5); WHITE BLOOD COUNT 10.1 X10'3 (4.5-11.0)
[2020-11-04 09:23] LABS: ANION GAP 7 (8-16); BLOOD UREA NITROGEN 33 MG/DL (7-18); BUN/CREATININE RATIO 62.3 (6.6-38.0); CALCIUM 8.3 MG/DL (8.5-10.1); CHLORIDE 102 MMOL/L (99-107); CREATININE 0.53 MG/DL (0.40-0.90); GLUCOSE 100 MG/DL (70-104); POTASSIUM 3.3 MMOL/L (3.5-5.1); SODIUM 143 MMOL/L (135-145); TOTAL CARBON DIOXIDE 34.3 MMOL/L (24-32); eGFR > 90 ML/MIN
[2020-11-04 09:24] LABS: ALBUMIN 2.1 G/DL (3.4-5.0)
[2020-11-04] MEDS: POTASSIUM BICARB 20meq eff tab 20 MEQ TABLET.EFF PO PRN ×3 (11:37→19:38)
[2020-11-04] MEDS: spironolactone 25 MG tablet OGT SCH ×2 (13:36→20:21)
[2020-11-04] MEDS: predniSONE 20 mg tablet OGT SCH (19:37)
[2020-11-04] MEDS: insulin glargine (Lantus) pen - multi-dose SQ SCH (20:18)
[2020-11-04] MEDS: methadone 10mg tablet OGT SCH (20:20)
[2020-11-05] VITALS (22 sets, daily range): BP systolic 15–124; BP diastolic 45–74
[2020-11-05 01:17] LABS: ABG HCO3 35.6 mmol/L (22.0-26.0); ABG OXYGEN SATURATION 86.5 % (94-97); ABG PCO2 (T) 45.8 mmHg (32.0-45.0); ABG PO2 (T) 47.8 mmHg (75.0-100.0); ALLEN'S TEST POSITIVE; FCOHb 0.8 % (0.0-3.9); FMetHb 0.2 % (0.0-1.5); FO2Hb 85.6 % (94-97); PATIENT TEMPERATURE 36.9; PEEP 12 cm H2O; RESPIRATORY RATE 20 b/min; TOTAL HEMOGLOBIN 14.7 G/dl (12.0-16.0)
[2020-11-05] MEDS: insulin regular, human U-100 3ml vial - multi-dose SQ SCH ×4 (03:15→20:36)
[2020-11-05] MEDS: mineral oil/petrolatum ophthal oint EACHEYE SCH ×4 (03:16→20:32)
[2020-11-05] MEDS: ipratropium/albuterol 3ml nebule NEB SCH ×6 (03:45→22:33)
--- NOTE | 2020-11-05 06:41 | NUR ---
Patient in room CICU 2009. I have received report from [facility] and had the opportunity to ask questions and assume patient care.
[2020-11-05] MEDS: budesonide 0.5mg/2ml UD nebule IH SCH ×2 (07:04→22:33)
[2020-11-05 07:08] LABS: ALBUMIN 2.1 G/DL (3.4-5.0); ANION GAP 5 (8-16); BLOOD UREA NITROGEN 31 MG/DL (7-18); BUN/CREATININE RATIO 53.4 (6.6-38.0); CALCIUM 8.7 MG/DL (8.5-10.1); CHLORIDE 100 MMOL/L (99-107); CREATININE 0.58 MG/DL (0.40-0.90); GLUCOSE 132 MG/DL (70-104); POTASSIUM 3.9 MMOL/L (3.5-5.1); SODIUM 142 MMOL/L (135-145); TOTAL CARBON DIOXIDE 37.5 MMOL/L (24-32); eGFR > 90 ML/MIN
[2020-11-05 07:13] LABS: BASOPHILS % (AUTO) 0 % (0-1); EOSINOPHILS % (AUTO) 0 % (0-6); LYMPHOCYTES # (AUTO) 0.4 X10'3 (1.1-4.8); LYMPHOCYTES % (AUTO) 5.5 % (21-51); MEAN CORPUSCULAR HEMOGLOBIN 28.3 PG (27.0-31.0); MEAN CORPUSCULAR VOLUME 91.3 FL (78-98); MONOCYTES # (AUTO) 0.7 X10'3 (0-0.9); MONOCYTES % (AUTO) 8.1 % (2-12); NEUTROPHILS # (AUTO) 7.1 X10'3 (1.8-7.7); NEUTROPHILS % (AUTO) 86.4 % (42-75); PLATELET COUNT 156 X10'3 (140-440); RED CELL DISTRIBUTION WIDTH 18.4 % (11.5-14.5); WHITE BLOOD COUNT 8.2 X10'3 (4.5-11.0)
[2020-11-05] MEDS: nystatin 15 GM powder TP SCH ×3 (07:47→20:32)
[2020-11-05] MEDS: piperacillin/tazo 3.375gm/50ml 50 ML IV SCH (07:47)
[2020-11-05] MEDS: enoxaparin 40mg/0.4ml syringe SQ SCH (07:48)
[2020-11-05] MEDS: levoTHYROXINE 25mcg tablet OGT SCH (07:48)
[2020-11-05] MEDS: docusate sodium 100mg/10ml UD cup OGT SCH ×2 (07:48→20:42)
[2020-11-05] MEDS: clopidogrel 75mg tablet OGT SCH (07:48)
[2020-11-05] MEDS: famotidine/PF 10 mg/ml inj IV SCH ×2 (07:48→20:32)
[2020-11-05] MEDS: gabapentin 100mg capsule OGT SCH ×3 (07:48→23:26)
[2020-11-05] MEDS: spironolactone 25 MG tablet OGT SCH ×3 (07:49→20:33)
[2020-11-05] MEDS: lactobacillus rhamnosus 10,000 MMU CELLS/CAPSULE OGT SCH ×2 (07:49→20:32)
[2020-11-05] MEDS: methadone 5mg tablet OGT SCH (07:49)
[2020-11-05] MEDS: predniSONE 20 mg tablet OGT SCH ×2 (07:54→20:33)
[2020-11-05] MEDS: K and/or MAG REPLACEMENT MC SCH ×2 (08:00→20:00)
[2020-11-05] MEDS: (Tiotropium Br/Olodaterol HCl (Stiolto Respimat Inhal Spray) IH SCH (08:00)
[2020-11-05] MEDS: FENTANYL-0.9 % NACL/PF 100 ML IV PRN ×2 (08:16→20:58)
[2020-11-05] MEDS ORDERED: prednisone 10mg tablet PO SCH (09:55)
--- NOTE | 2020-11-05 10:32 | NUR ---
F/u 11/05: Pt tolerating TF at goal GRV WNL. LBM 10/28 receiving routine colace, relistor, and probiotic; JOSELITO d/w RN regarding additional bowel care this admit if MD agreeable. Will continue to monitor for TF tolerance and additional protein needs on vent. Rec: 1. Continuous tube feeding using Vital High Protein with goal rate of 60 ml/hr. Once at goal to provide: 1440 ml total volume/day, 1440 kcal, 126 g pro, and 1166 ml water. 2. Additional water flush 200 Q4H, monitor for adjustment needs 3. Routine bowel care; opioid antagonist per cut out worker 4. Prealbumin q Friday/, daily weights 5. Upon extubation; advance diet as medically indicated to heart healthy Addendum: 11/05/20 at [address] Amended: Links added.
[2020-11-05] MEDS: midazolam 100mg in NS 100ml 100 ML IV PRN ×2 (11:10→20:58)
--- NOTE | 2020-11-05 11:49 | NUR ---
1000- Dr Booker rounds- change antibiotics to levquin 500mg via NG daily, decrease PEEP setting to 5 (oxygenation issues may be being increased due to air trapping with PEEP, decrease rate to 16, wean FIO2 as able. 1200- Patient painful with reposition, right hip and left knee, completed a full turn and adjusted pillows for support.
[2020-11-05 13:38] LABS: ABG BASE EXCESS 10.9 mmol/L (-2.0-2.0); ABG HCO3 37.3 mmol/L (22.0-26.0); ABG OXYGEN SATURATION 89.7 % (94-97); ABG PCO2 (T) 54.4 mmHg (32.0-45.0); ABG PO2 (T) 53.3 mmHg (75.0-100.0); ALLEN'S TEST POSITIVE; FCOHb 0.5 % (0.0-3.9); FMetHb 0.2 % (0.0-1.5); FO2Hb 89.1 % (94-97); PEEP 5 cm H2O; RESPIRATORY RATE 16 b/min; TIDAL VOLUME 780 mL; TOTAL HEMOGLOBIN 13.5 G/dl (12.0-16.0)
[2020-11-05 15:12] LABS: MAGNESIUM 2.2 MG/DL (1.5-2.4); PHOSPHORUS 3.4 MG/DL (2.3-4.5)
--- NOTE | 2020-11-05 16:50 | NUR ---
1330- Redraw ABG after changes to vent settings from earlier, some improvement in PO2. Patient continues to have multi PVC's, screen reads R on T, have yet to identify it as such, added mag and phos to am labs already drawn. 1545-Pt's daughter here, patient awake, getting more restless as visit goes on, increased sedation as SpO2 decrease to 82. Patients daughter took patient belongings home. 1650- sats 86%, patient appears more comfortable.
[2020-11-05] MEDS: methadone 10mg tablet OGT SCH (20:32)
[2020-11-05] MEDS: insulin glargine (Lantus) pen - multi-dose SQ SCH (20:37)
[2020-11-06] VITALS (24 sets, daily range): BP systolic 84–115; BP diastolic 50–81
[2020-11-06] MEDS: mineral oil/petrolatum ophthal oint EACHEYE SCH ×4 (01:48→19:50)
[2020-11-06] MEDS: ibuprofen 200mg tablet OGT PRN (02:27)
[2020-11-06] MEDS: ipratropium/albuterol 3ml nebule NEB SCH ×6 (03:07→22:55)
[2020-11-06 03:27] LABS: ABG BASE EXCESS 8.1 mmol/L (-2.0-2.0); ABG OXYGEN SATURATION 89.4 % (94-97); ABG PCO2 (T) 50.7 mmHg (32.0-45.0); ABG PO2 (T) 64.3 mmHg (75.0-100.0); ALLEN'S TEST POSITIVE; FCOHb 0.9 % (0.0-3.9); FMetHb 0.2 % (0.0-1.5); FO2Hb 88.4 % (94-97); PATIENT TEMPERATURE 38.7; PEEP 5 cm H2O; RESPIRATORY RATE 16 b/min; TOTAL HEMOGLOBIN 13.7 G/dl (12.0-16.0)
[2020-11-06] MEDS ORDERED: albumin (Human) 5% 250ml 250 ML IV ONE (05:50)
[2020-11-06] MEDS: FENTANYL-0.9 % NACL/PF 100 ML IV PRN ×3 (06:06→23:39)
[2020-11-06 06:16] LABS: BASOPHILS % (AUTO) 0.3 % (0-1); EOSINOPHILS % (AUTO) 0.3 % (0-6); HEMATOCRIT 40.7 % (35.0-45.0); HEMOGLOBIN 12.6 g/dl (12.0-16.0); LYMPHOCYTES # (AUTO) 0.9 X10'3 (1.1-4.8); LYMPHOCYTES % (AUTO) 8.3 % (21-51); MEAN CORPUSCULAR HEMOGLOBIN 28.1 PG (27.0-31.0); MEAN CORPUSCULAR HGB CONC 30.9 g/dL (33.0-36.5); MEAN CORPUSCULAR VOLUME 90.9 FL (78-98); MEAN PLATELET VOLUME 9.2 FL (7.4-10.4); MONOCYTES # (AUTO) 1.4 X10'3 (0-0.9); MONOCYTES % (AUTO) 12.5 % (2-12); NEUTROPHILS # (AUTO) 8.7 X10'3 (1.8-7.7); NEUTROPHILS % (AUTO) 78.6 % (42-75); PLATELET COUNT 166 X10'3 (140-440); RED BLOOD COUNT 4.48 X10'6 (4.20-5.60); RED CELL DISTRIBUTION WIDTH 18.4 % (11.5-14.5)
[2020-11-06 06:26] LABS: ANION GAP 4 (8-16); BLOOD UREA NITROGEN 30 MG/DL (7-18); BUN/CREATININE RATIO 54.5 (6.6-38.0); CALCIUM 8.3 MG/DL (8.5-10.1); CHLORIDE 100 MMOL/L (99-107); CREATININE 0.55 MG/DL (0.40-0.90); GLUCOSE 87 MG/DL (70-104); POTASSIUM 3.5 MMOL/L (3.5-5.1); SODIUM 140 MMOL/L (135-145); TOTAL CARBON DIOXIDE 36.2 MMOL/L (24-32); eGFR > 90 ML/MIN
--- NOTE | 2020-11-06 06:28 | NUR ---
0600- Assumed care of patient. Pt BP 92/62, can hear patient breathing more shallow than yesterday, wakes up and looks fearful, nods head yes when asked if having a harder time breathing. Temperature 38.2 currently. Albumin infusing. Increased sedation to 9.
[2020-11-06] MEDS: midazolam 100mg in NS 100ml 100 ML IV PRN ×2 (07:18→16:16)
[2020-11-06] MEDS: famotidine/PF 10 mg/ml inj IV SCH ×2 (07:18→19:49)
[2020-11-06] MEDS: predniSONE 20 mg tablet OGT SCH ×2 (07:18→19:50)
[2020-11-06] MEDS: methylnaltrexone br 12mg/0.6ml inj***SubQ only SQ SCH (07:18)
[2020-11-06] MEDS: spironolactone 25 MG tablet OGT SCH ×3 (07:19→20:05)
[2020-11-06] MEDS: lactobacillus rhamnosus 10,000 MMU CELLS/CAPSULE OGT SCH ×2 (07:19→19:49)
[2020-11-06] MEDS: levoTHYROXINE 25mcg tablet OGT SCH (07:19)
[2020-11-06] MEDS: gabapentin 100mg capsule OGT SCH ×3 (07:19→23:40)
[2020-11-06] MEDS: budesonide 0.5mg/2ml UD nebule IH SCH ×2 (07:20→19:29)
[2020-11-06] MEDS: methadone 5mg tablet OGT SCH (07:20)
[2020-11-06] MEDS: enoxaparin 40mg/0.4ml syringe SQ SCH (07:20)
[2020-11-06] MEDS: clopidogrel 75mg tablet OGT SCH (07:20)
[2020-11-06] MEDS: docusate sodium 100mg/10ml UD cup OGT SCH ×2 (07:21→19:50)
[2020-11-06] MEDS: nystatin 15 GM powder TP SCH ×3 (07:21→20:05)
[2020-11-06] MEDS ORDERED: levoFLOXACIN 500mg tablet OGT SCH (08:00)
[2020-11-06] MEDS: K and/or MAG REPLACEMENT MC SCH ×2 (08:00→20:00)
[2020-11-06] MEDS: (Tiotropium Br/Olodaterol HCl (Stiolto Respimat Inhal Spray) IH SCH (08:00)
--- NOTE | 2020-11-06 08:14 | NUR ---
0800- Morning accu check 99 after not receiving TF coverage at 0200, holding on medicating with insulin this A.M. Respirations up to 26, BP 104/70 after albumin. Patient wakes easily but looking worn out.
--- NOTE | 2020-11-06 11:20 | NUR ---
09- MD making quick round, change IV anbx back to zosyn IV, ok for PICC line 929- Daughter here, updated on patients condition. Daughter states that mom would want to keep pursuing care even if that were to include a trach and peg tube. Daughter also consented for PICC line. 1015- Critical care rounds with Dr Bradford- change anbx to rocephin 2gm daily, goal of SaO2 is 88-90%, discussed with daughter that pt condition is too poor currently to safely and effectively place a trach at this point, patients condition must improve before this can be considered.
[2020-11-06] MEDS: CefTRIAXone 2gm/D5W 50ml BAG 50 ML IV SCH (11:26)
[2020-11-06] MEDS: insulin regular, human U-100 3ml vial - multi-dose SQ SCH ×2 (14:09→19:52)
--- NOTE | 2020-11-06 14:16 | NUR ---
1400- BGL 169- decreased to a level 3 due to coverage held at 02 and 0800 for lower blood levels.
--- NOTE | 2020-11-06 15:13 | NUR ---
[facility] LINE INFORMATION: [id number] LOT: [id number] EXP: 11/22/2021
[2020-11-06] MEDS ORDERED: piperacillin/tazo 3.375gm/50ml 50 ML IV SCH (16:00)
--- NOTE | 2020-11-06 18:13 | NUR ---
Problems reprioritized. Patient report given, questions answered & plan of care reviewed with Tesfaye. Addendum: 11/06/20 at 1815 by Christian Ibrahim RN Reported off to
[2020-11-06] MEDS: insulin glargine (Lantus) pen - multi-dose SQ SCH (19:54)
[2020-11-06] MEDS: methadone 10mg tablet OGT SCH (19:54)
[2020-11-07] VITALS (24 sets, daily range): BP systolic 99–145; BP diastolic 52–82
[2020-11-07] MEDS: insulin regular, human U-100 3ml vial - multi-dose SQ SCH ×4 (01:53→21:04)
[2020-11-07] MEDS: ipratropium/albuterol 3ml nebule NEB SCH ×6 (02:40→22:52)
[2020-11-07 02:54] LABS: ABG BASE EXCESS 4.7 mmol/L (-2.0-2.0); ABG HCO3 30.6 mmol/L (22.0-26.0); ABG OXYGEN SATURATION 90.5 % (94-97); ABG PCO2 (T) 51.7 mmHg (32.0-45.0); ABG PO2 (T) 62.2 mmHg (75.0-100.0); ALLEN'S TEST POSITIVE; FCOHb 0.7 % (0.0-3.9); FMetHb 0.2 % (0.0-1.5); FO2Hb 89.7 % (94-97); PATIENT TEMPERATURE 37.5; PEEP 10 cm H2O; RESPIRATORY RATE 16 b/min; TOTAL HEMOGLOBIN 13.5 G/dl (12.0-16.0)
[2020-11-07 03:39] LABS: BASOPHILS % (AUTO) 0.1 % (0-1); EOSINOPHILS % (AUTO) 0 % (0-6); HEMATOCRIT 38.9 % (35.0-45.0); LYMPHOCYTES # (AUTO) 0.5 X10'3 (1.1-4.8); LYMPHOCYTES % (AUTO) 4.2 % (21-51); MEAN CORPUSCULAR HEMOGLOBIN 28.2 PG (27.0-31.0); MEAN CORPUSCULAR HGB CONC 30.9 g/dL (33.0-36.5); MEAN CORPUSCULAR VOLUME 91.1 FL (78-98); MEAN PLATELET VOLUME 9.5 FL (7.4-10.4); MONOCYTES # (AUTO) 1.1 X10'3 (0-0.9); MONOCYTES % (AUTO) 10.3 % (2-12); NEUTROPHILS # (AUTO) 9.4 X10'3 (1.8-7.7); NEUTROPHILS % (AUTO) 85.4 % (42-75); PLATELET COUNT 132 X10'3 (140-440); RED BLOOD COUNT 4.27 X10'6 (4.20-5.60); RED CELL DISTRIBUTION WIDTH 18.7 % (11.5-14.5)
[2020-11-07] MEDS: mineral oil/petrolatum ophthal oint EACHEYE SCH ×4 (03:39→20:57)
[2020-11-07] MEDS: midazolam 100mg in NS 100ml 100 ML IV PRN ×2 (03:39→13:58)
[2020-11-07 03:59] LABS: ALBUMIN 1.9 G/DL (3.4-5.0); ANION GAP 6 (8-16); BLOOD UREA NITROGEN 28 MG/DL (7-18); BUN/CREATININE RATIO 63.6 (6.6-38.0); CHLORIDE 99 MMOL/L (99-107); CREATININE 0.44 MG/DL (0.40-0.90); GLUCOSE 126 MG/DL (70-104); POTASSIUM 3.9 MMOL/L (3.5-5.1); SODIUM 138 MMOL/L (135-145); TOTAL CARBON DIOXIDE 33.3 MMOL/L (24-32); eGFR > 90 ML/MIN
[2020-11-07] MEDS: predniSONE 20 mg tablet OGT SCH ×2 (07:08→20:57)
[2020-11-07] MEDS: gabapentin 100mg capsule OGT SCH ×2 (07:08→16:05)
[2020-11-07] MEDS: clopidogrel 75mg tablet OGT SCH (07:09)
[2020-11-07] MEDS: nystatin 15 GM powder TP SCH ×3 (07:09→21:15)
[2020-11-07] MEDS: spironolactone 25 MG tablet OGT SCH ×3 (07:09→20:57)
[2020-11-07] MEDS: famotidine/PF 10 mg/ml inj IV SCH ×2 (07:09→20:57)
[2020-11-07] MEDS: methadone 5mg tablet OGT SCH (07:09)
[2020-11-07] MEDS: levoTHYROXINE 25mcg tablet OGT SCH (07:09)
[2020-11-07] MEDS: lactobacillus rhamnosus 10,000 MMU CELLS/CAPSULE OGT SCH ×2 (07:09→20:56)
[2020-11-07] MEDS: docusate sodium 100mg/10ml UD cup OGT SCH ×2 (07:09→20:56)
[2020-11-07] MEDS: enoxaparin 40mg/0.4ml syringe SQ SCH (07:10)
[2020-11-07] MEDS: CefTRIAXone 2gm/D5W 50ml BAG 50 ML IV SCH (07:10)
[2020-11-07] MEDS: K and/or MAG REPLACEMENT MC SCH ×2 (08:00→20:00)
[2020-11-07] MEDS: (Tiotropium Br/Olodaterol HCl (Stiolto Respimat Inhal Spray) IH SCH (08:00)
[2020-11-07] MEDS: budesonide 0.5mg/2ml UD nebule IH SCH ×2 (08:53→18:44)
[2020-11-07] MEDS: FENTANYL-0.9 % NACL/PF 100 ML IV PRN ×2 (09:19→19:32)
[2020-11-07] MEDS: nicotine 21mg patch - 24 hr TD SCH (18:03)
--- NOTE | 2020-11-07 18:15 | NUR ---
Jude HEADLEY given sbar report, emar reviewed, questions answered.
[2020-11-07] MEDS: methadone 10mg tablet OGT SCH (20:57)
[2020-11-07] MEDS: insulin glargine (Lantus) pen - multi-dose SQ SCH (21:05)
[2020-11-08] VITALS (24 sets, daily range): BP systolic 105–132; BP diastolic 48–89
[2020-11-08] MEDS: gabapentin 100mg capsule OGT SCH ×3 (00:29→16:26)
[2020-11-08] MEDS: midazolam 100mg in NS 100ml 100 ML IV PRN ×2 (00:30→11:38)
[2020-11-08] MEDS: mineral oil/petrolatum ophthal oint EACHEYE SCH ×4 (01:55→20:17)
[2020-11-08 02:27] LABS: BASOPHILS % (AUTO) 0.1 % (0-1); EOSINOPHILS % (AUTO) 0 % (0-6); LYMPHOCYTES # (AUTO) 0.3 X10'3 (1.1-4.8); MEAN PLATELET VOLUME 9.2 FL (7.4-10.4); MONOCYTES # (AUTO) 0.6 X10'3 (0-0.9); MONOCYTES % (AUTO) 4.6 % (2-12); NEUTROPHILS # (AUTO) 11.9 X10'3 (1.8-7.7); NEUTROPHILS % (AUTO) 93.3 % (42-75); RED CELL DISTRIBUTION WIDTH 18.7 % (11.5-14.5)
[2020-11-08 02:37] LABS: ALBUMIN 1.9 G/DL (3.4-5.0); ANION GAP 4 (8-16); BLOOD UREA NITROGEN 29 MG/DL (7-18); BUN/CREATININE RATIO 72.5 (6.6-38.0); CALCIUM 8.5 MG/DL (8.5-10.1); CHLORIDE 99 MMOL/L (99-107); GLUCOSE 141 MG/DL (70-104); POTASSIUM 4.3 MMOL/L (3.5-5.1); SODIUM 138 MMOL/L (135-145); TOTAL CARBON DIOXIDE 34.7 MMOL/L (24-32); eGFR > 90 ML/MIN
[2020-11-08] MEDS: ipratropium/albuterol 3ml nebule NEB SCH ×6 (02:42→22:43)
[2020-11-08 02:52] LABS: WHITE BLOOD COUNT 12.7 X10'3 (4.5-11.0)
[2020-11-08 02:53] LABS: HEMOGLOBIN 13.9 g/dl (12.0-16.0); MEAN CORPUSCULAR HGB CONC 31.5 g/dL (33.0-36.5); MEAN CORPUSCULAR VOLUME 91.9 FL (78-98); RED BLOOD COUNT 4.79 X10'6 (4.20-5.60)
[2020-11-08 02:54] LABS: PLATELET COUNT 130 X10'3 (140-440)
[2020-11-08 02:57] LABS: ABG BASE EXCESS 8.5 mmol/L (-2.0-2.0); ABG HCO3 35.8 mmol/L (22.0-26.0); ABG OXYGEN SATURATION 88.1 % (94-97); ABG PCO2 (T) 60.2 mmHg (32.0-45.0); ABG PO2 (T) 55.8 mmHg (75.0-100.0); ALLEN'S TEST POSITIVE; FCOHb 0.2 % (0.0-3.9); FMetHb 0.1 % (0.0-1.5); FO2Hb 87.8 % (94-97); PATIENT TEMPERATURE 36.7; PEEP 10 cm H2O; RESPIRATORY RATE 16 b/min
[2020-11-08] MEDS ORDERED: furosemide 40mg/4ml inj IV ONE ×3 (04:40→18:00)
[2020-11-08] MEDS: FENTANYL-0.9 % NACL/PF 100 ML IV PRN ×3 (04:49→22:25)
[2020-11-08] MEDS: budesonide 0.5mg/2ml UD nebule IH SCH ×2 (07:12→19:12)
[2020-11-08] MEDS: docusate sodium 100mg/10ml UD cup OGT SCH ×2 (07:26→20:17)
[2020-11-08] MEDS: spironolactone 25 MG tablet OGT SCH ×3 (07:27→20:18)
[2020-11-08] MEDS: lactobacillus rhamnosus 10,000 MMU CELLS/CAPSULE OGT SCH ×2 (07:27→20:17)
[2020-11-08] MEDS: clopidogrel 75mg tablet OGT SCH (07:28)
[2020-11-08] MEDS: levoTHYROXINE 25mcg tablet OGT SCH (07:28)
[2020-11-08] MEDS: methadone 5mg tablet OGT SCH (07:28)
[2020-11-08] MEDS: methylnaltrexone br 12mg/0.6ml inj***SubQ only SQ SCH (07:28)
[2020-11-08] MEDS: predniSONE 20 mg tablet OGT SCH ×2 (07:28→20:20)
[2020-11-08] MEDS: nystatin 15 GM powder TP SCH ×3 (07:29→20:19)
[2020-11-08] MEDS: enoxaparin 40mg/0.4ml syringe SQ SCH (07:30)
[2020-11-08] MEDS: nicotine 21mg patch - 24 hr TD SCH (07:30)
[2020-11-08] MEDS: K and/or MAG REPLACEMENT MC SCH ×2 (08:00→19:49)
[2020-11-08] MEDS: (Tiotropium Br/Olodaterol HCl (Stiolto Respimat Inhal Spray) IH SCH (08:00)
[2020-11-08] MEDS: CefTRIAXone 2gm/D5W 50ml BAG 50 ML IV SCH (08:15)
[2020-11-08] MEDS: famotidine/PF 10 mg/ml inj IV SCH ×2 (08:15→20:19)
[2020-11-08] MEDS: insulin regular, human U-100 3ml vial - multi-dose SQ SCH ×3 (09:52→20:41)
--- NOTE | 2020-11-08 10:07 | NUR ---
updated jackie from poison control on patient labs, condition, and answered all her questions.
--- NOTE | 2020-11-08 11:57 | NUR ---
Reassessment: Pt remains intubated and tolerating TF at goal rate with GRV WNL. requests decreasing water flushes from 200 mL Q4H to reduce fluid, d/w RN recommendation for 40 mL water flush Q4H. LBM 11/05, receiving routine Colace and Relistor. Will continue to follow closely and make recommendations as appropriate. Rec: 1. Continuous tube feeding using Vital High Protein with goal rate of 60 ml/hr. Once at goal to provide: 1440 ml total volume/day, 1440 kcal, 126 g pro, and 1204 ml water. 2. Additional 40 mL water flush Q4H; monitor need for adjustments 3. Routine bowel care; opioid antagonist per pack train driver 4. Prealbumin q Friday/, daily weights 5. Upon extubation advance diet as medically indicated to heart healthy Addendum: 11/08/20 at [address] Amended: Links added.
[2020-11-08 14:19] LABS: ALBUMIN 2.1 G/DL (3.4-5.0); ANION GAP 7 (8-16); BLOOD UREA NITROGEN 31 MG/DL (7-18); CHLORIDE 99 MMOL/L (99-107); GLUCOSE 151 MG/DL (70-104); MAGNESIUM 1.8 MG/DL (1.5-2.4); PHOSPHORUS 3.8 MG/DL (2.3-4.5); POTASSIUM 4.2 MMOL/L (3.5-5.1); SODIUM 142 MMOL/L (135-145); TOTAL CARBON DIOXIDE 35.7 MMOL/L (24-32); eGFR > 90 ML/MIN
--- NOTE | 2020-11-08 14:25 | NUR ---
RT Cassidy notified of ABG order.
--- NOTE | 2020-11-08 14:35 | NUR ---
patient remains at a sat of 86-87% after increase in peep ordered by travel counselor [employer] . called RT to do ABG now. will call travel counselor [employer] with result.
[2020-11-08 15:48] LABS: ABG BASE EXCESS 8.9 mmol/L (-2.0-2.0); ABG HCO3 36.1 mmol/L (22.0-26.0); ABG OXYGEN SATURATION 89.5 % (94-97); ABG PCO2 (T) 60.1 mmHg (32.0-45.0); ABG PO2 (T) 57.4 mmHg (75.0-100.0); ALLEN'S TEST POSITIVE; FMetHb 0.2 % (0.0-1.5); FO2Hb 88.4 % (94-97); PATIENT TEMPERATURE 36.8; PEEP 15 cm H2O; RESPIRATORY RATE 14 b/min; TIDAL VOLUME 602 mL
--- NOTE | 2020-11-08 15:58 | NUR ---
height and weight given, first in line for a rotoprone.
--- NOTE | 2020-11-08 18:31 | NUR ---
sbar beside report given to Mac RN, EMAR reviewed, questions answered.
[2020-11-08] MEDS: methadone 10mg tablet OGT SCH (20:18)
[2020-11-08] MEDS: insulin glargine (Lantus) pen - multi-dose SQ SCH (20:41)
[2020-11-08] MEDS: propofol 1000mg/100ml bottle 100 ML IV SCH (21:32)
[2020-11-08 21:47] LABS: MAGNESIUM 1.8 MG/DL (1.5-2.4); POTASSIUM 4.4 MMOL/L (3.5-5.1)
--- NOTE | 2020-11-08 23:34 | NUR ---
RN Note -Rotoprone bed not available per company, so pt manually proned starting 2315. Tolerating well at this time.
[2020-11-09] VITALS (24 sets, daily range): BP systolic 89–166; BP diastolic 60–106
[2020-11-09] MEDS: midazolam 100mg in NS 100ml 100 ML IV PRN ×3 (00:44→16:49)
[2020-11-09] MEDS: gabapentin 100mg capsule OGT SCH ×3 (00:44→16:51)
[2020-11-09] MEDS: mineral oil/petrolatum ophthal oint EACHEYE SCH ×4 (02:52→21:00)
[2020-11-09] MEDS: insulin regular, human U-100 3ml vial - multi-dose SQ SCH ×4 (02:56→21:11)
[2020-11-09] MEDS: ipratropium/albuterol 3ml nebule NEB SCH ×6 (03:13→22:57)
[2020-11-09 03:16] LABS: BASOPHILS # (AUTO) 0.1 X10'3 (0-0.2); BASOPHILS % (AUTO) 0.5 % (0-1); EOSINOPHILS % (AUTO) 0 % (0-6); LYMPHOCYTES # (AUTO) 0.4 X10'3 (1.1-4.8); LYMPHOCYTES % (AUTO) 3.1 % (21-51); MEAN CORPUSCULAR HGB CONC 30.6 g/dL (33.0-36.5); MEAN PLATELET VOLUME 9.6 FL (7.4-10.4); MONOCYTES # (AUTO) 0.7 X10'3 (0-0.9); MONOCYTES % (AUTO) 4.6 % (2-12); NEUTROPHILS # (AUTO) 13.2 X10'3 (1.8-7.7); NEUTROPHILS % (AUTO) 91.8 % (42-75); PLATELET COUNT 173 X10'3 (140-440); RED CELL DISTRIBUTION WIDTH 18.5 % (11.5-14.5); WHITE BLOOD COUNT 14.4 X10'3 (4.5-11.0)
[2020-11-09 03:25] LABS: ALBUMIN 2.1 G/DL (3.4-5.0); ANION GAP 3 (8-16); BLOOD UREA NITROGEN 36 MG/DL (7-18); BUN/CREATININE RATIO 85.7 (6.6-38.0); CALCIUM 9.2 MG/DL (8.5-10.1); CHLORIDE 100 MMOL/L (99-107); CREATININE 0.42 MG/DL (0.40-0.90); GLUCOSE 124 MG/DL (70-104); POTASSIUM 4.6 MMOL/L (3.5-5.1); SODIUM 139 MMOL/L (135-145); TOTAL CARBON DIOXIDE 36.3 MMOL/L (24-32); TRIGLYCERIDES 59 MG/DL (20-135); eGFR > 90 ML/MIN
[2020-11-09 03:51] LABS: HEMATOCRIT 44.6 % (35.0-45.0); HEMOGLOBIN 13.7 g/dl (12.0-16.0); MEAN CORPUSCULAR HEMOGLOBIN 28.5 PG (27.0-31.0)
[2020-11-09] MEDS: FENTANYL-0.9 % NACL/PF 100 ML IV PRN ×5 (04:34→21:53)
[2020-11-09 05:10] LABS: ABG HCO3 35.8 mmol/L (22.0-26.0); ABG OXYGEN SATURATION 96.8 % (94-97); ABG PCO2 (T) 57.4 mmHg (32.0-45.0); ABG PO2 (T) 90.6 mmHg (75.0-100.0); ALLEN'S TEST Modified; FCOHb 0.5 % (0.0-3.9); FMetHb 0.1 % (0.0-1.5); FO2Hb 96.2 % (94-97); PATIENT TEMPERATURE 36.9; TOTAL HEMOGLOBIN 13.9 G/dl (12.0-16.0)
[2020-11-09] MEDS: propofol 1000mg/100ml bottle 100 ML IV SCH (05:52)
[2020-11-09] MEDS: (Tiotropium Br/Olodaterol HCl (Stiolto Respimat Inhal Spray) IH SCH (06:37)
[2020-11-09] MEDS: enoxaparin 40mg/0.4ml syringe SQ SCH (07:33)
[2020-11-09] MEDS: nystatin 15 GM powder TP SCH ×3 (07:33→21:53)
[2020-11-09] MEDS: clopidogrel 75mg tablet OGT SCH (07:34)
[2020-11-09] MEDS: docusate sodium 100mg/10ml UD cup OGT SCH ×2 (07:34→20:00)
[2020-11-09] MEDS: spironolactone 25 MG tablet OGT SCH ×3 (07:34→20:59)
[2020-11-09] MEDS: levoTHYROXINE 25mcg tablet OGT SCH (07:34)
[2020-11-09] MEDS: famotidine/PF 10 mg/ml inj IV SCH ×2 (07:34→20:59)
[2020-11-09] MEDS: lactobacillus rhamnosus 10,000 MMU CELLS/CAPSULE OGT SCH ×2 (07:34→20:58)
[2020-11-09] MEDS: CefTRIAXone 2gm/D5W 50ml BAG 50 ML IV SCH (07:35)
[2020-11-09] MEDS: predniSONE 20 mg tablet OGT SCH ×2 (07:35→20:59)
[2020-11-09] MEDS: nicotine 21mg patch - 24 hr TD SCH (07:36)
[2020-11-09] MEDS: methadone 5mg tablet OGT SCH (07:52)
[2020-11-09] MEDS: budesonide 0.5mg/2ml UD nebule IH SCH ×2 (07:58→19:17)
[2020-11-09] MEDS: K and/or MAG REPLACEMENT MC SCH ×2 (08:00→20:00)
[2020-11-09] MEDS ORDERED: furosemide 40mg/4ml inj IV ONE (11:10)
--- NOTE | 2020-11-09 11:45 | NUR ---
Patient repositioned from prone to supine; tolerated well.
[2020-11-09] MEDS ORDERED: dextrose ORAL solution 15 GM/59 ML bottle OGT PRN ×2 (12:36)
[2020-11-09] MEDS ORDERED: POTASSIUM BICARB 20meq eff tab 20 MEQ TABLET.EFF OGT PRN ×2 (12:37)
[2020-11-09] MEDS ORDERED: ondansetron 4mg rapidly disintigrating tab PO PRN (12:40)
[2020-11-09 16:27] LABS: ALBUMIN 1.8 G/DL (3.4-5.0); ANION GAP 4 (8-16); BLOOD UREA NITROGEN 33 MG/DL (7-18); BUN/CREATININE RATIO 78.6 (6.6-38.0); CALCIUM 8.2 MG/DL (8.5-10.1); CHLORIDE 101 MMOL/L (99-107); CREATININE 0.42 MG/DL (0.40-0.90); GLUCOSE 131 MG/DL (70-104); MAGNESIUM 1.6 MG/DL (1.5-2.4); PHOSPHORUS 3.4 MG/DL (2.3-4.5); POTASSIUM 3.9 MMOL/L (3.5-5.1); SODIUM 139 MMOL/L (135-145); TOTAL CARBON DIOXIDE 33.9 MMOL/L (24-32); eGFR > 90 ML/MIN
--- NOTE | 2020-11-09 16:30 | NUR ---
Patient placed on rotoprone; tolerating well.
--- NOTE | 2020-11-09 18:18 | NUR ---
Problems reprioritized. Patient report given, questions answered & plan of care reviewed with Mac RN.
[2020-11-09] MEDS: methadone 10mg tablet OGT SCH (20:59)
[2020-11-09] MEDS: insulin glargine (Lantus) pen - multi-dose SQ SCH (21:13)
[2020-11-10] VITALS (30 sets, daily range): BP systolic 93–158; BP diastolic 43–92
[2020-11-10] MEDS: gabapentin 100mg capsule OGT SCH ×4 (00:56→23:23)
[2020-11-10] MEDS: midazolam 100mg in NS 100ml 100 ML IV PRN ×5 (00:56→23:23)
[2020-11-10] MEDS: FENTANYL-0.9 % NACL/PF 100 ML IV PRN ×7 (02:17→21:14)
[2020-11-10] MEDS: mineral oil/petrolatum ophthal oint EACHEYE SCH ×4 (02:18→19:38)
[2020-11-10 02:49] LABS: BASOPHILS # (AUTO) 0.1 X10'3 (0-0.2); BASOPHILS % (AUTO) 0.4 % (0-1); EOSINOPHILS % (AUTO) 0 % (0-6); HEMATOCRIT 40.3 % (35.0-45.0); HEMOGLOBIN 12.6 g/dl (12.0-16.0); LYMPHOCYTES # (AUTO) 0.4 X10'3 (1.1-4.8); LYMPHOCYTES % (AUTO) 2.5 % (21-51); MEAN CORPUSCULAR HEMOGLOBIN 28.4 PG (27.0-31.0); MEAN CORPUSCULAR HGB CONC 31.2 g/dL (33.0-36.5); MEAN CORPUSCULAR VOLUME 91.1 FL (78-98); MEAN PLATELET VOLUME 9.4 FL (7.4-10.4); MONOCYTES # (AUTO) 0.7 X10'3 (0-0.9); MONOCYTES % (AUTO) 4.6 % (2-12); NEUTROPHILS # (AUTO) 13.6 X10'3 (1.8-7.7); NEUTROPHILS % (AUTO) 92.5 % (42-75); PLATELET COUNT 167 X10'3 (140-440); RED BLOOD COUNT 4.43 X10'6 (4.20-5.60); RED CELL DISTRIBUTION WIDTH 19.2 % (11.5-14.5); WHITE BLOOD COUNT 14.7 X10'3 (4.5-11.0)
[2020-11-10 03:01] LABS: ALBUMIN 2.1 G/DL (3.4-5.0); ANION GAP 3 (8-16); BLOOD UREA NITROGEN 34 MG/DL (7-18); BUN/CREATININE RATIO 82.9 (6.6-38.0); CALCIUM 8.8 MG/DL (8.5-10.1); CHLORIDE 100 MMOL/L (99-107); CREATININE 0.41 MG/DL (0.40-0.90); GLUCOSE 109 MG/DL (70-104); POTASSIUM 4.8 MMOL/L (3.5-5.1); SODIUM 140 MMOL/L (135-145); eGFR > 90 ML/MIN
[2020-11-10] MEDS: ipratropium/albuterol 3ml nebule NEB SCH ×6 (03:08→23:21)
[2020-11-10 03:46] LABS: ANISOCYTOSIS 2+; PLATELET ESTIMATE NORMAL
[2020-11-10 04:50] LABS: ABG BASE EXCESS 11.3 mmol/L (-2.0-2.0); ABG HCO3 38.7 mmol/L (22.0-26.0); ABG OXYGEN SATURATION 96.8 % (94-97); ABG PCO2 (T) 65.4 mmHg (32.0-45.0); ABG PO2 (T) 95.4 mmHg (75.0-100.0); ALLEN'S TEST POSITIVE; FCOHb 0.3 % (0.0-3.9); FMetHb 0.2 % (0.0-1.5); FO2Hb 96.3 % (94-97); PATIENT TEMPERATURE 37.5; PEEP 10 cm H2O; RESPIRATORY RATE 14 b/min; TOTAL HEMOGLOBIN 13.3 G/dl (12.0-16.0)
[2020-11-10] MEDS ORDERED: furosemide 20 MG/2 ML vial IV ONE (05:05)
[2020-11-10] MEDS ORDERED: NOREPINEPHRINE BITARTRATE/D5W 250 ML IV PRN (05:05)
[2020-11-10] MEDS: levoTHYROXINE 25mcg tablet OGT SCH (07:00)
[2020-11-10] MEDS: budesonide 0.5mg/2ml UD nebule IH SCH ×2 (07:53→19:34)
[2020-11-10] MEDS: predniSONE 20 mg tablet OGT SCH (08:00)
[2020-11-10] MEDS: K and/or MAG REPLACEMENT MC SCH ×2 (08:00→19:39)
[2020-11-10] MEDS: (Tiotropium Br/Olodaterol HCl (Stiolto Respimat Inhal Spray) IH SCH (08:00)
[2020-11-10] MEDS: CefTRIAXone 2gm/D5W 50ml BAG 50 ML IV SCH (08:15)
[2020-11-10] MEDS: methylPREDNISolone sod succ/PF 40mg inj. IV SCH ×3 (08:15→19:38)
[2020-11-10] MEDS: docusate sodium 100mg/10ml UD cup OGT SCH ×2 (08:15→19:39)
[2020-11-10] MEDS: famotidine/PF 10 mg/ml inj IV SCH ×2 (08:15→19:38)
[2020-11-10] MEDS: methylnaltrexone br 12mg/0.6ml inj***SubQ only SQ SCH (08:16)
[2020-11-10] MEDS: methadone 5mg tablet OGT SCH (08:16)
[2020-11-10] MEDS: enoxaparin 40mg/0.4ml syringe SQ SCH (08:16)
[2020-11-10] MEDS: lactobacillus rhamnosus 10,000 MMU CELLS/CAPSULE OGT SCH ×2 (08:16→19:39)
[2020-11-10] MEDS: clopidogrel 75mg tablet OGT SCH (08:16)
[2020-11-10] MEDS: spironolactone 25 MG tablet OGT SCH ×3 (08:17→20:02)
[2020-11-10] MEDS: nystatin 15 GM powder TP SCH ×3 (08:17→21:15)
[2020-11-10] MEDS: nicotine 21mg patch - 24 hr TD SCH (08:19)
[2020-11-10] MEDS: insulin regular, human U-100 3ml vial - multi-dose SQ SCH ×3 (09:36→20:21)
--- NOTE | 2020-11-10 10:28 | NUR ---
0915 pt placed supine for assessment.for approx 45 minutes pt did not tolerate it. sats dropped to 67%. pt resumed prone. 1015 daughter at bedside updated on pt condition and educated in the Rotoprone bed
--- NOTE | 2020-11-10 12:10 | NUR ---
daughter and pt's sister at bedside. Dr. Oropeza discussed the patient's condition. also discussed performing a bronchoscopy family in agreement
[2020-11-10] MEDS ORDERED: bisacodyl 10mg suppository rectal RC PRN (12:15)
--- NOTE | 2020-11-10 12:26 | NUR ---
Reassessment: Pt remains intubated now on rotoprone. Pt tolerating TF at goal rate with AZEB AGUILAR D/chuy GAMBOA 11/05, receiving routine Colace and Relistor. Pt started on routine Miralax and PRN Dulcolax added to med list. Will continue to follow closely and make recommendations as appropriate. Rec: 1. Continuous tube feeding using Vital High Protein with goal rate of 60 ml/hr. Once at goal to provide: 1440 ml total volume/day, 1440 kcal, 126 g pro, and 1204 ml water. 2. Additional 40 mL water flush Q4H; monitor need for adjustments 3. Routine bowel care; opioid antagonist per blower feeder dyed raw stock 4. Prealbumin q Friday/, daily weights 5. Upon extubation advance diet as medically indicated to heart healthy Addendum: 11/10/20 at [address] Amended: Links added.
[2020-11-10] MEDS: polyethylene glycol 3350 17gm powd pack PO SCH ×4 (13:21→19:38)
--- NOTE | 2020-11-10 16:36 | NUR ---
rectal tube placed
[2020-11-10] MEDS: methadone 10mg tablet OGT SCH (20:01)
[2020-11-10] MEDS: insulin glargine (Lantus) pen - multi-dose SQ SCH (20:23)
[2020-11-11] VITALS (24 sets, daily range): BP systolic 98–163; BP diastolic 5–94
[2020-11-11] MEDS: FENTANYL-0.9 % NACL/PF 100 ML IV PRN ×8 (00:33→22:46)
[2020-11-11] MEDS: mineral oil/petrolatum ophthal oint EACHEYE SCH ×4 (02:42→20:54)
[2020-11-11] MEDS: methylPREDNISolone sod succ/PF 40mg inj. IV SCH ×4 (02:42→20:53)
[2020-11-11] MEDS: insulin regular, human U-100 3ml vial - multi-dose SQ SCH ×4 (02:45→21:25)
[2020-11-11] MEDS: midazolam 100mg in NS 100ml 100 ML IV PRN ×3 (02:50→18:31)
[2020-11-11 02:55] LABS: BASOPHILS # (AUTO) 0.1 X10'3 (0-0.2); BASOPHILS % (AUTO) 0.9 % (0-1); EOSINOPHILS % (AUTO) 0.1 % (0-6); HEMATOCRIT 39.5 % (35.0-45.0); HEMOGLOBIN 12.4 g/dl (12.0-16.0); LYMPHOCYTES # (AUTO) 0.4 X10'3 (1.1-4.8); LYMPHOCYTES % (AUTO) 3.7 % (21-51); MEAN CORPUSCULAR HGB CONC 31.3 g/dL (33.0-36.5); MEAN CORPUSCULAR VOLUME 89.4 FL (78-98); MONOCYTES # (AUTO) 0.5 X10'3 (0-0.9); MONOCYTES % (AUTO) 4.4 % (2-12); NEUTROPHILS # (AUTO) 10.4 X10'3 (1.8-7.7); NEUTROPHILS % (AUTO) 90.9 % (42-75); PLATELET COUNT 142 X10'3 (140-440); RED BLOOD COUNT 4.42 X10'6 (4.20-5.60); RED CELL DISTRIBUTION WIDTH 19.2 % (11.5-14.5); WHITE BLOOD COUNT 11.5 X10'3 (4.5-11.0)
[2020-11-11 03:03] LABS: ANION GAP 4 (8-16); BLOOD UREA NITROGEN 28 MG/DL (7-18); BUN/CREATININE RATIO 68.3 (6.6-38.0); CALCIUM 8.9 MG/DL (8.5-10.1); CHLORIDE 99 MMOL/L (99-107); CREATININE 0.41 MG/DL (0.40-0.90); GLUCOSE 142 MG/DL (70-104); POTASSIUM 4.3 MMOL/L (3.5-5.1); SODIUM 133 MMOL/L (135-145); TOTAL CARBON DIOXIDE 30.1 MMOL/L (24-32); eGFR > 90 ML/MIN
[2020-11-11] MEDS: ipratropium/albuterol 3ml nebule NEB SCH ×6 (03:16→22:39)
[2020-11-11 05:42] LABS: ABG BASE EXCESS 4.3 mmol/L (-2.0-2.0); ABG HCO3 29.9 mmol/L (22.0-26.0); ABG OXYGEN SATURATION 95.3 % (94-97); ABG PCO2 (T) 48.6 mmHg (32.0-45.0); ABG PO2 (T) 82.8 mmHg (75.0-100.0); ALLEN'S TEST POSITIVE; FCOHb 0.5 % (0.0-3.9); FMetHb 0.3 % (0.0-1.5); FO2Hb 94.5 % (94-97); PEEP 10 cm H2O; RESPIRATORY RATE 18 b/min; TOTAL HEMOGLOBIN 13.5 G/dl (12.0-16.0)
[2020-11-11] MEDS: budesonide 0.5mg/2ml UD nebule IH SCH ×2 (07:04→19:52)
[2020-11-11] MEDS: levoTHYROXINE 25mcg tablet OGT SCH (07:38)
[2020-11-11] MEDS: gabapentin 100mg capsule OGT SCH ×2 (07:38→15:38)
[2020-11-11] MEDS: lactobacillus rhamnosus 10,000 MMU CELLS/CAPSULE OGT SCH ×2 (07:39→20:54)
[2020-11-11] MEDS: famotidine/PF 10 mg/ml inj IV SCH ×2 (07:39→20:53)
[2020-11-11] MEDS: spironolactone 25 MG tablet OGT SCH ×3 (07:39→20:54)
[2020-11-11] MEDS: docusate sodium 100mg/10ml UD cup OGT SCH ×2 (07:39→20:53)
[2020-11-11] MEDS: clopidogrel 75mg tablet OGT SCH (07:39)
[2020-11-11] MEDS: methadone 5mg tablet OGT SCH (07:39)
[2020-11-11] MEDS: nicotine 21mg patch - 24 hr TD SCH (07:40)
[2020-11-11] MEDS: enoxaparin 40mg/0.4ml syringe SQ SCH (07:40)
[2020-11-11] MEDS: CefTRIAXone 2gm/D5W 50ml BAG 50 ML IV SCH (07:41)
[2020-11-11] MEDS: nystatin 15 GM powder TP SCH ×3 (07:41→20:55)
[2020-11-11] MEDS: K and/or MAG REPLACEMENT MC SCH ×2 (07:46→20:00)
[2020-11-11] MEDS: (Tiotropium Br/Olodaterol HCl (Stiolto Respimat Inhal Spray) IH SCH (07:47)
--- NOTE | 2020-11-11 10:00 | NUR ---
PT WAS PLACED SUPINE FOR ON HOUR, NO COMPLICATIONS, DR PICHARDO ROUNDED WHILE PT SUPINE.
--- NOTE | 2020-11-11 10:36 | NUR ---
RN reviews plan of care for PT. Dr Oropeza directs RN to stop versed, only restart if needed, (restart versed at half dose; currently running 20 mg/hr now, restart at 10mg/hr). Remove rectal tube, give suppository and then administer miralax Q2 hr for 4 doses. replace rectal tube when needed. D/C water flushes due to low sodium. Ask dietary to see if TF can be more concentrated to reduce fluid volume intake.
[2020-11-11] MEDS: bisacodyl 10mg suppository rectal RC SCH (11:18)
[2020-11-11] MEDS: polyethylene glycol 3350 17gm powd pack PO SCH ×4 (11:40→17:00)
--- NOTE | 2020-11-11 18:30 | NUR ---
Patient in room CICU 2012. I have received report from FANG Tariq and had the opportunity to ask questions and assume patient care.
--- NOTE | 2020-11-11 19:00 | NUR ---
Per report all four doses were given; checked omnicell and it looks like miralax was pulled at 1944; patient with liquid BM, currently dripping off patient's Knee and onto bottom bar of bed. will clean up and continue to monitor
[2020-11-11] MEDS: methadone 10mg tablet OGT SCH (20:54)
[2020-11-11] MEDS: insulin glargine (Lantus) pen - multi-dose SQ SCH (21:26)
--- NOTE | 2020-11-11 23:30 | NUR ---
Attempted to place patient in supine position, she rapidly dropped to sats to the 70s even on 100% once she was flipped back to prone she popped up to the 90s. Patient did not tolerated supination at this time.
[2020-11-12] VITALS (24 sets, daily range): BP systolic 92–161; BP diastolic 42–99
[2020-11-12] MEDS: gabapentin 100mg capsule OGT SCH ×3 (00:48→16:09)
[2020-11-12] MEDS: FENTANYL-0.9 % NACL/PF 100 ML IV PRN ×6 (00:48→22:30)
[2020-11-12] MEDS: midazolam 100mg in NS 100ml 100 ML IV PRN ×4 (00:48→19:10)
[2020-11-12] MEDS: methylPREDNISolone sod succ/PF 40mg inj. IV SCH ×4 (02:27→20:14)
[2020-11-12] MEDS: mineral oil/petrolatum ophthal oint EACHEYE SCH ×4 (02:27→20:15)
[2020-11-12] MEDS: insulin regular, human U-100 3ml vial - multi-dose SQ SCH ×3 (02:32→20:26)
--- NOTE | 2020-11-12 02:54 | NUR ---
Attempted to supine patient again; she did not tolerate it; she desated to low 80s on 100% and did not recover back up to the 90s; patient placed back in supine position and fio2 brought back down to 45%, patient now sating 99%
[2020-11-12] MEDS: ipratropium/albuterol 3ml nebule NEB SCH ×6 (03:08→22:56)
[2020-11-12 03:10] LABS: BASOPHILS % (AUTO) 0.2 % (0-1); EOSINOPHILS % (AUTO) 0 % (0-6); HEMATOCRIT 38.6 % (35.0-45.0); HEMOGLOBIN 12.2 g/dl (12.0-16.0); LYMPHOCYTES # (AUTO) 0.4 X10'3 (1.1-4.8); LYMPHOCYTES % (AUTO) 3.4 % (21-51); MEAN CORPUSCULAR HEMOGLOBIN 28.3 PG (27.0-31.0); MEAN CORPUSCULAR HGB CONC 31.6 g/dL (33.0-36.5); MEAN CORPUSCULAR VOLUME 89.3 FL (78-98); MEAN PLATELET VOLUME 9.4 FL (7.4-10.4); MONOCYTES # (AUTO) 0.6 X10'3 (0-0.9); MONOCYTES % (AUTO) 4.5 % (2-12); NEUTROPHILS # (AUTO) 11.6 X10'3 (1.8-7.7); NEUTROPHILS % (AUTO) 91.9 % (42-75); PLATELET COUNT 133 X10'3 (140-440); RED BLOOD COUNT 4.33 X10'6 (4.20-5.60); WHITE BLOOD COUNT 12.6 X10'3 (4.5-11.0)
[2020-11-12 03:26] LABS: ALANINE AMINOTRANSFERASE 69 U/L (12-78); ALBUMIN 2.1 G/DL (3.4-5.0); ALBUMIN/GLOBULIN RATIO 0.6 (1.1-1.5); ALKALINE PHOSPHATASE 93 IU/L (46-116); ANION GAP 7 (8-16); ASPARTATE AMINO TRANSFERASE 27 U/L (10-37); BLOOD UREA NITROGEN 27 MG/DL (7-18); BUN/CREATININE RATIO 87.1 (6.6-38.0); CALCIUM 8.6 MG/DL (8.5-10.1); CHLORIDE 103 MMOL/L (99-107); CREATININE 0.31 MG/DL (0.40-0.90); GLUCOSE 124 MG/DL (70-104); MAGNESIUM 1.9 MG/DL (1.5-2.4); POTASSIUM 4.3 MMOL/L (3.5-5.1); SODIUM 139 MMOL/L (135-145); TOTAL CARBON DIOXIDE 29.1 MMOL/L (24-32); TOTAL PROTEIN 5.9 G/DL (6.4-8.2); eGFR > 90 ML/MIN
[2020-11-12 03:43] LABS: ABG BASE EXCESS 2.7 mmol/L (-2.0-2.0); ABG HCO3 26.3 mmol/L (22.0-26.0); ABG OXYGEN SATURATION 98.9 % (94-97); ABG PCO2 (T) 36.3 mmHg (32.0-45.0); ABG PO2 (T) 125.5 mmHg (75.0-100.0); ALLEN'S TEST POSITIVE; FCOHb 0.7 % (0.0-3.9); FMetHb 0.2 % (0.0-1.5); PATIENT TEMPERATURE 36.6; PEEP 10 cm H2O; RESPIRATORY RATE 18 b/min; TOTAL HEMOGLOBIN 13.1 G/dl (12.0-16.0)
[2020-11-12 05:32] LABS: ANISOCYTOSIS 2+; LARGE PLATELETS FEW; PLATELET ESTIMATE DECREASED
--- NOTE | 2020-11-12 06:10 | NUR ---
Problems reprioritized. Patient report given, questions answered & plan of care reviewed with FANG Peguero.
[2020-11-12] MEDS: levoTHYROXINE 25mcg tablet OGT SCH (06:53)
[2020-11-12] MEDS: budesonide 0.5mg/2ml UD nebule IH SCH ×2 (07:02→18:58)
[2020-11-12] MEDS: docusate sodium 100mg/10ml UD cup OGT SCH ×2 (07:59→20:15)
[2020-11-12] MEDS: methylnaltrexone br 12mg/0.6ml inj***SubQ only SQ SCH (07:59)
[2020-11-12] MEDS: (Tiotropium Br/Olodaterol HCl (Stiolto Respimat Inhal Spray) IH SCH (08:00)
[2020-11-12] MEDS: K and/or MAG REPLACEMENT MC SCH ×2 (08:00→20:00)
[2020-11-12] MEDS: clopidogrel 75mg tablet OGT SCH (08:09)
[2020-11-12] MEDS: spironolactone 25 MG tablet OGT SCH ×3 (08:09→20:15)
[2020-11-12] MEDS: methadone 5mg tablet OGT SCH (08:09)
[2020-11-12] MEDS: lactobacillus rhamnosus 10,000 MMU CELLS/CAPSULE OGT SCH ×2 (08:09→20:15)
[2020-11-12] MEDS: enoxaparin 40mg/0.4ml syringe SQ SCH (08:10)
[2020-11-12] MEDS: CefTRIAXone 2gm/D5W 50ml BAG 50 ML IV SCH (08:10)
[2020-11-12] MEDS: famotidine/PF 10 mg/ml inj IV SCH ×2 (08:10→20:14)
[2020-11-12] MEDS: nicotine 21mg patch - 24 hr TD SCH (08:10)
[2020-11-12] MEDS: nystatin 15 GM powder TP SCH ×3 (09:24→20:57)
[2020-11-12 14:31] LABS: ABG BASE EXCESS 3.3 mmol/L (-2.0-2.0); ABG HCO3 28.7 mmol/L (22.0-26.0); ABG OXYGEN SATURATION 94.5 % (94-97); ABG PCO2 (T) 47.5 mmHg (32.0-45.0); ABG PO2 (T) 78.3 mmHg (75.0-100.0); ALLEN'S TEST POSITIVE; FCOHb 0.8 % (0.0-3.9); FMetHb 0.2 % (0.0-1.5); FO2Hb 93.6 % (94-97); PATIENT TEMPERATURE 37.3; PEEP 8 cm H2O; RESPIRATORY RATE 18 b/min; TIDAL VOLUME 450 mL; TOTAL HEMOGLOBIN 13.5 G/dl (12.0-16.0)
--- NOTE | 2020-11-12 18:11 | NUR ---
Problems reprioritized. Patient report given, questions answered & plan of care reviewed with FANG Rock.
--- NOTE | 2020-11-12 18:30 | NUR ---
Patient in room CICU 2011. I have received report from FANG Peguero and had the opportunity to ask questions and assume patient care.
[2020-11-12] MEDS: methadone 10mg tablet OGT SCH (20:15)
[2020-11-12] MEDS: insulin glargine (Lantus) pen - multi-dose SQ SCH (20:30)
[2020-11-13] VITALS (24 sets, daily range): BP systolic 96–145; BP diastolic 45–92
[2020-11-13] MEDS: gabapentin 100mg capsule OGT SCH ×3 (00:22→15:33)
[2020-11-13] MEDS: methylPREDNISolone sod succ/PF 40mg inj. IV SCH ×4 (01:33→20:37)
[2020-11-13] MEDS: FENTANYL-0.9 % NACL/PF 100 ML IV PRN ×4 (01:33→21:09)
[2020-11-13] MEDS: midazolam 100mg in NS 100ml 100 ML IV PRN ×3 (01:33→21:10)
[2020-11-13] MEDS: mineral oil/petrolatum ophthal oint EACHEYE SCH ×4 (01:35→20:37)
[2020-11-13] MEDS: insulin regular, human U-100 3ml vial - multi-dose SQ SCH ×4 (01:53→20:52)
[2020-11-13 02:21] LABS: ALANINE AMINOTRANSFERASE 79 U/L (12-78); ALBUMIN 2.1 G/DL (3.4-5.0); ALBUMIN/GLOBULIN RATIO 0.5 (1.1-1.5); ALKALINE PHOSPHATASE 91 IU/L (46-116); ANION GAP 5 (8-16); ASPARTATE AMINO TRANSFERASE 32 U/L (10-37); BILIRUBIN,TOTAL 0.9 MG/DL (0.1-1.0); BLOOD UREA NITROGEN 31 MG/DL (7-18); BUN/CREATININE RATIO 83.8 (6.6-38.0); CALCIUM 8.3 MG/DL (8.5-10.1); CHLORIDE 105 MMOL/L (99-107); CREATININE 0.37 MG/DL (0.40-0.90); GLUCOSE 127 MG/DL (70-104); MAGNESIUM 1.9 MG/DL (1.5-2.4); POTASSIUM 5.2 MMOL/L (3.5-5.1); SODIUM 141 MMOL/L (135-145); TOTAL CARBON DIOXIDE 31.4 MMOL/L (24-32); eGFR > 90 ML/MIN
[2020-11-13 02:34] LABS: BASOPHILS % (AUTO) 0.1 % (0-1); EOSINOPHILS % (AUTO) 0 % (0-6); LYMPHOCYTES # (AUTO) 0.3 X10'3 (1.1-4.8); LYMPHOCYTES % (AUTO) 2.8 % (21-51); MEAN PLATELET VOLUME 9.3 FL (7.4-10.4); MONOCYTES # (AUTO) 0.5 X10'3 (0-0.9); NEUTROPHILS # (AUTO) 10.8 X10'3 (1.8-7.7); NEUTROPHILS % (AUTO) 93.1 % (42-75); PLATELET COUNT 150 X10'3 (140-440)
[2020-11-13 03:43] LABS: RED BLOOD COUNT 4.44 X10'6 (4.20-5.60); WHITE BLOOD COUNT 12.9 X10'3 (4.5-11.0)
[2020-11-13 03:44] LABS: HEMATOCRIT 39.1 % (35.0-45.0); MEAN CORPUSCULAR VOLUME 88.1 FL (78-98)
[2020-11-13 03:45] LABS: MEAN CORPUSCULAR HEMOGLOBIN 29.2 PG (27.0-31.0); MEAN CORPUSCULAR HGB CONC 33.1 g/dL (33.0-36.5)
[2020-11-13] MEDS: ipratropium/albuterol 3ml nebule NEB SCH ×6 (03:45→23:14)
[2020-11-13 03:46] LABS: RED CELL DISTRIBUTION WIDTH 18.8 % (11.5-14.5)
[2020-11-13 04:09] LABS: ABG BASE EXCESS 4.9 mmol/L (-2.0-2.0); ABG PCO2 (T) 58.7 mmHg (32.0-45.0); FCOHb 0.6 % (0.0-3.9); FMetHb 0.2 % (0.0-1.5); FO2Hb 88.3 % (94-97); PATIENT TEMPERATURE 37.1; PEEP 8 cm H2O; RESPIRATORY RATE 18 b/min; TOTAL HEMOGLOBIN 13.3 G/dl (12.0-16.0)
--- NOTE | 2020-11-13 06:15 | NUR ---
Problems reprioritized. Patient report given, questions answered & plan of care reviewed with FANG Peguero.
[2020-11-13] MEDS: levoTHYROXINE 25mcg tablet OGT SCH (06:22)
--- NOTE | 2020-11-13 06:30 | NUR ---
Patient in room CICU 2012. I have received report from FANG Rock and had the opportunity to ask questions and assume patient care.
[2020-11-13] MEDS: budesonide 0.5mg/2ml UD nebule IH SCH ×2 (07:13→19:17)
[2020-11-13] MEDS: (Tiotropium Br/Olodaterol HCl (Stiolto Respimat Inhal Spray) IH SCH (08:00)
[2020-11-13] MEDS: enoxaparin 40mg/0.4ml syringe SQ SCH (08:49)
[2020-11-13] MEDS: famotidine/PF 10 mg/ml inj IV SCH ×2 (08:49→20:37)
[2020-11-13] MEDS: methadone 5mg tablet OGT SCH (08:50)
[2020-11-13] MEDS: spironolactone 25 MG tablet OGT SCH ×3 (08:50→20:36)
[2020-11-13] MEDS: docusate sodium 100mg/10ml UD cup OGT SCH ×2 (08:51→20:37)
[2020-11-13] MEDS: clopidogrel 75mg tablet OGT SCH (08:51)
[2020-11-13] MEDS: lactobacillus rhamnosus 10,000 MMU CELLS/CAPSULE OGT SCH ×2 (08:51→20:36)
[2020-11-13] MEDS: nystatin 15 GM powder TP SCH ×3 (08:52→20:37)
[2020-11-13] MEDS: nicotine 21mg patch - 24 hr TD SCH (08:52)
[2020-11-13] MEDS: K and/or MAG REPLACEMENT MC SCH ×2 (08:53→20:00)
--- NOTE | 2020-11-13 11:49 | NUR ---
F/u 11/13: Pt tolerating TF at goal on rotoprone GRV WNL. Rectal tube in place w/ 300ml output per EMR receiving colace and dulcolax following significant prior constipation resolution. Pending PALB at this time. Will continue to monitor. Rec: 1. Continuous tube feeding using Vital High Protein with goal rate of 60 ml/hr. Once at goal to provide: 1440 ml total volume/day, 1440 kcal, 126 g pro, and 1204 ml water. 2. Additional 40 mL water flush Q4H; monitor need for adjustments 3. Routine bowel care; opioid antagonist per basket hand weaver 4. Prealbumin q Friday/, daily weights 5. Upon extubation advance diet as medically indicated to heart healthy Addendum: 11/13/20 at [address] Amended: Links added.
[2020-11-13 11:57] LABS: PREALBUMIN 18.4 MG/DL (19-36)
--- NOTE | 2020-11-13 15:00 | NUR ---
Ded broken down, skin care performed. Sacrum and heels assessed b wound nurse. Pt tolerated activity well.
[2020-11-13 16:40] LABS: ABG BASE EXCESS 5.1 mmol/L (-2.0-2.0); ABG HCO3 30.5 mmol/L (22.0-26.0); ABG OXYGEN SATURATION 94.2 % (94-97); ABG PCO2 (T) 48.8 mmHg (32.0-45.0); ABG PO2 (T) 75.3 mmHg (75.0-100.0); ALLEN'S TEST POSITIVE; FCOHb 0.9 % (0.0-3.9); FMetHb 0.2 % (0.0-1.5); FO2Hb 93.2 % (94-97); PATIENT TEMPERATURE 37.6; PEEP 5 cm H2O; RESPIRATORY RATE 18 b/min; TIDAL VOLUME 875 mL; TOTAL HEMOGLOBIN 13.7 G/dl (12.0-16.0)
--- NOTE | 2020-11-13 18:05 | NUR ---
Problems reprioritized. Patient report given, questions answered & plan of care reviewed with FANG Rock.
--- NOTE | 2020-11-13 18:12 | NUR ---
Patient in room CICU 2011. I have received report from FANG Peguero and had the opportunity to ask questions and assume patient care.
[2020-11-13] MEDS: methadone 10mg tablet OGT SCH (20:37)
[2020-11-13] MEDS: insulin glargine (Lantus) pen - multi-dose SQ SCH (20:53)
[2020-11-14] VITALS (23 sets, daily range): BP systolic 94–189; BP diastolic 45–105
[2020-11-14] MEDS: ibuprofen 200mg tablet OGT PRN ×2 (00:20→08:39)
[2020-11-14] MEDS: gabapentin 100mg capsule OGT SCH ×3 (00:20→16:00)
[2020-11-14] MEDS: FENTANYL-0.9 % NACL/PF 100 ML IV PRN ×3 (02:20→14:02)
[2020-11-14] MEDS: mineral oil/petrolatum ophthal oint EACHEYE SCH ×5 (02:20→22:51)
[2020-11-14] MEDS: methylPREDNISolone sod succ/PF 40mg inj. IV SCH ×4 (02:20→21:17)
[2020-11-14] MEDS: insulin regular, human U-100 3ml vial - multi-dose SQ SCH ×3 (02:33→13:58)
[2020-11-14 03:00] LABS: BASOPHILS % (AUTO) 0.3 % (0-1); EOSINOPHILS % (AUTO) 0 % (0-6); HEMATOCRIT 40.3 % (35.0-45.0); HEMOGLOBIN 12.6 g/dl (12.0-16.0); LYMPHOCYTES # (AUTO) 0.4 X10'3 (1.1-4.8); LYMPHOCYTES % (AUTO) 3.6 % (21-51); MEAN CORPUSCULAR HEMOGLOBIN 28.1 PG (27.0-31.0); MEAN CORPUSCULAR HGB CONC 31.2 g/dL (33.0-36.5); MEAN CORPUSCULAR VOLUME 90.1 FL (78-98); MONOCYTES # (AUTO) 0.5 X10'3 (0-0.9); MONOCYTES % (AUTO) 4.3 % (2-12); NEUTROPHILS # (AUTO) 10.7 X10'3 (1.8-7.7); NEUTROPHILS % (AUTO) 91.8 % (42-75); PLATELET COUNT 141 X10'3 (140-440); RED BLOOD COUNT 4.47 X10'6 (4.20-5.60); RED CELL DISTRIBUTION WIDTH 19.9 % (11.5-14.5); WHITE BLOOD COUNT 11.7 X10'3 (4.5-11.0)
[2020-11-14 03:15] LABS: ALANINE AMINOTRANSFERASE 107 U/L (12-78); ALBUMIN 2.3 G/DL (3.4-5.0); ALBUMIN/GLOBULIN RATIO 0.6 (1.1-1.5); ALKALINE PHOSPHATASE 90 IU/L (46-116); ANION GAP 3 (8-16); ASPARTATE AMINO TRANSFERASE 60 U/L (10-37); BILIRUBIN,TOTAL 1.2 MG/DL (0.1-1.0); BLOOD UREA NITROGEN 31 MG/DL (7-18); BUN/CREATININE RATIO 81.6 (6.6-38.0); CALCIUM 8.7 MG/DL (8.5-10.1); CHLORIDE 102 MMOL/L (99-107); CREATININE 0.38 MG/DL (0.40-0.90); GLUCOSE 119 MG/DL (70-104); POTASSIUM 5.3 MMOL/L (3.5-5.1); SODIUM 135 MMOL/L (135-145); TOTAL CARBON DIOXIDE 29.7 MMOL/L (24-32); eGFR > 90 ML/MIN
[2020-11-14] MEDS: ipratropium/albuterol 3ml nebule NEB SCH ×5 (03:15→19:25)
[2020-11-14 04:03] LABS: ABG BASE EXCESS 3.6 mmol/L (-2.0-2.0); ABG HCO3 29.1 mmol/L (22.0-26.0); ABG OXYGEN SATURATION 93.8 % (94-97); ABG PO2 (T) 76.2 mmHg (75.0-100.0); ALLEN'S TEST POSITIVE; FMetHb 0.2 % (0.0-1.5); FO2Hb 92.7 % (94-97); PEEP 5 cm H2O; RESPIRATORY RATE 18 b/min; TOTAL HEMOGLOBIN 13.3 G/dl (12.0-16.0)
--- NOTE | 2020-11-14 06:09 | NUR ---
Problems reprioritized. Patient report given, questions answered & plan of care reviewed with FANG Peguero.
[2020-11-14 06:15] LABS: CLARITY,URINE CLEAR (Clear); COLOR,URINE YELLOW (Yellow); GLUCOSE, URINE NEGATIVE (Neg); KETONES,URINE NEGATIVE (Neg); LEUKOCYTE ESTERASE ,URINE NEGATIVE (Neg); NITRITES, URINE NEGATIVE (Neg); OCCULT BLOOD,URINE SMALL (Neg); PH,URINE 5.5 (4.8-8.0); PROTEIN,URINE NEGATIVE (Neg)
--- NOTE | 2020-11-14 06:15 | NUR ---
Patient in room CICU 2012. I have received report from FANG Rock and had the opportunity to ask questions and assume patient care.
[2020-11-14 06:18] LABS: UA COLLECTION TYPE FOLEY CATH
[2020-11-14 06:56] LABS: WBC,URINE NONE SEEN /HPF (0-4)
[2020-11-14 06:57] LABS: BACTERIA,URINE NONE SEEN /HPF (Neg); SQUAMOUS EPITHELIAL CELL,UR FEW /LPF (FEW)
[2020-11-14 07:04] LABS: YEAST MODERATE /HPF (NEGATIVE)
[2020-11-14] MEDS: budesonide 0.5mg/2ml UD nebule IH SCH ×2 (07:06→19:25)
[2020-11-14] MEDS: lactobacillus rhamnosus 10,000 MMU CELLS/CAPSULE OGT SCH ×2 (07:23→20:00)
[2020-11-14] MEDS: levoTHYROXINE 25mcg tablet OGT SCH (07:23)
[2020-11-14] MEDS: clopidogrel 75mg tablet OGT SCH (07:23)
[2020-11-14] MEDS: spironolactone 25 MG tablet OGT SCH ×3 (07:24→21:00)
[2020-11-14] MEDS: methadone 5mg tablet OGT SCH (07:24)
[2020-11-14] MEDS: docusate sodium 100mg/10ml UD cup OGT SCH ×2 (07:24→20:00)
[2020-11-14] MEDS: famotidine/PF 10 mg/ml inj IV SCH ×2 (07:24→21:17)
[2020-11-14] MEDS: enoxaparin 40mg/0.4ml syringe SQ SCH (07:25)
[2020-11-14] MEDS: nystatin 15 GM powder TP SCH ×3 (07:26→21:42)
[2020-11-14] MEDS: nicotine 21mg patch - 24 hr TD SCH (07:26)
[2020-11-14] MEDS: methylnaltrexone br 12mg/0.6ml inj***SubQ only SQ SCH (07:36)
[2020-11-14] MEDS ORDERED: famotidine/PF IV inj 20 MG in normal saline 100ml IV soln 100 ML IV SCH (08:00)
[2020-11-14] MEDS: midazolam 100mg in NS 100ml 100 ML IV PRN (08:02)
[2020-11-14] MEDS: K and/or MAG REPLACEMENT MC SCH ×2 (08:51→20:00)
[2020-11-14] MEDS: bisacodyl 10mg suppository rectal RC SCH (10:30)
--- NOTE | 2020-11-14 11:00 | NUR ---
Reported to Dr Bell in rounds that pt has been tolerating CPAP mode over last three hours. Received orders to discontinue rotoprone therapy and ween sedation and work towards possible extubation. Weening parameters obtained this morning while pt was on Versed gtt at 2 mg/hr and Fentanyl at 150 mcg/hr. Reported pt's fever of 38.7 and response to Motrin. Repeat CBC and Procalcitonin ordered for 150 hrs.
[2020-11-14] MEDS: polyethylene glycol 3350 17gm powd pack PO SCH (12:01)
--- NOTE | 2020-11-14 12:30 | NUR ---
Pt transferred to [facility], tolerated well.
--- NOTE | 2020-11-14 12:45 | NUR ---
Troy fast ETT richards applied. ETT 23 cm at teeth.
--- NOTE | 2020-11-14 13:23 | NUR ---
Reported pt off to Flower, RN.
[2020-11-14 16:54] LABS: BASOPHILS # (AUTO) 0.1 X10'3 (0-0.2); BASOPHILS % (AUTO) 0.4 % (0-1); EOSINOPHILS % (AUTO) 0 % (0-6); HEMATOCRIT 42.3 % (35.0-45.0); HEMOGLOBIN 13.4 g/dl (12.0-16.0); LYMPHOCYTES # (AUTO) 0.8 X10'3 (1.1-4.8); LYMPHOCYTES % (AUTO) 5.2 % (21-51); MEAN CORPUSCULAR HEMOGLOBIN 28.1 PG (27.0-31.0); MEAN CORPUSCULAR HGB CONC 31.6 g/dL (33.0-36.5); MEAN CORPUSCULAR VOLUME 89.1 FL (78-98); MEAN PLATELET VOLUME 8.7 FL (7.4-10.4); MONOCYTES % (AUTO) 6.4 % (2-12); NEUTROPHILS # (AUTO) 13.1 X10'3 (1.8-7.7); PLATELET COUNT 155 X10'3 (140-440); RED BLOOD COUNT 4.75 X10'6 (4.20-5.60); RED CELL DISTRIBUTION WIDTH 19.6 % (11.5-14.5); WHITE BLOOD COUNT 14.9 X10'3 (4.5-11.0)
[2020-11-14 18:10] LABS: ANISOCYTOSIS 2+; PLATELET ESTIMATE NORMAL; TOTAL CELLS COUNTED 100
--- NOTE | 2020-11-14 18:30 | NUR ---
Patient in room CICU 2011. I have received report from FANG Heck and had the opportunity to ask questions and assume patient care.
[2020-11-14] MEDS: methadone 10mg tablet OGT SCH (21:00)
--- NOTE | 2020-11-14 21:38 | NUR ---
MD Smalls was notified that patient is failed bedside swallow study, MD requested a corpak to be placed; placement was attempted but resistance was met, pt began to desat into the low 80s and then patient proceeded to make it clear that we weren't going to attempt that again. notified of attempt and pt's refusal. stated that it was okay hold medications for the night until swallow study is done during the day. possible corpak placement with lidocaine would be an option. suggests to revisit it during the day. also notified of patient's BG being 90 and NPO with lantus of 14 units being due. he stated to give half. 7 units to be given, will continue to monitor.
[2020-11-14] MEDS: insulin glargine (Lantus) pen - multi-dose SQ SCH (21:45)
[2020-11-15] VITALS (23 sets, daily range): BP systolic 111–193; BP diastolic 73–166
[2020-11-15] MEDS ORDERED: morphine 2 MG/ML inj. syringe IV ONE ×2 (01:35→16:15)
[2020-11-15] MEDS ORDERED: naloxone 0.4 mg/ml inj IV PRN (01:35)
[2020-11-15] MEDS: methylPREDNISolone sod succ/PF 40mg inj. IV SCH ×4 (01:53→20:20)
[2020-11-15 02:26] LABS: BASOPHILS % (AUTO) 0.1 % (0-1); EOSINOPHILS % (AUTO) 0 % (0-6); HEMATOCRIT 50.5 % (35.0-45.0); HEMOGLOBIN 15.9 g/dl (12.0-16.0); LYMPHOCYTES # (AUTO) 0.6 X10'3 (1.1-4.8); LYMPHOCYTES % (AUTO) 3.8 % (21-51); MEAN CORPUSCULAR HEMOGLOBIN 28.2 PG (27.0-31.0); MEAN CORPUSCULAR HGB CONC 31.5 g/dL (33.0-36.5); MEAN CORPUSCULAR VOLUME 89.4 FL (78-98); MEAN PLATELET VOLUME 8.8 FL (7.4-10.4); MONOCYTES # (AUTO) 0.7 X10'3 (0-0.9); MONOCYTES % (AUTO) 3.8 % (2-12); NEUTROPHILS # (AUTO) 15.6 X10'3 (1.8-7.7); NEUTROPHILS % (AUTO) 92.3 % (42-75); PLATELET COUNT 159 X10'3 (140-440); RED BLOOD COUNT 5.65 X10'6 (4.20-5.60); RED CELL DISTRIBUTION WIDTH 19.8 % (11.5-14.5)
[2020-11-15 02:40] LABS: ALANINE AMINOTRANSFERASE 142 U/L (12-78); ALBUMIN 2.6 G/DL (3.4-5.0); ALBUMIN/GLOBULIN RATIO 0.6 (1.1-1.5); ALKALINE PHOSPHATASE 113 IU/L (46-116); ANION GAP 7 (8-16); ASPARTATE AMINO TRANSFERASE 94 U/L (10-37); BILIRUBIN,TOTAL 2.1 MG/DL (0.1-1.0); BLOOD UREA NITROGEN 31 MG/DL (7-18); BUN/CREATININE RATIO 110.7 (6.6-38.0); CALCIUM 8.8 MG/DL (8.5-10.1); CHLORIDE 99 MMOL/L (99-107); CREATININE 0.28 MG/DL (0.40-0.90); GLUCOSE 104 MG/DL (70-104); MAGNESIUM 1.8 MG/DL (1.5-2.4); PHOSPHORUS 4.1 MG/DL (2.3-4.5); POTASSIUM 4.8 MMOL/L (3.5-5.1); SODIUM 137 MMOL/L (135-145); TOTAL CARBON DIOXIDE 31.2 MMOL/L (24-32); TOTAL PROTEIN 6.7 G/DL (6.4-8.2); TRIGLYCERIDES 77 MG/DL (20-135); eGFR > 90 ML/MIN
[2020-11-15] MEDS: ipratropium/albuterol 3ml nebule NEB SCH ×6 (03:12→23:05)
[2020-11-15 03:21] LABS: ANISOCYTOSIS 2+; PLATELET ESTIMATE NORMAL
--- NOTE | 2020-11-15 06:57 | NUR ---
Problems reprioritized. Patient report given, questions answered & plan of care reviewed with FANG Neal.
[2020-11-15] MEDS: levoTHYROXINE 25mcg tablet OGT SCH (07:00)
[2020-11-15] MEDS: enoxaparin 40mg/0.4ml syringe SQ SCH (07:41)
[2020-11-15] MEDS: morphine 2 MG/ML inj. syringe IV PRN ×4 (07:43→16:21)
[2020-11-15] MEDS: famotidine/PF 10 mg/ml inj IV SCH ×2 (07:44→20:20)
[2020-11-15] MEDS: nicotine 21mg patch - 24 hr TD SCH (07:44)
[2020-11-15] MEDS: K and/or MAG REPLACEMENT MC SCH ×2 (08:00→20:00)
[2020-11-15] MEDS: clopidogrel 75mg tablet OGT SCH (08:00)
[2020-11-15] MEDS: lactobacillus rhamnosus 10,000 MMU CELLS/CAPSULE OGT SCH ×2 (08:00→20:20)
[2020-11-15] MEDS: mineral oil/petrolatum ophthal oint EACHEYE SCH ×3 (08:00→20:21)
[2020-11-15] MEDS: methadone 5mg tablet OGT SCH (08:00)
[2020-11-15] MEDS: spironolactone 25 MG tablet OGT SCH ×3 (08:00→20:20)
[2020-11-15] MEDS: polyethylene glycol 3350 17gm powd pack PO SCH (08:00)
[2020-11-15] MEDS: gabapentin 100mg capsule OGT SCH ×3 (08:00→16:00)
[2020-11-15] MEDS: docusate sodium 100mg/10ml UD cup OGT SCH ×2 (08:00→20:21)
[2020-11-15] MEDS: nystatin 15 GM powder TP SCH ×3 (08:00→20:21)
[2020-11-15] MEDS: budesonide 0.5mg/2ml UD nebule IH SCH ×2 (08:08→19:36)
[2020-11-15] MEDS ORDERED: metoprolol tartrate 1mg/ml inj IV ONE (11:45)
--- NOTE | 2020-11-15 11:45 | NUR ---
After about a minute with the svn the pt insisted that it was making her tummy upset and wanted the mask off. Svn taken off. RN aware Addendum: 11/15/20 at 1147 by Nancy Whitfield RT Amended: Links added.
[2020-11-15] MEDS ORDERED: polyethylene glycol 3350 17gm powd pack OGT SCH (12:11)
[2020-11-15 12:14] LABS: ABG BASE EXCESS 1.7 mmol/L (-2.0-2.0); ABG OXYGEN SATURATION 93.9 % (94-97); ABG PCO2 (T) 32.3 mmHg (32.0-45.0); ABG PO2 (T) 65.7 mmHg (75.0-100.0); ALLEN'S TEST POSITIVE; FCOHb 0.6 % (0.0-3.9); FLOW 8 L/min; FMetHb 0.4 % (0.0-1.5); TOTAL HEMOGLOBIN 19.4 G/dl (12.0-16.0)
[2020-11-15] MEDS ORDERED: acetaminophen 325mg tablet PO PRN (12:15)
[2020-11-15] MEDS ORDERED: ALBUTEROL SULFATE 2.5 MG NEB PRN (12:15)
[2020-11-15] MEDS: methadone 5mg tablet PO SCH (12:30)
[2020-11-15] MEDS ORDERED: methadone 10mg tablet PO SCH (12:30)
[2020-11-15] MEDS: carBAMazepine 100mg chewable tablet PO SCH ×3 (13:00→21:00)
[2020-11-15] MEDS ORDERED: aspirin 81mg tab.chew PO ONE ×2 (14:15→14:25)
[2020-11-15] MEDS ORDERED: metoprolol tartrate 1mg/ml inj IV PRN (14:15)
[2020-11-15] MEDS ORDERED: nitroGLYCERIN 0.4mg SUBLingual tab SL PRN (14:15)
[2020-11-15] MEDS ORDERED: nitroGLYCERIN 0.4mg/hour patch TD ONE (14:25)
--- NOTE | 2020-11-15 15:30 | NUR ---
Got call to intubate the pt. However per Dr Oliver, "RT not needed". FANG Breen assisting with intubation. Addendum: 11/15/20 at 1531 by Nancy Whitfield RT Wrong Pt
[2020-11-15] MEDS: normal saline 1000ml 1,000 ML IV SCH (17:00)
--- NOTE | 2020-11-15 18:15 | NUR ---
report received from FANG RILEY.
--- NOTE | 2020-11-15 19:01 | NUR ---
Patient has been assessed and re-evaluated. she was able to take sips of water and and some ice chips.
--- NOTE | 2020-11-15 19:28 | NUR ---
Bedside telemedicine done with patient and to discuss patients code status; pt at this time wants to remain a full code and is willing to be intubated to save her life. Pt agrees to be compliant with using bipap if needed to maintain resp status.
[2020-11-15 20:08] LABS: ALANINE AMINOTRANSFERASE 153 U/L (12-78); ALBUMIN 2.2 G/DL (3.4-5.0); ALBUMIN/GLOBULIN RATIO 0.6 (1.1-1.5); ALKALINE PHOSPHATASE 116 IU/L (46-116); ANION GAP 9 (8-16); ASPARTATE AMINO TRANSFERASE 73 U/L (10-37); BILIRUBIN,TOTAL 2.2 MG/DL (0.1-1.0); BLOOD UREA NITROGEN 38 MG/DL (7-18); BUN/CREATININE RATIO 111.8 (6.6-38.0); CALCIUM 8.6 MG/DL (8.5-10.1); CHLORIDE 100 MMOL/L (99-107); CREATININE 0.34 MG/DL (0.40-0.90); GLUCOSE 133 MG/DL (70-104); POTASSIUM 4.8 MMOL/L (3.5-5.1); SODIUM 137 MMOL/L (135-145); TOTAL CARBON DIOXIDE 28.1 MMOL/L (24-32); eGFR > 90 ML/MIN
[2020-11-15 20:12] LABS: BILIRUBIN,DIRECT 1.3 MG/DL (0-0.3); MAGNESIUM 1.8 MG/DL (1.5-2.4); PHOSPHORUS 4.2 MG/DL (2.3-4.5); TROPONIN I 0.08 NG/ML (0.0-0.05)
--- NOTE | 2020-11-15 20:12 | NUR ---
patient has been turned and made comfortable in bed, her beddings have been changed and rectal tube care done.
[2020-11-15] MEDS: atorvastatin 20mg tablet PO SCH (20:19)
[2020-11-15] MEDS: methadone 10mg tablet OGT SCH (20:20)
[2020-11-15] MEDS: insulin glargine (Lantus) pen - multi-dose SQ SCH (21:00)
--- NOTE | 2020-11-15 23:15 | NUR ---
patient is refusing to wear her BIPAP, the charge nurse and I try our best to let her know the benefit ot wearing it but she still refused.
[2020-11-15] MEDS: LORazepam 2 mg/ml vial IV PRN (23:37)
[2020-11-16] VITALS (24 sets, daily range): BP systolic 93–140; BP diastolic 57–97
--- NOTE | 2020-11-16 00:13 | NUR ---
patient is calm and resting after she received a dose of Ativan, she was anxious and restless earlier on.
[2020-11-16] MEDS: normal saline 1000ml 1,000 ML IV SCH ×3 (01:04→17:09)
[2020-11-16 01:19] LABS: BASOPHILS % (AUTO) 0.1 % (0-1); EOSINOPHILS % (AUTO) 0 % (0-6); HEMATOCRIT 47.7 % (35.0-45.0); LYMPHOCYTES # (AUTO) 0.9 X10'3 (1.1-4.8); LYMPHOCYTES % (AUTO) 4.9 % (21-51); MEAN CORPUSCULAR HEMOGLOBIN 27.6 PG (27.0-31.0); MEAN CORPUSCULAR HGB CONC 31.5 g/dL (33.0-36.5); MEAN CORPUSCULAR VOLUME 87.7 FL (78-98); MONOCYTES # (AUTO) 0.6 X10'3 (0-0.9); MONOCYTES % (AUTO) 3.4 % (2-12); NEUTROPHILS # (AUTO) 15.8 X10'3 (1.8-7.7); NEUTROPHILS % (AUTO) 91.6 % (42-75); PLATELET COUNT 126 X10'3 (140-440); RED BLOOD COUNT 5.44 X10'6 (4.20-5.60); RED CELL DISTRIBUTION WIDTH 19.9 % (11.5-14.5); WHITE BLOOD COUNT 17.3 X10'3 (4.5-11.0)
[2020-11-16] MEDS: mineral oil/petrolatum ophthal oint EACHEYE SCH ×4 (01:27→21:08)
[2020-11-16] MEDS: gabapentin 100mg capsule OGT SCH ×3 (01:27→15:44)
[2020-11-16] MEDS: methylPREDNISolone sod succ/PF 40mg inj. IV SCH ×4 (01:27→21:18)
[2020-11-16] MEDS: morphine 2 MG/ML inj. syringe IV PRN ×2 (01:28→14:35)
[2020-11-16 01:32] LABS: ALANINE AMINOTRANSFERASE 124 U/L (12-78); ALBUMIN 1.8 G/DL (3.4-5.0); ALBUMIN/GLOBULIN RATIO 0.6 (1.1-1.5); ALKALINE PHOSPHATASE 91 IU/L (46-116); ANION GAP 6 (8-16); ASPARTATE AMINO TRANSFERASE 56 U/L (10-37); BILIRUBIN,TOTAL 1.9 MG/DL (0.1-1.0); BLOOD UREA NITROGEN 37 MG/DL (7-18); BUN/CREATININE RATIO 132.1 (6.6-38.0); CALCIUM 7.3 MG/DL (8.5-10.1); CHLORIDE 105 MMOL/L (99-107); CREATININE 0.28 MG/DL (0.40-0.90); GLUCOSE 125 MG/DL (70-104); MAGNESIUM 1.6 MG/DL (1.5-2.4); POTASSIUM 4.1 MMOL/L (3.5-5.1); SODIUM 138 MMOL/L (135-145); TOTAL CARBON DIOXIDE 26.7 MMOL/L (24-32); TOTAL PROTEIN 4.8 G/DL (6.4-8.2); TRIGLYCERIDES 102 MG/DL (20-135); eGFR > 90 ML/MIN
--- NOTE | 2020-11-16 01:48 | NUR ---
patient has been given a dose of morphine to help with her pain.
[2020-11-16] MEDS: ipratropium/albuterol 3ml nebule NEB SCH ×6 (02:50→22:59)
--- NOTE | 2020-11-16 06:30 | NUR ---
Patient in room CICU 2011. I have received report from RN and had the opportunity to ask questions and assume patient care.
[2020-11-16] MEDS: levoTHYROXINE 25mcg tablet OGT SCH (07:00)
[2020-11-16] MEDS: budesonide 0.5mg/2ml UD nebule IH SCH ×2 (07:21→19:35)
[2020-11-16] MEDS: K and/or MAG REPLACEMENT MC SCH ×2 (08:00→20:00)
[2020-11-16] MEDS: methylnaltrexone br 12mg/0.6ml inj***SubQ only SQ SCH (08:15)
[2020-11-16] MEDS: docusate sodium 100mg/10ml UD cup OGT SCH ×2 (08:16→20:00)
[2020-11-16] MEDS: enoxaparin 40mg/0.4ml syringe SQ SCH (08:16)
[2020-11-16] MEDS: nicotine 21mg patch - 24 hr TD SCH ×2 (08:16→08:26)
[2020-11-16] MEDS: aspirin 81mg tablet.DR PO SCH (08:17)
[2020-11-16] MEDS: lactobacillus rhamnosus 10,000 MMU CELLS/CAPSULE OGT SCH ×2 (08:17→21:08)
[2020-11-16] MEDS: famotidine/PF 10 mg/ml inj IV SCH ×2 (08:17→21:18)
[2020-11-16] MEDS: methadone 5mg tablet OGT SCH (08:17)
[2020-11-16] MEDS: atorvastatin 10mg tablet PO SCH (08:18)
[2020-11-16] MEDS: clopidogrel 75mg tablet OGT SCH (08:18)
[2020-11-16] MEDS: nystatin 15 GM powder TP SCH ×3 (08:18→21:08)
[2020-11-16] MEDS: spironolactone 25 MG tablet OGT SCH ×3 (08:38→21:09)
[2020-11-16] MEDS: carBAMazepine 100mg chewable tablet PO SCH ×4 (08:42→21:19)
[2020-11-16] MEDS: methadone 5mg tablet PO SCH (12:34)
--- NOTE | 2020-11-16 13:40 | NUR ---
Reassessment: Pt has been extubated and TF discontinued. S/p BSS with ST recs pureed food with thin liquids. Pending documentation of PO intake however per RN at critical care rounds pt drinking fluids and consumed breakfast. LBM 11/15, receiving routine bowel care. Will continue to follow closely and monitor need for nutrition intervention pending trends in PO intake. Recommendations: 1. Continue pureed diet with thin liquids per ST recs; diet advancement to heart healthy as medically indicated 2. Monitor trends in PO intake and need for nutrition intervention 3. Routine bowel care 4. Scaled weights per rx Addendum: 11/16/20 at [address] Amended: Links added.
[2020-11-16] MEDS ORDERED: polyethylene glycol 3350 17gm powd pack PO SCH (14:30)
[2020-11-16 16:30] LABS: BASOPHILS % (AUTO) 0.2 % (0-1); EOSINOPHILS % (AUTO) 0 % (0-6); HEMATOCRIT 42.5 % (35.0-45.0); HEMOGLOBIN 13.3 g/dl (12.0-16.0); LYMPHOCYTES # (AUTO) 0.6 X10'3 (1.1-4.8); LYMPHOCYTES % (AUTO) 4.6 % (21-51); MEAN CORPUSCULAR HEMOGLOBIN 27.8 PG (27.0-31.0); MEAN CORPUSCULAR HGB CONC 31.2 g/dL (33.0-36.5); MEAN CORPUSCULAR VOLUME 89.1 FL (78-98); MEAN PLATELET VOLUME 9.3 FL (7.4-10.4); MONOCYTES # (AUTO) 0.8 X10'3 (0-0.9); MONOCYTES % (AUTO) 5.7 % (2-12); NEUTROPHILS # (AUTO) 12.5 X10'3 (1.8-7.7); NEUTROPHILS % (AUTO) 89.5 % (42-75); PLATELET COUNT 112 X10'3 (140-440); RED BLOOD COUNT 4.77 X10'6 (4.20-5.60); RED CELL DISTRIBUTION WIDTH 20.4 % (11.5-14.5)
[2020-11-16 16:37] LABS: ALANINE AMINOTRANSFERASE 116 U/L (12-78); ALBUMIN 1.6 G/DL (3.4-5.0); ALBUMIN/GLOBULIN RATIO 0.6 (1.1-1.5); ALKALINE PHOSPHATASE 73 IU/L (46-116); ASPARTATE AMINO TRANSFERASE 48 U/L (10-37); BILIRUBIN,DIRECT 0.9 MG/DL (0-0.3); BILIRUBIN,TOTAL 1.4 MG/DL (0.1-1.0); MAGNESIUM 1.4 MG/DL (1.5-2.4); PHOSPHORUS 2.8 MG/DL (2.3-4.5); TOTAL PROTEIN 4.2 G/DL (6.4-8.2)
[2020-11-16 17:44] LABS: ANISOCYTOSIS 3+; BURR CELLS FEW; HYPOCHROMASIA 1+; LARGE PLATELETS FEW; PLATELET ESTIMATE DECREASED; POLYCHROMASIA FEW
[2020-11-16 17:45] LABS: SCHISTOCYTES FEW
[2020-11-16] MEDS: methadone 10mg tablet OGT SCH (21:09)
[2020-11-16] MEDS: atorvastatin 20mg tablet PO SCH (21:10)
[2020-11-16] MEDS: insulin glargine (Lantus) pen - multi-dose SQ SCH (21:17)
[2020-11-17] VITALS (18 sets, daily range): BP systolic 97–169; BP diastolic 67–103
[2020-11-17] MEDS: gabapentin 100mg capsule OGT SCH ×3 (00:31→16:40)
[2020-11-17] MEDS: normal saline 1000ml 1,000 ML IV SCH (02:47)
[2020-11-17] MEDS: methylPREDNISolone sod succ/PF 40mg inj. IV SCH ×4 (02:47→20:49)
[2020-11-17] MEDS: mineral oil/petrolatum ophthal oint EACHEYE SCH ×4 (02:48→20:00)
[2020-11-17] MEDS: ipratropium/albuterol 3ml nebule NEB SCH ×4 (03:29→20:10)
[2020-11-17 03:42] LABS: ALANINE AMINOTRANSFERASE 152 U/L (12-78); ALBUMIN 2.2 G/DL (3.4-5.0); ALBUMIN/GLOBULIN RATIO 0.8 (1.1-1.5); ALKALINE PHOSPHATASE 89 IU/L (46-116); ASPARTATE AMINO TRANSFERASE 58 U/L (10-37); BILIRUBIN,TOTAL 1.6 MG/DL (0.1-1.0); MAGNESIUM 1.9 MG/DL (1.5-2.4); TOTAL PROTEIN 5.1 G/DL (6.4-8.2)
[2020-11-17 03:44] LABS: BASOPHILS # (AUTO) 0.1 X10'3 (0-0.2); BASOPHILS % (AUTO) 0.7 % (0-1); EOSINOPHILS # (AUTO) 0.1 X10'3 (0-0.9); EOSINOPHILS % (AUTO) 0.7 % (0-6); HEMATOCRIT 44.5 % (35.0-45.0); HEMOGLOBIN 13.9 g/dl (12.0-16.0); LYMPHOCYTES # (AUTO) 0.2 X10'3 (1.1-4.8); LYMPHOCYTES % (AUTO) 1.7 % (21-51); MEAN CORPUSCULAR HEMOGLOBIN 27.6 PG (27.0-31.0); MEAN CORPUSCULAR HGB CONC 31.2 g/dL (33.0-36.5); MEAN CORPUSCULAR VOLUME 88.4 FL (78-98); MEAN PLATELET VOLUME 9.1 FL (7.4-10.4); MONOCYTES # (AUTO) 0.8 X10'3 (0-0.9); MONOCYTES % (AUTO) 5.5 % (2-12); NEUTROPHILS % (AUTO) 91.4 % (42-75); PLATELET COUNT 110 X10'3 (140-440); RED BLOOD COUNT 5.03 X10'6 (4.20-5.60); RED CELL DISTRIBUTION WIDTH 20.6 % (11.5-14.5); WHITE BLOOD COUNT 14.2 X10'3 (4.5-11.0)
[2020-11-17 04:51] LABS: ANISOCYTOSIS 3+; PLATELET ESTIMATE DECREASED; POLYCHROMASIA FEW; TOTAL CELLS COUNTED 100
[2020-11-17 04:52] LABS: BURR CELLS FEW
--- NOTE | 2020-11-17 06:15 | NUR ---
report given to FANG Villarreal.
[2020-11-17] MEDS: levoTHYROXINE 25mcg tablet OGT SCH (07:00)
[2020-11-17] MEDS: aspirin 81mg tablet.DR PO SCH (08:00)
[2020-11-17] MEDS: methadone 5mg tablet OGT SCH (08:00)
[2020-11-17] MEDS: famotidine/PF 10 mg/ml inj IV SCH ×2 (08:00→20:49)
[2020-11-17] MEDS: carBAMazepine 100mg chewable tablet PO SCH ×4 (08:00→20:56)
[2020-11-17] MEDS: atorvastatin 10mg tablet PO SCH (08:00)
[2020-11-17] MEDS: nystatin 15 GM powder TP SCH ×3 (08:00→21:00)
[2020-11-17] MEDS: docusate sodium 100mg/10ml UD cup OGT SCH ×2 (08:00→20:49)
[2020-11-17] MEDS: K and/or MAG REPLACEMENT MC SCH ×2 (08:00→20:00)
[2020-11-17] MEDS: enoxaparin 40mg/0.4ml syringe SQ SCH (08:00)
[2020-11-17] MEDS: clopidogrel 75mg tablet OGT SCH (08:00)
[2020-11-17] MEDS: lactobacillus rhamnosus 10,000 MMU CELLS/CAPSULE OGT SCH ×2 (08:00→20:49)
[2020-11-17] MEDS: spironolactone 25 MG tablet OGT SCH ×3 (08:00→20:49)
[2020-11-17] MEDS: budesonide 0.5mg/2ml UD nebule IH SCH ×2 (08:02→20:10)
[2020-11-17] MEDS: bisacodyl 10mg suppository rectal RC SCH (10:30)
[2020-11-17] MEDS: methadone 5mg tablet PO SCH (13:37)
[2020-11-17] MEDS: ondansetron 4mg rapidly disintigrating tab OGT PRN ×2 (13:55→20:49)
--- NOTE | 2020-11-17 15:00 | NUR ---
pt report given to Fabiola RN. pt transported via bed with monitor and RN/TECH. pt had no belongings. Daughter stated she had taken them home.
[2020-11-17] MEDS: morphine 2 MG/ML inj. syringe IV PRN (16:40)
--- NOTE | 2020-11-17 18:34 | NUR ---
Patient in room PCU 3027. I have received report from Fabiola HEADLEY and had the opportunity to ask questions and assume patient care.
[2020-11-17] MEDS: methadone 10mg tablet OGT SCH (20:47)
[2020-11-17] MEDS: atorvastatin 20mg tablet PO SCH (20:48)
[2020-11-17] MEDS: insulin glargine (Lantus) pen - multi-dose SQ SCH (21:00)
[2020-11-18] VITALS (7 sets, daily range): BP systolic 117–177; BP diastolic 70–101
[2020-11-18] MEDS: mineral oil/petrolatum ophthal oint EACHEYE SCH ×4 (02:00→20:00)
[2020-11-18] MEDS: methylPREDNISolone sod succ/PF 40mg inj. IV SCH ×4 (02:00→20:53)
[2020-11-18] MEDS: ipratropium/albuterol 3ml nebule NEB SCH ×4 (02:37→19:28)
[2020-11-18 04:55] LABS: BASOPHILS % (AUTO) 0.2 % (0-1); EOSINOPHILS % (AUTO) 0 % (0-6); HEMATOCRIT 46.1 % (35.0-45.0); HEMOGLOBIN 14.6 g/dl (12.0-16.0); LYMPHOCYTES # (AUTO) 0.7 X10'3 (1.1-4.8); LYMPHOCYTES % (AUTO) 5.4 % (21-51); MEAN CORPUSCULAR HEMOGLOBIN 28.1 PG (27.0-31.0); MEAN CORPUSCULAR HGB CONC 31.7 g/dL (33.0-36.5); MEAN CORPUSCULAR VOLUME 88.9 FL (78-98); MEAN PLATELET VOLUME 8.8 FL (7.4-10.4); MONOCYTES # (AUTO) 0.8 X10'3 (0-0.9); MONOCYTES % (AUTO) 5.9 % (2-12); NEUTROPHILS # (AUTO) 11.7 X10'3 (1.8-7.7); NEUTROPHILS % (AUTO) 88.5 % (42-75); PLATELET COUNT 108 X10'3 (140-440); RED BLOOD COUNT 5.18 X10'6 (4.20-5.60); RED CELL DISTRIBUTION WIDTH 19.7 % (11.5-14.5); WHITE BLOOD COUNT 13.2 X10'3 (4.5-11.0)
[2020-11-18 05:00] LABS: ALANINE AMINOTRANSFERASE 184 U/L (12-78); ALBUMIN 2.8 G/DL (3.4-5.0); ALBUMIN/GLOBULIN RATIO 0.9 (1.1-1.5); ALKALINE PHOSPHATASE 101 IU/L (46-116); ASPARTATE AMINO TRANSFERASE 79 U/L (10-37); BILIRUBIN,TOTAL 1.6 MG/DL (0.1-1.0); MAGNESIUM 1.9 MG/DL (1.5-2.4); TOTAL PROTEIN 5.9 G/DL (6.4-8.2)
--- NOTE | 2020-11-18 05:20 | NUR ---
0200 Solumedrol dose missed.
--- NOTE | 2020-11-18 06:03 | NUR ---
RECEIVED REPORT FROM OSCAR HEADLEY
--- NOTE | 2020-11-18 07:59 | NUR ---
Problems reprioritized. Patient report given, questions answered & plan of care reviewed with Fabiola RN.
[2020-11-18] MEDS: K and/or MAG REPLACEMENT MC SCH ×2 (08:00→20:00)
[2020-11-18] MEDS: budesonide 0.5mg/2ml UD nebule IH SCH ×2 (08:13→19:27)
[2020-11-18] MEDS: nicotine 21mg patch - 24 hr TD SCH (09:25)
[2020-11-18] MEDS: gabapentin 100mg capsule OGT SCH ×3 (09:26→16:09)
[2020-11-18] MEDS: methylnaltrexone br 12mg/0.6ml inj***SubQ only SQ SCH (09:26)
[2020-11-18] MEDS: atorvastatin 10mg tablet PO SCH (09:27)
[2020-11-18] MEDS: levoTHYROXINE 25mcg tablet OGT SCH (09:27)
[2020-11-18] MEDS: docusate sodium 100mg/10ml UD cup OGT SCH ×2 (09:27→20:53)
[2020-11-18] MEDS: spironolactone 25 MG tablet OGT SCH ×3 (09:27→20:56)
[2020-11-18] MEDS: lactobacillus rhamnosus 10,000 MMU CELLS/CAPSULE OGT SCH ×2 (09:27→20:55)
[2020-11-18] MEDS: aspirin 81mg tablet.DR PO SCH (09:28)
[2020-11-18] MEDS: famotidine/PF 10 mg/ml inj IV SCH ×2 (09:28→20:53)
[2020-11-18] MEDS: clopidogrel 75mg tablet OGT SCH (09:28)
[2020-11-18] MEDS: enoxaparin 40mg/0.4ml syringe SQ SCH (09:28)
[2020-11-18] MEDS: carBAMazepine 100mg chewable tablet PO SCH ×4 (09:29→21:23)
[2020-11-18] MEDS: methadone 5mg tablet OGT SCH (09:32)
[2020-11-18] MEDS: nystatin 15 GM powder TP SCH ×3 (09:33→20:59)
[2020-11-18 10:26] LABS: ABG BASE EXCESS 0.8 mmol/L (-2.0-2.0); ABG OXYGEN SATURATION 81.7 % (94-97); ABG PCO2 (T) 38.8 mmHg (32.0-45.0); ABG PO2 (T) 46.7 mmHg (75.0-100.0); ALLEN'S TEST POSITIVE; FCOHb 0.7 % (0.0-3.9); FLOW 11 L/min; FMetHb 0.2 % (0.0-1.5); TOTAL HEMOGLOBIN 15.7 G/dl (12.0-16.0)
[2020-11-18] MEDS: methadone 5mg tablet PO SCH (12:39)
[2020-11-18 13:45] LABS: ABG BASE EXCESS 0.1 mmol/L (-2.0-2.0); ABG HCO3 24.6 mmol/L (22.0-26.0); ABG OXYGEN SATURATION 86.9 % (94-97); ABG PCO2 (T) 39.3 mmHg (32.0-45.0); ABG PO2 (T) 53.2 mmHg (75.0-100.0); ALLEN'S TEST POSITIVE; FCOHb 0.8 % (0.0-3.9); FLOW 25 L/min; FMetHb 0.3 % (0.0-1.5); FO2Hb 85.9 % (94-97); TOTAL HEMOGLOBIN 15.1 G/dl (12.0-16.0)
[2020-11-18 16:07] LABS: BASOPHILS % (AUTO) 0.2 % (0-1); EOSINOPHILS % (AUTO) 0 % (0-6); HEMATOCRIT 42.9 % (35.0-45.0); HEMOGLOBIN 13.4 g/dl (12.0-16.0); LYMPHOCYTES # (AUTO) 0.5 X10'3 (1.1-4.8); LYMPHOCYTES % (AUTO) 2.8 % (21-51); MEAN CORPUSCULAR HEMOGLOBIN 27.8 PG (27.0-31.0); MEAN CORPUSCULAR HGB CONC 31.3 g/dL (33.0-36.5); MEAN CORPUSCULAR VOLUME 88.6 FL (78-98); MEAN PLATELET VOLUME 8.8 FL (7.4-10.4); MONOCYTES # (AUTO) 0.8 X10'3 (0-0.9); MONOCYTES % (AUTO) 4.9 % (2-12); NEUTROPHILS % (AUTO) 92.1 % (42-75); PLATELET COUNT 97 X10'3 (140-440); RED BLOOD COUNT 4.84 X10'6 (4.20-5.60); RED CELL DISTRIBUTION WIDTH 20.4 % (11.5-14.5); WHITE BLOOD COUNT 16.2 X10'3 (4.5-11.0)
[2020-11-18 16:25] LABS: ALANINE AMINOTRANSFERASE 176 U/L (12-78); ALBUMIN 2.5 G/DL (3.4-5.0); ALBUMIN/GLOBULIN RATIO 0.9 (1.1-1.5); ALKALINE PHOSPHATASE 93 IU/L (46-116); ASPARTATE AMINO TRANSFERASE 77 U/L (10-37); BILIRUBIN,DIRECT 0.9 MG/DL (0-0.3); BILIRUBIN,TOTAL 1.4 MG/DL (0.1-1.0); MAGNESIUM 1.6 MG/DL (1.5-2.4); PHOSPHORUS 3.2 MG/DL (2.3-4.5); TOTAL PROTEIN 5.4 G/DL (6.4-8.2)
[2020-11-18] MEDS: CefTRIAXone 2gm/D5W 50ml BAG 50 ML IV SCH (16:39)
[2020-11-18 16:53] LABS: ANISOCYTOSIS 3+; PLATELET ESTIMATE DECREASED
[2020-11-18 16:54] LABS: SCHISTOCYTES FEW
--- NOTE | 2020-11-18 17:45 | NUR ---
pt transferred here at 1730. call light with in reach, 2 person RN skin check completed and charted
--- NOTE | 2020-11-18 18:48 | NUR ---
Patient in room PCU 3027. I have received report from Fabiola HEADLEY and had the opportunity to ask questions and assume patient care.
[2020-11-18] MEDS: atorvastatin 20mg tablet PO SCH (20:54)
[2020-11-18] MEDS: methadone 10mg tablet OGT SCH (20:56)
[2020-11-18] MEDS: insulin glargine (Lantus) pen - multi-dose SQ SCH (21:00)
[2020-11-19] MEDS: gabapentin 100mg capsule OGT SCH ×3 (00:23→16:24)
[2020-11-19 02:00] VITALS: BP 149/92
[2020-11-19] MEDS: mineral oil/petrolatum ophthal oint EACHEYE SCH ×4 (02:00→20:00)
[2020-11-19] MEDS: ipratropium/albuterol 3ml nebule NEB SCH ×4 (02:53→19:58)
[2020-11-19] MEDS: methylPREDNISolone sod succ/PF 40mg inj. IV SCH ×3 (02:54→21:22)
[2020-11-19] MEDS: morphine 2 MG/ML inj. syringe IV PRN (03:30)
--- NOTE | 2020-11-19 06:00 | NUR ---
Patient in room PCU 3027. I have received report from Chiquita HEADLEY and had the opportunity to ask questions and assume patient care.
[2020-11-19 06:36] LABS: BASOPHILS % (AUTO) 0.2 % (0-1); EOSINOPHILS % (AUTO) 0.2 % (0-6); HEMATOCRIT 41.2 % (35.0-45.0); HEMOGLOBIN 12.8 g/dl (12.0-16.0); LYMPHOCYTES # (AUTO) 1.2 X10'3 (1.1-4.8); LYMPHOCYTES % (AUTO) 9.2 % (21-51); MEAN CORPUSCULAR HEMOGLOBIN 27.9 PG (27.0-31.0); MEAN CORPUSCULAR HGB CONC 31.2 g/dL (33.0-36.5); MEAN CORPUSCULAR VOLUME 89.6 FL (78-98); MEAN PLATELET VOLUME 9.1 FL (7.4-10.4); MONOCYTES # (AUTO) 0.8 X10'3 (0-0.9); MONOCYTES % (AUTO) 5.9 % (2-12); NEUTROPHILS # (AUTO) 10.9 X10'3 (1.8-7.7); NEUTROPHILS % (AUTO) 84.5 % (42-75); PLATELET COUNT 80 X10'3 (140-440); WHITE BLOOD COUNT 12.9 X10'3 (4.5-11.0)
[2020-11-19 07:00] VITALS: BP 145/100
[2020-11-19] MEDS: budesonide 0.5mg/2ml UD nebule IH SCH ×2 (07:16→19:58)
[2020-11-19 07:34] LABS: ALANINE AMINOTRANSFERASE 175 U/L (12-78); ALBUMIN 2.4 G/DL (3.4-5.0); ALBUMIN/GLOBULIN RATIO 0.9 (1.1-1.5); ALKALINE PHOSPHATASE 88 IU/L (46-116); ASPARTATE AMINO TRANSFERASE 71 U/L (10-37); BILIRUBIN,DIRECT 0.7 MG/DL (0-0.3); BILIRUBIN,TOTAL 1.1 MG/DL (0.1-1.0); MAGNESIUM 1.7 MG/DL (1.5-2.4); TOTAL PROTEIN 5.2 G/DL (6.4-8.2)
--- NOTE | 2020-11-19 07:50 | NUR ---
Problems reprioritized. Patient report given, questions answered & plan of care reviewed with Breonna HEADLEY.
[2020-11-19] MEDS: K and/or MAG REPLACEMENT MC SCH ×2 (08:00→20:00)
[2020-11-19] MEDS: enoxaparin 40mg/0.4ml syringe SQ SCH (08:00)
[2020-11-19] MEDS: nystatin 15 GM powder TP SCH ×3 (10:10→21:29)
[2020-11-19] MEDS: CefTRIAXone 2gm/D5W 50ml BAG 50 ML IV SCH (10:10)
[2020-11-19] MEDS: carBAMazepine 100mg chewable tablet PO SCH ×4 (10:12→21:24)
[2020-11-19] MEDS: nicotine 21mg patch - 24 hr TD SCH (10:12)
[2020-11-19] MEDS: atorvastatin 10mg tablet PO SCH (10:13)
[2020-11-19] MEDS: lactobacillus rhamnosus 10,000 MMU CELLS/CAPSULE OGT SCH ×2 (10:13→21:23)
[2020-11-19] MEDS: docusate sodium 100mg/10ml UD cup OGT SCH ×2 (10:13→21:23)
[2020-11-19] MEDS: famotidine/PF 10 mg/ml inj IV SCH ×2 (10:13→21:22)
[2020-11-19] MEDS: levoTHYROXINE 25mcg tablet OGT SCH (10:13)
[2020-11-19] MEDS: methadone 5mg tablet OGT SCH (10:14)
[2020-11-19] MEDS: clopidogrel 75mg tablet OGT SCH (10:14)
[2020-11-19] MEDS: spironolactone 25 MG tablet OGT SCH ×2 (10:15→12:50)
[2020-11-19] MEDS: ipratropium/albuterol 3ml nebule IH PRN (10:56)
[2020-11-19 11:00] VITALS: BP 135/100
[2020-11-19] MEDS ORDERED: LORazepam 0.5 MG tablet PO PRN (11:55)
[2020-11-19] MEDS: methadone 5mg tablet PO SCH (12:50)
[2020-11-19] MEDS: aspirin 81mg tablet.DR PO SCH (12:50)
[2020-11-19] MEDS: fluconazole-Diflucan 200mg/NS 100 ML IV SCH (12:55)
--- NOTE | 2020-11-19 13:22 | NUR ---
F/u 11/19: Pt PO ~50-75% avg pureed/thin diet following extubation decent given SOB w/ COPD per EMR. Noted pt refuses bipap per EMR. May tolerate liquid protein/kcals given SOB to better meet needs; RD recommended ensure high protein TIDWM. MD notified. LBM 11/18 receiving routine colace. Pt NPO this AM for US which was unremarkable per MD note. Will continue to monitor. Recommendations: 1. Continue pureed diet with thin liquids per ST recs; diet advancement to heart healthy as medically indicated 2. ensure high protein TIDWM; pending MD verification in EMR 3. Routine bowel care 4. weekly wts Addendum: 11/19/20 at [address] Amended: Links added.
[2020-11-19 13:50] LABS: ABG BASE EXCESS 3.7 mmol/L (-2.0-2.0); ABG HCO3 27.7 mmol/L (22.0-26.0); ABG OXYGEN SATURATION 93.2 % (94-97); ABG PCO2 (T) 39.9 mmHg (32.0-45.0); ABG PO2 (T) 65.2 mmHg (75.0-100.0); ALLEN'S TEST POSITIVE; FCOHb 0.8 % (0.0-3.9); FMetHb 0.2 % (0.0-1.5); FO2Hb 92.3 % (94-97); RESPIRATORY RATE 24 b/min; TOTAL HEMOGLOBIN 15.6 G/dl (12.0-16.0)
--- NOTE | 2020-11-19 16:00 | NUR ---
Paged Dr. San, regarding ABGs. PAGER ID: [phone] MESSAGE: [phone] Amy Mo. Patients ABG results in. Thank you. CATINA Ravi [phone]
[2020-11-19] MEDS: lisinopril 5mg tablet PO SCH (16:24)
[2020-11-19 18:00] VITALS: BP 98/73
--- NOTE | 2020-11-19 18:17 | NUR ---
Problems reprioritized. Patient report given, questions answered & plan of care reviewed with Pawel HEADLEY. Stable at transfer of care.
[2020-11-19] MEDS: insulin glargine (Lantus) pen - multi-dose SQ SCH (21:00)
[2020-11-19] MEDS: furosemide 20 MG/2 ML vial IV SCH (21:23)
[2020-11-19] MEDS: atorvastatin 20mg tablet PO SCH (21:23)
[2020-11-19] MEDS: methadone 10mg tablet OGT SCH (21:23)
[2020-11-19 22:00] VITALS: BP 128/95
[2020-11-20] MEDS: mineral oil/petrolatum ophthal oint EACHEYE SCH ×4 (01:53→20:12)
[2020-11-20 02:00] VITALS: BP 96/54
[2020-11-20] MEDS: ipratropium/albuterol 3ml nebule NEB SCH ×4 (02:14→19:46)
[2020-11-20 06:00] VITALS: BP 126/69
--- NOTE | 2020-11-20 06:22 | NUR ---
report given to and discussed with FANG Canchola.
--- NOTE | 2020-11-20 06:27 | NUR ---
Patient in room PCU 3027. I have received report from FANG Armas and had the opportunity to ask questions and assume patient care.
[2020-11-20] MEDS: budesonide 0.5mg/2ml UD nebule IH SCH ×2 (07:51→19:47)
[2020-11-20] MEDS: K and/or MAG REPLACEMENT MC SCH ×2 (08:00→20:00)
[2020-11-20] MEDS: lactobacillus rhamnosus 10,000 MMU CELLS/CAPSULE OGT SCH ×4 (08:00→20:09)
[2020-11-20] MEDS: enoxaparin 40mg/0.4ml syringe SQ SCH (08:00)
[2020-11-20] MEDS: famotidine/PF 10 mg/ml inj IV SCH ×2 (08:20→20:11)
[2020-11-20] MEDS: furosemide 20 MG/2 ML vial IV SCH ×2 (08:20→20:11)
[2020-11-20] MEDS: methylPREDNISolone sod succ/PF 40mg inj. IV SCH ×2 (08:20→20:11)
[2020-11-20] MEDS: nystatin 15 GM powder TP SCH ×3 (08:20→20:08)
[2020-11-20] MEDS: docusate sodium 100mg/10ml UD cup OGT SCH ×3 (08:20→20:09)
[2020-11-20] MEDS: nicotine 21mg patch - 24 hr TD SCH (08:23)
[2020-11-20] MEDS: methadone 5mg tablet OGT SCH (08:27)
[2020-11-20] MEDS: clopidogrel 75mg tablet OGT SCH (08:27)
[2020-11-20] MEDS: levoTHYROXINE 25mcg tablet OGT SCH (08:28)
[2020-11-20] MEDS: aspirin 81mg tablet.DR PO SCH (08:28)
[2020-11-20] MEDS: carBAMazepine 100mg chewable tablet PO SCH ×5 (08:29→21:00)
[2020-11-20] MEDS: atorvastatin 10mg tablet PO SCH (08:30)
[2020-11-20] MEDS: lisinopril 5mg tablet PO SCH (08:30)
[2020-11-20] MEDS: gabapentin 100mg capsule OGT SCH ×3 (08:30→16:09)
[2020-11-20] MEDS: fluconazole-Diflucan 200mg/NS 100 ML IV SCH (08:32)
[2020-11-20] MEDS: CefTRIAXone 2gm/D5W 50ml BAG 50 ML IV SCH (08:40)
[2020-11-20] MEDS: methylnaltrexone br 12mg/0.6ml inj***SubQ only SQ SCH (08:40)
[2020-11-20 08:42] LABS: BASOPHILS % (AUTO) 0.3 % (0-1); EOSINOPHILS # (AUTO) 0.1 X10'3 (0-0.9); EOSINOPHILS % (AUTO) 0.6 % (0-6); HEMATOCRIT 44.5 % (35.0-45.0); HEMOGLOBIN 14.1 g/dl (12.0-16.0); LYMPHOCYTES # (AUTO) 1.3 X10'3 (1.1-4.8); LYMPHOCYTES % (AUTO) 7.6 % (21-51); MEAN CORPUSCULAR HEMOGLOBIN 28.1 PG (27.0-31.0); MEAN CORPUSCULAR HGB CONC 31.7 g/dL (33.0-36.5); MEAN CORPUSCULAR VOLUME 88.4 FL (78-98); MEAN PLATELET VOLUME 9.1 FL (7.4-10.4); MONOCYTES # (AUTO) 0.7 X10'3 (0-0.9); NEUTROPHILS # (AUTO) 14.5 X10'3 (1.8-7.7); NEUTROPHILS % (AUTO) 87.5 % (42-75); PLATELET COUNT 68 X10'3 (140-440); RED BLOOD COUNT 5.03 X10'6 (4.20-5.60); RED CELL DISTRIBUTION WIDTH 20.5 % (11.5-14.5); WHITE BLOOD COUNT 16.6 X10'3 (4.5-11.0)
[2020-11-20 09:11] LABS: ALBUMIN 2.5 G/DL (3.4-5.0); ANION GAP 7 (8-16); BLOOD UREA NITROGEN 13 MG/DL (7-18); CALCIUM 8.3 MG/DL (8.5-10.1); CHLORIDE 97 MMOL/L (99-107); GLUCOSE 84 MG/DL (70-104); POTASSIUM 3.8 MMOL/L (3.5-5.1); SODIUM 137 MMOL/L (135-145); TOTAL CARBON DIOXIDE 33.5 MMOL/L (24-32); eGFR > 90 ML/MIN
[2020-11-20 10:09] LABS: ANISOCYTOSIS 3+; HYPOCHROMASIA 1+; PLATELET ESTIMATE DECREASED; SCHISTOCYTES FEW
[2020-11-20] MEDS: bisacodyl 10mg suppository rectal RC SCH (10:30)
--- NOTE | 2020-11-20 10:39 | NUR ---
Paged RT for breathing tx: Patient w/ low SpO2 87% can you give a breathing tx, please? Thank you!
[2020-11-20 11:00] VITALS: BP 138/85
[2020-11-20] MEDS: ipratropium/albuterol 3ml nebule IH PRN (11:34)
[2020-11-20] MEDS: methadone 5mg tablet PO SCH (11:51)
[2020-11-20] MEDS: ondansetron 4mg rapidly disintigrating tab OGT PRN ×2 (13:18→21:15)
[2020-11-20] MEDS: azithromycin 250mg tablet PO SCH (14:19)
[2020-11-20] MEDS: morphine 2 MG/ML inj. syringe IV PRN (14:27)
[2020-11-20] MEDS: piperacillin/tazo 3.375gm/50ml 50 ML IV SCH (16:17)
[2020-11-20 18:20] LABS: ALANINE AMINOTRANSFERASE 195 U/L (12-78); ALBUMIN 2.4 G/DL (3.4-5.0); ALBUMIN/GLOBULIN RATIO 0.8 (1.1-1.5); ALKALINE PHOSPHATASE 91 IU/L (46-116); ASPARTATE AMINO TRANSFERASE 74 U/L (10-37); BILIRUBIN,DIRECT 0.7 MG/DL (0-0.3); BILIRUBIN,TOTAL 1.1 MG/DL (0.1-1.0); MAGNESIUM 1.6 MG/DL (1.5-2.4); PHOSPHORUS 3.9 MG/DL (2.3-4.5); TOTAL PROTEIN 5.3 G/DL (6.4-8.2)
--- NOTE | 2020-11-20 18:30 | NUR ---
Problems reprioritized. Patient report given, questions answered & plan of care reviewed with FANG Jordna.
--- NOTE | 2020-11-20 18:30 | NUR ---
Patient in room PCU 3027. I have received report from Jesika HEADLEY and had the opportunity to ask questions and assume patient care.
[2020-11-20 18:34] LABS: BASOPHILS # (AUTO) 0.1 X10'3 (0-0.2); BASOPHILS % (AUTO) 0.4 % (0-1); EOSINOPHILS % (AUTO) 0.1 % (0-6); HEMATOCRIT 41.9 % (35.0-45.0); HEMOGLOBIN 13.2 g/dl (12.0-16.0); LYMPHOCYTES # (AUTO) 1.2 X10'3 (1.1-4.8); LYMPHOCYTES % (AUTO) 6.9 % (21-51); MEAN CORPUSCULAR HEMOGLOBIN 27.4 PG (27.0-31.0); MEAN CORPUSCULAR HGB CONC 31.5 g/dL (33.0-36.5); MEAN PLATELET VOLUME 9.1 FL (7.4-10.4); MONOCYTES # (AUTO) 0.7 X10'3 (0-0.9); NEUTROPHILS # (AUTO) 14.7 X10'3 (1.8-7.7); NEUTROPHILS % (AUTO) 88.6 % (42-75); PLATELET COUNT 70 X10'3 (140-440); RED BLOOD COUNT 4.82 X10'6 (4.20-5.60); RED CELL DISTRIBUTION WIDTH 20.1 % (11.5-14.5); WHITE BLOOD COUNT 16.6 X10'3 (4.5-11.0)
[2020-11-20] MEDS: atorvastatin 20mg tablet PO SCH ×2 (20:09→21:00)
[2020-11-20] MEDS: methadone 10mg tablet OGT SCH ×2 (20:10→21:00)
--- NOTE | 2020-11-20 20:37 | NUR ---
called MD cuellar to notify that pt is on Bipap 30L /60%Fio2. lethargic but opening eyes briefly wont take anything po, Recieved order for stat ABG will notify MD once results obtained.
[2020-11-20 20:55] LABS: ABG BASE EXCESS 7.5 mmol/L (-2.0-2.0); ABG HCO3 32.4 mmol/L (22.0-26.0); ABG OXYGEN SATURATION 95.2 % (94-97); ABG PCO2 (T) 46.1 mmHg (32.0-45.0); ABG PO2 (T) 73.3 mmHg (75.0-100.0); ALLEN'S TEST POSITIVE; FCOHb 0.7 % (0.0-3.9); FMetHb 0.3 % (0.0-1.5); FO2Hb 94.2 % (94-97); PATIENT TEMPERATURE 36.9; RESPIRATORY RATE 20 b/min; TOTAL HEMOGLOBIN 14.6 G/dl (12.0-16.0)
[2020-11-20] MEDS: insulin glargine (Lantus) pen - multi-dose SQ SCH (21:00)
--- NOTE | 2020-11-20 22:00 | NUR ---
ABG resulted with minimal to no change from previous abg. Pt c/o of nausea, medicating with zofran, on high flow until nausea subsides. Pt vital signs have remained stable this shift. O2 saturations ranging from 92-96% either on High flow or Bipap 35/75. Pt continues to be lethargic only arousing to name and sternal rub. bilateral edema to upper and lower extremities. Pt has copious amounts of frothy clear sputum draining from mouth, suctioned with yankeur. I was told in report that she normally is able to suction her own secretions. She is requiring dependant assistance with all care this shift. Will continue to monitor.
[2020-11-21] MEDS: mineral oil/petrolatum ophthal oint EACHEYE SCH ×3 (01:12→14:00)
[2020-11-21] MEDS: ipratropium/albuterol 3ml nebule NEB SCH ×4 (03:02→19:56)
[2020-11-21 04:08] LABS: BASOPHILS % (AUTO) 0.3 % (0-1); EOSINOPHILS % (AUTO) 0.1 % (0-6); HEMATOCRIT 41.9 % (35.0-45.0); HEMOGLOBIN 13.4 g/dl (12.0-16.0); LYMPHOCYTES # (AUTO) 0.8 X10'3 (1.1-4.8); MEAN CORPUSCULAR HEMOGLOBIN 27.9 PG (27.0-31.0); MEAN CORPUSCULAR HGB CONC 31.9 g/dL (33.0-36.5); MEAN CORPUSCULAR VOLUME 87.5 FL (78-98); MEAN PLATELET VOLUME 9.4 FL (7.4-10.4); MONOCYTES # (AUTO) 0.5 X10'3 (0-0.9); MONOCYTES % (AUTO) 3.3 % (2-12); NEUTROPHILS # (AUTO) 12.6 X10'3 (1.8-7.7); NEUTROPHILS % (AUTO) 90.3 % (42-75); PLATELET COUNT 70 X10'3 (140-440); RED BLOOD COUNT 4.79 X10'6 (4.20-5.60); RED CELL DISTRIBUTION WIDTH 20.1 % (11.5-14.5)
[2020-11-21 04:13] LABS: ALANINE AMINOTRANSFERASE 192 U/L (12-78); ALBUMIN 2.4 G/DL (3.4-5.0); ALBUMIN/GLOBULIN RATIO 0.8 (1.1-1.5); ALKALINE PHOSPHATASE 94 IU/L (46-116); ANION GAP 6 (8-16); ASPARTATE AMINO TRANSFERASE 65 U/L (10-37); BILIRUBIN,TOTAL 1.1 MG/DL (0.1-1.0); BLOOD UREA NITROGEN 16 MG/DL (7-18); BUN/CREATININE RATIO 61.5 (6.6-38.0); CHLORIDE 95 MMOL/L (99-107); CREATININE 0.26 MG/DL (0.40-0.90); GLUCOSE 111 MG/DL (70-104); POTASSIUM 3.6 MMOL/L (3.5-5.1); SODIUM 136 MMOL/L (135-145); TOTAL CARBON DIOXIDE 34.9 MMOL/L (24-32); TOTAL PROTEIN 5.5 G/DL (6.4-8.2); eGFR > 90 ML/MIN
--- NOTE | 2020-11-21 05:41 | NUR ---
Pt too lethargic this shift to take PO. Addendum: 11/21/20 at 0541 by Julian Posadas RN Amended: Links added.
[2020-11-21 06:17] LABS: PLATELET ESTIMATE DECREASED
[2020-11-21 06:18] LABS: ANISOCYTOSIS 3+; HYPOCHROMASIA 1+
[2020-11-21 06:19] LABS: POLYCHROMASIA FEW
--- NOTE | 2020-11-21 06:30 | NUR ---
Problems reprioritized. Patient report given, questions answered & plan of care reviewed with Kelsey Alford RN.
--- NOTE | 2020-11-21 06:36 | NUR ---
Patient in room PCU 3027. I have received report from FANG Jordan and had the opportunity to ask questions and assume patient care.
--- NOTE | 2020-11-21 06:36 | NUR ---
Patient in room PCU 3027. I have received report from Julian HEADLEY and had the opportunity to ask questions and assume patient care. Pt sleeping soundly at this time, bipap in place, BLL, CL within reach, no s/sx acute distress.
[2020-11-21 07:00] VITALS: BP 132/51
[2020-11-21] MEDS: enoxaparin 40mg/0.4ml syringe SQ SCH (08:00)
[2020-11-21] MEDS: carBAMazepine 100mg chewable tablet PO SCH ×3 (08:00→18:29)
[2020-11-21] MEDS: K and/or MAG REPLACEMENT MC SCH ×2 (08:00→20:00)
[2020-11-21] MEDS: methadone 5mg tablet OGT SCH (08:00)
[2020-11-21] MEDS: budesonide 0.5mg/2ml UD nebule IH SCH ×2 (08:03→19:56)
[2020-11-21 11:00] VITALS: BP 152/89
[2020-11-21] MEDS: methylPREDNISolone sod succ/PF 40mg inj. IV SCH ×2 (11:28→21:38)
[2020-11-21] MEDS: piperacillin/tazo 3.375gm/50ml 50 ML IV SCH ×3 (11:29→17:22)
[2020-11-21] MEDS: famotidine/PF 10 mg/ml inj IV SCH ×2 (11:29→21:38)
[2020-11-21] MEDS: furosemide 20 MG/2 ML vial IV SCH ×2 (11:29→21:39)
[2020-11-21] MEDS: lactobacillus rhamnosus 10,000 MMU CELLS/CAPSULE OGT SCH ×2 (11:30→20:00)
[2020-11-21] MEDS: docusate sodium 100mg/10ml UD cup OGT SCH ×2 (11:30→20:00)
[2020-11-21] MEDS: azithromycin 250mg tablet PO SCH (11:30)
[2020-11-21] MEDS: nicotine 21mg patch - 24 hr TD SCH (11:31)
[2020-11-21] MEDS: aspirin 81mg tablet.DR PO SCH (11:32)
[2020-11-21] MEDS: gabapentin 100mg capsule OGT SCH ×3 (11:33→17:21)
[2020-11-21] MEDS: clopidogrel 75mg tablet OGT SCH (11:34)
[2020-11-21] MEDS: levoTHYROXINE 25mcg tablet OGT SCH (11:34)
[2020-11-21] MEDS: fluconazole-Diflucan 200mg/NS 100 ML IV SCH (11:35)
[2020-11-21] MEDS: lisinopril 5mg tablet PO SCH (11:57)
[2020-11-21] MEDS: methadone 5mg tablet PO SCH (12:46)
[2020-11-21] MEDS: nystatin 15 GM powder TP SCH ×3 (12:51→21:00)
[2020-11-21] MEDS: ondansetron 4mg rapidly disintigrating tab OGT PRN (14:35)
[2020-11-21] MEDS: morphine 2 MG/ML inj. syringe IV PRN ×3 (14:35→23:02)
[2020-11-21 15:00] VITALS: BP 102/55
--- NOTE | 2020-11-21 17:57 | NUR ---
blanton cath care provided this shift. F/C patent, draining to gravity. urine dark hank. no bladder distension. no s/sx malfunction of F/c or F/C related trauma.
[2020-11-21 18:00] VITALS: BP 140/77
--- NOTE | 2020-11-21 18:14 | NUR ---
[place]rientee documentation: I have reviewed and agree with all interventions, assessments performed and documented by FANG Blake.
--- NOTE | 2020-11-21 18:15 | NUR ---
[place] Medication Administration: For this medication-pass time frame, all medication were reviewed, dispensed, administered and documented per hospital policy by FANG Blake.
--- NOTE | 2020-11-21 18:15 | NUR ---
Problems reprioritized. Patient report given, questions answered & plan of care reviewed with FANG Jordan. Pt sitting up watching tv comfortably, all pt needs met at this time.
[2020-11-21] MEDS: atorvastatin 20mg tablet PO SCH (21:00)
[2020-11-21] MEDS: methadone 10mg tablet OGT SCH (21:00)
[2020-11-21 22:00] VITALS: BP 121/64
[2020-11-22 02:00] VITALS: BP 130/77
[2020-11-22] MEDS: ipratropium/albuterol 3ml nebule NEB SCH ×3 (03:13→14:44)
[2020-11-22] MEDS: morphine 2 MG/ML inj. syringe IV PRN ×5 (03:31→17:04)
--- NOTE | 2020-11-22 05:00 | NUR ---
Pt was more awake and alert and oriented when i came on shift tonight. I assisted her in eating her dinner and i gave her 1700 Carbamazepine with her dinner she was pleasant and cooperative with care. When i returned to give her evening medications she was very sleeping and hard to arouse. She would open her eyes and shake her head but that is as much as she was able to do. She was very fatigued and wanted to sleep. She stated "no medications" i asked her if her Lasix, solumedrol and famotidine which were administered via iv were also medications she was refusing. she stated no, she would accept those. a couple hours later she awake in extreme pain, morphine was administered twice this shift with good results, i re-eduated her on the importance of taking her prescribed RX when its due to try and prevent pain and other symptoms that may arise to help her feel better. Her carbamazepine RX has been adjusted to better reflect her home regimen. Pt was repositioned Q2, FC emptied with 200ml out this shift. Pt O2 30L on 505 Fio2 no c/o or s/s of respiratory distress shift
[2020-11-22 05:07] LABS: ALANINE AMINOTRANSFERASE 184 U/L (12-78); ALBUMIN 2.4 G/DL (3.4-5.0); ALBUMIN/GLOBULIN RATIO 0.8 (1.1-1.5); ALKALINE PHOSPHATASE 99 IU/L (46-116); ANION GAP 2 (8-16); ASPARTATE AMINO TRANSFERASE 58 U/L (10-37); BASOPHILS % (AUTO) 0.2 % (0-1); BILIRUBIN,TOTAL 1.1 MG/DL (0.1-1.0); BLOOD UREA NITROGEN 18 MG/DL (7-18); BUN/CREATININE RATIO 66.7 (6.6-38.0); CALCIUM 8.3 MG/DL (8.5-10.1); CHLORIDE 96 MMOL/L (99-107); CREATININE 0.27 MG/DL (0.40-0.90); EOSINOPHILS % (AUTO) 0 % (0-6); GLUCOSE 127 MG/DL (70-104); LYMPHOCYTES # (AUTO) 0.6 X10'3 (1.1-4.8); LYMPHOCYTES % (AUTO) 4.9 % (21-51); MEAN CORPUSCULAR HEMOGLOBIN 27.8 PG (27.0-31.0); MEAN CORPUSCULAR HGB CONC 31.8 g/dL (33.0-36.5); MEAN CORPUSCULAR VOLUME 87.4 FL (78-98); MEAN PLATELET VOLUME 9.5 FL (7.4-10.4); MONOCYTES # (AUTO) 0.5 X10'3 (0-0.9); MONOCYTES % (AUTO) 3.9 % (2-12); NEUTROPHILS # (AUTO) 11.4 X10'3 (1.8-7.7); PLATELET COUNT 77 X10'3 (140-440); POTASSIUM 3.7 MMOL/L (3.5-5.1); RED BLOOD COUNT 4.69 X10'6 (4.20-5.60); RED CELL DISTRIBUTION WIDTH 20.5 % (11.5-14.5); SODIUM 136 MMOL/L (135-145); TOTAL CARBON DIOXIDE 37.7 MMOL/L (24-32); TOTAL PROTEIN 5.5 G/DL (6.4-8.2); WHITE BLOOD COUNT 12.5 X10'3 (4.5-11.0); eGFR > 90 ML/MIN
[2020-11-22 05:45] LABS: HEMOGLOBIN A1C 6.5 % (4.5-6.2)
--- NOTE | 2020-11-22 06:00 | NUR ---
Patient in room PCU 3027. I have received report from FANG Jordan and had the opportunity to ask questions and assume patient care.
--- NOTE | 2020-11-22 06:10 | NUR ---
Patient in room PCU 3027. I have received report from Julian HEADLEY and had the opportunity to ask questions and assume patient care.
[2020-11-22 06:21] LABS: ANISOCYTOSIS 3+; PLATELET ESTIMATE DECREASED
--- NOTE | 2020-11-22 06:37 | NUR ---
Problems reprioritized. Patient report given, questions answered & plan of care reviewed with Josef HEADLEY.
[2020-11-22 07:00] VITALS: BP 117/51
[2020-11-22] MEDS: budesonide 0.5mg/2ml UD nebule IH SCH (07:01)
[2020-11-22] MEDS: fluconazole-Diflucan 200mg/NS 100 ML IV SCH (07:09)
[2020-11-22] MEDS: K and/or MAG REPLACEMENT MC SCH (08:00)
[2020-11-22] MEDS: docusate sodium 100mg/10ml UD cup OGT SCH ×2 (08:00→08:20)
[2020-11-22] MEDS: enoxaparin 40mg/0.4ml syringe SQ SCH (08:00)
[2020-11-22] MEDS: aspirin 81mg tablet.DR PO SCH (08:15)
[2020-11-22] MEDS: lisinopril 5mg tablet PO SCH (08:16)
[2020-11-22] MEDS: levoTHYROXINE 25mcg tablet OGT SCH (08:16)
[2020-11-22] MEDS: methadone 5mg tablet OGT SCH (08:17)
[2020-11-22] MEDS: gabapentin 100mg capsule OGT SCH ×3 (08:18→16:52)
[2020-11-22] MEDS: lactobacillus rhamnosus 10,000 MMU CELLS/CAPSULE OGT SCH (08:19)
[2020-11-22] MEDS: clopidogrel 75mg tablet OGT SCH (08:19)
[2020-11-22] MEDS: nicotine 21mg patch - 24 hr TD SCH (08:20)
[2020-11-22] MEDS: methylnaltrexone br 12mg/0.6ml inj***SubQ only SQ SCH (08:21)
[2020-11-22] MEDS: methylPREDNISolone sod succ/PF 40mg inj. IV SCH (08:22)
[2020-11-22] MEDS: piperacillin/tazo 3.375gm/50ml 50 ML IV SCH ×3 (08:22→16:06)
[2020-11-22] MEDS: azithromycin 250mg tablet PO SCH (08:22)
[2020-11-22] MEDS: furosemide 20 MG/2 ML vial IV SCH (08:22)
[2020-11-22] MEDS: famotidine/PF 10 mg/ml inj IV SCH (08:23)
[2020-11-22] MEDS: ondansetron 4mg rapidly disintigrating tab OGT PRN ×2 (09:04→17:49)
[2020-11-22] MEDS: nystatin 15 GM powder TP SCH ×2 (09:27→13:00)
[2020-11-22] MEDS: carBAMazepine 100mg chewable tablet PO SCH ×3 (09:53→17:00)
[2020-11-22 11:00] VITALS: BP 110/66
[2020-11-22] MEDS: methadone 5mg tablet PO SCH (12:28)
[2020-11-22 15:00] VITALS: BP 97/52
--- NOTE | 2020-11-22 18:00 | NUR ---
Patient in room PCU 3027. I have received report from Josef HEADLEY and Bhargavi HEADLEY and had the opportunity to ask questions and assume patient care with Per HEADLEY.
--- NOTE | 2020-11-22 18:00 | NUR ---
[place] documentation: I have reviewed and agree with all interventions, assessments performed and documented by Bhargavi Purdy RN.
--- NOTE | 2020-11-22 18:22 | NUR ---
Problems reprioritized. Patient report given, questions answered & plan of care reviewed with FANG Cassidy.
--- NOTE | 2020-11-22 18:24 | NUR ---
Problems reprioritized. Patient report given, questions answered & plan of care reviewed with Per HEADLEY and Ange HEADLEY.
--- NOTE | 2020-11-22 19:30 | NUR ---
Patient stable for discharge per MD orders. Bhargavi RN called report to Elly Santillan RN. Bhargavi HEADLEY discussed follow-up and discharge plan with patient. Patient transported on NRB mask 15L O2. pvc monitor discontinued. Discharge paperwork sent with patient, belongings collected and sent with patient. Patient transported to [facility] via EMS.
[2020-11-22] MEDS ORDERED: methylPREDNISolone sod succ/PF 40mg inj. IV SCH (20:00)
--- NOTE | 2020-11-22 22:21 | NUR ---
[facility]ee documentation: I have reviewed and agree with all interventions, assessments performed and documented by Ange HEADLEY.
== END 2020-11-22 19:30 | DRG 207 ==
LOC: ER 16:53 → ED HOLD 19:38 → ORTHO 4S 22:08 → PCU 3S 23:24 → CICU 2S 23:55 → PCU 3S 11-17 14:54
PROVIDERS: ADMIT Family Medicine; ATTEND Family Medicine
PROC: BW211ZZ Computerized Tomography (CT Scan) of Abdomen and Pelvis using Low Osmolar Contrast (ICD-10-PCS; 2020-10-28)
PROC: 5A1955Z Respiratory Ventilation, Greater than 96 Consecutive Hours (ICD-10-PCS; principal; 2020-10-29)
PROC: 0BH17EZ Insertion of Endotracheal Airway into Trachea, Via Natural or Artificial Opening (ICD-10-PCS; 2020-10-29)
PROC: 0DH67UZ Insertion of Feeding Device into Stomach, Via Natural or Artificial Opening (ICD-10-PCS; 2020-10-31)
PROC: 3E0G76Z Introduction of Nutritional Substance into Upper GI, Via Natural or Artificial Opening (ICD-10-PCS; 2020-10-31)
PROC: 02HV33Z Insertion of Infusion Device into Superior Vena Cava, Percutaneous Approach (ICD-10-PCS; 2020-11-08)
PROC: B548ZZA Ultrasonography of Superior Vena Cava, Guidance (ICD-10-PCS; 2020-11-08)
PROC: 0B9L7ZX Drainage of Left Lung, Via Natural or Artificial Opening, Diagnostic (ICD-10-PCS; 2020-11-10)
PROC: 5A09557 Assistance with Respiratory Ventilation, Greater than 96 Consecutive Hours, Continuous Positive Airway Pressure (ICD-10-PCS; 2020-11-14)
DX: J96.21 Acute and chronic respiratory failure with hypoxia (principal); J15.0 Pneumonia due to Klebsiella pneumoniae; I50.43 Acute on chronic combined systolic (congestive) and diastolic (congestive) heart failure; J44.0 Chronic obstructive pulmonary disease with (acute) lower respiratory infection; J44.1 Chronic obstructive pulmonary disease with (acute) exacerbation; I13.0 Hypertensive heart and chronic kidney disease with heart failure and stage 1 through stage 4 chronic kidney disease, or unspecified chronic kidney disease; T39.1X1A Poisoning by 4-Aminophenol derivatives, accidental (unintentional), initial encounter; E03.9 Hypothyroidism, unspecified; E66.01 Morbid (severe) obesity due to excess calories; E78.5 Hyperlipidemia, unspecified; F17.210 Nicotine dependence, cigarettes, uncomplicated; G40.909 Epilepsy, unspecified, not intractable, without status epilepticus; I25.10 Atherosclerotic heart disease of native coronary artery without angina pectoris; G47.33 Obstructive sleep apnea (adult) (pediatric); G89.29 Other chronic pain; I27.29 Other secondary pulmonary hypertension; I48.91 Unspecified atrial fibrillation; E11.22 Type 2 diabetes mellitus with diabetic chronic kidney disease; N18.9 Chronic kidney disease, unspecified; Z20.822 Contact with and (suspected) exposure to COVID-19; Z79.891 Long term (current) use of opiate analgesic; Z82.49 Family history of ischemic heart disease and other diseases of the circulatory system; I25.2 Old myocardial infarction; Z82.5 Family history of asthma and other chronic lower respiratory diseases; Z83.3 Family history of diabetes mellitus; Z86.73 Personal history of transient ischemic attack (TIA), and cerebral infarction without residual deficits; Z95.2 Presence of prosthetic heart valve; Z99.81 Dependence on supplemental oxygen; Z79.899 Other long term (current) drug therapy; Z79.82 Long term (current) use of aspirin; Z80.42 Family history of malignant neoplasm of prostate
CPT/HCPCS: 31645; 36415; 36573; 36600; 71045; 71275; 74177; 76700; 80048; 80053; 80076; 80156; 80305; 80329; 81001; 81025; 82140; 82803; 82948; 83036; 83605; 83690; 83735; 83880; 84100; 84132; 84134; 84145; 84146; 84443; 84478; 84484; 85007; 85008; 85018; 85025; 85379; 85610; 85730; 86705; 86709; 86803; 87040; 87070; 87077; 87081; 87088; 87186; 87426; 87635; 92508; 92950; 93005; 93306; 93971; 94002; 94003; 94640; 94660; 94760; 94799; 96374; 97110; 97112; 97161; 97530; 97535; 99285; G0378; J0696; J1450; J1650; J1815; J1940; J2060; J2212; J2270; J2543; J2704; J2920; J2930; J3010; J3475; J3480; J3490; J7030; J7512; J7626; P9045; Q9967

== ENCOUNTER 2021-04-11 19:26 | Emergency (ER) | payer MEDICARE, MEDICAID ==
[~2021-04-11] VITALS: Ht 165.1 cm; Wt 115.0 kg
[~2021-04-11 19:26] MED LIST changes: -BUME1TAB8 PO; -COMP1EAC86; +FLO110IN PO; -IPRA3AMP9 NEB; +TORS20TA3 PO
[2021-04-11 19:55] VITALS: BP 153/104
[2021-04-11] MEDS ORDERED: CEPH-585 PO (20:47)
--- NOTE | 2021-04-11 21:56 | NUR ---
PT WAS SEEN, TREATED AND DC'D BY MD PRIOR TO HEAD TO TOE ASSESSMENT
== END 2021-04-11 21:57 | disposition home or self-care (01) ==
LOC: ER 19:27
DX: T23.021A Burn of unspecified degree of single right finger (nail) except thumb, initial encounter (principal); T31.0 Burns involving less than 10% of body surface; I25.10 Atherosclerotic heart disease of native coronary artery without angina pectoris; I50.9 Heart failure, unspecified; I25.2 Old myocardial infarction; J44.9 Chronic obstructive pulmonary disease, unspecified; G89.29 Other chronic pain; Z86.73 Personal history of transient ischemic attack (TIA), and cerebral infarction without residual deficits; Z79.82 Long term (current) use of aspirin; Z79.2 Long term (current) use of antibiotics; Z79.899 Other long term (current) drug therapy; X58.XXXA Exposure to other specified factors, initial encounter; Y93.89 Activity, other specified; Y92.89 Other specified places as the place of occurrence of the external cause; Y99.8 Other external cause status
CPT/HCPCS: 16000; 99283

== ENCOUNTER 2021-06-04 12:12 | Emergency (ER) | payer MEDICARE, MEDICAID ==
[~2021-06-04] VITALS: Ht 162.6 cm; Wt 95.5 kg
[~2021-06-04 12:12] MED LIST changes: +CHOL500050 PO; +FURO20TA4 PO; -IPRA3AMP31 IH; -LORA-269 PO; +MAGN64TA10 PO; +META-25 PO; +NICO-687 TOP; +PANT40TA54 PO; -POLY17PO10 PO; -POTA10TA19 PO; +SENN8.6T19 PO; -TIOT4MIS3 PO; -TORS20TA3 PO
--- NOTE | 2021-06-04 12:17 | NUR ---
nan(daughter) [phone] please contact with updates when available
[2021-06-04] MEDS ORDERED: methadone 10mg tablet PO ONE (14:05)
[2021-06-04 14:35] LABS: ABG BASE EXCESS 17.3 mmol/L (-2.0-2.0); ABG HCO3 45.5 mmol/L (22.0-26.0); ABG OXYGEN SATURATION 90.8 % (94-97); ABG PCO2 (T) 67.3 mmHg (32.0-45.0); ABG PO2 (T) 59.6 mmHg (75.0-100.0); ALLEN'S TEST POSITIVE; FCOHb 1.6 % (0.0-3.9); FLOW 2 L/min; FMetHb 0.2 % (0.0-1.5); FO2Hb 89.2 % (94-97); TOTAL HEMOGLOBIN 15.6 G/dl (12.0-16.0)
[2021-06-04 17:21] LABS: ABG BASE EXCESS 16.2 mmol/L (-2.0-2.0); ABG HCO3 44.6 mmol/L (22.0-26.0); ABG OXYGEN SATURATION 97.5 % (94-97); ABG PCO2 (T) 68.2 mmHg (32.0-45.0); ABG PO2 (T) 94.9 mmHg (75.0-100.0); ALLEN'S TEST POSITIVE; FCOHb 1.6 % (0.0-3.9); FMetHb 0.3 % (0.0-1.5); FO2Hb 95.6 % (94-97); RESPIRATORY RATE 8 b/min; TOTAL HEMOGLOBIN 15.5 G/dl (12.0-16.0)
[2021-06-04 19:00] VITALS: BP 122/87
[2021-06-04 20:02] LABS: BASOPHILS # (AUTO) 0.1 X10'3 (0-0.2); BASOPHILS % (AUTO) 0.7 % (0-1); EOSINOPHILS % (AUTO) 0 % (0-6); HEMATOCRIT 46.8 % (35.0-45.0); HEMOGLOBIN 15.1 g/dl (12.0-16.0); LYMPHOCYTES # (AUTO) 1.8 X10'3 (1.1-4.8); MEAN CORPUSCULAR HEMOGLOBIN 27.5 PG (27.0-31.0); MEAN CORPUSCULAR HGB CONC 32.3 g/dL (33.0-36.5); MEAN CORPUSCULAR VOLUME 85.3 FL (78-98); MEAN PLATELET VOLUME 7.8 FL (7.4-10.4); MONOCYTES # (AUTO) 0.7 X10'3 (0-0.9); MONOCYTES % (AUTO) 6.7 % (2-12); NEUTROPHILS # (AUTO) 7.3 X10'3 (1.8-7.7); NEUTROPHILS % (AUTO) 74.6 % (42-75); PLATELET COUNT 268 X10'3 (140-440); RED BLOOD COUNT 5.49 X10'6 (4.20-5.60); RED CELL DISTRIBUTION WIDTH 18.7 % (11.5-14.5); WHITE BLOOD COUNT 9.8 X10'3 (4.5-11.0)
[2021-06-04 20:14] LABS: ALANINE AMINOTRANSFERASE 26 U/L (12-78); ALBUMIN 3.2 G/DL (3.4-5.0); ALBUMIN/GLOBULIN RATIO 0.8 (1.1-1.5); ALKALINE PHOSPHATASE 145 IU/L (46-116); ASPARTATE AMINO TRANSFERASE 18 U/L (10-37); BILIRUBIN,TOTAL 0.5 MG/DL (0.1-1.0); BLOOD UREA NITROGEN 17 MG/DL (7-18); CALCIUM 8.7 MG/DL (8.5-10.1); CHLORIDE 90 MMOL/L (99-107); CREATININE 0.63 MG/DL (0.40-0.90); GLUCOSE 133 MG/DL (70-104); POTASSIUM 3.2 MMOL/L (3.5-5.1); SODIUM 138 MMOL/L (135-145); TOTAL PROTEIN 7.1 G/DL (6.4-8.2); eGFR > 90 ML/MIN
[2021-06-04 20:34] LABS: PLATELET ESTIMATE NORMAL
[2021-06-04 20:35] LABS: ANISOCYTOSIS 2+; TARGET CELLS FEW
[2021-06-04 20:41] LABS: ANION GAP 5 (8-16); HYPOCHROMASIA 1+; POLYCHROMASIA 1+
[2021-06-04 20:42] LABS: STOMATOCYTES FEW
[2021-06-04 20:46] LABS: TOTAL CARBON DIOXIDE 43.2 MMOL/L (24-32)
== END 2021-06-04 22:44 ==
LOC: ER 12:12
DX: J44.9 Chronic obstructive pulmonary disease, unspecified (principal); G89.4 Chronic pain syndrome; I35.0 Nonrheumatic aortic (valve) stenosis; I25.10 Atherosclerotic heart disease of native coronary artery without angina pectoris; I27.20 Pulmonary hypertension, unspecified; I50.9 Heart failure, unspecified; I25.2 Old myocardial infarction; G47.30 Sleep apnea, unspecified; Z95.0 Presence of cardiac pacemaker; Z79.899 Other long term (current) drug therapy; Z79.82 Long term (current) use of aspirin
CPT/HCPCS: 36415; 36600; 71045; 80053; 82803; 85008; 85018; 85025; 94660; 99284